=== PATIENT | male | born 1960 | race Hispanic/Latino ===

== ENCOUNTER 2022-03-01 17:50 | Inpatient (IN) | payer OTHER ==
--- OUTSIDE RECORDS SUMMARY | 2022-03-01 17:53 | XMS REPORT | Continuity of Care Document ---
:1960 Author Organization [facility] t Address [address] [place] [address] Care Team Providers Name Role Phone STEVE ALVAREZ Primary Care Physician Unavailable SHELBY MARRERO Attending Clinician Unavailable Vanessa Francis Attending Clinician VANESSA VELASQUEZ Attending Clinician Unavailable Payers Payer Name Policy Type Policy Number Effective Date Expiration Date [facility] [id number] HEALTH Problems Condition Condition Condition Status Onset Resolution Last Treating Co mments Source Name Details Category Date Date Treatment Clinician Date No known No known Disease Unive rs active active ity of problems problems [facility] Allergies, Adverse Reactions, Alerts Allergy Allergy Status Severity Reaction(s) Onset Inactive Treating Comm ents Source Name Type Date Date Clinician NO KNOWN Drug Active [facility] ALLERGIE Class ity of S [facility] Social History Social Habit Start Date Stop Date Quantity Comments Source Sex Assigned At [birth year] [facility] 00:00:00 00:00:00 [facility] Branch Smoking Status Start Date Stop Date Source Tobacco smoking consumption [facility] Branch Medications Ordered Filled Start Stop Current Ordering Indication Dosage Frequency Signature Comments Components Source Medication Medication Date Date Medication? Clinician (SIG) Name Name fluconazole No 150mg 150 mg, U nivers (DIFLUCAN) 02-26 Oral, ONCE it y of tablet 150 16:45: 16:06 [place] :00 dose, On Medical e Branch 02/26/22 at 1145, LUCIA
Re ason for Anti-Infec tive: Documented Infection< br>Documen cachorro Infection Site: Urine
D uration of Therapy: 7 days FENTanyl PF No 100ug 100 mcg, Univers (SUBLIMAZE 02-26 Intramuscu it y of (PF)) 14:45: 14:45 lar, ONCE, [place] injection 00 :00 1 dose, On Medi nick 100 mcg Tue Branch 02/26/22 at 0945, STAT lidocaine 5 2021- Yes [id number] 1{patch Apply 1 Univers % (700 02-26 } Patch to ity of mg/patch) 00:00: 04:59 area(s[place] patch 00 :00 (two) Medical times Branch daily as needed for Localized pain for up to 15 days. Remove previous patch before applying new patch Immunizations Ordered Filled Immunization Date Status Comments Sourc e Immunization Name Name SARS-COV-2 COVID-19 2020-10-08 Completed Unive rsity of MODERNA VACCINE 00:00:00 [facility] SARS-COV-2 COVID-19 2020-09-10 Completed Unive rsity of MODERNA VACCINE 00:00:00 [facility] Vital Signs Vital Name Observation Time Observation Value Comments Source Systolic blood 2022-02-26 14:03:00 145 mm[Hg] Univer sity of pressure [facility] Diastolic blood 2022-02-26 14:03:00 91 mm[Hg] Unive rsity of pressure [facility] Heart rate 2022-02-26 14:03:00 93 /min [facility] Body temperature 2022-02-26 14:03:00 36.83 [facility] Respiratory rate 2022-02-26 14:03:00 18 /min [facility] Oxygen saturation in 2022-02-26 14:03:00 97 /min [facility] Arterial blood by [facility] Pulse oximetry [place] Procedures Procedure Date / Time Performed Performing Clinician Sour e URINALYSIS 2022-02-26 14:45:00 Vanessa Velasquez [facility] NOTICE OF PRIVACY 2022-02-26 14:06:23 Doctor Unassigned, No [facility] [place] PRACTICES Name Medical Branch CONSENT/REFUSAL FOR 2022-02-26 13:59:02 Doctor Unassigned, No [facility] [place] DIAGNOSIS AND Name Medical Branch TREATMENT Encounters Start End Encounter Admission Attending Care Care Encounter Source Date/Time Date/Time Type Type Clinicians Facility Department ID 2022-03-01 2022-03-01 Outpatient AMINAH MARRERO [facility] [id number] [facility] 12:54:19 14:05:21 SHELBY Harper Medicin e 2022-02-26 2022-02-[address] [facility] [id number] Univers 09:10:00 11:09:00 Vanessa COTE [id number] i ty JIGAR [id number] [facility] [id number] [facility] 084 Branch 2022-02-26 2022-02-26 Emergency X EVA [facility] ERT [id number] Univers 09:10:00 11:09:00 VANESSA [facility] Results This patient has no known results.
[2022-03-01 18:54] LABS: Absolute Lymphocytes (CBC) 0.7 K/uL (0.7-4.9); Hematocrit 38.3 % (39.6-49.0); Lymphocytes % 18.2 % (15.3-44.8); MCV 85.9 fL (80-100); MPV 5.9 fL (7.6-11.3); RBC Red Blood Cell Count 4.46 M/uL (4.33-5.43)
[2022-03-01 18:57] LABS: Protime INR 1.06
[2022-03-01] MEDS ORDERED: FENTANYL CITR 100 MCG/2 ML ONE (19:01)
[2022-03-01 19:14] LABS: Albumin 3.7 g/dL (3.4-5.0); Bilirubin Direct 0.2 mg/dL (0-0.2); Magnesium 2.2 mg/dL (1.8-2.4); Potassium 3.7 mmol/L (3.5-5.1); Protein, Total 7.1 g/dL (6.4-8.2); Troponin High Sensitivity 9.2 pg/mL (<58.9)
--- NOTE | 2022-03-01 20:35 | RAD REPORT ---
EXAM DESCRIPTION: CT - Abdomen Pelvis W Contrast - 03/01/2022 8:10 pm CLINICAL HISTORY: Prostate cancer with back pain COMPARISON: December 2021 TECHNIQUE: Computed axial tomography of the abdomen pelvis was obtained. 100 cc Isovue-300 was admin istered intravenously. Oral contrast was not requested which limits evaluation of bowel and appendix All CT scans are performed using dose optimization technique as appropriate and may include automated exposure control or mA/KV adjustment according to patient size. FINDINGS: Stable small low-density hepatic lesions. Spleen, pancreas, right adrenal adrenal and kidneys appear unremarkable. A 2.5 centimeter left adrenal mass has enlarged. It previously measured 2 centimeters There is no evidence of diverticulitis. T11 left paraspinal mass is minimally enlarged. There probably is extension into the anterior left as pect of the thecal sac although the evaluation is somewhat limited on CT compared to MRI. Extensive bony metastases. Some are stable. Others are mildly increased in size IMPRESSION: 2.5 centimeter left adrenal mass has enlarged compatible with a metastasis Mild overall progression in extensive bony metastases Minimal enlargement of a T11 left paraspinal mass
[2022-03-01] MEDS ORDERED: HYDROMORPHONE HCL 1 MG/ML INJ ONE (20:58)
--- NOTE | 2022-03-01 22:42 | EDPHYS ---
Physician Documentation [facility] Name: Fito Alva Age: 61 yrs Sex: Male : 1960 Arrival Date: 03/01/2022 Time: 17:54 Bed 27 Private MD: Diana Jones; Robert Cunningham ED Physician Alec Taylor HPI: 03/01 18:10 This 61 yrs old Male presents to ER via Wheelchair with complaints of Low Back cp Pain. 18:10 The patient presents with pain that is acute, with no known mechanism of injury. cp 18:10 The symptoms are located in the low back. Onset: The symptoms/episode began/occurred 3 cp day(s) ago. The pain does not radiate. Associated signs and symptoms: Pertinent positives: left leg and right leg weakness, Pertinent negatives: abdominal pain, chest pain, constipation, dysuria, fever, incontinence, numbness, urinary retention. The problem was sustained patient with history of stage 4 prostate CA with bony metastasis. Severity of symptoms: in the emergency department the symptoms are unchanged, despite home interventions. Historical: - Allergies: 18:00 No Known Allergies; bm7 - Home Meds: 18:00 Unable to obtain [Active]; bm7 - PMHx: 18:00 prostate cancer with mets to the bone; bm7 - PSHx: 18:00 None; bm7 - Immunization history:: Adult Immunizations up to date. - Social history:: Smoking status: Patient/guardian denies using tobacco products. ROS: 18:15 Constitutional: Negative for body aches, chills, fever, poor PO intake. cp 18:15 Cardiovascular: Negative for chest pain, palpitations. cp 18:15 Respiratory: Negative for cough, shortness of breath, wheezing. 18:15 Abdomen/GI: Negative for abdominal pain, nausea, vomiting, and diarrhea. 18:15 Back: Positive for pain at rest, pain with movement, of the lumbar area. 18:15 : Negative for urinary symptoms, burning with urination, bladder incontinence, testicular pain 18:15 Skin: Negative for cellulitis, rash. 18:15 Neuro: Positive for weakness, of the right leg and left leg, Negative for altered mental status, dizziness, headache, numbness, syncope. Exam: 18:20 Constitutional: The patient appears in no acute distress, alert, awake, cp non-diaphoretic, non-toxic, well developed, well nourished, uncomfortable. 18:20 Head/Face: Normocephalic, atraumatic. cp 18:20 Eyes: Periorbital structures: appear normal, Conjunctiva: normal, no exudate, no injection, Sclera: no appreciated abnormality, Lids and lashes: appear normal, bilaterally. 18:20 ENT: External ear(s): are unremarkable, Nose: is normal, Mouth: Lips: moist, Oral mucosa: moist. 18:20 Neck: ROM/movement: is normal, is supple, without pain, no range of motions limitations, no meningismus. 18:20 Chest/axilla: Inspection: normal, Palpation: is normal, no crepitus, no tenderness. 18:20 Cardiovascular: Rate: normal, Rhythm: regular, Edema: is not appreciated, JVD: is not appreciated. 18:20 Respiratory: the patient does not display signs of respiratory distress, Respirations: normal, no use of accessory muscles, no retractions, labored breathing, is not present, Breath sounds: are clear throughout, no decreased breath sounds, no stridor, no wheezing. 18:20 Abdomen/GI: Inspection: abdomen appears normal, Bowel sounds: active, all quadrants, Palpation: abdomen is soft and non-tender, in all quadrants. 18:20 Back: pain, that is severe, of the lumbar area, ROM is painful, with all movement, Straight leg raises: of both lower extremities does not illicit pain. 18:20 Neuro: Orientation: to person, place \T\ time. Mentation: is normal, Motor: strength is 4/5 in the right leg and left leg, Sensation: is normal. 18:37 ECG was reviewed by the Attending Physician. cp Vital Signs: 17:58 BP 119 / 87; Pulse 86; Resp 16; Temp 98.7(TE); Pulse Ox 99% on R/A; Weight 102.06 kg bm7 (R); Height 5 ft. 7 in. (170.18 cm); Pain 10/10; 20:00 BP 117 / 78; Pulse 72; Resp 18; Pain 7/10; kb3 21:00 BP 117 / 78; Pulse 96; Resp 20; Pulse Ox 95% ; Pain 0/10; kb3 22:00 BP 101 / 73; Pulse 86; Resp 18; Pulse Ox 95% ; Pain 0/10; kb3 17:58 Body Mass Index 35.24 (102.06 kg, 170.18 cm) bm7 MDM: 18:04 Patient medically screened. nany 19:00 Differential diagnosis: chronic back pain, Metastatic Disease ruptured disc, spinal cp injury, sprain, Ureterolithiasis vertebral fracture. 20:05 Data reviewed: vital signs, nurses notes. 03/01 18:28 Order name: Basic Metabolic Panel; Complete Time: 21:08 cp 03/01 18:28 Order name: CBC with Diff; Complete Time: 21: cp 03/01 18:28 Order name: LFT's; Complete Time: 21: cp 03/01 18:28 Order name: Magnesium; Complete Time: 21:08 cp 03/01 18:28 Order name: NT PRO-BNP; Complete Time: 21:08 cp 03/01 18:28 Order name: PT-INR; Complete Time: 21: cp 03/01 18:28 Order name: Troponin HS; Complete Time: 21:08 cp 03/01 18:28 Order name: Urine Microscopic Only 03/02 03:34 Order name: CBC with Automated Diff; Complete Time: 08:09 EDMS 03/02 03:47 Order name: Basic Metabolic Panel; Complete Time: 08:09 EDMS 03/02 09:16 Order name: SARS RAPID eb 03/02 11:26 Order name: SARS-COV-2 Antigen Rapid EDMS 03/03 03:16 Order name: CBC with Automated Diff EDHI 03/03 03:26 Order name: Basic Metabolic Panel EDHI 03/01 18:28 Order name: EKG; Complete Time: 18:29 cp 03/01 18:28 Order name: Cardiac monitoring; Complete Time: 18:32 cp 03/01 18:28 Order name: EKG - Nurse/Tech; Complete Time: 18:48 cp 03/01 18:28 Order name: IV Saline Lock; Complete Time: 18:48 cp 03/01 18:28 Order name: Labs collected and sent; Complete Time: 18:48 cp 03/01 18:28 Order name: O2 Per Protocol; Complete Time: 18:32 cp 03/01 18:28 Order name: O2 Sat Monitoring; Complete Time: 18:32 cp 03/01 18:28 Order name: Bladder Scanner: pre and post void; Complete Time: 18:48 cp 03/01 18:52 Order name: CT Abd/Pelvis - IV Contrast Only; Complete Time: 21:08 cp 03/02 15:39 Order name: RAD EDMS EC:37 Rate is 76 beats/min. Rhythm is regular. NH interval is normal. QRS interval is normal. cp QT interval is normal. T waves are Inverted in lead aVR. Interpreted by me. Reviewed by me. Administered Medications: 19:03 Drug: fentaNYL (PF) 25 mcg Route: IVP; Site: right antecubital; kb3 19:20 Follow up: Response: No adverse reaction; Pain is decreased kb3 20:02 Follow up: Response: No adverse reaction; Pain is decreased kb3 21:02 Drug: Dilaudid (HYDROmorphone) 1 mg Route: IVP; Site: right antecubital; kb3 Disposition Summary: 03/01/22 22:41 Hospitalization Ordered Hospitalization Status: Inpatient Admission kdr Provider: Robert Cunningham Condition: Fair kdr Problem: new kdr Symptoms: are unchanged kdr Bed/Room Type: Standard kdr Location: Telemetry/MedSurg (Inpatient)(03/03/22 16:30) hb Room Assignment: 401(03/03/22 16:30) hb Diagnosis - Weakness kdr - Metastatic Prostate CA w/ bone/spine mets kdr Forms: - Medication Reconciliation Form kdr - SBAR form kdr Addendum: 03/08/2022 06:39 Co-signature as Attending Physician, Alec trejo dr Signatures: Dispatcher [employer] EDHI Bryce Archibald MD MD cha Rittger, Kevin, MD MD kdr Page, Corey, PA PA cp Angela Thomas RN RN Stephanie Salazar RN RN Agnes Davidson, Alicia Lofton RN RN RN kb3 Corrections: (The following items were deleted from the chart) 03/01 18:01 18:00 Allergies: No Known Allergies; bm7 bm7 18:01 18:00 Allergies: Aspirin; bm7 bm7 20:09 20:07 This 61 yrs old Male presents to ER via Wheelchair with complaints of cp Low Back Pain. cp 23:27 22:41 Telemetry/MedSurg (Inpatient) kdr cg : 22:41 kdr cg 03/03 16:30 03/01 23:27 [facility] ER HOLD cg hb 03/03 16:03/01 23:27 ERHOLD- cg hb
--- NOTE | 2022-03-01 22:42 | ER ---
Nurse's Notes [facility] Name: Fito Alva Age: 61 yrs Sex: Male : 1960 Arrival Date: 03/01/2022 Time: 17:54 Bed 27 Private MD: Diana Jones; Robert Cunninghma Diagnosis: Weakness;Metastatic Prostate CA w/ bone/spine mets Presentation: 03/01 17:58 Chief complaint: Patient's son or daughter states: Dr. Brownlee told us to come to the ER bm7 after we saw her yesterday. He has been having trouble walking or standing due to pain. Coronavirus screen: At this time, the client does not indicate any symptoms associated with coronavirus-19. Ebola Screen: No symptoms or risks identified at this time. Initial Sepsis Screen: Does the patient meet any 2 criteria? No. Patient's initial sepsis screen is negative. Does the patient have a suspected source of infection? No. Patient's initial sepsis screen is negative. Risk Assessment: Do you want to hurt yourself or someone else? Patient reports no desire to harm self or others. Onset of symptoms is unknown. 17:58 Method Of Arrival: Wheelchair bm7 17:58 Acuity: JOSE A 3 bm7 Triage Assessment: 18:00 General: Appears in no apparent distress. Behavior is calm, cooperative, appropriate bm7 for age. Pain: Complains of pain in left low back and right low back Pain does not radiate. Pain currently is 10 out of 10 on a pain scale. EENT: No deficits noted. No signs and/or symptoms were reported regarding the EENT system. Neuro: Level of Consciousness is awake, alert, obeys commands, Oriented to person, place, time, Gait is unsteady. Cardiovascular: No deficits noted. Respiratory: No deficits noted. GI: No deficits noted. No signs and/or symptoms were reported involving the gastrointestinal system. : No deficits noted. No signs and/or symptoms were reported regarding the genitourinary system. Derm: No deficits noted. No signs and/or symptoms reported regarding the dermatologic system. Musculoskeletal: Reports weakness in back, right leg and left leg pain in back. Historical: - Allergies: 18:00 No Known Allergies; bm7 - Home Meds: 18:00 Unable to obtain [Active]; bm7 - PMHx: 18:00 prostate cancer with mets to the bone; bm7 - PSHx: 18:00 None; bm7 - Immunization history:: Adult Immunizations up to date. - Social history:: Smoking status: Patient/guardian denies using tobacco products. Screenin:15 Abuse screen: Denies threats or abuse. Denies injuries from another. Nutritional kb3 screening: No deficits noted. Tuberculosis screening: No symptoms or risk factors identified. Fall Risk Fall in past 12 months (25 points). Secondary diagnosis (15 points) impaired mobility, IV access (20 points). Ambulatory Aid- Crutches/Cane/Walker (15 pts). Gait- Impaired (20 pts.). Mental Status- Oriented to own ability (0 pts). Total Vera Fall Scale indicates High Risk Score (45 or more points). Fall prevention measures have been instituted. Side Rails Up X 2 Placed Close to Nursing Station Frequent Obs/Assessments Occuring Family Present and informed to notify staff if the need to leave the bedside As available patient and family educated on Fall Prevention Program and Strategies. Assessment: 18:15 Reassessment: No changes from previously documented assessment. kb3 18:15 General: Appears in no apparent distress. uncomfortable, obese, well groomed, Behavior 3 is calm, cooperative. Pain: Complains of pain in low back area, right flank and right low back Pain radiates to right hamstring, posterior aspect of right knee, right calf, right Achilles and right heel. 18:15 General: Received care of pt from [facility]. Assisted pt to stretcher. Pt's daughter's at [facility] bedside report that pt has prostate cancer with mets to the bones in his back. Reports pt has been experiencing severe lower back pain, worse on the right, x2 weeks that radiates down his right leg. States he has been unable to stand and walk unassisted x several days. Pt reports that when lying still, he does feels only very mild pain but with any movement at all the pain is 10/10. 21:44 Musculoskeletal: Range of motion: limited in left knee and right knee Reports weakness tw5 in right leg and left leg numbness in right leg and left leg Patient states that he is unable to lift his legs without grabbing his shorts to assist himself. Describes his legs has heavy. Vital Signs: 17:58 BP 119 / 87; Pulse 86; Resp 16; Temp 98.7(TE); Pulse Ox 99% on R/A; Weight 102.06 kg bm7 (R); Height 5 ft. 7 in. (170.18 cm); Pain 10/10; 20:00 BP 117 / 78; Pulse 72; Resp 18; Pain 7/10; kb3 21:00 BP 117 / 78; Pulse 96; Resp 20; Pulse Ox 95% ; Pain 0/10; kb3 22:00 BP 101 / 73; Pulse 86; Resp 18; Pulse Ox 95% ; Pain 0/10; kb3 17:58 Body Mass Index 35.24 (102.06 kg, 170.18 cm) bm7 ED Course: 17:54 Patient arrived in ED. as 17:56 Robert Cunningham MD is Private Physician. as 17:56 Diana Jones MD is Private Physician. as 17:59 [facility] cp 17:59 Bryce Archibald MD is Attending Physician. cp 18:00 Triage completed. bm7 18:00 Arm band placed on left wrist. bm7 18:17 Alicia Wright RN is Primary Nurse. kb3 18:30 Client placed on continuous cardiac and pulse oximetry monitoring. NIBP monitoring kb3 applied. 18:30 Warm blanket given. kb3 18:30 No provider procedures requiring assistance completed. kb3 18:49 Patient has correct armband on for positive identification. Placed in gown. Bed in low kb3 position. Call light in reach. Side rails up X2. Adult w/ patient. 18:49 Inserted saline lock: 20 gauge in right antecubital area, using aseptic technique. kb3 Blood collected. 18:51 EKG done, by ED staff, reviewed by Bryce BANEGAS. em1 20:[address] kb3 20:12 CT Abd/Pelvis - IV Contrast Only In Process Unspecified. EDMS 21:07 Attending Physician role handed off by Bryce Archibald MD kdr 21:07 Alec Taylor MD is Attending Physician. kdr 22:40 Robert Cunningham MD is Hospitalizing Provider. kdr 22:48 Report given to Rickey HIGH. kb3 08/20 08:30 Primary Nurse role handed off by Alicia Wright, RN jl7 Administered Medications: 03/01 19:03 Drug: fentaNYL (PF) 25 mcg Route: IVP; Site: right antecubital; kb3 19:20 Follow up: Response: No adverse reaction; Pain is decreased kb3 20:02 Follow up: Response: No adverse reaction; Pain is decreased kb3 21:02 Drug: Dilaudid (HYDROmorphone) 1 mg Route: IVP; Site: right antecubital; kb3 Medication: 18:15 VIS not applicable for this client. kb3 Outcome: 22:41 Decision to Hospitalize by Provider. kdr 03/03 17:52 Patient left the ED. tp1 Signatures: Dispatcher [employer] EDMS Alec Taylor MD MD kdr Martinez, Amelia as Martinez, Eric em1 Bryce Crabtree PA PA cp Leal, Jahala, RN RN jl7 Agnes Davidson RN RN bm7 Ginna Benz tw5 Ginna Abdi RN RN tp1 Alicia Wright, RN RN kb3 Corrections: (The following items were deleted from the chart) 03/01 18:01 18:00 Allergies: No Known Allergies; bm7 bm7 18:01 18:00 Allergies: Aspirin; bm7 bm7
[2022-03-01] MEDS ORDERED: ACETAMINOPHEN 500 MG TAB PO PRN (23:50)
[2022-03-02 03:30] LABS: Absolute Lymphocytes (CBC) 0.8 K/uL (0.7-4.9); Hematocrit 35.7 % (39.6-49.0); Lymphocytes % 20.1 % (15.3-44.8); MPV 6.2 fL (7.6-11.3)
[2022-03-02 03:47] LABS: Potassium 3.6 mmol/L (3.5-5.1)
--- NOTE | 2022-03-02 08:56 | EKG ---
Test Date: 2022-03-01 Test Time: 18:32:03 Order Booker: IVAN MEASUREMENT RESULTS: Intervals: Rate: 76 TN: 142 QRSD: 78 QT: 374 QTc: 420 Tyler: P: 55 TN: 142 QRS: 26 T: 71 INTERPRETIVE STATEMENTS: Normal sinus rhythm Normal ECG No previous ECG available for comparison Electronically Signed On 03-02-22 08:55:47 CDT by Desmond Sierra
[2022-03-02 11:25] LABS: SARS-CoV-2 Antigen Rapid Res Negative (Negative)
[2022-03-02] MEDS: HYDROMORPHONE HCL 1 MG/ML INJ IV PRN ×2 (12:00→19:08)
[2022-03-02] MEDS: ONDANSETRON 4 MG/2 ML VIAL IV PRN (12:00)
[2022-03-02] MEDS ORDERED: HYDROMORPHONE HCL 1 MG/ML INJ ONE ×2 (12:13→19:17)
[2022-03-02] MEDS ORDERED: ONDANSETRON 4 MG/2 ML VIAL ONE (12:13)
[2022-03-02] MEDS: ENOXAPARIN 30 MG/0.3 ML SQ SCH (14:50)
[2022-03-02] MEDS: D5 0.9 NS 1,000 ML IV SCH (14:51)
[2022-03-02] MEDS: DOCUSATE NA 100 MG CAP PO PRN (14:52)
--- NOTE | 2022-03-02 15:39 | RAD REPORT ---
EXAM DESCRIPTION: RAD - Hip Right 2 View - 03/02/2022 3:17 pm CLINICAL HISTORY: Right hip pain COMPARISON: Hip Right 2 View dated 12/06/2020; Abdomen Pelvis W Contrast dated 03/01/2022 FINDINGS: AP and frog-leg views of the right hip were obtained. No dislocation of the proximal femoral head. Femoral head degenerative changes are present. No proxim al femur fracture seen. Patient has known extensive bony metastatic disease. Cortical and periosteal reactive changes superio r to the acetabulum are not clearly different from the recent CT study. AVN of the femoral head is no t suspected. Degenerative spurring changes are seen along the acetabular rim. IMPRESSION: Degenerative and metastatic changes are present at the right hip joint and right hemipel vis as detailed. No change seen from the prior day CT study.
[2022-03-02] MEDS: HYDROCODONE/APAP 7.5/325 MG TAB PO PRN (15:50)
[2022-03-02] MEDS ORDERED: HYDROCODONE/APAP 7.5/325 MG TAB ONE (15:52)
[2022-03-03] MEDS: HYDROMORPHONE HCL 1 MG/ML INJ IV PRN ×4 (00:15→19:54)
[2022-03-03] MEDS: ONDANSETRON 4 MG/2 ML VIAL IV PRN ×2 (00:16→19:55)
[2022-03-03] MEDS ORDERED: ONDANSETRON 4 MG/2 ML VIAL ONE (00:22)
[2022-03-03] MEDS ORDERED: HYDROMORPHONE HCL 1 MG/ML INJ ONE ×2 (00:22→07:57)
[2022-03-03] MEDS: D5 0.9 NS 1,000 ML IV SCH ×2 (03:06→15:55)
[2022-03-03 03:12] LABS: Absolute Lymphocytes (CBC) 0.6 K/uL (0.7-4.9); Hematocrit 37.2 % (39.6-49.0); Lymphocytes % 17.8 % (15.3-44.8); RBC Red Blood Cell Count 4.33 M/uL (4.33-5.43)
[2022-03-03] MEDS ORDERED: D5 0.9 NS 1,000 ML IV ONE ×2 (03:13→15:57)
[2022-03-03 03:25] LABS: Potassium 3.5 mmol/L (3.5-5.1)
[2022-03-03] MEDS ORDERED: HYDROCODONE/APAP 7.5/325 MG TAB ONE ×3 (07:52→15:57)
[2022-03-03] MEDS ORDERED: ENOXAPARIN 30 MG/0.3 ML SQ ONE (08:29)
[2022-03-03] MEDS: ENOXAPARIN 30 MG/0.3 ML SQ SCH (08:37)
[2022-03-03] MEDS: HYDROCODONE/APAP 7.5/325 MG TAB PO PRN ×3 (09:46→23:46)
[2022-03-03] MEDS: DOCUSATE NA 100 MG CAP PO PRN (15:56)
[2022-03-03] MEDS ORDERED: DOCUSATE NA 100 MG CAP PO ONE (15:58)
--- NOTE | 2022-03-03 17:13 | PN ---
Date of Progress Note: 03/03/2022 The patient continues to complain of pain in variable areas. There is still some minimal movement of the right hip. X-ray did show metastatic disease in this area; however, we are awaiting the MRI, wh ich will be done tomorrow before making disposition the probability of him requiring more radiation a nd/or chemo. It was told to his daughter who in turn tell it to the patient. At present the regimen of the hydrocodone 7.5 has been fairly active in controlling his pain with the addition of IV Dilaud id 1 mg. HR/MODL Voice ID: [id number] Report ID: [id number]
[2022-03-03] MEDS: GABAPENTIN 300 MG CAP PO SCH (20:17)
[2022-03-03] MEDS: PREDNISONE 5 MG PO SCH (21:00)
[2022-03-04] MEDS: D5 0.9 NS 1,000 ML IV SCH ×4 (00:28→21:16)
[2022-03-04] MEDS: HYDROMORPHONE HCL 1 MG/ML INJ IV PRN ×5 (05:38→21:22)
[2022-03-04 08:16] VITALS: BMI 35.2
[2022-03-04] MEDS: ENOXAPARIN 30 MG/0.3 ML SQ SCH (08:47)
[2022-03-04] MEDS: ABIRATERONE ACETATE 500 MG PO SCH (08:48)
[2022-03-04] MEDS: PREDNISONE 5 MG PO SCH ×2 (08:48→21:00)
--- NOTE | 2022-03-04 19:51 | RAD REPORT ---
EXAM DESCRIPTION: MRI - Spine Lumbar W/Wo Cont - 03/04/2022 7:09 pm CLINICAL HISTORY: Prostate cancer with bony metastases COMPARISON: March 01, 2022 cat scan TECHNIQUE: Sagittal T1, T2 and STIR weighted sequences were obtained. Axial T1 and T2 sequences were obtained through the lumbar disc levels. 20 cc MultiHance administered intravenously. FINDINGS: Several metastases L1 vertebral body. Largest measures 18 millimeters. Several metastases L2 vertebral body. Largest measures 26 millimeters. Several metastases L3 vertebral body. Largest measures 19 millimeters Most of the L4 vertebral body is replaced with metastatic disease. Involvement of the posterior eleme nts present. Several metastases L5 vertebral body. Largest measures 22 millimeters. All of these areas demonstrate enhancement. No pathologic fracture seen. No significant abnormal enhancement involving the spinal canal/neural foramina. IMPRESSION: Extensive lumbar spine metastatic disease .
--- NOTE | 2022-03-04 20:06 | RAD REPORT ---
EXAM DESCRIPTION: MRI - Thoracic Spine W/Wo Contr - 03/04/2022 7:03 pm CLINICAL HISTORY: Prostatic cancer with bony metastases and numbness COMPARISON: CT March 01 2022 TECHNIQUE: Sagittal T1 weighted, T2 weighted and T2 STIR weighted sequences were obtained. Axial T2 weighted images were obtained through each disc level. 20 cc MultiHance administered intravenously FINDINGS: All of the thoracic vertebra demonstrate metastatic disease. Extensive involvement is present within T3, T4, T5, T6, T9, T11 and T12 vertebra. There is neoplastic epidural enhancement involving the left posterior aspect of the thecal sac at T9- 10 extending to T10. Neoplastic extension from the posterior aspect of the T11 vertebral body into the anterior aspect of thecal sac results in compression of spinal cord. There is also extension of neoplasm along the left lateral aspect of vertebral body IMPRESSION: Extensive metastatic disease to the thoracic spine There is neoplastic epidural enhancement involving the left posterior aspect of the thecal sac at T9- 10 extending to T10. Neoplastic extension from the posterior aspect of the T11 vertebral body into the anterior aspect of thecal sac results in compression of spinal cord.
[2022-03-04] MEDS: ENSURE ENLIVE 237 ML CAN PO SCH (21:17)
[2022-03-04] MEDS: GABAPENTIN 300 MG CAP PO SCH (21:18)
--- NOTE | 2022-03-04 21:28 | RAD REPORT ---
EXAM DESCRIPTION: MRI - MRI SACRUM W/WO - 03/04/2022 7:20 pm CLINICAL HISTORY: Prostate cancer with bony metastases. Back pain COMPARISON: March 01, 2022 cat scan TECHNIQUE: Axial, sagittal and coronal magnetic resonance imaging sacrum obtained. 20 cc MultiHance administered intravenously FINDINGS: 4.2 centimeter lesion of left sacral ala. 4.7 centimeters lesion right sacral ala. Additional smaller sacral lesions. A lesion involves almost the entire visualized right ilium, right pubic bone and right ischium. Smaller lesions involves the left ilium, left pubic bone and left ischium. The lesions enhance IMPRESSION: Extensive metastatic disease involving sacrum and pelvis
[2022-03-04] MEDS: ONDANSETRON 4 MG/2 ML VIAL IV PRN (21:30)
--- NOTE | 2022-03-04 21:33 | PN ---
Date of Progress Note: 03/03/2022 According to the family, patient does feel considerably better today. He is still using the same jeffry n regimen, however, his appetite is improved. He is eating better. Hydration is also improved. He is going down at present time 4 p.m. for his MRI, obviously depending on results who depends on the f laurither course of action. HR/MODL Voice ID: [id number] Report ID: [id number]
[2022-03-04] MEDS: HYDROCODONE/APAP 7.5/325 MG TAB PO PRN (23:37)
--- NOTE | 2022-03-05 01:04 | CON ---
Reason For Consultation: The patient is a 61-year-old who was sent to the emergency room by his onco logist, Dr. Pink for further evaluation of weakness. 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 His family notes has had prostate cancer for at least 2 years and has been treated. He did receive chemotherapy and radiation and after imaging where he was lying flat for about perhaps 40 minutes, t his was more than 2 weeks ago, he had significant pain in the lower back and since last week, on , 1 week prior, was unable to stand and bear weight, and has progressive weakness in his lower extr emities and now requires total assistance for transfers. The pain was across the back and his weakne sses is in lifting his knee and extending his legs. His abdomen and pelvis CT scan on the at [facility] did identify a 2.5 cm left adrenal mass consistent with metastatic disease and ther e was minimal enlargement of a T11 left paraspinal mass. MRIs of the lumbar and thoracic spines were done, but results are pending. His complete blood count with differential showed a slightly low WBC of 3.6 and hemoglobin and hematocrit are essentially unremarkable. Coagulation panel unremarkable. His basic metabolic panel and liver function studies were unremarkable except for slightly elevated alkaline phosphatase. Urinalysis pending. COVID-19 test was negative. Past Medical History: As noted. Past Surgical History: None. Allergies: NO KNOWN DRUG ALLERGIES. Medications: Gabapentin 300 mg at bedtime, [place] 7.5/325 every 6 hours as needed, Colace 100 mg herrera y, Lovenox 30 mg subcutaneously daily, Zofran, and Ensure as well. Review of Systems: As noted, diffuse weakness worse in the lower than upper extremities in addition to numbness in the l ower extremities. He has some myalgias, arthralgias, and actually has depression as well, in terms o f his mood. Physical Examination: Vital Signs: Blood pressure 147/74, pulse is 79, respiratory rate 16, temperature 97.9, oxygen satur ation 98%. General: Mr. Santoro communicates mostly in Serbian and is provided translation. In terms of his gener al examination, he is a slightly ill obese patient without significant deficits on his general examin ation. Chest: Clear. Heart: Regular. Abdomen: Soft. Extremities: Trace edema in the lower extremities. Neurologic: He is alert and oriented to situation, place, and person. He follows commands appropria tely. Cranial nerves show no focal deficits. In terms of general motor examination in the upper ext remities, he has mild weakness, 5-/5 proximally and distally. No focal findings. In lower extremiti es, hip extension is around 4/5, knee extension 3/5 bilaterally, knee flexion 3/5, and foot plantar a nd dorsiflexion 5-/5. Sensation is slightly decreased, but intact bilaterally. Reflexes are intact and symmetric. Coordination intact except for weakness. On gait, he is not able to stand and ambula te. He was evaluated by the physical therapist and did require maximum assistance to sit to stand 10 times after 5 attempts. Assessment: Mr. Santoro is a 61-year-old patient with likely spine metastatic prostate cancer impacting his ability to use the legs. He does have MRI of the lumbar and thoracic spines pending. At this p oint, he should be complete wheelchair mobilization with max assist for his transfers. The different ial should still include disk herniation with addition to prostate cancer metastasis to the lumbar sp ine region. The MRI results will be evaluated. Continue with gabapentin for radicular type pain and again he may benefit from physical therapy to allow him to re-train his ability to do transfers with little lower extremity use . CAROLEE/YAYAL Voice ID: [id number] Report ID: [id number]
[2022-03-05] MEDS: HYDROMORPHONE HCL 1 MG/ML INJ IV PRN ×4 (02:12→21:13)
[2022-03-05] MEDS: ONDANSETRON 4 MG/2 ML VIAL IV PRN ×4 (02:15→21:14)
[2022-03-05] MEDS: D5 0.9 NS 1,000 ML IV SCH ×2 (05:21→15:05)
[2022-03-05] MEDS: HYDROCODONE/APAP 7.5/325 MG TAB PO PRN (08:50)
[2022-03-05] MEDS: ENOXAPARIN 30 MG/0.3 ML SQ SCH (08:50)
[2022-03-05] MEDS: ENSURE ENLIVE 237 ML CAN PO SCH ×2 (08:51→21:10)
[2022-03-05] MEDS: PREDNISONE 5 MG PO SCH ×2 (09:00→21:00)
[2022-03-05] MEDS: ABIRATERONE ACETATE 500 MG PO SCH (09:00)
[2022-03-05] MEDS ORDERED: dexAMETHasone 4 MG TAB PO SCH (21:00)
[2022-03-05] MEDS: GABAPENTIN 300 MG CAP PO SCH (21:11)
[2022-03-05] MEDS: dexAMETHasone 4 MG TAB PO SCH (21:11)
[2022-03-06] MEDS: ONDANSETRON 4 MG/2 ML VIAL IV PRN ×3 (04:39→23:20)
[2022-03-06] MEDS: HYDROMORPHONE HCL 1 MG/ML INJ IV PRN ×3 (04:39→23:20)
[2022-03-06] MEDS: ABIRATERONE ACETATE 500 MG PO SCH (08:29)
[2022-03-06] MEDS: PREDNISONE 5 MG PO SCH ×2 (08:30→21:00)
[2022-03-06] MEDS: dexAMETHasone 4 MG TAB PO SCH ×2 (08:34→21:58)
[2022-03-06] MEDS: ENOXAPARIN 30 MG/0.3 ML SQ SCH (08:34)
[2022-03-06] MEDS: ENSURE ENLIVE 237 ML CAN PO SCH ×2 (08:35→21:59)
[2022-03-06] MEDS: HYDROCODONE/APAP 7.5/325 MG TAB PO PRN ×2 (08:46→17:41)
[2022-03-06] MEDS ORDERED: BISACODYL 10 MG RECTAL SUPP PR ONE (16:00)
--- NOTE | 2022-03-06 20:07 | PN ---
Date of Progress Note: 03/05/2022 Patient states he feels somewhat better today and actually has requested for his analgesics. Discuss ed his case with the Oncology, who felt that possibly neurosurgical intervention might be appropriate . We will therefore contact him in the a.m., and see what is available. He is participating in PT. His vital signs are stable. Appetite has improved somewhat according to the family and nurses, and he was given some Decadron doses as well. HR/MODL Voice ID: [id number] Report ID: [id number]
--- NOTE | 2022-03-06 20:22 | PN ---
Date of Progress Note: 03/06/2022 The patient is seen somewhat better since he has been on the steroids as far as his appetite and his movement is concerned. The latter is minimal . Consultation phone law, was made with a ritu glass in [place], who suggested the possibility of a surgical procedure; however, obviously he will need to be transferred, could be evaluated prior to this. However, there has been an insurance issue for one of the hospitals and this will be further investigated in an attempt to get him to a [facility] urosurgeon for the best evaluation as to whether the procedure, which would be rather extensive as ap propriate and end of life care was also discussed with the family as far as a DNR and DNI is concerne d as well as some placement issues. However, the latter obviously depends on whether procedure can b e performed. The overall condition is stable if not somewhat improved. Continues to work with [facility] and has required less pain management since the steroids, now awaiting transfer issues [facility]. HR/MODL Voice ID: [id number] Report ID: [id number]
[2022-03-06] MEDS: GABAPENTIN 300 MG CAP PO SCH (21:58)
[2022-03-07] MEDS: HYDROCODONE/APAP 7.5/325 MG TAB PO PRN ×3 (08:48→20:44)
[2022-03-07] MEDS: dexAMETHasone 4 MG TAB PO SCH ×2 (08:49→20:44)
[2022-03-07] MEDS: DOCUSATE NA 100 MG CAP PO PRN (08:49)
[2022-03-07] MEDS: ENOXAPARIN 30 MG/0.3 ML SQ SCH (08:49)
[2022-03-07] MEDS: ABIRATERONE ACETATE 500 MG PO SCH (08:49)
[2022-03-07] MEDS: ENSURE ENLIVE 237 ML CAN PO SCH ×2 (08:50→20:47)
[2022-03-07] MEDS: PREDNISONE 5 MG PO SCH ×2 (08:50→20:46)
[2022-03-07 08:55] VITALS: O2SAT 95
[2022-03-07] MEDS ORDERED: dexAMETHasone 4 MG TAB PO ONE (13:29)
--- NOTE | 2022-03-07 19:02 | PN ---
Date of Progress Note: 03/07/2022 The patient seems somewhat more alert since morning and also slightly improved leg motion, possibly s econdary to the steroids and physical therapy. He is also improved on his appetite and has had a bow el movement. Urination is not a problem. Arrangements have now been made to transfer him to [facility] for possible decompression, awaiting transfer. We will add an extra Decadron dose t his afternoon and continue to monitor. HR/MODL Voice ID: [id number] Report ID: [id number]
[2022-03-07] MEDS: GABAPENTIN 300 MG CAP PO SCH (20:49)
[2022-03-07 22:12] VITALS: BP 158/75; TEMP 96.5
== END 2022-03-07 22:30 | disposition short-term general hospital (02) | DRG 544 ==
LOC: ER 17:50 → ERHOLD 23:53 → 4TH 03-03 17:32
PROVIDERS: ADMIT Family Medicine; ATTEND Family Medicine
DX: C79.51 Secondary malignant neoplasm of bone (principal); M54.50 Low back pain, unspecified; C61 Malignant neoplasm of prostate; Z85.46 Personal history of malignant neoplasm of prostate; Z20.822 Contact with and (suspected) exposure to COVID-19
CPT/HCPCS: 36415; 72157; 72158; 72197; 74177; 80048; 80076; 83735; 83880; 84484; 85025; 85610; 87811; 93005; 96374; 96375; 97110; 97116; 97161; 97530; 99284; A9577; J1170; J1650; J2405; J3010; J7042; J8540; Q9967; U0003

== ENCOUNTER 2022-05-23 21:04 | Inpatient (IN) | payer OTHER ==
--- OUTSIDE RECORDS SUMMARY | 2022-05-23 21:14 | XMS REPORT | Continuity of Care Document ---
:1960 Author Organization [facility] t Address [address] [place] [address] Care Team Providers Name Role Phone Marisa Robert Primary Care Physician YASH ZULETA Attending Clinician Unavailable Sammy HOLLOWAY, Yash Attending Clinician Yash Zuleta MD Attending Clinician Mima HOLLOWAY, Jax Correa Attending Clinician Rebeca Arnold MD Attending Clinician Ela HOLLOWAY, Agueda Holcomb Attending Clinician [phone] Melvin HOLLOWAY, Luci Campos Attending Clinician [phone] Radha Saenz MD Attending Clinician RADHA SAENZ Attending Clinician Unavailable Doctor Unassigned, [place] Attending Clinician Unavailable Jacinto Stovall MD Attending Clinician Unavailable Alicia HOLLOWAY, Enrique Drummond Attending Clinician Elliot HOLLOWAY, Abelino Moon Attending Clinician SHELYB MARRERO Attending Clinician Unavailable Julisa Francis Attending Clinician JULISA VELASQUEZ Attending Clinician Unavailable REBECA ARNOLD Admitting Clinician Unavailable Payers Payer Name Policy Type Policy Number Effective Date Expiration Date [facility] [id number] HEALTH Problems Condition Condition Condition Status Onset Resolution Last Treating Co mments Source Name Details Category Date Date Treatment Clinician Date 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[facility] r cancer cancer 9-28 College 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: of to bone to bone 00 Medicin e 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 Weakness Weakness Disease [facility] No known No known Disease Unive rs active active ity of problems problems [facility] Allergies, Adverse Reactions, Alerts Allergy Allergy Status Severity Reaction(s) Onset Inactive Treating Comm ents Source Name Type Date Date Clinician NO KNOWN Allergy Active [facility] NO KNOWN Drug Active Univers ALLERGIE Class ity of S [facility] Social History Social Habit Start Date Stop Date Quantity Comments Source History [facility] Exposure to 2022-04-28 2022-05-08 Not sure [facility] zhou SARS-CoV-2 (event) 00:00:00 10:03:00 of Med icine Alcohol intake 2022-03-14 2022-03-14 Ex-drinker [facility] 00:[facility]00 00:00:00 (finding) Medical Center History [facility] 2022-03-08 2022-03-[address] [facility] Transport Med 00:00:00 00:00:[address] History [facility] 2022-03-08 2022-03-[address] [facility] Housing Unable to 00:00:00 00:00:00 Medical Center Pay History [facility] 2022-03-08 2022-03-[address] [facility] Housing Places 00:00:00 00:00:00 Medical Ce nter Lived History [facility] 2022-03-08 2022-03-[address] [facility] Housing Homeless 00:00:00 00:00:00 Medical Center Last Year Tobacco use and 2022-03-08 2022-03-[address] [facility] exposure 00:00[facility]00 00:00:00 Medical Center Sex Assigned At [address] [address] [facility] 00:00:00 00:00:00 Medical Center Smoking Status Start Date Stop Date Source Tobacco smoking [facility] consumption unknown Medical Bran ch Former smoker 2022-03-08 00:00:00 2022-03-08 [facility] 00:00:00 Center Never smoked tobacco [facility] Medications Ordered Filled Start Stop Current Ordering Indication Dosage Frequency Signature Comments Components Source Medication Medication Date Date Medication? Clinician (SIG) Name Name Tamsulosin 2021-07 No Take by [place] [facility] HCl 0.4 MG 0-26 10-26 mouth. Colleg e CAPS 09:58: 00:00 of 48 :00 Medicin e mirtazapine 2021-07- No 7.5mg Take 7.5 [facility] (REMERON) 0-26 10-26 mg by [facility] 7.5 MG 09:56: 00:00 mouth of tablet 44 :00 nightly. Medicin e mirtazapine 2021-07 Yes [id number] 15mg Take 2 [facility] (REMERON) 0-26 Tablets by Gabbie ege 7.5 MG 00:00: mouth of tablet 00 nightly. Medicin e Tamsulosin 2021-07 Yes [id number] .4mg Take 0.4 [facility] HCl 0.4 MG 0-26 mg by [employer] CAPS 00:00: mouth at of 00 bedtime. Medicin e famotidine 2021-07 Yes [id number] 20mg Take 1 [facility] (PEPCID) 20 0-18 Tablet by Col lege MG tablet 00:00: mouth two of 00 times Medicin daily. e morphine 2021-07 Yes [id number] 15mg Take 1 [facility] (MS IR) 15 0-12 102 Tablet by Gabbie ege MG tablet 00:00: mouth of 00 every 4 Medicin hours as e needed for Pain. gabapentin 2021-07- Yes [id number] 300mg Take 1 [facility] (NEURONTIN) 0-12 01-11 102 capsule by Ann givens 300 MG 00:00: 05:59 mouth at of capsule 00 :00 bedtime Medicin for 90 e days. Enzalutamid Yes [id number] 160mg Take 160 [facility] e 40 MG 9-30 mg by [employer] CAPS 00:00: mouth of 00 daily. DO Medicin NOT START e UNTIL ADVISED BY DR. ZULETA morphine Yes 15mg Take 15 mg [place] [facility] (MS IR) 15 9-28 by mouth Colle ge MG tablet 10:04: every 4 of 49 hours as Medicin needed for e Pain. Tamsulosin Yes Take by [facility] HCl 04-10 mouth. College (FLOMAX) 10:04: of 0.4 MG CAPS 49 Medicin e mirtazapine Yes 7.5mg Take 7.5 [facility] (REMERON) 9-28 mg by [facility] 7.5 MG 10:04: mouth of tablet 49 nightly. Medicin e famotidine Yes 20mg Take 20 mg [facility] (PEPCID) 20 - by mouth Gabbie e[facility] MG tablet 10:04: two times of 49 daily. Medicin e Enzalutamid Yes [id number] 160mg Take 160 [facility] e 40 MG 9-28 mg by [facility] CAPS 00:00: mouth of 00 daily. DO Medicin NOT START e UNTIL ADVISED BY DR. ZULETA furosemide 2021- Yes [id number] 20mg Take 1 [facility] (LASIX) 20 04-10 10- Tablet by [facility] lege MG tablet 00:00: 04:59 mouth of 00 :00 daily for Medicin 5 days. e dexamethaso 2021- Yes [id number] 4mg Take 1 German ne 04-10 Tablet by [facility] (DECADRON) 00:00: 04:59 mouth once of 4 MG tablet 00 :00 for 1 Medicin dose. e tamsulosin 2021- No .8mg QD Take [address] (FLOMAX) 03-27 capsules [facility] 0.4 mg Cap 00:00: 23:59 (0.8 mg Med ical 24 hr 00 :00 total) by Center capsule mouth daily for 30 days. lidocaine 2021- No 2{patch Q24H Place [address] (LIDODERM) 03-27 } patches [facility] 5 % patch 00:00: 23:59 onto the Med ical 00 :00 skin daily Center for 30 days Remove & Discard patch within 12 hours or as directed by . calcium 2021- No 1{tbl} QD Take 1 [facility] carbonate-v 9-14 10-14 tablet by Estella malin itamin D3 00:00: 23:59 mouth Medica l (OSCAL-D) 00 :00 daily for Umu r 500 30 days. mg(1,250mg) -200 unit per tablet tamsulosin 2021- No .8mg QD Take [address] (FLOMAX) 03-27 capsules [facility] 0.4 mg Cap 00:00: 23:59 (0.8 mg Med ical 24 hr 00 :00 total) by Center capsule mouth daily for 30 days. lidocaine 2021- No 2{patch Q24H Place [address] (LIDODERM) 03-27 } patches [facility] 5 % patch 00:00: 23:59 onto the Med ical 00 :00 skin daily Center for 30 days Remove & Discard patch within 12 hours or as directed by . calcium 2021- No 1{tbl} QD Take 1 [facility] carbonate-v 03-27 tablet by Estella malin itamin D3 00:00: 23:59 mouth Medica l (OSCAL-D) 00 :00 daily for Umu r 500 30 days. mg(1,250mg) -200 unit per tablet acetaminoph 2022- Yes 650mg Take [address] en 03-2608 tablets [facility] (TYLENOL) 00:00: 23:59 (650 mg Medi nick 325 MG 00 :00 total) by Center tablet mouth every 6 (six) hours as needed for up to 360 days. acetaminoph 2022- Yes 650mg Take [address] [facility] 03-26 tablets [facility] (TYLENOL) 00:00: 23:59 (650 mg Medi nick 325 MG 00 :00 total) by Center tablet mouth every 6 (six) hours as needed for up to 360 days. senna-docus 2021- No 2{tbl} Q.5D Take [address] ate 03-26 tablets by Dalila (SENOKOT S) 00:00: 23:59 mouth 2 Me dical 8.6-50 mg 00 :00 (two) Center per tablet times daily for 30 days. polyethylen 2021- No 17g Q.5D Take [address] e glycol 9-13 10-13 by mouth 2 Luke s (GLYCOLAX) 00:00: 23:59 (two) Medic al 17 gram 00 :00 times Center packet daily for 30 days. mirtazapine 2021- No 7.5mg QD Take [address] (REMERON) 9-13 10-13 tablet [facility] 7.5 MG 00:00: 23:59 (7.5 mg Medical tablet 00 :00 total) by Center mouth nightly for 30 days. famotidine 2021- No 20mg Take [address] (PEPCID) 20 9-13 10-13 tablet (20 L ukes MG tablet 00:00: 23:59 mg total) Me dical 00 :00 by mouth Center every 12 (twelve) hours for 30 days. gabapentin 2021- No 200mg Q.5D Take [address] (NEURONTIN) 9-13 10-13 capsules Ronny es 100 MG 00:00: 23:59 (200 mg Medical capsule 00 :00 total) by Center mouth 2 (two) times daily for 30 days. ondansetron 2021- No 4mg Take [address] (ZOFRAN) 4 9-13 10-13 tablet (4 Ronny es MG tablet 00:00: 23:59 mg total) Me dical 00 :00 by mouth Center every 8 (eight) hours for 30 days. senna-docus 2021- No 2{tbl} Q.5D Take [address] ate 9-13 10-13 tablets by [facility] (SENOKOT S) 00:00: 23:59 mouth 2 Me dical 8.6-50 mg 00 :00 (two) Center per tablet times daily for 30 days. polyethylen 2021- No 17g Q.5D Take [address] [facility] e glycol 9-13 10-13 by mouth 2 Luke s (GLYCOLAX) 00:00: 23:59 (two) Medic al 17 gram 00 :00 times Center packet daily for 30 days. mirtazapine 2021- No 7.5mg QD Take [address] (REMERON) 9-13 10-13 tablet [facility] 7.5 MG 00:00: 23:59 (7.5 mg Medical tablet 00 :00 total) by Center mouth nightly for 30 days. famotidine 2021-2021- No 20mg Take [address] [facility] (PEPCID) 20 03-26 tablet (20 L ukes MG tablet 00:00: 23:59 mg total) Me dical 00 :00 by mouth Center every 12 (twelve) hours for 30 days. gabapentin 2021-2021- No 200mg Q.5D Take [address] (NEURONTIN) 03-26 capsules Ronny es 100 MG 00:00: 23:59 (200 mg Medical capsule 00 :00 total) by Center mouth 2 (two) times daily for 30 days. ondansetron 2021-2021- No 4mg Take [address] [facility] (ZOFRAN) 4 03-26 tablet (4 Ronny es MG tablet 00:00: 23:59 mg total) Me dical 00 :00 by mouth Center every 8 (eight) hours for 30 days. morphine 2021-0 2021- No 15mg Take [address] [facility] (MSIR) 15 03-26 tablet (15 Ronny es MG tablet 00:00: 23:59 mg total) Me dical 00 :00 by mouth Center every 4 (four) hours as needed for Pain for up to 7 days. Max Daily Amount: 90 mg morphine 2021-0 2021- No 30mg Take [address] [facility] (MS CONTIN) 03-26 tablet (30 L ukes 30 MG 12 hr 00:00: 23:59 mg total) Medical tablet 00 :00 by mouth Center every 12 (twelve) hours for 7 days. Max Daily Amount: 60 mg morphine 2021-0 2021- No 15mg Take [address] (MSIR) 15 03-26 tablet (15 Ronny es MG tablet 00:00: 23:59 mg total) Me dical 00 :00 by mouth Center every 4 (four) hours as needed for Pain for up to 7 days. Max Daily Amount: 90 mg morphine 2021-0 2021- No 30mg Take [address] (MS CONTIN) 03-2620 tablet (30 L ukes 30 MG 12 hr 00:00: 23:59 mg total) Medical tablet 00 :00 by mouth Center every 12 (twelve) hours for 7 days. Max Daily Amount: 60 mg predniSONE 2021-0 2022- No 5mg Q.5D Take [address] (DELTASONE) 9-12 -12 by mouth 2 L ukes 5 MG tablet 17:22: 00:00 (two) Medi nick 08 :00 times Center daily. predniSONE 2022-0 2022- No 5mg Q.5D Take [address] (DELTASONE) 9-12 09-12 by mouth 2 L ukes 5 MG tablet 17:22: 00:00 (two) Medi nick 08 :00 times Center daily. predniSONE 2022-0 2022- No 5mg Q.5D Take [address] (DELTASONE) 9-12 10-12 tablet (5 Estella kes 5 MG tablet 00:00: 23:59 mg total) Medical 00 :00 by mouth 2 Center (two) times daily for 30 days. predniSONE 2022-0 2022- No 5mg Q.5D Take [address] (DELTASONE) 9-12 10-12 tablet (5 Estella kes 5 MG tablet 00:00: 23:59 mg total) Medical 00 :00 by mouth 2 Center (two) times daily for 30 days. abiraterone 2022-0 2022- No 1000mg Q.5D Take 1,[address] 500 mg Tab 9-11 09-11 mg by [facility] 15:03: 00:00 mouth 2 Medical 51 :00 (two) Center times daily. abiraterone 2022-0 2022- No 1000mg Q.5D Take 1,[address] 500 mg Tab 9-11 09-11 mg by [facility] 15:03: 00:00 mouth 2 Medical 51 :00 (two) Center times daily. abiraterone 2022-0 2022- No 1000mg QD Take [address] 500 mg Tab 9-11 10-11 tablets [facility] 00:00: 23:59 (1,000 mg Medical 00 :00 total) by Center mouth nightly for 30 days. abiraterone 2022-0 2022- No 1000mg QD Take [address] 500 mg Tab 9-11 10-11 tablets [facility] 00:00: 23:59 (1,000 mg Medical 00 :00 total) by Center mouth nightly for 30 days. abiraterone 2022-0 2022- No 1000mg QD Take [address] 500 mg Tab 9-11 09-11 tablets [facility] 00:00: 00:00 (1,000 mg Medical 00 :00 total) by Center mouth nightly for 30 days. abiraterone 2021- No 1000mg QD Take [address] 500 mg Tab 03-24 tablets [facility] 00:00: 00:00 (1,000 mg Medical 00 :00 total) by Center mouth nightly for 30 days. gabapentin Yes 300mg Take 300 [facility] (NEURONTIN) 8-18 mg by [facility] 300 MG 00:00: mouth of capsule 00 nightly. Medicin e gabapentin 2021- No 300mg QD Take [address] (NEURONTIN) 8-18 09-13 mg by [facility] 300 MG 00:00: 00:00 mouth Medical capsule 00 :00 nightly. [place] gabapentin 2021- No 300mg QD Take [address] (NEURONTIN) 8-18 09-13 mg by [facility] 300 MG 00:00: 00:00 mouth Medical capsule 00 :00 nightly. [place] fluconazole No 150mg 150 mg, U nivers [...] 1 dose, On Medi nick 100 mcg e Branch 02/26/22 at 0945, STAT No known No No known Unive rs medications 02-26 medication it y of 09:05: s [place] 50 Medical Branch lidocaine 5 2021- Yes [id number] 1{patch Apply 1 Univers % (700 02-26 } Patch to ity of mg/patch) 00:00: 04:59 area(s[place] patch 00 :00 (two) Medical times Branch daily as needed for Localized pain for up to 15 days. Remove previous patch before applying new patch predniSONE 2021-0 Yes 5mg Take 5 mg [facility] (DELTASONE) 8-05 by mouth [facility]ie e[facility] 5 MG tablet 00:00: two times o f 00 daily. Medicin e Abiraterone 0 Yes 500mg Take 500 [facility] 500 8-05 mg by College MG TABS 00:00: mouth. of 00 Medicin e predniSONE 2021- No 5mg Take 5 mg [facility] (DELTASONE) 8-05 10-26 by mouth Col lege 5 MG tablet 00:00: 00:00 two times of 00 :00 daily. Medicin e Abiraterone 2021- No 500mg Take 500 [facility] Acetate 500 8-05 10-26 mg by Colleg e MG TABS 00:00: 00:00 mouth. of 00 :00 Medicin e Immunizations Ordered Filled Immunization Date Status Comments Sour e Immunization Name Name SARS-COV-2 COVID-19 2020-10-08 Completed Unive rsity of MODERNA VACCINE 00:00:00 [facility] SARS-COV-2 COVID-19 2020-10-08 Completed Unive rsity of MODERNA 12+ YRS 00:00:00 [facility] VACCINE Branch SARS-COV-2 COVID-19 2020-09-10 Completed Unive rsity of MODERNA VACCINE 00:00:00 [facility] SARS-COV-2 COVID-19 2020-09-10 Completed Unive rsity of MODERNA 12+ YRS 00:00:00 [facility] Branch Vital Signs Vital Name Observation Time Observation Value Comments Source BMI 2022-05-08 14:12:00 27.91 kg/m2 [facility] Systolic blood 2022-05-08 14:12:00 136 mm[Hg] [facility] pressure Medicine Diastolic blood 2022-05-08 14:12:00 85 mm[Hg] [facility] pressure Medicine Heart rate 2022-05-08 14:12:00 113 /min [facility] Body temperature 2022-05-08 14:12:00 36.78 Sonya [facility] Body height 2022-05-08 14:12:00 170.2 cm [facility] Body weight 2022-05-08 14:12:00 80.831 kg [facility] Systolic blood 2022-04-10 14:57:00 105 mm[Hg] [facility] Medicine Diastolic blood 2022-04-10 14:57:00 71 mm[Hg] [facility] Medicine Heart rate 2022-04-10 14:57:00 93 /min [facility] Body height 2022-04-10 14:57:00 [facility] Body weight 2022-04-10 14:57:00 94.802 [facility] BMI 2022-04-10 14:57:00 32.73 kg/m2 [facility] WEIGHT 2022-03-14 08:09:00 108.9 kg HEIGHT 2022-03-08 00:20:00 177.8 cm WEIGHT 2022-03-08 00:20:00 108.863 kg WEIGHT 2022-03-14 08:09:00 108.9 kg HEIGHT 2022-03-08 00:20:00 177.8 cm WEIGHT 2022-03-08 00:20:00 108.863 kg WEIGHT 2022-03-14 08:09:00 108.9 kg HEIGHT 2022-03-08 00:20:00 177.8 cm WEIGHT 2022-03-08 00:20:00 108.863 kg Systolic blood 2022-02-26 14:03:00 145 mm[Hg] Univer sity of pressure [facility] Diastolic blood 2022-02-26 14:03:00 91 mm[Hg] Unive rsity of pressure [facility] Heart rate 2022-02-26 14:03:00 93 /min [facility] Body temperature 2022-02-26 14:03:00 36.83 Sonya Univ ersity of [facility] Respiratory rate 2022-02-26 14:03:00 18 /min [facility] Oxygen saturation in 2022-02-26 14:03:00 97 /min University Arterial blood by [facility] Pulse oximetry Branch Systolic blood 2022-03-26 17:00:00 115 mm[Hg] [facility] Diastolic blood 2022-03-26 17:00:00 71 mm[Hg] [facility] Heart rate 2022-03-26 17:00:00 104 /min [facility] Respiratory rate 2022-03-26 17:00:00 18 /min [facility] Oxygen saturation in 2022-03-26 17:00:00 95 /min [facility] Arterial blood by Medical Ce nter Pulse oximetry Body temperature 2022-03-26 13:00:00 36.22 Sonya [facility] Body weight 2022-03-14 08:09:00 108.9 kg [facility] BMI 2022-03-14 08:09:00 34.45 kg/m2 [facility] Body height 2022-03-08 00:20:00 177.8 cm [facility] Procedures Procedure Date / Time Performing Clinician Source Performed CBC W/AUTO DIFF WITH 2022-05-08 08:35:00 [facility] Medicine COMPREHENSIVE METABOLIC 2022-05-08 08:35:[address] [facility] CBC W/PLT COUNT & AUTO 2022-03-26 03:59:00 Rekha Sanches [facility] BASIC METABOLIC PANEL 2022-03-26 03:59:00 [facility] MAGNESIUM 2022-03-26 03:59:00 Lorne [facility] CBC W/PLT COUNT & AUTO 2022-03-26 03:59:00 Rekha Sanches [facility] DIFFERENTIAL [facility] CBC W/PLT COUNT & AUTO 2022-03-25 03:45:00 Rekha Sanches [facility] DIFFERENTIAL [facility] BASIC METABOLIC PANEL 2022-03-25 03:45:00 Lorne [facility] MAGNESIUM 2022-03-25 03:45:00 Lorne [facility] CBC W/PLT COUNT & AUTO 2022-03-25 03:45:00 Rekha Sanches [facility] DIFFERENTIAL [facility] CBC W/PLT COUNT & AUTO 2022-03-24 06:32:00 Rekha Sanches [facility] BASIC METABOLIC PANEL 2022-03-24 06:32:00 Lorne [facility] MAGNESIUM 2022-03-24 06:32:00 Lorne [facility] CBC W/PLT COUNT & AUTO 2022-03-24 06:32:00 Rekha Sanches [facility] CBC W/PLT COUNT & AUTO 2022-03-23 06:08:00 Rekha Sanches [facility] BASIC METABOLIC PANEL 2022-03-23 06:08:00 Lorne [facility] MAGNESIUM 2022-03-23 06:08:00 Lorne [facility] CBC W/PLT COUNT & AUTO 2022-03-23 06:08:00 Rekha Sanches [facility] CBC W/PLT COUNT & AUTO 2022-03-22 05:18:00 Rekha Sanches [facility] BASIC METABOLIC PANEL 2022-03-22 05:18:00 Lorne [facility] MAGNESIUM 2022-03-22 05:18:00 Lorne [facility] CBC W/PLT COUNT & AUTO 2022-03-22 05:18:00 Rekha Sanches [facility] CBC W/PLT COUNT & AUTO 2022-03-21 04:13:00 Rekha Sanches [facility] BASIC METABOLIC PANEL 2022-03-21 04:13:00 Lorne [facility] MAGNESIUM 2022-03-21 04:13:00 Lorne [facility] CBC W/PLT COUNT & AUTO 2022-03-21 04:13:00 Rekha Sanches [facility] XR ABDOMEN/KUB 1 VIEW 2022-03-20 14:39[facility] & 2022-03-20 05:00:00 Rekha Sanches [facility] Medicine REF LABS) [facility] COMPREHENSIVE METABOLIC 2022-03-20 04:10:[address] [facility] Medical PANEL [facility] CBC W/PLT COUNT & AUTO 2022-03-20 04:10:[address] [facility] DIFFERENTIAL [facility] CBC W/PLT COUNT & AUTO 2022-03-20 04:10:[address] [facility] DIFFERENTIAL [facility] (CELLAVISION MANUAL 2022-03-20 04:10:[address] [facility] DIFF) [facility] CBC W/PLT COUNT & AUTO 2022-03-19 05:29:[address] [facility] DIFFERENTIAL [facility] CBC W/PLT COUNT & AUTO 2022-03-19 05:29:[address] [facility] DIFFERENTIAL [facility] COMPREHENSIVE METABOLIC 2022-03-19 04:18:[address] [facility] PANEL [facility] METABOLIC 2022-03-18 03:28:[address] [facility] PANEL [facility] CBC W/PLT COUNT & AUTO 2022-03-18 03:28:[address] [facility] DIFFERENTIAL [facility] CBC W/PLT COUNT & AUTO 2022-03-18 03:28:[address] [facility] DIFFERENTIAL [facility] REFERRAL- 2022-03-17 05:01:00 Doctor Unassigned, [place] REQUEST/RESPONSE Name Medical Branch [facility] 2022-03-17 03:07:[address] [facility] PANEL [facility] CBC W/PLT COUNT & AUTO 2022-03-17 03:07:[address] [facility] DIFFERENTIAL [facility] CBC W/PLT COUNT & AUTO 2022-03-17 03:07:[address] [facility] DIFFERENTIAL [facility] (CELLAVISION MANUAL 2022-03-17 03:07:[address] [facility] DIFF) [facility] PREPARE LEUKO-REDUCED 2022-03-16 23:54:[address] [facility] Medical RBC [facility] 2022-03-16 04:44:[address] [facility] PANEL [facility] CBC W/PLT COUNT & AUTO 2022-03-16 04:44:[address] [facility] DIFFERENTIAL [facility] CBC W/PLT COUNT & AUTO 2022-03-16 04:44:[address] [facility] Medical DIFFERENTIAL [facility] (CELLAVISION MANUAL 2022-03-16 04:44:[address] [facility] DIFF) [facility] TRANSFUSE LEUKO-REDUCED 2022-03-15 12:32:00 Tamiko Charlesbetzaida [facility] RED BLOOD CELLS [facility] TYPE AND SCREEN, 2022-03-15 10:56:00 [facility] AUTOMATED [facility] METABOLIC 2022-03-15 04:49:00 Rekha Sanches [facility] Medical PANEL [facility] CBC W/PLT COUNT & AUTO 2022-03-15 04:49:[address] [facility] Medical DIFFERENTIAL [facility] CBC W/PLT COUNT & AUTO 2022-03-15 04:49:[address] [facility] Medical DIFFERENTIAL [facility] (CELLAVISION MANUAL 2022-03-15 04:49:[address] [facility] DIFF) [facility] CT THORACIC SPINE 2022-03-14 15:06:00 Jacinto Stovall [facility] WITHOUT IV CONTRAST Center CBC W/PLT COUNT & AUTO 2022-03-14 05:50:[address] [facility] Medical DIFFERENTIAL [facility] CBC W/PLT COUNT & AUTO 2022-03-14 05:50:[address] [facility] Medical DIFFERENTIAL [facility] (CELLAVISION MANUAL 2022-03-14 05:50:[address] [facility] Medical DIFF) [facility] METABOLIC 2022-03-14 05:49:[address] [facility] Medical PANEL [facility] XR SPINE THORACIC 2 2022-03-13 13:13:[address] [facility] Medical VIEWS [facility] SARS-COV2/RT-PCR ([facility] & 2022-03-13 05:50:00 Rekha Sanches [facility] Medical REF LABS) [facility] METABOLIC 2022-03-13 05:04:[address] [facility] Medical PANEL [facility] CBC W/PLT COUNT & AUTO 2022-03-13 05:04:[address] [facility] Medical DIFFERENTIAL [facility] IRON, TIBC, % SAT. 2022-03-13 05:04:00 [facility] [facility] (WITHOUT FERRITIN) [facility] FERRITIN 2022-03-13 05:04:00 [facility] VITAMIN B12 2022-03-13 05:04:00 [facility] CBC W/PLT COUNT & AUTO 2022-03-13 05:04:00 Rekha Sanches [facility] DIFFERENTIAL [facility] (CELLAVISION MANUAL 2022-03-13 05:04:[address] [facility] Medical DIFF) [facility] COMPREHENSIVE METABOLIC 2022-03-12 04:36:00 Rekha Sanches [facility] PANEL [facility] CBC W/PLT COUNT & AUTO 2022-03-12 04:36:[address] [facility] Medical DIFFERENTIAL [facility] CBC W/PLT COUNT & AUTO 2022-03-12 04:36:00 Rekha Sanches [facility] DIFFERENTIAL [facility] (CELLAVISION MANUAL 2022-03-12 04:36:[address] [facility] Medical DIFF) [facility] TESTOSTERONE, FREE + 2022-03-11 14:30:[address] [facility] S [facility] TOTAL Center COMPREHENSIVE METABOLIC 2022-03-11 04:45:[address] [facility] PANEL [facility] CBC W/PLT COUNT & AUTO 2022-03-11 04:45:[address] [facility] Medical DIFFERENTIAL [facility] CBC W/PLT COUNT & AUTO 2022-03-11 04:45:[address] [facility] Medical DIFFERENTIAL [facility] COMPREHENSIVE METABOLIC 2022-03-10 05:44:[address] [facility] Medical PANEL [facility] CBC W/PLT COUNT & AUTO 2022-03-10 05:44:[address] [facility] CBC W/PLT COUNT & AUTO 2022-03-10 05:44:00 Rekha Sanches [facility] DIFFERENTIAL [facility] SODIUM 2022-03-09 18:16:00 Pepito Juan C [facility] HC SOMATOSENSORY TEST, 4 2022-03-09 13:20:00 Jacinto Stovall [facility] CBC W/PLT COUNT & AUTO 2022-03-09 13:11:00 Rekha Sanches [facility] DIFFERENTIAL [facility] BASIC METABOLIC PANEL 2022-03-09 13:11:[address] [facility] S [facility] MAGNESIUM 2022-03-09 13:11:00 Rekha Sanches [facility] PHOSPHORUS 2022-03-09 13:11:00 Rekha Sanches [facility] CBC W/PLT COUNT & AUTO 2022-03-09 13:11:00 Rekha Sanches [facility] DIFFERENTIAL [facility] FLUORO NON-SPECIFIC 2022-03-09 11:25:00 [facility] UP TO 1 HOUR [place] TISSUE EXAM 2022-03-09 10:35:00 [facility] FLUORO NON-SPECIFIC 2022-03-09 09:48:00 [facility] UP TO 1 HOUR [place] BLOOD GAS, ARTERIAL 2022-03-09 09:22:06 Alec Benavides [facility] PREPARE RBC 2022-03-09 08:56:00 [facility] LAMINECTOMY, SPINE, 2022-03-09 08:06:00 Critical access hospital THORACIC, WITH FUSION Center PROCEDURE W/ C-ARM 2022-03-09 08:06:00 [facility] CBC W/PLT COUNT & AUTO 2022-03-09 03:34:[address] [facility] S michael [facility] COMPREHENSIVE METABOLIC 2022-03-09 03:34:00 Rekha Sanches [facility] PANEL [facility] CBC W/PLT COUNT & AUTO 2022-03-09 03:34:00 Naofal, [facility] DIFFERENTIAL [place] MR CERVICAL SPINE WITH & 2022-03-08 20:29:00 Naofal, [facility] WITHOUT IV CONTRAST Center ABORH, MANUAL 2022-03-08 15:38:00 Shelby Mcclellan [facility] APTT 2022-03-08 15:20:00 [facility] TYPE AND SCREEN, 2022-03-08 15:20:00 [facility] AUTOM[facility] CT CHEST WITH IV 2022-03-08 14:27:00 [facility] CT ABDOMEN/PELVIS WITH 2022-03-08 14:27:00 [facility] THORACIC SPINE 2022-03-08 14:27:00 DavidFormerly [facility] WITHOUT IV CONTRAST [facility] SARS-COV2/RT-PCR ([facility] 2022-03-08 13:11:00 DavidFormerly [facility] REF LABS) [facility] XR CHEST 1 VIEW PORTABLE 2022-03-08 12:30:00 DavidFormerly [facility] / BEDSIDE [facility] ECG 12-LEAD 2022-03-08 12:15:14 [facility] CBC W/PLT COUNT & AUTO 2022-03-08 03:11:00 Nakia [facility] COMPREHENSIVE METABOLIC 2022-03-08 03:11:00 Naofal, [facility] PANEL Center PSA 2022-03-08 03:11[facility]00 [facility]R 2022-03-08 03:11:00 Naofnv, [facility] CBC W/PLT COUNT & AUTO 2022-03-08 03:11:00 [facility] URINALYSIS 2022-02-26 14:45:00 Julisa Velasquez [facility] NOTICE OF PRIVACY 2022-02-26 14:06:23 Doctor Unassigned, No [facility] Name Medical Branch CONSENT/REFUSAL FOR 2022-02-26 13:59:02 Doctor Unassigned, No [facility] DIAGNOSIS AND TREATMENT Name Medical Branch Plan of Care Planned Activity Planned Date Details Comments Source Future Scheduled 2022-05-08 Screening for malignant [facility] Test 10:54:42 neoplasm of colon of Medicin e (procedure) [code = 296796854] Future Scheduled 2022-05-08 TETANUS SHOT (ADULT) [employer] Test 10:54:42 [code = TETANUS SHOT of Medi cine (ADULT)] Future Scheduled 2022-05-08 BMI FOLLOW UP PLAN [employer] Test 10:54:42 [code = BMI FOLLOW UP of Med icine PLAN] Future Scheduled 2022-05-08 Hepatitis C screening [facility] Test 10:54:42 (procedure) [code = of Medic ine 330177749] Future Scheduled 2022-05-08 Human immunodeficiency B [facility] Test 10:54:42 virus screening of Medicine (procedure) [code = 874535467] Future Scheduled 2022-05-08 ZOSTER VACCINE (1 of 2) [facility] Test 10:54:42 [code = ZOSTER VACCINE of Me dicine (1 of 2)] Future Scheduled 2022-05-08 COVID-19 Vaccine (3 - [facility] Test 10:54:42 Booster for Moderna of Medic ine series) [code = COVID-19 Vaccine (3 - Booster for Moderna series)] Future Scheduled 2022-05-08 FLU VACCINE > 6 MONTHS B [facility] Test 10:54:42 [code = FLU VACCINE > 6 of M edicine MONTHS] Future Scheduled 2022-04-24 NM BONE SCAN WHOLE BODY Expected: [facility] Test 00:00:00 [code = 12614-8] 04/24/2022, of Medicine Expires: 07/09/2022 Future Scheduled 2022-04-10 Screening for malignant [facility] Test 11:15:43 neoplasm of colon of Medicin e (procedure) [code = 447427256] Future Scheduled 2022-04-10 TETANUS SHOT (ADULT) [employer] Test 11:15:43 [code = TETANUS SHOT of Medi cine (ADULT)] Future Scheduled 2022-04-10 BMI FOLLOW UP PLAN [employer] Test 11:15:43 [code = BMI FOLLOW UP of Med icine PLAN] Future Scheduled 2022-04-10 Hepatitis C screening [facility] Test 11:15:43 (procedure) [code = of Medic ine 748267661] Future Scheduled 2022-04-10 [facility] 11:15:43 virus screening of Medicine (procedure) [code = 984642919] Future Scheduled 2022-04-10 ZOSTER VACCINE (1 of 2) [facility] Test 11:15:43 [code = ZOSTER VACCINE of Me dicine (1 of 2)] Future Scheduled 2022-04-10 COVID-19 Vaccine (3 - [facility] Test 11:15:43 Booster for Moderna of Medic ine series) [code = COVID-19 Vaccine (3 - Booster for Moderna series)] Future Scheduled 2022-04-10 FLU VACCINE > 6 MONTHS B [facility] Test 11:15:43 [code = FLU VACCINE > 6 of M edicine MONTHS] Diagnostic Test 2022-04-10 CBC W/AUTO DIFF WITH Expected: [facility] Pending 00:00:00 PLATELETS [code = 04/10/2022, of Medicin e 60015-3] Expires: 04/24/2022 Diagnostic Test 2022-04-10 CHROMOGRANIN A [code = Expected: [facility] Pending 00:00:00 NOCPT] 04/10/2022, of Medicine Expires: 04/24/2022 Diagnostic Test 2022-04-10 COMPREHENSIVE METABOLIC Expected: [facility] Pending 00:00:00 PANEL [code = 26287-7] 04/10/2022, of Me dicine Expires: 04/24/2022 Diagnostic Test 2022-04-10 PSA [code = 2857-1] Expected: [facility] Pending 00:00:00 04/10/2022, of Medicine Expires: 04/24/2022 Diagnostic Test 2022-04-10 TESTOSTERONE [code = Expected: [facility] Pending 00:00:00 2986-8] 04/10/2022, of Medicine Expires: 04/24/2022 Diagnostic Test 2022-04-10 LIPID PANEL [code = Expected: [facility] Pending 00:00:00 62578-2] 04/10/2022, of Medicine Expires: 04/24/2022 Diagnostic Test 2022-04-10 US VENOUS LEG BILATERAL Expected: [facility] Pending 00:00:00 [code = 83355] 04/10/2022, of Medicine Expires: 04/24/2022 Future Scheduled 2022-03-14 INFLUENZA VACCINE (#1) [facility] 00:[facility]:00 [code = INFLUENZA Medical Ce nter VACCINE (#1)] Future Scheduled 2022-03-14 INFLUENZA VACCINE (#1) [facility] Test 00:00:00 [code = INFLUENZA Medical Ce nter VACCINE (#1)] Future Scheduled 2021-07-[address] [facility] Test 00:00:00 (12+) [code = Medical Center DEPRESSION SCREENING (12+)] Future Scheduled 2021-07-[address] [facility] Test 00:00:00 (12+) [code = Medical Center DEPRESSION SCREENING (12+)] Future Scheduled 2020-11-05 COVID-19 VACCINE (3 - [facility] 00:00:00 Moderna risk series) Medical Center [code = COVID-19 VACCINE (3 - Moderna risk series)] Future Scheduled 2020-11-05 COVID-19 VACCINE (3 - [facility] 00:00:00 Moderna risk series) Medical Center [code = COVID-19 VACCINE (3 - Moderna risk series)] Future Scheduled 2011 SHINGLES VACCINES ([address] [facility] Test 00:00:00 2) [code = SHINGLES [facility] Center VACCINES (1 of 2)] Future Scheduled 2011 SHINGLES VACCINES ([address] [facility] Test 00:00:00 2) [code = SHINGLES [facility] Center VACCINES (1 of 2)] Future Scheduled 1996 Lipid panel (procedure) [facility] Test 00:00:00 [code = 53254654] Medical Ce nter Future Scheduled 1996 Lipid panel (procedure) [facility] Test 00:00:00 [code = 72270019] Medical Ce nter Future Scheduled 1980 DTAP/TDAP/TD VACCINES [facility] 00:00:00 (1 - Tdap) [code = Medical C enter DTAP/TDAP/TD VACCINES (1 - Tdap)] Future Scheduled 1980 DTAP/TDAP/TD VACCINES [facility] 00:00:00 (1 - Tdap) [code = Medical C enter DTAP/TDAP/TD VACCINES (1 - Tdap)] Future Scheduled 1979 HEPATITIS C [facility]CRE[facility]ING [facility] 00:00:00 [code = HEPATITIS C Medical Center SCREENING] Future Scheduled 1979 HEPATITIS C [facility] 00:00:00 [code = HEPATITIS C Medical Center SCREENING] Future Scheduled [address] [facility] Test 00:00:00 0-64 YRS (1 - PCV) Medical C enter [code = PNEUMOCOCCAL VACCINE 0-64 YRS (1 - PCV)] Future Scheduled [address] [facility] Test 00:00:00 0-64 YRS (1 - PCV) Medical C enter [code = PNEUMOCOCCAL VACCINE 0-64 YRS (1 - PCV)] Future Scheduled 1961 CT Colonography (combo) [facility] Test 00:00:00 [code = CT Colonography [facility] (combo)] Future Scheduled 1961 Screening for malignant [facility] Test 00:00:00 neoplasm of colon Medical Ce nter (procedure) [code = 877124668] Future Scheduled 1961 Screening for malignant [facility] Test 00:00:00 neoplasm of colon Medical Ce nter (procedure) [code = 512921729] Future Scheduled 1961 Screening for malignant [facility] Test 00:00:00 neoplasm of colon Medical Ce nter (procedure) [code = 816802875] Future Scheduled 1961 Screening for malignant [facility] Test 00:00:00 neoplasm of colon Medical Ce nter (procedure) [code = 651635000] Future Scheduled 1961 Sigmoidoscopy [code = [facility] Sigmoidoscopy] Medical Cente r Future Scheduled 1961 CT Colonography (combo) [facility] Test 00:00:00 [code = CT Colonography [facility] (combo)] Future Scheduled 1961 Screening for malignant [facility] Test 00:00:00 neoplasm of colon Medical Ce nter (procedure) [code = 930356019] Future Scheduled 1961 Screening for malignant [facility] Test 00:00:00 neoplasm of colon Medical Ce nter (procedure) [code = 666702070] Future Scheduled 1961 Screening for malignant [facility] Test 00:00:00 neoplasm of colon Medical Ce nter (procedure) [code = 436638219] Future Scheduled 1961 Screening for malignant [facility] Test 00:00:00 neoplasm of colon Medical Ce nter (procedure) [code = 994860347] Future Scheduled 1961 Sigmoidoscopy [facility]code [facility] 00:[facility] Sigmoidoscopy] Medical Cente r Encounters Start End Encounter Admission Attending Care Care Encounter Source Date/Time Date/Time Type Type Clinicians Facility Department ID 2022-06-10 2022-06-10 Outpatient YASH ZULETA [facility] [id number] [facility] 00:00:00 00:00:00 [facility] 2022-05-08 2022-05-08 Outpatient [facility] [id number] [facility] 10:03:20 23:59:00 [facility] 2022-05-08 2022-05-08 Office Yash Zuleta [facility] [id number] [facility] 09:30:00 10:26:25 Visit Axel 350.1.13.21 Co llege 0.2.7.2.686 [id number] Medi kayode 504 e 2022-04-11 2022-04-11 Outside Yash Zuleta [facility] [id number] 00:[facility]00 00:00:00 [facility] 2022-04-11 2022-04-11 Outside Yash Zuleta [facility] [id number] [id number] 00:00[facility]00 00:00:00 [facility] 2022-04-10 2022-04-10 Office YASH ZULETA [facility] [id number] [facility] 09:50:49 11:02:24 Visit Axel 350.1.13.21 Co llege 0.2.7.2.686 of [id number] [facility] kayode 504 e 2022-04-10 2022-04-10 Orders SammyCiriloYash [facility] [id number] [id number] 00:00[facility]00 00:00:00 Only [facility] 2022-04-10 2022-04-10 Orders Sammy Yash [facility] [id number] [id number] 00:00:00 00:00:00 Only [facility] 2022-03-07 2022-03-26 [facility] [id number] 23:48:00 19:15:00 [facility] 2022-03-07 2022-03-26 Inpatient [facility] Neurology [id number] [facility] 23:48:00 19:15:00 [facility] 2022-03-07 2022-03-26 [facility] [id number] 23:48:00 19:15:00 Encounter Wesleydanie [facility] 2022-03-17 2022-03-17 Orders Doctor YATES [id number] 00:00:00 00:00:00 Only Unassigned, NINA 350.1.13.10 ity of [place] [facility] 4.2.7.2.686 Reza as [id number] [facility] 009 Branch 2022-03-09 2022-03-09 Surgery Wilman, [facility] [id number] 08:00:00 13:56:00 [facility] 2022-03-09 2022-03-09 Surgery Wilman, [facility] [id number] 08:00:00 13:56:00 [facility] 2022-03-09 2022-03-09 Anesthesia Enrique Vargas [facility] [id number] 08:06:00 13:05:00 Event Abelino Zarate Red [facility] 2022-03-09 2022-03-09 Anesthesia Enrique Vargas [facility] [id number] 08:06:00 13:05:00 Event Justyna Zarateshua [facility] 2022-03-08 2022-03-08 Outpatient [facility] [id number] [facility] 00:00:00 23:59:00 [facility] 2022-03-08 2022-03-08 Travel [facility] [id number] [facility] 00:00[facility]00 00:00:00 [facility] 2022-03-08 2022-03-08 Travel [facility] [id number] [facility] 00:00[facility]00 00:00:00 [facility] 2022-03-07 2022-03-07 Outpatient [facility] [id number] [facility] 23:48:00 23:59:00 [facility] 2022-03-01 2022-03-01 Outpatient JANES [facility] [id number] [facility] 12:54:19 14:05:21 [facility] 2022-02-26 2022-02-26 Emergency [facility] [id number] Univers 09:10:00 11:09:00 Julisa COTE 350.1.13.10 i ty [facility] 4.2.7.2.686 [facility] [id number] [place] [id number] Branch 2022-02-26 2022-02-26 Emergency X [facility] ERT [id number] Univers 09:10:00 11:09:00 JULISA anand [facility] Results Test Description Test Time Test Comments Results Result Comments Source MAGNESIUM 2022-03-26 05:43:48 Test Item Value Reference Range Interpretation Comme nts MAGNESIUM (BEAKER) (test code = 627) 1.9 mg/dL 1.6-2.6 Specimen slightly hemolyzed Physiatrist ID - PIAYA LBASIC METABOLIC [id number] 05:43:48 Test Item Value Reference Range Interpretation Comments SODIUM (BEAKER) 134 meq/L 136-145 L (test code = 381) POTASSIUM 4.1 meq/L 3.5-5.1 Specimen slight ly (BEAKER) (test hemolyzed code = 379) CHLORIDE (BEAKER) 104 meq/L 98-107 (test code = 382) CO2 (BEAKER) 22 meq/L 22-29 (test code = 355) BLOOD UREA 7 mg/dL 7-21 NITROGEN (BEAKER) (test code = 354) CREATININE 0.69 mg/dL 0.57-1.25 Specimen slight ly (BEAKER) (test hemolyzed code = 358) GLUCOSE RANDOM 102 mg/dL 70-105 (BEAKER) (test code = 652) CALCIUM (BEAKER) 8.4 mg/dL 8.4-10.2 (test code = 697) EGFR (BEAKER) 105 Interpretatio n of eGFR (test code = mL/min/1.73 values Stage De scription 1092) sq m Result G1 Mariel l or high >=90 G2 Mildly decreased 60-89 G3a Mildl y to moderately 45-5 9 G3b Moderately to s everely 30-44 G4 Severl y decreased 15-29 G5 Kidney failure <15Reported eGF R is based on the CKD-EPI 2020 equation that d oes not use a race coefficientEsti mated GFR is not as accur ate as Creatinine Wilda santizo in predicting glom erular filtration rate . Estimated GFR is not appl icable for dialysis patien ts Physiatrist ID - PIAYA LCBC W/PLT COUNT & AUTO [id number] 04:28:55 Test Item Value Reference Range Interpretation Comments WHITE BLOOD CELL COUNT (BEAKER) 3.0 K/ L 3.5-10.5 L (test code = 775) RED BLOOD CELL COUNT (BEAKER) 2.98 M/ L 4.63-6.08 L (test code = 761) HEMOGLOBIN (BEAKER) (test code = 8.4 GM/DL 13.7-17.5 L 410) HEMATOCRIT (BEAKER) (test code = 27.3 % 40.1-51.0 L 411) MEAN CORPUSCULAR VOLUME (BEAKER) 91.6 fL 79.0-92.2 (test code = 753) MEAN CORPUSCULAR HEMOGLOBIN 28.2 pg 25.7-32.2 (BEAKER) (test code = 751) MEAN CORPUSCULAR HEMOGLOBIN CONC 30.8 GM/DL 32.3-36.5 L (BEAKER) (test code = 752) RED CELL DISTRIBUTION WIDTH 17.0 % 11.6-14.4 H (BEAKER) (test code = 412) PLATELET COUNT (BEAKER) (test 176 K/CU MM 150-450 code = 756) MEAN PLATELET VOLUME (BEAKER) 8.3 fL 9.4-12.4 L (test code = 754) NUCLEATED RED BLOOD CELLS 1 /100 WBC 0-0 H (BEAKER) (test code = 413) NEUTROPHILS RELATIVE PERCENT 57 % (BEAKER) (test code = 429) LYMPHOCYTES RELATIVE PERCENT 30 % (BEAKER) (test code = 430) MONOCYTES RELATIVE PERCENT 7 % (BEAKER) (test code = 431) EOSINOPHILS RELATIVE PERCENT 3 % (BEAKER) (test code = 432) BASOPHILS RELATIVE PERCENT 1 % (BEAKER) (test code = 437) NEUTROPHILS ABSOLUTE COUNT 1.69 K/ L 1.78-5.38 L (BEAKER) (test code = 670) LYMPHOCYTES ABSOLUTE COUNT 0.91 K/ L 1.32-3.57 L (BEAKER) (test code = 414) MONOCYTES ABSOLUTE COUNT (BEAKER) 0.22 K/ L 0.30-0.82 L (test code = 415) EOSINOPHILS ABSOLUTE COUNT 0.09 K/ L 0.04-0.54 (BEAKER) (test code = 416) BASOPHILS ABSOLUTE COUNT (BEAKER) 0.02 K/ L 0.01-0.08 (test code = 417) IMMATURE GRANULOCYTES-RELATIVE 2 % 0-1 H PERCENT (BEAKER) (test code = 2801) BASIC METABOLIC [id number] 04:43:27 Test Item Value Reference Range Interpretation Comments SODIUM (BEAKER) 134 meq/L 136-145 L (test code = 381) POTASSIUM 3.9 meq/L 3.5-5.1 (BEAKER) (test code = 379) CHLORIDE (BEAKER) 104 meq/L 98-107 (test code = 382) CO2 (BEAKER) 23 meq/L 22-29 (test code = 355) BLOOD UREA 9 mg/dL 7-21 NITROGEN (BEAKER) (test code = 354) CREATININE 0.78 mg/dL 0.57-1.25 (BEAKER) (test code = 358) GLUCOSE RANDOM 98 mg/dL 70-105 (BEAKER) (test code = 652) CALCIUM (BEAKER) 8.4 mg/dL 8.4-10.2 (test code = 697) EGFR (BEAKER) 102 Interpretatio n of eGFR (test code = mL/min/1.73 values Stage De scription 1092) sq m Result G1 Mariel l or high >=90 G2 Mildly decreased 60-89 G3a Mild ly to moderately 45-5 9 G3b Moderately to s everely 30-44 G4 Severl y decreased 15-29 G5 Kidney failure <15Reported eGF R is based on the CKD-EPI 2020 equation that d oes not use a race coefficientEsti mated GFR is not as accur ate as Creatinine Wilda darlyn in predicting glom erular filtration rate . Estimated GFR is not appl icable for dialysis patien ts Physiatrist ID - REBECA [id number] 04:43:27 Test Item Value Reference Range Interpretation Comments MAGNESIUM (BEAKER) (test code = 1.9 mg/dL 1.6-2.6 627) Physiatrist ID Brittany JOSE WCBC W/PLT COUNT & AUTO [id number] 04:10:01 Test Item Value Reference Range Interpretation Comments WHITE BLOOD CELL COUNT (BEAKER) 2.5 K/ L 3.5-10.5 L (test code = 775) RED BLOOD CELL COUNT (BEAKER) 2.95 M/ L 4.63-6.08 L (test code = 761) HEMOGLOBIN (BEAKER) (test code = 8.3 GM/DL 13.7-17.5 L 410) HEMATOCRIT (BEAKER) (test code = 26.7 % 40.1-51.0 L 411) MEAN CORPUSCULAR VOLUME (BEAKER) 90.5 fL 79.0-92.2 (test code = 753) MEAN CORPUSCULAR HEMOGLOBIN 28.1 pg 25.7-32.2 (BEAKER) (test code = 751) MEAN CORPUSCULAR HEMOGLOBIN CONC 31.1 GM/DL 32.3-36.5 L (BEAKER) (test code = 752) RED CELL DISTRIBUTION WIDTH 17.2 % 11.6-14.4 H (BEAKER) (test code = 412) PLATELET COUNT (BEAKER) (test 154 K/CU MM 150-450 code = 756) MEAN PLATELET VOLUME (BEAKER) 8.1 fL 9.4-12.4 L (test code = 754) NUCLEATED RED BLOOD CELLS 1 /100 WBC 0-0 H (BEAKER) (test code = 413) NEUTROPHILS RELATIVE PERCENT 49 % (BEAKER) (test code = 429) LYMPHOCYTES RELATIVE PERCENT 35 % (BEAKER) (test code = 430) MONOCYTES RELATIVE PERCENT 9 % (BEAKER) (test code = 431) EOSINOPHILS RELATIVE PERCENT 5 % (BEAKER) (test code = 432) BASOPHILS RELATIVE PERCENT 1 % (BEAKER) (test code = 437) NEUTROPHILS ABSOLUTE COUNT 1.20 K/ L 1.78-5.38 L (BEAKER) (test code = 670) LYMPHOCYTES ABSOLUTE COUNT 0.86 K/ L 1.32-3.57 L (BEAKER) (test code = 414) MONOCYTES ABSOLUTE COUNT (BEAKER) 0.22 K/ L 0.30-0.82 L (test code = 415) EOSINOPHILS ABSOLUTE COUNT 0.11 K/ L 0.04-0.54 (BEAKER) (test code = 416) BASOPHILS ABSOLUTE COUNT (BEAKER) 0.02 K/ L 0.01-0.08 (test code = 417) IMMATURE GRANULOCYTES-RELATIVE 2 % 0-1 H PERCENT (BEAKER) (test code = 2801) BASIC METABOLIC [id number] 08:00:28 Test Item Value Reference Range Interpretation Comments SODIUM (BEAKER) 136 meq/L 136-145 (test code = 381) POTASSIUM 4.4 meq/L 3.5-5.1 Specimen slight ly (BEAKER) (test hemolyzed code = 379) CHLORIDE (BEAKER) 106 meq/L 98-107 (test code = 382) CO2 (BEAKER) 23 meq/L 22-29 (test code = 355) BLOOD UREA 8 mg/dL 7-21 NITROGEN (BEAKER) (test code = 354) CREATININE 0.68 mg/dL 0.57-1.25 Specimen slight ly (BEAKER) (test hemolyzed code = 358) GLUCOSE RANDOM 97 mg/dL 70-105 (BEAKER) (test code = 652) CALCIUM (BEAKER) 8.6 mg/dL 8.4-10.2 (test code = 697) EGFR (BEAKER) 106 Interpretatio n of eGFR (test code = mL/min/1.73 values Stage De scription 1092) sq m Result G1 Mariel l or high >=90 G2 Mildly decreased 60-89 G3a Mildl y to moderately 45-5 9 G3b Moderately to s everely 30-44 G4 Severl y decreased 15-29 G5 Kidney failure <15Reported eGF R is based on the CKD-EPI 2020 equation that d oes not use a race coefficientEsti mated GFR is not as accur ate as Creatinine Wilda darlyn in predicting glom erular filtration rate . Estimated GFR is not appl icable for dialysis patien ts Physiatrist ID - PIJORGE [id number] 07:59:43 Test Item Value Reference Range Interpretation Comments MAGNESIUM (BEAKER) 1.9 mg/dL 1.6-2.6 Specimen slightly (test code = 627) hemolyzed Physiatrist ID - JESUS MANUEL LCBC W/PLT COUNT & AUTO [id number] 07:01:29 Test Item Value Reference Range Interpretation Comments WHITE BLOOD CELL COUNT (BEAKER) 2.6 K/ L 3.5-10.5 L (test code = 775) RED BLOOD CELL COUNT (BEAKER) 2.96 M/ L 4.63-6.08 L (test code = 761) HEMOGLOBIN (BEAKER) (test code = 8.4 GM/DL 13.7-17.5 L 410) HEMATOCRIT (BEAKER) (test code = 26.2 % 40.1-51.0 L 411) MEAN CORPUSCULAR VOLUME (BEAKER) 88.5 fL 79.0-92.2 (test code = 753) MEAN CORPUSCULAR HEMOGLOBIN 28.4 pg 25.7-32.2 (BEAKER) (test code = 751) MEAN CORPUSCULAR HEMOGLOBIN CONC 32.1 GM/DL 32.3-36.5 L (BEAKER) (test code = 752) RED CELL DISTRIBUTION WIDTH 17.0 % 11.6-14.4 H (BEAKER) (test code = 412) PLATELET COUNT (BEAKER) (test 180 K/CU MM 150-450 code = 756) MEAN PLATELET VOLUME (BEAKER) 8.2 fL 9.4-12.4 L (test code = 754) NUCLEATED RED BLOOD CELLS 1 /100 WBC 0-0 H (BEAKER) (test code = 413) NEUTROPHILS RELATIVE PERCENT 58 % (BEAKER) (test code = 429) LYMPHOCYTES RELATIVE PERCENT 29 % (BEAKER) (test code = 430) MONOCYTES RELATIVE PERCENT 7 % (BEAKER) (test code = 431) EOSINOPHILS RELATIVE PERCENT 4 % (BEAKER) (test code = 432) BASOPHILS RELATIVE PERCENT 1 % (BEAKER) (test code = 437) NEUTROPHILS ABSOLUTE COUNT 1.48 K/ L 1.78-5.38 L (BEAKER) (test code = 670) LYMPHOCYTES ABSOLUTE COUNT 0.73 K/ L 1.32-3.57 L (BEAKER) (test code = 414) MONOCYTES ABSOLUTE COUNT (BEAKER) 0.17 K/ L 0.30-0.82 L (test code = 415) EOSINOPHILS ABSOLUTE COUNT 0.10 K/ L 0.04-0.54 (BEAKER) (test code = 416) BASOPHILS ABSOLUTE COUNT (BEAKER) 0.02 K/ L 0.01-0.08 (test code = 417) IMMATURE GRANULOCYTES-RELATIVE 2 % 0-1 H PERCENT (BEAKER) (test code = 2801) [id number] 10:17:46 Test Item Value Reference Range Interpretation Comments MAGNESIUM (BEAKER) (test code = 1.9 mg/dL 1.6-2.6 627) Physiatrist ID - MARLI MBASIC METABOLIC [id number] 08:30:36 Test Item Value Reference Range Interpretation Comments SODIUM (BEAKER) 135 meq/L 136-145 L (test code = 381) POTASSIUM 3.7 meq/L 3.5-5.1 (BEAKER) (test code = 379) CHLORIDE (BEAKER) 104 meq/L 98-107 (test code = 382) CO2 (BEAKER) 24 meq/L 22-29 (test code = 355) BLOOD UREA 10 mg/dL 7-21 NITROGEN (BEAKER) (test code = 354) CREATININE 0.68 mg/dL 0.57-1.25 (BEAKER) (test code = 358) GLUCOSE RANDOM 86 mg/dL 70-105 (BEAKER) (test code = 652) CALCIUM (BEAKER) 7.2 mg/dL 8.4-10.2 L (test code = 697) EGFR (BEAKER) 106 Interpretatio n of eGFR (test code = mL/min/1.73 values Stage De scription 1092) sq m Result G1 Mariel l or high >=90 G2 Mildly decreased 60-89 G3a Mildl y to moderately 45-5 9 G3b Moderately to s everely 30-44 G4 Severl y decreased 15-29 G5 Kidney failure <15Reported eGF R is based on the CKD-EPI 2020 equation that d oes not use a race coefficientEsti mated GFR is not as accur ate as Creatinine Wilda darlyn in predicting glom erular filtration rate . Estimated GFR is not appl icable for dialysis patien ts Physiatrist ID - MARLI MCBC W/PLT COUNT & AUTO [id number] 06:32:36 Test Item Value Reference Range Interpretation Comments WHITE BLOOD CELL COUNT (BEAKER) 2.6 K/ L 3.5-10.5 L (test code = 775) RED BLOOD CELL COUNT (BEAKER) 2.97 M/ L 4.63-6.08 L (test code = 761) HEMOGLOBIN (BEAKER) (test code = 8.4 GM/DL 13.7-17.5 L 410) HEMATOCRIT (BEAKER) (test code = 26.3 % 40.1-51.0 L 411) MEAN CORPUSCULAR VOLUME (BEAKER) 88.6 fL 79.0-92.2 (test code = 753) MEAN CORPUSCULAR HEMOGLOBIN 28.3 pg 25.7-32.2 (BEAKER) (test code = 751) MEAN CORPUSCULAR HEMOGLOBIN CONC 31.9 GM/DL 32.3-36.5 L (BEAKER) (test code = 752) RED CELL DISTRIBUTION WIDTH 16.9 % 11.6-14.4 H (BEAKER) (test code = 412) PLATELET COUNT (BEAKER) (test 162 K/CU MM 150-450 code = 756) MEAN PLATELET VOLUME (BEAKER) 8.2 fL 9.4-12.4 L (test code = 754) NUCLEATED RED BLOOD CELLS 2 /100 WBC 0-0 H (BEAKER) (test code = 413) NEUTROPHILS RELATIVE PERCENT 61 % (BEAKER) (test code = 429) LYMPHOCYTES RELATIVE PERCENT 23 % (BEAKER) (test code = 430) MONOCYTES RELATIVE PERCENT 6 % (BEAKER) (test code = 431) EOSINOPHILS RELATIVE PERCENT 5 % (BEAKER) (test code = 432) BASOPHILS RELATIVE PERCENT 1 % (BEAKER) (test code = 437) NEUTROPHILS ABSOLUTE COUNT 1.60 K/ L 1.78-5.38 L (BEAKER) (test code = 670) LYMPHOCYTES ABSOLUTE COUNT 0.61 K/ L 1.32-3.57 L (BEAKER) (test code = 414) MONOCYTES ABSOLUTE COUNT (BEAKER) 0.16 K/ L 0.30-0.82 L (test code = 415) EOSINOPHILS ABSOLUTE COUNT 0.13 K/ L 0.04-0.54 (BEAKER) (test code = 416) BASOPHILS ABSOLUTE COUNT (BEAKER) 0.02 K/ L 0.01-0.08 (test code = 417) IMMATURE GRANULOCYTES-RELATIVE 4 % 0-1 H PERCENT (BEAKER) (test code = 2801) [id number] 08:09:13 Test Item Value Reference Range Interpretation Comments MAGNESIUM (BEAKER) 2.0 mg/dL 1.6-2.6 Specimen slightly (test code = 627) hemolyzed Physiatrist ID - MARLI MBASIC METABOLIC [id number] 08:09:13 Test Item Value Reference Range Interpretation Comments SODIUM (BEAKER) 136 meq/L 136-145 (test code = 381) POTASSIUM 4.1 meq/L 3.5-5.1 Specimen slight ly (BEAKER) (test hemolyzed code = 379) CHLORIDE (BEAKER) 106 meq/L 98-107 (test code = 382) CO2 (BEAKER) 23 meq/L 22-29 (test code = 355) BLOOD UREA 10 mg/dL 7-21 NITROGEN (BEAKER) (test code = 354) CREATININE 0.66 mg/dL 0.57-1.25 Specimen slight ly (BEAKER) (test hemolyzed code = 358) GLUCOSE RANDOM 96 mg/dL 70-105 (BEAKER) (test code = 652) CALCIUM (BEAKER) 8.5 mg/dL 8.4-10.2 (test code = 697) EGFR (BEAKER) 107 Interpretatio n of eGFR (test code = mL/min/1.73 values Stage De scription 1092) sq m Result G1 Mariel l or high >=90 G2 Mildly decreased 60-89 G3a Mildl y to moderately 45-5 9 G3b Moderately to s everely 30-44 G4 Severl y decreased 15-29 G5 Kidney failure <15Reported eGF R is based on the CKD-EPI 2020 equation that d oes not use a race coefficientEsti mated GFR is not as accur ate as Creatinine Wilda darlyn in predicting glom erular filtration rate . Estimated GFR is not appl icable for dialysis patien ts Physiatrist ID - MARLI MCBC W/PLT COUNT & AUTO [id number] 06:49:25 Test Item Value Reference Range Interpretation Comments WHITE BLOOD CELL COUNT (BEAKER) 2.9 K/ L 3.5-10.5 L (test code = 775) RED BLOOD CELL COUNT (BEAKER) 2.80 M/ L 4.63-6.08 L (test code = 761) HEMOGLOBIN (BEAKER) (test code = 7.9 GM/DL 13.7-17.5 L 410) HEMATOCRIT (BEAKER) (test code = 25.5 % 40.1-51.0 L 411) MEAN CORPUSCULAR VOLUME (BEAKER) 91.1 fL 79.0-92.2 (test code = 753) MEAN CORPUSCULAR HEMOGLOBIN 28.2 pg 25.7-32.2 (BEAKER) (test code = 751) MEAN CORPUSCULAR HEMOGLOBIN CONC 31.0 GM/DL 32.3-36.5 L (BEAKER) (test code = 752) RED CELL DISTRIBUTION WIDTH 16.2 % 11.6-14.4 H (BEAKER) (test code = 412) PLATELET COUNT (BEAKER) (test 192 K/CU MM 150-450 code = 756) MEAN PLATELET VOLUME (BEAKER) 8.4 fL 9.4-12.4 L (test code = 754) NUCLEATED RED BLOOD CELLS 2 /100 WBC 0-0 H (BEAKER) (test code = 413) NEUTROPHILS RELATIVE PERCENT 68 % (BEAKER) (test code = 429) LYMPHOCYTES RELATIVE PERCENT 19 % (BEAKER) (test code = 430) MONOCYTES RELATIVE PERCENT 6 % (BEAKER) (test code = 431) EOSINOPHILS RELATIVE PERCENT 3 % (BEAKER) (test code = 432) BASOPHILS RELATIVE PERCENT 1 % (BEAKER) (test code = 437) NEUTROPHILS ABSOLUTE COUNT 1.97 K/ L 1.78-5.38 (BEAKER) (test code = 670) LYMPHOCYTES ABSOLUTE COUNT 0.55 K/ L 1.32-3.57 L (BEAKER) (test code = 414) MONOCYTES ABSOLUTE COUNT (BEAKER) 0.16 K/ L 0.30-0.82 L (test code = 415) EOSINOPHILS ABSOLUTE COUNT 0.10 K/ L 0.04-0.54 (BEAKER) (test code = 416) BASOPHILS ABSOLUTE COUNT (BEAKER) 0.02 K/ L 0.01-0.08 (test code = 417) IMMATURE GRANULOCYTES-RELATIVE 4 % 0-1 H PERCENT (BEAKER) (test code = 2801) SHORT-LATENCY SPE, ALL [id number] 18:54:00[facility] 1960 Sex: MINTRAOPERATIVE MONITORING REPORT Patient Name: Fito Choudhary Location: [facility] Surgery Date: 03/09/2022 [place] Pro: [id number] Surgeon: MD Wilman Monitoring Technologist: RAYMOND Ramsay Start time (engine test cell technician): 08:06 In Room End time (engine test cell technician): Out of Room Examining Neurologist #1: Jacqui Koch MD Start time (incision): 09:06 End time (closed): 13:20 Procedure: Posterior Thoraco-Lumbar Fusion with Laminectomy T9-L1 Stimulation Parameters: Ulnar nerves individually stimulated at the wrist Rate 4.7Hz, Intensity 30mA, Duration 0.3ms Posterior Tibial nerves individually stimulated at the ankle Rate 4.7Hz, Intensity 70-80mA, Duration 0.5-0.65ms Filters 30-500Hz, Notch Off Motor strip stimulated anterior to C3 and C4 with alternating Polarities using quadripole method Intensity 200-1000 Volts, Train Rate 9, RAUL 2-3ms Filters 30-2KHz, Notch Off Recording Parameters: EP1, EP2, CV, CP3, CP4, CPz, and FPz Transcranial electrical Motor Evoked Potentials recorded from the APB-ADM, TA, GN, AH-EDB muscle groups Free-running EEG recorded with bipolar derivation, using modified International 10/20 placements: C3-FPZ, C4-FPz Technical Description: Bilateral SSEPs-Upper: Somatosensory evoked potentials of the ulnar nerves were attempted using electrodes placed at Erb's point, cervical area and the scalp. Amplitudes and latencies of these responses were evaluated by the neurophysiologist and the results were reported verbally to the surgical team. Bilateral upper SSEP responses were present and reproducible at baseline. No significant surgically related changes in amplitude or latency of the somatosensory evoked responses were noted throughout the surgical procedure. At closing, responses were judged to be essentially unchanged from those of post-positioning baselines. Bilateral SSEPs-Lower: Somatosensory evoked potentials of the posteriortibial nerves were attempted using electrodes placed in the cervical area and the scalp. Amplitudes and latencies of these responses were evaluated by the neurophysiologist and the results were reported verbally to the surgical team. Bilateral lower SSEP responses were present and reproducible at baseline. At approximately 10:00am, a bilateral change was noted and reported to the surgeon to which he acknowledged. The reader was also consulted. Troubleshooting measures were taken, which included a decrease in Propofol. In time, the responses returned to baseline values. The surgeon was informed and acknowledged. At closing, responses were judged to be essentially unchanged from those of post-positioning baselines. Bilateral TCeMEPs: Transcranial motor evoked potentials (TCeMEPs) were produced using a multi-pulse stimulator and were recorded with pairs of subdermal needle electrodes overlaying theabove listed muscles bilaterally. Bilateral upper extremity responses were present, however, lower responses were not. Any change in the motor evoked potentials was reported verbally to the surgical team. No significant surgically related changes in amplitude or latency of the TceMEPs were noted throughout the surgical procedure. At closing, most responses were judged to be essentially unchanged fromthose of post-positioning baselines. The surgeon was informed that a low amplitude response from theleft lower foot was present and reproducible, he acknowledged. IMPRESSION: No significant changes in upper somatosensory evoked potentials during the procedure. All significant changes in lower somatosensory evoked potentials during the procedure were noted and reported to the surgeon. Any changes in the transcranial motor evoked potentials during the procedure were reported to the surgeon at the time of elicitation. Signature line: ICD10: BASI METABOLIC PANEL 2022-03-21 06:32:41 Test Item Value Reference Range Interpretation Comments SODIUM (BEAKER) 135 meq/L 136-145 L (test code = 381) POTASSIUM 3.7 meq/L 3.5-5.1 (BEAKER) (test code = 379) CHLORIDE (BEAKER) 104 meq/L 98-107 (test code = 382) CO2 (BEAKER) 24 meq/L 22-29 (test code = 355) BLOOD UREA 9 mg/dL 7-21 NITROGEN (BEAKER) (test code = 354) CREATININE 0.70 mg/dL 0.57-1.25 (BEAKER) (test code = 358) GLUCOSE RANDOM 99 mg/dL 70-105 (BEAKER) (test code = 652) CALCIUM (BEAKER) 8.3 mg/dL 8.4-10.2 L (test code = 697) EGFR (BEAKER) 105 Interpretatio n of eGFR (test code = mL/min/1.73 values Stage De scription 1092) sq m Result G1 Mariel l or high >=90 G2 Mildly decreased 60-89 G3a Mildl y to moderately 45-5 9 G3b Moderately to s everely 30-44 G4 Severl y decreased 15-29 G5 Kidne y failure <15Reported eGF R is based on the CKD-EPI 2020 equation that d oes not use a race coefficientEsti mated GFR is not as accur ate as Creatinine Wilda darlyn in predicting glom erular filtration rate . Estimated GFR is not appl icable for dialysis patien ts Physiatrist ID - MARLI [id number] 06:32:41 Test Item Value Reference Range Interpretation Comments MAGNESIUM (BEAKER) (test code = 2.0 mg/dL 1.6-2.6 627) Physiatrist ID - MARLI MCBC W/PLT COUNT & AUTO [id number] 06:14:55 Test Item Value Reference Range Interpretation Comments WHITE BLOOD CELL COUNT (BEAKER) 4.1 K/ L 3.5-10.5 (test code = 775) RED BLOOD CELL COUNT (BEAKER) 2.78 M/ L 4.63-6.08 L (test code = 761) HEMOGLOBIN (BEAKER) (test code = 7.9 GM/DL 13.7-17.5 L 410) HEMATOCRIT (BEAKER) (test code = 24.9 % 40.1-51.0 L 411) MEAN CORPUSCULAR VOLUME (BEAKER) 89.6 fL 79.0-92.2 (test code = 753) MEAN CORPUSCULAR HEMOGLOBIN 28.4 pg 25.7-32.2 (BEAKER) (test code = 751) MEAN CORPUSCULAR HEMOGLOBIN CONC 31.7 GM/DL 32.3-36.5 L (BEAKER) (test code = 752) RED CELL DISTRIBUTION WIDTH 15.6 % 11.6-14.4 H (BEAKER) (test code = 412) PLATELET COUNT (BEAKER) (test 184 K/CU MM 150-450 code = 756) MEAN PLATELET VOLUME (BEAKER) 8.3 fL 9.4-12.4 L (test code = 754) NUCLEATED RED BLOOD CELLS 2 /100 WBC 0-0 H (BEAKER) (test code = 413) NEUTROPHILS RELATIVE PERCENT 77 % (BEAKER) (test code = 429) LYMPHOCYTES RELATIVE PERCENT 13 % (BEAKER) (test code = 430) MONOCYTES RELATIVE PERCENT 4 % (BEAKER) (test code = 431) EOSINOPHILS RELATIVE PERCENT 2 % (BEAKER) (test code = 432) BASOPHILS RELATIVE PERCENT 0 % (BEAKER) (test code = 437) NEUTROPHILS ABSOLUTE COUNT 3.14 K/ L 1.78-5.38 (BEAKER) (test code = 670) LYMPHOCYTES ABSOLUTE COUNT 0.54 K/ L 1.32-3.57 L (BEAKER) (test code = 414) MONOCYTES ABSOLUTE COUNT (BEAKER) 0.17 K/ L 0.30-0.82 L (test code = 415) EOSINOPHILS ABSOLUTE COUNT 0.07 K/ L 0.04-0.54 (BEAKER) (test code = 416) BASOPHILS ABSOLUTE COUNT (BEAKER) 0.01 K/ L 0.01-0.08 (test code = 417) IMMATURE GRANULOCYTES-RELATIVE 3 % 0-1 H PERCENT (BEAKER) (test code = 2801) SARS-CoV2/RT-PCR (Asymptomatic ONLY)2022-03-20 17:07:08 Test Item Value Reference Range Interpretation Comments SARS-COV2/RT-PCR Negative Not Detected, (test code = Negative, See 42876-5) external report for linked test [facility] (test code = 96400-2) RADHA (test code = Negative result for this RADHA) test determines that SARS-CoV-2 RNA was not present in the specimen above the Limit of Detection (LOD). However, Negative results do not preclude SARS-CoV-2 infection and should not be used as the sole basis for treatment or patient management decisions. Negative results must be combined with clinical observations, patient history, and epidemiological information. A false negative result may occur if a specimen is improperly collected, transported or handled. A false negative result should be considered if patient's recent exposures or clinical presentation indicate that COVID-19 (SARS-CoV-2) is likely and diagnostic tests for other causes of illness are negative. Re-testing should be considered in cases of suspected false negatives. The limit of detection for this assay is 800 copies/mL. This SARS CoV-2 test is a real-time RT-PCR test intended for the qualitative detection of nucleic acid from SARS-CoV-2 in a nasopharyngeal swab specimen collected from individuals suspected of COVID-19 by their healthcare provider. This test has not been Food and Drug Administration (FDA) cleared or approved. This is a modified version of an approved Emergency Use Authorization (EUA) and is in the process of review by the FDA. Once authorized by the FDA, the issued EUA will be effective until the declaration that circumstances exist justifying the authorization of the emergency use of in vitro diagnostic tests for detection and/or diagnosis of COVID-19 is terminated under Section 564(b)(2) of the Act or the EUA is revoked under Section 564(g) of the Act. Fact Sheet for Healthcare Providers:https://www.[employer]/sites/default/f skip/product/documents/F act_Sheet_HC_Providers_L dew_PPGX-FvK-8.pdf Fact Sheet for Healthcare Patients:https://www.[employer]/sites/default/fi les/product/documents/Fa ct_Sheet_Patients_Lyra_S ARS-CoV-2.pdf Performing Laboratory:[facility] [place] [address] [facility]2022-03-20 17:07:08 Test Item Value Reference Range Interpretation Comments SARS-COV2/RT-PCR Negative Not Detected, (test code = Negative, See 50967-4) external report for linked test SARS-COV-2 [facility] (test code = 63968-6) RADHA (test code = Negative result for this RADHA) test determines that SARS-CoV-2 RNA was not present in the specimen above the Limit of Detection (LOD). However, Negative results do not preclude SARS-CoV-2 infection and should not be used as the sole basis for treatment or patient management decisions. Negative results must be combined with clinical observations, patient history, and epidemiological information. A false negative result may occur if a specimen is improperly collected, transported or handled. A false negative result should be considered if patient's recent exposures or clinical presentation indicate that COVID-19 (SARS-CoV-2) is likely and diagnostic tests for other causes of illness are negative. Re-testing should be considered in cases of suspected false negatives. The limit of detection for this assay is 800 copies/mL. This SARS CoV-2 test is a real-time RT-PCR test intended for the qualitative detection of nucleic acid from SARS-CoV-2 in a nasopharyngeal swab specimen collected from individuals suspected of COVID-19 by their healthcare provider. This test has not been Food and Drug Administration (FDA) cleared or approved. This is a modified version of an approved Emergency Use Authorization (EUA) and is in the process of review by the FDA. Once authorized by the FDA, the issued EUA will be effective until the declaration that circumstances exist justifying the authorization of the emergency use of in vitro diagnostic tests for detection and/or diagnosis of COVID-19 is terminated under Section 564(b)(2) of the Act or the EUA is revoked under Section 564(g) of the Act. Fact Sheet for Healthcare Providers:https://www.[employer]/sites/default/f skip/product/documents/F act_Sheet_HC_Providers_L arx_ISLS-CrP-1.pdf Fact Sheet for Healthcare Patients:https://www.[employer]/sites/default/fi les/product/documents/Fa ct_Sheet_Patients_Lyra_S ARS-CoV-2.pdf Performing Laboratory:[facility] [place] [address] [facility])2022-03-20 17:07:08 Test Item Value Reference Range Interpretation Comments SARS-COV2/RT-PCR (test Negative Not Detected, Negative, code = 4082430) See external report for linked test SARS-COV-2 PERFORMING LAB [facility] (test code = 1385042) Negative result for this test determines that SARS-CoV-2 RNA was not present in the specimen above the Limit of Detection (LOD). However, Negative results do not preclude SARS-CoV-2 infection and should not be used as the sole basis for treatment or patient management decisions. Negative results must be combined with clinical observations, patient history, and epidemiological information. A false negative result may occur if a specimen is improperly collected, transported or handled. A false negative result should be considered if patient's recent exposures or clinical presentation indicate that COVID-19 (SARS-CoV-2) is likely and diagnostic tests for other causes of illness are negative. Re-testing should be considered in cases of suspected false negatives.The limit of detection for this assay is 800 copies/mL.This SARS CoV-2 test is a real-time RT-PCR test intended for the qualitative detection of nucleic acid from SARS-CoV-2 in a nasopharyngeal swab specimen collected from individuals suspected of COVID-19 by their healthcare provider.This test has not been Food and Drug Administration (FDA) cleared or approved. This is a modified version of an approved Emergency Use Authorization (EUA) and is in the process of review by the FDA. Once authorized by the FDA, the issued EUA will be effective until the declaration that circumstances exist justifying the authorization of the emergency use ofin vitro diagnostic tests for detection and/or diagnosis of COVID-19 is terminated under Section 564(b)(2) of the Act or the EUA is revoked under Section 564(g) of the Act.Fact Sheet for Healthcare Prov iders:https://www.[employer]/sites/default/files/product/documents/Fact_Sheet_HC _Oulsnablt_Kupn_ZZFM-QoU-7.pdfFact Sheet for Healthcare Patients:https://www.[employer]/sites/default/files/product/docume nts/Gtak_Pgxuk_Pgqkqrgv_Raii_GAMH-FcX-0.pdfPerforming Laboratory:[facility], [place] [address]VVV, ABDOMEN/KUB, 1 VIEW [id number] 16:39:00Reason for exam:->r/o bowel obstructionShould this be performed at the bedside?->Yes [facility] 1960 Sex: MFINALREPORT Abdomen , one view History:Assess for bowel obstruction Comparison:none Findings:Nonobstructive bowel gas pattern. No definite free air, although assessment is technically limited by supine patient positioning. No definite bowel pneumatosis or portal venous gas. No calcifications along the expected course of the urinary tract. There is dense sclerosis within the right hemipelvis, suggestive of metastatic disease. Impression:Nonobstructive bowel gas pattern. Signed: Jatin Daniel MDReport Verified Date/Time: 03/20/2022 16:39:13 Tissue [id number] 11:41:26 Test Item Value Reference Range Interpretation Comments Case Report (test code Surgical Pathology = 104) Report Case: [id number] Authorizing Provider: Jacinto Stovall MD Collected: 03/09/2022 10:35 AM Ordering Location: [address] Received: 03/11/2022 07:55 AM Service Pathologist: Mimi Soria MD Specimen: Spine, Thoracic, epidural tumor DIAGNOSIS (test code = [id number]) FuZzEwMzNcZnRuYmpcdWMx IHtccnRmMVxlcGljOTYwMl zkpuSqJCRvqXQeI0Ohtwli KWwpKB7zMC0skUugoYToxP IaBZEsJiVux4kkc936uXKk j6jvLTKOtivzfFe6bVkxU5 4fn6Z3XxdcF94ggIEmTIQ9 MWDrMPPjbZNlGJIsJHO1YW SfsVJwR8cjJHUlHE6hntfx TNtuEJgyMHUbmDN2QBFctH KaL8ZxSBCxAEocTCKnasv2 GuPdZx3tlSNxyHqpESctAS XnMTQxNNcfCTZiZmHnZ1Xf ojPtFZJde6TnE6rdRSZucN C8wzLiNRM2bK7mTJPqtTSy f0fhknfbrNXlMHDcEyFxJL 8boMBtrST9oFNhR3SpO6at g47wUXLby06hkDU3WE09HI qpaPqjyTWya5MmrAnmTRIj yX6pyfzjJKSupi60MQE9Je Zrj0Y6IAI9BVEtTTEzg9qh ZGVmbGFuZzEwMzNcZnRuYm twkEQdSRLjWcUvc5gsq077 zMJaq9gnPGJsWwU4iDMeGF ZojUIgW703DOPiVXitn8sh c2HnDRJorZRpg4A8MGOTal fmhZu6tSglW05dk7E5Rdpn A9qbBSKmDMXzH4GyWZ9iTV OhHgl0BKU1AXY6WDCiQVSx G9LgVL4lAYJtuLHgFDj2a9 xcbVaqLCOoUNA9t2zgOOfx nhOhBA2ynq6lzSp6t0wyft GyYWPdHWJpcBMJEQFbM2Va vRraHf1oaYg6rYlcJwpmTC I6Myx4JT5cqg49usd4xKxa HDNbhewxZpS0OSboAELdyd zvXNh7CSpfCLRvfZM3WCRd fASeP2XcIIOmDU9jutt0FY H1FRioTCJrXsW1VZIjqNMa CIPspRnqQVjbv216PGS8Wd WvKB3kW7Kyo2Y6vW0qaEKj CMCskSFhZsCfZBKkvk7hkK WqGWhbh9NqCDJ3erK7lOWi dTKsCWZpQxU1MHgaCX1ndp 19TROcMNE8ck9qfOZpcQmn tpUfoYRiAFjrT5KmRGJhw0 96TUTnT9QtTTPch8B3ycFd OnQjBNKobGN9siH0WXGfRS 9vhnczr9ouIYmrZQvpUGMi ndW2leZ3DYIsrRHdW3YgjT 5qKULfXL6tmatkb9veLQP2 HQwnIHLdNGM1PlHeAGWfy0 Qhgki9NmVai6IncODcKNtl Y94wx898WOKbmcVxN7sqjH FpblxwbGFpblxmMFxmczI0 XHFsXGxhbmcxMDMzXGhpY2 xuKkUzGJCehSrcONsqt1Go XGYxXGZzMjJcdGFiXHRhYl h7OMQcjBUgURBuIlRmL0hx hsymEnLUQVKcw9csP4zsdL AEqPAsQ2OdWRpuscPxRTha WHqhMcSxBOq1SD60LqGcSJ Bhcn19 COMMENT (test code = m1gywXSsYOCgdFX2PuKpUA 3352) Kzl6gqi6JrbCStcFHmFIwx fOYadqLhqg46jQE6uP03NU 1yORRvKkD3YYVoyhX0Fqe9 IXYaCEJfsVLpC610z5rqt5 ahdnVuvVB4rYszYFVcbumf HmE8NAdvLFVgrtswUVe1YH giYUNviII2NDVcbTLvM0Kj RJQnUS0deve3WKD2PYaaNX KmKaB4QGJgmZWaCKKleOdm IToiv658NES3LxZqDHIvjl XssAglwI6gOzScCCKBxdQl hWabsMElOtQ5kLTdqOzzcR 4dcHudiVswSQ83QJAmqNog ZbygBTuqW3XpATZpLGOgqV XkpDqpmVIou4l4uQEuEXZo a8BccHxeMEKfosSqvs6mTL Ejaj2lYWNgNFKbAKGsJP05 N3Bkf67rt94rnSCsm6AaoL uaHYMpjH0ldlgwYHAssz5= CPT Code(s) (test code i3zdmXAfNDJuxDQ6OjYaVP = 3353) Myo3ovu4BesQThcDXhBGfd pXNhohWvlt65pLZ5eF82ZR 2pRMVaFxL0FNJobdI0Vbn0 KGUeNQXubKPyL041a3wzn6 vucxQplPS6vJhmCJTiumwd RjW9GLgqKKMpfatuNEy1EM xwWERtcTL8VYPtvXWbW6Hv KVIqYD5ndid1SBH8BQuzUU SvQmA7RCFroSAjGCLdwWiw DTazn240JQJ8UjFtXEIzbf YhyZuvsT9xDnUnKZJ4CGQn KojxSNikQTXrIPd0AbDuFD C6GBY7KOhwRSH5 CLINICAL HISTORY (test p7dalVJaQTNjjSN1HvObTW code = 3356) Lsk0tgx7OlaWNwrZTlDVmk xVMzgxThnf07xZM2zB85LL 0vHSZeRkY1FOBhvpD2Hkr5 NZPhHPErmZUcJ734n8dgj5 slxeNacNN2vSvcBJTnmuoi UnC8CZerXLBaaqjrQMk6QA vlVFNrwDD3PMKkaRFmJ8Fo RACoGL6qmcc8ECN9VVebHM NmQuN5WCCroVMvRSHizRnq HBfxx616DZB7NjMyMQHchs BrjGmsxO5nUsLdLYEFjAtl NKOnhRlikzPxyZAqZER1EG 94AIYwCI8pROLlYBnpUUlh xKehYXQzeSX8p7U4YJ1sEX Ape9J4CIXoAEUhqnHjrzGm qONdwe1aNAMjGxB0UYDphi NzX66dPGieiTbly56oz48l fBK7RBZ3KEBiRcHcrVXwZW NlLlxwYXJ9 GROSS DESCRIPTION (test p8pafFJyLKPqxQESWPTyM7 code = 0924012581) ykwdJuUAHxxPWeD5Lptihg DIyzHG5kXZ5irBhjiPUroJ EtFF7VIBIbHvTsAEAorZGv biUhXpPaWTCzlWHurIV1UA DmFI2rtcquOKogTJfyAZQs lyN5CBLemVWjK2JpRLOjXD 4blddeCMA8DQirgH7hidHZ TthcGk1ibADhtZdqIsMqLt NoYXJzZXQwXGZuaWwgQXJp ETy2nX7TYqolLBH2TYELJp iyENZjTU2Nc3ysKBMidJVg MJL6KLtypDJjPREsONMrQH k9JWCkOOkuuRUzPP6hxBep UaxicGzsw8FkkOHoFQbqWB UvLZIhCIytNKOeWR0FIwGo RYH6KmOmKhwuUGx0LPx2KF 6IBfTiBUExNWb6WpP1BEPf ZDk2YJavIE2DQJXjGiE1BO JfZLC8PGV1AYGaMOVfAdAw XGYgQXJpYWwgXFxmbCBcXG 5jfVxwbGFpbiBBLiBTcGlu ZSwgVGhvcmFjaWMuXHBhci ANClxlcGljTmVzdERvYzEg DQpcbHRycGFyXGxpbjBccm luMCANClxsdHJjaFxmczIw FKZkT5FoiiUmXCRhRFJcSF acKoQpZDGdm6l6lXI5bEVu bQJ4lVCptCxuGxWnDX0gqD TcFF1eVOrgABisxdWge3Df WG75xOHkupDeraQsPkT1gL 4iDrEuxaNhHQVkAOG7MBOe WHD7QNAwBhNvbTIgG5ynZH aubTFkw2EyVxJfQL6zwcOv YVyeJoqpdTIsLPn9nWUrBP GzTjNuiWzvx4QqXLEqBCAs w553PULaf2P7ZESbtiGiwP ZrdZCpVA35hFKjbLnvp9Wl vBl6fKGdLGdzNNGbUMYxw9 gsk3spmvagGWHEMXPkZMDr sGWrMohnEHNvd37ePIrffe NnZSrgfpFsO8cgwFBtUSXH rsM8vqikHYgVENUHPICkRF WRTMjbkV2MJWWnQErfFUHc xCGRZDS1MN4dPTojpELarz gtRAAdM9MhK6WbitUgdIOh KKVzzuChm1cpGSP0MVKuvH FtcCTqCuWtRoirHAE5DAln y4lvKPA1QMYzzOLygQGlJG tzKvBkEswxAZYdA9MpZ1Yv kwS0QUv9 MICROSCOPIC DESCRIPTION x5nmqZPtYBGzxTQ8KjXdAK (test code = 3371) Mep0doj7VgmZLzaSGjRNcu pFMhtnTtsa54rIE2qW63QE 8uSWKpBuZ1LCNkaqA9Hbz8 NKOmNMGzoNQgQ561z9nve6 fmpgOqkFU4pFjkGFJneidi AfH0VHwmXVOadwicAAf3TS lbFLSiaPC7HMRezNKrO8Jo RNLhHE2atki8DXM5IXuaBP WyUvT8BRSluCEqTQXikQml TTjti215FQM1MjNbZZMvjc ZorEfsfA2aAaNgTPUOMADq x3UnMDCfENXgyz0= SPECIAL STUDIES (test b9nqcDYdMQJqgNE9TtMlXX code = 3376) Jkx8shv5SeeBSpvLDrMJqs aCXaegMqwc52rEH2oG74OK 9aBZHsRyU8WJXrhkG9Nck0 DHLwWXVomXBtE439LGPgIU CtxXwgvyp0jM92AFSbrO6z dGJsIDtccmVkMFxncmVlbj FfQyl5BTF9kZjwWHTkeyhk HlZ4CJtcNFXnpbuqEFa3XV joCAJdnGH0NFHowIReK5Xa ARBoGD0bhlt5WCG7NCnzXY TxPsN8DWMjpPFbYOGcwYjc SSljr513JUV2PfSmOMYhas TrvItvoV2dUiCiVlChGedo DbDjFNNWG1N4NGIwv3p2eU DoRIdoPCO5xQ2sSsxfEGMk BGLKL0LTPjMOh1LrtHe7WH BfgeW8mY3xzi1nsLAhJEMc xjPGvPPxnW43UCDykcW3JH Fqi62mu9VjjKuywvShVQDy NJuuX9w4WVShAHIwIII6m0 Vzd9TpkJ3vrG1kwHrdaO0s sPMfoTL2kxbwu6Efh3NwZ2 lhbCBzdGFpbnMuXHBhclxw ZIJwI72kjTEtiNFIeMieXT NdHOjgxEhoGPX5IVENsp6s u8TyPABsrl41wsIyf0LpeR y3DIIpj374ev8bllG3LHDp ARU8INz5RNOwBIFarJ3kJh N5mLVwIYLsQOV5SYU5AWZy w7N8VX9eSQWjWFJcLOHgee And0kck2tyCDPnNNS7snTo hB8qC9NrBUUxk9QdmMwfXZ BhdGllbnRzIHNhbXBsZSBz qZ62HSAumOShcTZrOIYlYY Z8YJfeqB5aRfGIwzUqmk0c yJTtb7NhjNk6QFMwziLlyh ZiHBMzcjUpT52vpLAavFQj o6mtckVoicSwjWHyqUElOX UlBYG8KNm1YLTyWErkSTJg DXhxITIlLT3zeL2bfLcykE 5fyCNvuMV7oryygBWamY7i C9TxCISzn4Fwsorcs0XlYA ZzwyLasa5dUBPovDUUHSoa d3HvO1FaWPb2j5BtjRbpZQ mrOTg3MsIdBPNhoGZelZOV PF36USSwIZDroFifjP0yeF ZKQPPsbrE8i7H7SNgfQLSy PMr6UYsokwQyAOZioZ2xVX XlYY4hTVa6zjWuVXMls9Ya AK9bLJMfuAGaZBL9PYTke6 TuE3Lva9BrVGDxJFIwvv5v tmBgQeDGlMBuIVRrff98PF CdLJ5mI1lgAJTeDFIbwjCs kFWpd9UhTBTzjDU7nYHgRG 7NFkGEy91nOVTmNZXZtvOm KVGklTzxvHJ1cmB4dO5lHk BUaGUgRkRBIGhhcyBkZXRl cn2llvRoFDEzIJNyk0IejM HzlYThttVcY9Bas6RxFXHs kh56WVzaaMWccl33KS6qT9 Bce6AcgB9aUSajUIEsd8Ny xFQhdYIyDFBom8UuY4zvep ckYFxwhVFjrM3tJJIcDNo4 NBFrf1AyPBHua5VeNwBcjn FyGVWoQQDlQROdsO92PSN5 vNishHwyokNhYY3mMPJchy MlRLKbGCGqeH1rFJwnkzRa FXBckoF8m5T8BLwbEIWpnd PnPqvlIGL3ftYizkT2dDXz Y2djnzbkEFkhMVJuo3AtvT 8ftXZJyYUmz3UpeHDddTGW pNSrXO4soeKlFN1jEBE1XD ggKENMSUEtODgpIGFzIHF1 TAieBfqfLOH7xfPcSYHbn4 NjQLkgJ5tkE37avHmqtFm2 eSBjbGluaWNhbCBsYWJvcm N1x1T5SLSzc6GncromATRq cn0= Gross assessment was [facility] performed at ([facility], = 2777) Department of Pathology, [address] [place] [address], Technical component was [facility] performed at ([facility], = 2778) Department of Pathology, [address] [place] [address], Professional component [facility] was performed at ([facility], code = 2779) Department of Pathology, [address] [place] [address], [facility] [id number] 11:41:26 Test Item Value Reference Range Interpretation Comments Case Report (test code Surgical Pathology = 104) Report Case: [id number] Authorizing Provider: Jacinto Stovall MD Collected: 03/09/2022 10:35 AM Ordering Location: [address] Received: 03/11/2022 07:55 AM Service Pathologist: Mimi Soria MD Specimen: Spine, Thoracic, epidural tumor DIAGNOSIS (test code = [id number] 3220) FuZzEwMzNcZnRuYmpcdWMx IHtccnRmMVxlcGljOTYwMl yalfDzLMVveCZsV9Ntivrf NFlyNO5jMP3syUyleNSzsE OcJPTiSpTzk1cfk136nBEe t1sxBDVNmbohzKb7pJuoI4 0vn9E7DdvbK33wuFNsTZY2 KBKjYNCuhLKfDKPpZJF6GD XyfSAhS3grMGVwFH4meerc EOdoDAjwJEMxhII9QBGlpX BpO8HpOVTqEOppPNBtvxb9 LaDaHw1bwVZlgHhhDMflVL YiLIRtMFgoIQHvToKgL9Pv slZrXZBwb2DvV3luZDYuwH Y2naJnORZ5tR5yJXYxtUMs e0iboqpooLXoUEBlItDnGX 5gzPFjfEP9eMZjH4IoA3cx j59pLVLxf26tmKX2OX18XW ybxBvczMQen5XwkDljCMOe bZ7tfupfMMJzbw20QFH9Rx Nzo1O5JGC1CENkGPMsu4zw ZGVmbGFuZzEwMzNcZnRuYm kibEVsXEViZbWfk3vza436 uGOwl9jhMPCkXmP6nBIsXE TegGKyW498LBFsZGslr7xg n1PuPPStyATll4R1GSDLcq fwwRb7bTfcY17wd8H9Pbmt X7waTINfVMGkP8OpTD4zEQ LjDzh3GDO0VYA1KVZlAQDi C3VqPJ3wSMUarBSyEWy1x5 bqhHesGHBvGLH7u5baKRao cnJlLM3bxi0xqIz3h7ixmp VyXUGlSZUbzXSWSRTiQ4Tn vUxfGf7yrRj1mEfyMaauWF P9Cfi7GF9sdb11meq2wGaw IZKwtuoqQjB7XGscFOFala thPYf9EXihCDLwoBN2VWPx fAMwF1IrXWJcGC7rnlq7FW R2UJglEQVlYaM3SYKdoUPn BPWycHxpGUckv536EWV0Uh OeWS7wA0Ybg0W8lU8vfTGp KYOsiIEhMnXoKHWdno2gwB MrRCjya5YdCYC1qoP9qSTq iYBoVKUfJzU4RFaeAR1dkq 46FFZnSDH2iv5wtEPqiZez hnQukKUzGQfjF2YcEACrs7 38HSKzD8OoDNAwr0F6ifLu NrPsXIFosON5ltG0MPSgWK 9gkbigo1tpXDulLZbkVHTc daQ3kuX6NTBioDDwQ0JsaY 5qJCEfEN4sdjast7mwEEA7 VHhuCESkBJH8MeTyKOFbz6 Vclqw2EwQxi7FnvLCnNZmh Q21vd957CNJqpfDjY7omrV FpblxwbGFpblxmMFxmczI0 XHFsXGxhbmcxMDMzXGhpY2 gxLaQwHEYsrKlkTSppc1Ap XGYxXGZzMjJcdGFiXHRhYl j5DAHujEUwIZMbMcSqX9ti xdayEyZAZTZcd0isR6aqbE CBwAPuT5ZmNPfpmdDuARif SGfyYbXyGQd3UG99OdYqDA Bhcn19 COMMENT (test code = r1xwvSDqYKFnsBZ4WdIaXJ 3356) Ltp1rlb5BssFMjmUCmWSju uZUwcaWrwm39aSA1pR87NV 7iINZrVkQ9ONLccpI2Zjo2 BNIbHUFotIFqZ773x6mhi8 clvbVwzLA7bHrmKFJrwflq KwG8ELcnPKAetuzvSUy3EI hfPJEmiEP2MZXueLSiG9Ep JDSxGR6xirf1OGR0VNuzBY VoGxH0HHGseVDyHFXiqQrf PIorv490XLC1WpQhDYLkcz QaqMqqyZ3yQcZjGSAWjeSj kBrwpDWaYxC1bRQehSovdE 3svRkvdJkzZJ98BDXzeHoq DodlWZwpK6VxBGIkNADjaX BwcXiunBFyc6h8fNNcTGBm t5PleGkrGWUrcfHfko1yPR Kzkf4cOEHrJUXjBFDhMI29 S4Wjn64sw25xcBOry7QitF lxDUJhtQ2zniriSINues5= CPT Code(s) (test code o0fkmSToXYKitHD3QpRyBN = 9689) Orb6pfw9DtwYIslYDcTVng iTAlgbLwbw02pRI1kY44NC 0oKXLrJzW1XWHsszB1Asg5 OSJfZPLuzSQtW112q0fgs9 xyhiUigEF2jLgnYTZvmnon VrU8OMysSLFrpfhnDEe3XM jlQHQsaDN7IRQodIAdK3Ld ALSvIQ3icac0OPX0XBjxNU AvUhK5BKYapBTnOQZpnFio XNgny186KGY9EiPuGADtfx EzsJsylZ0kHyDhEIY1XLZp EuiuHOhzKLZaDHp5XuWtIG F5ECS5AGihCEN6 CLINICAL HISTORY (test n5ridFZmGFEerES0OzArJY code = 3356) Aek8guk7ZnyCGsxKQfETmf lIRrzyZqbz50xAZ6zY56CO 1oSHByXtU0EGAovpC2Pvs6 QAFdDRUkzVXgM161i8qay1 ujewFqdLH9sPniNFNvunrn ZpD0AZjgCGMcyxstSQh9IA gsFPGnoFG1CNIpdYGbF3Su PVBuZN9irup6OTG7FZmhJN EjJtW8DEPtpATaDUWgyRpg KClxf034XGY9DjVkDMQufr GjjFhcyT9vFcKqUSNLfQvt MSHgqHrctfQggLKrHPJ7IE 91YOJjOQ9kDKLvKIflXRup bLyzLSMbqOG8f0K9RE9oDP Ixh0C2BICfGBNhabXvjvHu rVEulc3hEHDqHhL9BRNhuy BsY69tJVeawAvwg20yh98q lPY5UMP4DZPsJuGohVJeAZ NlLlxwYXJ9 GROSS DESCRIPTION (test l2fhcXHlEWZgeOFQMEJpB2 code = 2826153967) pmdaZzYRSvcTTaL3Expzqp ZYvgON6rHU4wyHxdlIVzsP MtJL8KADCqWdJlHHDdtEYf hgJfAkSbPDJehAGvcYC5TI VaLD6rbrjiEYeeRMezZNJr xmI8EIHfzNWgX2UnKVJyEC 9rxlsaRFM9EFhsvP9anmLJ BqwzCn4kjHNobCmcQlWwVc NoYXJzZXQwXGZuaWwgQXJp QFn9vR5CExfnOVY0KXQMVq kfKZLeOP6Tf6reTLJhzAFx LUW4PJhhcLWlWHOkHENpLV l8WYSyTQkzhVNcSI0fpBjb RuijgSxsm1OdcUQfMIdlXP JsIQZiTXfzOMAxSI7RDdZc HQP5DcTlHhbgLKb0VAd3JH 0MNkFdVWZhDIu3RfE6LNAl SNk0GKchQX1SSEZlSmY3CS WyOKG3LXA3CBArHQTrLcUy XGYgQXJpYWwgXFxmbCBcXG 5jfVxwbGFpbiBBLiBTcGlu ZSwgVGhvcmFjaWMuXHBhci ANClxlcGljTmVzdERvYzEg DQpcbHRycGFyXGxpbjBccm luMCANClxsdHJjaFxmczIw XLTjB2WnozSrRZNyZXJpSF kkVmZhTJKsx1a5tEO4wLIv vEX7lJVfkXyvJyKbXH1fqC TxDH3zWNejGKrgfvEyl8Em TV27pCLvzvBrueCzDoH5qW 1hTtIgsnCgCTZzGPG9VYPt VEQ0ECTwCnRrmTOhE8bePE klgNVtb3SkVjDyEQ4hpdYr SPlyPpgqsXAwJRc7vMEsAG VpKySoiFxhb2MwVIGhCGGc l565HQTvi7P4DXTqfwCkcM PdeMSvNO14lJMthUygd1Lc gTb2rUFfKFyoZTAqEVCap7 bdn4grmjuoPCMRVKBtMVId pGPuYnqtQBQts40uSNvabv BhUEvasdSaI8avuBDhGKUS ejR3eqwlZZrGOEKQYVToAR JYTNywvI9JUYBtUXvyHDDb uIHQFTD8OB5iYDhmkLDvao reJCVyQ5LxY9HokfRanFOp TRSacwXlu8hjAAA7YYZdyN ZenPUiQiWwXcumJYZ2XSdo c9gjKUC6WYJwpCUniKFjGJ ldVdEgKawsVBFxJ0LyP0Uw xcR2LSu4 MICROSCOPIC DESCRIPTION f6webMPeKSIejJF5PcJnER (test code = 3371) Jng3iak4FreJDyxFKzZSzg zRVvnvVras92xSR7zP24LX 4tEOYiDdA9DAJtfmB1Mfa9 BZRuWILqlGLdQ499y8uzp0 lysqEmhAP2mPhwHLLvryya XeV2TJyzEJDrcquvVGr7UU hyNYMghEC6WGViwOJwT9Sq JYBjCY5dpbd6WFN4SKgmGR WqRhT9AJFwkKLvKKLzuGpn TSoii229SQD2QvToWEAgew HjrPvytS6uMlMoMCPVCKXe d5LgNGWjGZEnqz7= SPECIAL STUDIES (test b7taaDIbHDIbsSW4CwPsQG code = 3376) Txt3rlv1RooGUqpRVqBXxc uGObjtQoha72tCK1eP93MQ 8oLCYmIkH4TNXrwtE5Hll4 QEHiUKPxdEEzU048XADvDL UcvOchfzu4uK11TEKzxJ7p dGJsIDtccmVkMFxncmVlbj IsFeo1KAZ0tGamZXJnqubc ImV4FQufWEFruznuIFn0HT gnQSBdcXG3DDSqlFVyL6Ur GQVkKF8wavf5EBH4QZxlUW NiUmS4ZREwyYFpNGWftRyy HDdqz510ONO9YpZxHLZuww WdhJsxlX9kEyLyVzWoGfkr FoFmHMVGZ2N4LGImo3i4iP CbVZuoIJZ9uG6mLxvmSXNg CMADR3EOLsZYt3JaaIs4IO InckW2aF3kvu0pqUQvYZDp biENbMDpaO22VKQxclB4NY Zbz09yl5HjxWynlgItCOHw VSpfF8s1ACLkRFXcLWJ9u1 Eyq5HkrO3hqY9fxMkjmA6s yTLbjIE8zahst6Jks7TzR2 lhbCBzdGFpbnMuXHBhclxw TPHbK31hnZYhfQXPmNznJW AnLAebfGgcTED2UGRXjd8d z1MeIFNuzt35fhHkt1NzyB n8UAHne296qn0cfoQ8EOBi HEO9KTg9ZGMxSRLvlG7mYt U2tYTmRQObWOF2QRH5GDQy h5H0FS9zINGlKYKyGAThcu Jlg5vgj7bmIPPcCSJ9oaVu fH4bB3NaMJXfu7DmtSboPY BhdGllbnRzIHNhbXBsZSBz aM04KVQbzFLfoCCpNBZhJY V7ZBcewW4zAgEErhFqvc6z gMHhm5VcmEw0YOJiipLtse WwJZKclfLcQ68pyRWdqDDg r6exupHqvfAczQWkbIFsAM HyTCU6OOl2AEVpKXpzZDQx YHmqJIIqVN6zmD7ogLytvD 6vzPWfmMR3cvuloTCfzA8p W6JyCROzw4Apywzol8LoBZ FrjpJjhg3zJEFrqXPDRYtv z5NpX9AmGNd3w4ZohKxpWX jzQPu4HgNeJRIpsLIecBDN GS85BCZdKWNrcRccxU2sgC YEZOKsoyB3z3K7WApdYLBv NVv8YRzxyfEeYLFpgJ6gKE XbGT0sCLg1duWrQERkv5Cv TI7zAQIcfXLzIFD4DMRzh7 LcG9Ovs4YpYZRzSHAtqw8v cgDjZhDZrLZsIUVmsw60WM AyVT9bQ1iiKPRcIIEfuzRe tFUdo8PaHKPnbVS0aKMhWF 0COqVXh45fGXNwIKDDosGl TCCdgGindGL2dsK1rS1xQw BUaGUgRkRBIGhhcyBkZXRl lq6ciiBvUNNbBLSpj2PvnT IkoSUxmfIkF3Irs9GhZBXg yr92ZZvwpQGrfq50MW6bA9 Hkn5VgfJ1pVUzoASXqs8Aj pONbsSXfLDAsp9WiP3mrbb yxUGoqbSRpgA1aMCGfVGb3 DUPpf0BbUSPiz1KvJrAfhr PwVJXwVFSwMDFuuA17WFR3 oAxafVplraEmWR4kEVHrqy HgPFEuVZMtvS8yMTsmtkPe KTRqibP3m0Z2IAoiJOUwou TaKktnLQX1mlMhndU1eTIv M6gyaqbfIKtrYXHyi6HzkL 3ldTCBxOIrr2ZopZBcjDVQ sIHvMP4hlmFuAN9cBAQ6QB ggKENMSUEtODgpIGFzIHF1 JCzyHequFHC2fkWbUHNii0 NhXSewM7ijB22xlPmkwEi4 eSBjbGluaWNhbCBsYWJvcm L3a7A9XXIgv1SjkutvIWMr cn0= Gross assessment was [facility] performed at ([facility], = 2777) Department of Pathology, [address] [place] [address], Technical component was [facility] performed at ([facility], = 2778) Department of Pathology, [address] [place] [address], Professional component [facility] was performed at ([facility], code = 2779) Department of Pathology, [address] [place] [address], [id number] 11:41:26Surgical Pathology Report Case: [id number] Authorizing Provider: Jacinto Stovall MD Collected:03/09/2022 10:35 AM Ordering Location: [address] Received: 03/11/2022 07:55 AM ServicePathologist: Mimi Soria MD Specimen: Spine, Thoracic, epidural tumor Spine, thoracic epidural tumor, excision: - Metastatic carcinoma, consistent with prostatic primary. Signing Pathologist Direct Phone Line: [phone] signed by Mimi Soria MD on 03/20/2022 at 11:41 [place]an light of the history, the overall findings are compatible with metastatic carcinoma from the patient's known prostatic primary.[id number], [id number], [id number], [id number] patient is a 61-year-old male with a history of prostate cancer diagnosed 2 years ago, with known metastatic disease.A. Spine, Thoracic.Received fresh labeled with the patient's name, medical record number and "tumor" is a 1.8 x 0.9 x 0.2 cm aggregate of 3 hemorrhagic, irregular soft tissue and bony tissue fragments entirely submitted in A1, following EDTA decalcification.PATRICIA Lawton PA (ASCP)cmPerformed.- PSA: Positive in tumor.- PSAP: Positive in tumor.The interpretation of this case included the use of immunohistochemistry or special stains.Control Slides Examined: In-house known positive controls were evaluated along with the test tissue. These control slides run alongside of the patients sample show appropriate staining. Internal positive and negative controls when available are evaluated Immunohistochemistry technical testing was performed at [facility], Pathology Laboratory where it was developed and its performance characteristics were determined. It has not been cleared or approved by the U.S. Food and Drug Administration. The FDA has determined that such clearance or approval is not necessary. The testis used for clinical purposes. It should not be regarded as investigational or for research. This laboratory is certified under the Clinical Laboratory Improvement Amendments of 1988 (CLIA-88) as qualified to perform high complexity clinical laboratory testing.[facility], Department of Pathology, [address] [place] [id number], [facility], [address] [place] [id number], [facility], [address] [place] [address], [place] [address], (CELLAVISION MANUAL DIFF)2022-03-20 08:52:29 Test Item Value Reference Range Interpretation Comments NEUTROPHILS - REL 80 % (CELLAVISION)(BEAKER) (test code = 2816) LYMPHOCYTES - REL 10 % (CELLAVISION)(BEAKER) (test code = 2817) MONOCYTES - REL 3 % (CELLAVISION)(BEAKER) (test code = 2818) MYELOCYTES - REL 3 % 0-0 H (CELLAVISION)(BEAKER) (test code = 2822) BANDS - REL (CELLAVISION)(BEAKER) 3 % 0-10 (test code = 2826) ATYPICAL LYMPHOCYTES - REL 1 % 0-0 H (CELLAVISION)(BEAKER) (test code = 2829) NEUTROPHILS - ABS 3.52 K/ul 1.78-5.38 (CELLAVISION)(BEAKER) (test code = 2830) LYMPHOCYTES - ABS 0.44 K/ul 1.32-3.57 L (CELLAVISION)(BEAKER) (test code = 2831) MONOCYTES - ABS 0.13 K/uL 0.30-0.82 L (CELLAVISION)(BEAKER) (test code = 2832) MYELOCYTES-ABS 0.13 K/uL 0.00-0.00 H (CELLAVISION)(BEAKER) (test code = 2837) BANDS - ABS (CELLAVISION)(BEAKER) 0.13 K/uL 0.00-0.80 (test code = 2840) ATYPICAL LYMPHOCYTES - ABS 0.04 K/uL 0.00-0.00 H (CELLAVISION)(BEAKER) (test code = 2858) TOTAL COUNTED (BEAKER) (test code = 100 1351) WBC MORPHOLOGY (BEAKER) (test code Normal = 487) PLT MORPHOLOGY (BEAKER) (test code Normal = 486) POLYCHROMATOPHILLIC RBCS(BEAKER) 1+ few (test code = 478) ANISOCYTOSIS (BEAKER) (test code = 1+ few 961) MICROCYTES (BEAKER) (test code = 1+ few 965) MACROCYTES (BEAKER) (test code = 1+ few 964) POIKILOCYTES (BEAKER) (test code = 1+ few 966) SPHEROCYTES (BEAKER) (test code = 1+ few 768) PLATELET CONCENTRATION Adequate (CELLAVISION)(BEAKER) (test code = 3438) CBC W/PLT COUNT & AUTO [id number] 08:52:28 Test Item Value Reference Range Interpretation Comments WHITE BLOOD CELL COUNT (BEAKER) 4.4 K/ L 3.5-10.5 (test code = 775) RED BLOOD CELL COUNT (BEAKER) 2.85 M/ L 4.63-6.08 L (test code = 761) HEMOGLOBIN (BEAKER) (test code = 8.1 GM/DL 13.7-17.5 L 410) HEMATOCRIT (BEAKER) (test code = 24.8 % 40.1-51.0 L 411) MEAN CORPUSCULAR VOLUME (BEAKER) 87.0 fL 79.0-92.2 (test code = 753) MEAN CORPUSCULAR HEMOGLOBIN 28.4 pg 25.7-32.2 (BEAKER) (test code = 751) MEAN CORPUSCULAR HEMOGLOBIN CONC 32.7 GM/DL 32.3-36.5 (BEAKER) (test code = 752) RED CELL DISTRIBUTION WIDTH 15.1 % 11.6-14.4 H (BEAKER) (test code = 412) PLATELET COUNT (BEAKER) (test 184 K/CU MM 150-450 code = 756) MEAN PLATELET VOLUME (BEAKER) 8.5 fL 9.4-12.4 L (test code = 754) NUCLEATED RED BLOOD CELLS 2 /100 WBC 0-0 H (BEAKER) (test code = 413) COMPREHENSIVE METABOLIC [id number] 06:20:43 Test Item Value Reference Range Interpretation Comments TOTAL PROTEIN 5.6 gm/dL 6.0-8.3 L (BEAKER) (test code = 770) ALBUMIN (BEAKER) 3.0 g/dL 3.5-5.0 L (test code = 1145) ALKALINE 312 U/L 40-150 H PHOSPHATASE (BEAKER) (test code = 346) BILIRUBIN TOTAL 1.2 mg/dL 0.2-1.2 (BEAKER) (test code = 377) SODIUM (BEAKER) 131 meq/L 136-145 L (test code = 381) POTASSIUM (BEAKER) 3.9 meq/L 3.5-5.1 (test code = 379) CHLORIDE (BEAKER) 102 meq/L 98-107 (test code = 382) CO2 (BEAKER) (test 19 meq/L 22-29 L code = 355) BLOOD UREA 9 mg/dL 7-21 NITROGEN (BEAKER) (test code = 354) CREATININE 0.66 mg/dL 0.57-1.25 (BEAKER) (test code = 358) GLUCOSE RANDOM 103 mg/dL 70-105 (BEAKER) (test code = 652) CALCIUM (BEAKER) 8.2 mg/dL 8.4-10.2 L (test code = 697) AST (SGOT) 25 U/L 5-34 (BEAKER) (test code = 353) ALT (SGPT) 20 U/L 6-55 (BEAKER) (test code = 347) EGFR (BEAKER) 107 Interpretatio n of eGFR (test code = 1092) mL/min/1.[address] age Description sq m Result G1 Mariel l or high >=90 G2 Mildly decreased 60-89 G3a Mildl y to moderately 45-5 9 G3b Moderately to s everely 30-44 G4 Severl y decreased 15-29 G5 Kidney failure <15Reported eGF R is based on the CKD-EPI 2021 equation that d oes not use a race coefficientEsti mated GFR is not as accur ate as Creatinine Wilda santizo in predicting glom erular filtration rate . Estimated GFR is not appl icable for dialysis patien ts Physiatrist ID - PIAYA LCBC W/PLT COUNT & AUTO [id number] 06:28:05 Test Item Value Reference Range Interpretation Comments WHITE BLOOD CELL COUNT (BEAKER) 3.7 K/ L 3.5-10.5 (test code = 775) RED BLOOD CELL COUNT (BEAKER) 2.75 M/ L 4.63-6.08 L (test code = 761) HEMOGLOBIN (BEAKER) (test code = 8.0 GM/DL 13.7-17.5 L 410) HEMATOCRIT (BEAKER) (test code = 24.3 % 40.1-51.0 L 411) MEAN CORPUSCULAR VOLUME (BEAKER) 88.4 fL 79.0-92.2 (test code = 753) MEAN CORPUSCULAR HEMOGLOBIN 29.1 pg 25.7-32.2 (BEAKER) (test code = 751) MEAN CORPUSCULAR HEMOGLOBIN CONC 32.9 GM/DL 32.3-36.5 (BEAKER) (test code = 752) RED CELL DISTRIBUTION WIDTH 14.9 % 11.6-14.4 H (BEAKER) (test code = 412) PLATELET COUNT (BEAKER) (test 179 K/CU MM 150-450 code = 756) MEAN PLATELET VOLUME (BEAKER) 8.2 fL 9.4-12.4 L (test code = 754) NUCLEATED RED BLOOD CELLS 1 /100 WBC 0-0 H (BEAKER) (test code = 413) NEUTROPHILS RELATIVE PERCENT 75 % (BEAKER) (test code = 429) LYMPHOCYTES RELATIVE PERCENT 11 % (BEAKER) (test code = 430) MONOCYTES RELATIVE PERCENT 5 % (BEAKER) (test code = 431) EOSINOPHILS RELATIVE PERCENT 2 % (BEAKER) (test code = 432) BASOPHILS RELATIVE PERCENT 1 % (BEAKER) (test code = 437) NEUTROPHILS ABSOLUTE COUNT 2.80 K/ L 1.78-5.38 (BEAKER) (test code = 670) LYMPHOCYTES ABSOLUTE COUNT 0.40 K/ L 1.32-3.57 L (BEAKER) (test code = 414) MONOCYTES ABSOLUTE COUNT (BEAKER) 0.20 K/ L 0.30-0.82 L (test code = 415) EOSINOPHILS ABSOLUTE COUNT 0.08 K/ L 0.04-0.54 (BEAKER) (test code = 416) BASOPHILS ABSOLUTE COUNT (BEAKER) 0.03 K/ L 0.01-0.08 (test code = 417) IMMATURE GRANULOCYTES-RELATIVE 5 % 0-1 H PERCENT (BEAKER) (test code = 2801) COMPREHENSIVE METABOLIC [id number] 05:02:18 Test Item Value Reference Range Interpretation Comments TOTAL PROTEIN 6.3 gm/dL 6.0-8.3 Specimen sligh tly (BEAKER) (test hemolyzed code = 770) ALBUMIN (BEAKER) 3.2 g/dL 3.5-5.0 L Specimen sl ightly (test code = 1145) hemolyzed ALKALINE 302 U/L 40-150 H PHOSPHATASE (BEAKER) (test code = 346) BILIRUBIN TOTAL 1.3 mg/dL 0.2-1.2 H Specimen sli ghtly (BEAKER) (test hemolyzed code = 377) SODIUM (BEAKER) 131 meq/L 136-145 L (test code = 381) POTASSIUM (BEAKER) 4.4 meq/L 3.5-5.1 Specimen slightly (test code = 379) hemolyzed CHLORIDE (BEAKER) 99 meq/L 98-107 (test code = 382) CO2 (BEAKER) (test 23 meq/L 22-29 code = 355) BLOOD UREA 10 mg/dL 7-21 NITROGEN (BEAKER) (test code = 354) CREATININE 0.64 mg/dL 0.57-1.25 Specimen slight ly (BEAKER) (test hemolyzed code = 358) GLUCOSE RANDOM 105 mg/dL 70-105 (BEAKER) (test code = 652) CALCIUM (BEAKER) 8.6 mg/dL 8.4-10.2 (test code = 697) AST (SGOT) 32 U/L 5-34 Specimen slight ly (BEAKER) (test hemolyzed code = 353) ALT (SGPT) 22 U/L 6-55 Specimen slight ly (BEAKER) (test hemolyzed code = 347) EGFR (BEAKER) 107 Interpretatio n of eGFR (test code = 1092) mL/min/1.[address] age Description sq m Result G1 Norm al or high >=90 G2 Mildly decreased 60-89 G3a Mildl y to moderately 45-5 9 G3b Moderately to s everely 30-44 G4 Severl y decreased 15-29 G5 Kidne y failure <15Reported eGF R is based on the CKD-EPI 2021 equation that d oes not use a race coefficientEsti mated GFR is not as accur ate as Creatinine Wilda santizo in predicting glom erular filtration rate . Estimated GFR is not appl icable for dialysis patien ts Physiatrist ID - REBECA OMPREHENSIVE METABOLIC [id number] 06:53:59 Test Item Value Reference Range Interpretation Comments TOTAL PROTEIN 5.9 gm/dL 6.0-8.3 L (BEAKER) (test code = 770) ALBUMIN (BEAKER) 3.1 g/dL 3.5-5.0 L (test code = 1145) ALKALINE 294 U/L 40-150 H PHOSPHATASE (BEAKER) (test code = 346) BILIRUBIN TOTAL 1.4 mg/dL 0.2-1.2 H (BEAKER) (test code = 377) SODIUM (BEAKER) 131 meq/L 136-145 L (test code = 381) POTASSIUM (BEAKER) 4.4 meq/L 3.5-5.1 (test code = 379) CHLORIDE (BEAKER) 100 meq/L 98-107 (test code = 382) CO2 (BEAKER) (test 23 meq/L 22-29 code = 355) BLOOD UREA 10 mg/dL 7-21 NITROGEN (BEAKER) (test code = 354) CREATININE 0.58 mg/dL 0.57-1.25 (BEAKER) (test code = 358) GLUCOSE RANDOM 107 mg/dL 70-105 H (BEAKER) (test code = 652) CALCIUM (BEAKER) 8.4 mg/dL 8.4-10.2 (test code = 697) AST (SGOT) 25 U/L 5-34 (BEAKER) (test code = 353) ALT (SGPT) 19 U/L 6-55 (BEAKER) (test code = 347) EGFR (BEAKER) 110 Interpretatio n of eGFR (test code = 1092) mL/min/1.[address] age Description sq m Result G1 Mariel l or high >=90 G2 Mildly decreased 60-89 G3a Mildl y to moderately 45-5 9 G3b Moderately to s everely 30-44 G4 Severl y decreased 15-29 G5 Kidney failure <15Reported eGF R is based on the CKD-EPI 2021 equation that d oes not use a race coefficientEsti mated GFR is not as accur ate as Creatinine Wilda santizo in predicting glom erular filtration rate . Estimated GFR is not appl icable for dialysis patien ts Physiatrist ID - MARLI MCBC W/PLT COUNT & AUTO [id number] 05:39:12 Test Item Value Reference Range Interpretation Comments WHITE BLOOD CELL COUNT (BEAKER) 5.0 K/ L 3.5-10.5 (test code = 775) RED BLOOD CELL COUNT (BEAKER) 2.90 M/ L 4.63-6.08 L (test code = 761) HEMOGLOBIN (BEAKER) (test code = 8.2 GM/DL 13.7-17.5 L 410) HEMATOCRIT (BEAKER) (test code = 25.7 % 40.1-51.0 L 411) MEAN CORPUSCULAR VOLUME (BEAKER) 88.6 fL 79.0-92.2 (test code = 753) MEAN CORPUSCULAR HEMOGLOBIN 28.3 pg 25.7-32.2 (BEAKER) (test code = 751) MEAN CORPUSCULAR HEMOGLOBIN CONC 31.9 GM/DL 32.3-36.5 L (BEAKER) (test code = 752) RED CELL DISTRIBUTION WIDTH 14.6 % 11.6-14.4 H (BEAKER) (test code = 412) PLATELET COUNT (BEAKER) (test 188 K/CU MM 150-450 code = 756) MEAN PLATELET VOLUME (BEAKER) 8.3 fL 9.4-12.4 L (test code = 754) NUCLEATED RED BLOOD CELLS 0 /100 WBC 0-0 (BEAKER) (test code = 413) NEUTROPHILS RELATIVE PERCENT 76 % (BEAKER) (test code = 429) LYMPHOCYTES RELATIVE PERCENT 12 % (BEAKER) (test code = 430) MONOCYTES RELATIVE PERCENT 5 % (BEAKER) (test code = 431) EOSINOPHILS RELATIVE PERCENT 1 % (BEAKER) (test code = 432) BASOPHILS RELATIVE PERCENT 0 % (BEAKER) (test code = 437) NEUTROPHILS ABSOLUTE COUNT 3.78 K/ L 1.78-5.38 (BEAKER) (test code = 670) LYMPHOCYTES ABSOLUTE COUNT 0.60 K/ L 1.32-3.57 L (BEAKER) (test code = 414) MONOCYTES ABSOLUTE COUNT (BEAKER) 0.27 K/ L 0.30-0.82 L (test code = 415) EOSINOPHILS ABSOLUTE COUNT 0.07 K/ L 0.04-0.54 (BEAKER) (test code = 416) BASOPHILS ABSOLUTE COUNT (BEAKER) 0.02 K/ L 0.01-0.08 (test code = 417) IMMATURE GRANULOCYTES-RELATIVE 5 % 0-1 H PERCENT (BEAKER) (test code = 2801) (CELLAVISION MANUAL DIFF)2022-03-17 07:16:53 Test Item Value Reference Range Interpretation Comments NEUTROPHILS - REL 82 % (CELLAVISION)(BEAKER) (test code = 2816) LYMPHOCYTES - REL 8 % (CELLAVISION)(BEAKER) (test code = 2817) MONOCYTES - REL 3 % (CELLAVISION)(BEAKER) (test code = 2818) EOSINOPHILS - REL 1 % (CELLAVISION)(BEAKER) (test code = 2819) MYELOCYTES - REL 1 % 0-0 H (CELLAVISION)(BEAKER) (test code = 2822) BANDS - REL (CELLAVISION)(BEAKER) 5 % 0-10 (test code = 2826) NEUTROPHILS - ABS 3.69 K/ul 1.78-5.38 (CELLAVISION)(BEAKER) (test code = 2830) LYMPHOCYTES - ABS 0.36 K/ul 1.32-3.57 L (CELLAVISION)(BEAKER) (test code = 2831) MONOCYTES - ABS 0.14 K/uL 0.30-0.82 L (CELLAVISION)(BEAKER) (test code = 2832) EOSINOPHILS - ABS 0.05 K/uL 0.04-0.54 (CELLAVISION)(BEAKER) (test code = 2834) MYELOCYTES-ABS 0.05 K/uL 0.00-0.00 H (CELLAVISION)(BEAKER) (test code = 2837) BANDS - ABS (CELLAVISION)(BEAKER) 0.23 K/uL 0.00-0.80 (test code = 2840) TOTAL COUNTED (BEAKER) (test code 100 = 1351) MANUAL NRBC PER 100 CELLS 3 /100 WBC 0-0 H (BEAKER) (test code = 1353) PLT MORPHOLOGY (BEAKER) (test Normal code = 486) SMUDGE CELLS (BEAKER) (test code Present = 1371) POLYCHROMATOPHILLIC RBCS(BEAKER) 2+ moderate (test code = 478) ANISOCYTOSIS (BEAKER) (test code 2+ moderate = 961) MICROCYTES (BEAKER) (test code = 2+ moderate 965) BASOPHILIC STIPPLING (BEAKER) Present (test code = 473) PLATELET CONCENTRATION Adequate (CELLAVISION)(BEAKER) (test code = 3438) Physiatrist ID - Radah Shannon comments: Slide comments:CBC W/PLT COUNT & AUTO [id number] 07:16:52 Test Item Value Reference Range Interpretation Comments WHITE BLOOD CELL COUNT (BEAKER) 4.5 K/ L 3.5-10.5 (test code = 775) RED BLOOD CELL COUNT (BEAKER) 2.83 M/ L 4.63-6.08 L (test code = 761) HEMOGLOBIN (BEAKER) (test code = 8.3 GM/DL 13.7-17.5 L 410) HEMATOCRIT (BEAKER) (test code = 24.8 % 40.1-51.0 L 411) MEAN CORPUSCULAR VOLUME (BEAKER) 87.6 fL 79.0-92.2 (test code = 753) MEAN CORPUSCULAR HEMOGLOBIN 29.3 pg 25.7-32.2 (BEAKER) (test code = 751) MEAN CORPUSCULAR HEMOGLOBIN CONC 33.5 GM/DL 32.3-36.5 (BEAKER) (test code = 752) RED CELL DISTRIBUTION WIDTH 14.9 % 11.6-14.4 H (BEAKER) (test code = 412) PLATELET COUNT (BEAKER) (test 168 K/CU MM 150-450 code = 756) MEAN PLATELET VOLUME (BEAKER) 8.2 fL 9.4-12.4 L (test code = 754) NUCLEATED RED BLOOD CELLS 1 /100 WBC 0-0 H (BEAKER) (test code = 413) COMPREHENSIVE METABOLIC [id number] 03:49:35 Test Item Value Reference Range Interpretation Comments TOTAL PROTEIN 5.9 gm/dL 6.0-8.3 L (BEAKER) (test code = 770) ALBUMIN (BEAKER) 3.1 g/dL 3.5-5.0 L (test code = 1145) ALKALINE 283 U/L 40-150 H PHOSPHATASE (BEAKER) (test code = 346) BILIRUBIN TOTAL 1.2 mg/dL 0.2-1.2 (BEAKER) (test code = 377) SODIUM (BEAKER) 131 meq/L 136-145 L (test code = 381) POTASSIUM (BEAKER) 4.3 meq/L 3.5-5.1 (test code = 379) CHLORIDE (BEAKER) 99 meq/L 98-107 (test code = 382) CO2 (BEAKER) (test 25 meq/L 22-29 code = 355) BLOOD UREA 12 mg/dL 7-21 NITROGEN (BEAKER) (test code = 354) CREATININE 0.59 mg/dL 0.57-1.25 (BEAKER) (test code = 358) GLUCOSE RANDOM 96 mg/dL 70-105 (BEAKER) (test code = 652) CALCIUM (BEAKER) 8.5 mg/dL 8.4-10.2 (test code = 697) AST (SGOT) 18 U/L 5-34 (BEAKER) (test code = 353) ALT (SGPT) 18 U/L 6-55 (BEAKER) (test code = 347) EGFR (BEAKER) 110 Interpretatio n of eGFR (test code = 1092) mL/min/1.[address] age Description sq m Result G1 Mariel l or high >=90 G2 Mildly decreased 60-89 G3a Mildl y to moderately 45-5 9 G3b Moderately to s everely 30-44 G4 Severl y decreased 15-29 G5 Kidney failure <15Reported eGF R is based on the CKD-EPI 2021 equation that d oes not use a race coefficientEsti mated GFR is not as accur ate as Creatinine Wilda santizo in predicting glom erular filtration rate . Estimated GFR is not appl icable for dialysis patien ts Physiatrist ID - REBECA [facility]uk[facility]Red [id number] 23:54:00 Test Item Value Reference Range Interpretation Comments CROSSMATCH (test code = 2264) COMPATIBLE Unit ABO (test code = O Pos 3630247) UNIT NUMBER (test code = [id number] 934-0) Status (test code = 7413379) TX_TIMEINCHART Blood Bank Product (test code RED BLOOD CELLS = 2263) PRODUCT CODE (test code = C8859E86 933-2) [facility] [id number] 23:54:00 Test Item Value Reference Range Interpretation Comments CROSSMATCH (test code = 2264) COMPATIBLE Unit ABO (test code = O Pos 1420087) UNIT NUMBER (test code = [id number] 934-0) Status (test code = 1630180) TX_TIMEINCHART Blood Bank Product (test code RED BLOOD CELLS = 2263) PRODUCT CODE (test code = V2923B64 933-2) [facility] W/PLT COUNT & AUTO [id number] 08:29:07 Test Item Value Reference Range Interpretation Comments WHITE BLOOD CELL COUNT (BEAKER) 5.3 K/ L 3.5-10.5 (test code = 775) RED BLOOD CELL COUNT (BEAKER) 2.94 M/ L 4.63-6.08 L (test code = 761) HEMOGLOBIN (BEAKER) (test code = 8.6 GM/DL 13.7-17.5 L 410) HEMATOCRIT (BEAKER) (test code = 25.2 % 40.1-51.0 L 411) MEAN CORPUSCULAR VOLUME (BEAKER) 85.7 fL 79.0-92.2 (test code = 753) MEAN CORPUSCULAR HEMOGLOBIN 29.3 pg 25.7-32.2 (BEAKER) (test code = 751) MEAN CORPUSCULAR HEMOGLOBIN CONC 34.1 GM/DL 32.3-36.5 (BEAKER) (test code = 752) RED CELL DISTRIBUTION WIDTH 15.2 % 11.6-14.4 H (BEAKER) (test code = 412) PLATELET COUNT (BEAKER) (test 195 K/CU MM 150-450 code = 756) MEAN PLATELET VOLUME (BEAKER) 8.6 fL 9.4-12.4 L (test code = 754) NUCLEATED RED BLOOD CELLS 1 /100 WBC 0-0 H (BEAKER) (test code = 413) (CELLAVISION MANUAL DIFF)2022-03-16 08:29:07 Test Item Value Reference Range Interpretation Comments NEUTROPHILS - REL 82 % (CELLAVISION)(BEAKER) (test code = 2816) LYMPHOCYTES - REL 5 % (CELLAVISION)(BEAKER) (test code = 2817) MONOCYTES - REL 5 % (CELLAVISION)(BEAKER) (test code = 2818) EOSINOPHILS - REL 1 % (CELLAVISION)(BEAKER) (test code = 2819) METAMYELOCYTES - REL 2 % 0-0 H (CELLAVISION)(BEAKER) (test code = 2821) MYELOCYTES - REL 1 % 0-0 H (CELLAVISION)(BEAKER) (test code = 2822) BANDS - REL (CELLAVISION)(BEAKER) 4 % 0-10 (test code = 2826) NEUTROPHILS - ABS 4.35 K/ul 1.78-5.38 (CELLAVISION)(BEAKER) (test code = 2830) LYMPHOCYTES - ABS 0.27 K/ul 1.32-3.57 L (CELLAVISION)(BEAKER) (test code = 2831) MONOCYTES - ABS 0.27 K/uL 0.30-0.82 L (CELLAVISION)(BEAKER) (test code = 2832) EOSINOPHILS - ABS 0.05 K/uL 0.04-0.54 (CELLAVISION)(BEAKER) (test code = 2834) METAMYELOCYTES - ABS 0.11 K/uL 0.00-0.00 H (CELLAVISION)(BEAKER) (test code = 2836) MYELOCYTES-ABS 0.05 K/uL 0.00-0.00 H (CELLAVISION)(BEAKER) (test code = 2837) BANDS - ABS (CELLAVISION)(BEAKER) 0.21 K/uL 0.00-0.80 (test code = 2840) TOTAL COUNTED (BEAKER) (test code = 100 1351) WBC MORPHOLOGY (BEAKER) (test code Normal = 487) PLT MORPHOLOGY (BEAKER) (test code Normal = 486) POLYCHROMATOPHILLIC RBCS(BEAKER) 1+ few (test code = 478) COMPREHENSIVE METABOLIC [id number] 07:06:05 Test Item Value Reference Range Interpretation Comments TOTAL PROTEIN 5.9 gm/dL 6.0-8.3 L (BEAKER) (test code = 770) ALBUMIN (BEAKER) 3.1 g/dL 3.5-5.0 L (test code = 1145) ALKALINE 306 U/L 40-150 H PHOSPHATASE (BEAKER) (test code = 346) BILIRUBIN TOTAL 1.1 mg/dL 0.2-1.2 (BEAKER) (test code = 377) SODIUM (BEAKER) 132 meq/L 136-145 L (test code = 381) POTASSIUM (BEAKER) 4.4 meq/L 3.5-5.1 (test code = 379) CHLORIDE (BEAKER) 100 meq/L 98-107 (test code = 382) CO2 (BEAKER) (test 24 meq/L 22-29 code = 355) BLOOD UREA 11 mg/dL 7-21 NITROGEN (BEAKER) (test code = 354) CREATININE 0.59 mg/dL 0.57-1.25 (BEAKER) (test code = 358) GLUCOSE RANDOM 99 mg/dL 70-105 (BEAKER) (test code = 652) CALCIUM (BEAKER) 8.6 mg/dL 8.4-10.2 (test code = 697) AST (SGOT) 21 U/L 5-34 (BEAKER) (test code = 353) ALT (SGPT) 19 U/L 6-55 (BEAKER) (test code = 347) EGFR (BEAKER) 110 Interpretatio n of eGFR (test code = 1092) mL/min/1.[address] age Description sq m Result G1 Norm al or high >=90 G2 Mildly decreased 60-89 G3a Mildl y to moderately 45-5 9 G3b Moderately to s everely 30-44 G4 Severl y decreased 15-29 G5 Kidney failure <15Reported eGF R is based on the CKD-EPI 2020 equation that d oes not use a race coefficientEsti mated GFR is not as accur ate as Creatinine Wilda darlyn in predicting glom erular filtration rate . Estimated GFR is not appl icable for dialysis patien ts Physiatrist ID - MARLI M(CELLAVISION MANUAL DIFF)2022-03-15 07:36:26 Test Item Value Reference Range Interpretation Comments NEUTROPHILS - REL 72 % (CELLAVISION)(BEAKER) (test code = 2816) LYMPHOCYTES - REL 12 % (CELLAVISION)(BEAKER) (test code = 2817) MONOCYTES - REL 8 % (CELLAVISION)(BEAKER) (test code = 2818) BASOPHILS - REL 1 % (CELLAVISION)(BEAKER) (test code = 2820) METAMYELOCYTES - REL 3 % 0-0 H (CELLAVISION)(BEAKER) (test code = 2821) MYELOCYTES - REL 2 % 0-0 H (CELLAVISION)(BEAKER) (test code = 2822) BANDS - REL (CELLAVISION)(BEAKER) 1 % 0-10 (test code = 2826) NEUTROPHILS - ABS 3.82 K/ul 1.78-5.38 (CELLAVISION)(BEAKER) (test code = 2830) LYMPHOCYTES - ABS 0.64 K/ul 1.32-3.57 L (CELLAVISION)(BEAKER) (test code = 2831) MONOCYTES - ABS 0.42 K/uL 0.30-0.82 (CELLAVISION)(BEAKER) (test code = 2832) BASOPHILS - ABS 0.05 K/uL 0.01-0.08 (CELLAVISION)(BEAKER) (test code = 2835) METAMYELOCYTES - ABS 0.16 K/uL 0.00-0.00 H (CELLAVISION)(BEAKER) (test code = 2836) MYELOCYTES-ABS 0.11 K/uL 0.00-0.00 H (CELLAVISION)(BEAKER) (test code = 2837) BANDS - ABS (CELLAVISION)(BEAKER) 0.05 K/uL 0.00-0.80 (test code = 2840) TOTAL COUNTED (BEAKER) (test code 100 = 1351) MANUAL NRBC PER 100 CELLS 2 /100 WBC 0-0 H (BEAKER) (test code = 1353) WBC MORPHOLOGY (BEAKER) (test Normal code = 487) GIANT PLATELETS (BEAKER) (test Present code = 313) ANISOCYTOSIS (BEAKER) (test code 2+ moderate = 961) MICROCYTES (BEAKER) (test code = 2+ moderate 965) ARTIFACT (CELLAVISION)(BEAKER) Present (test code = 3432) PLATELET CONCENTRATION Adequate (CELLAVISION)(BEAKER) (test code = 3438) Physiatrist ID - cr Pelayo comments: Slide comments:CBC W/PLT COUNT & AUTO [id number] 07:36:25 Test Item Value Reference Range Interpretation Comments WHITE BLOOD CELL COUNT (BEAKER) 5.3 K/ L 3.5-10.5 (test code = 775) RED BLOOD CELL COUNT (BEAKER) 2.48 M/ L 4.63-6.08 L (test code = 761) HEMOGLOBIN (BEAKER) (test code = 6.9 GM/DL 13.7-17.5 L 410) HEMATOCRIT (BEAKER) (test code = 21.8 % 40.1-51.0 L 411) MEAN CORPUSCULAR VOLUME (BEAKER) 87.9 fL 79.0-92.2 (test code = 753) MEAN CORPUSCULAR HEMOGLOBIN 27.8 pg 25.7-32.2 (BEAKER) (test code = 751) MEAN CORPUSCULAR HEMOGLOBIN CONC 31.7 GM/DL 32.3-36.5 L (BEAKER) (test code = 752) RED CELL DISTRIBUTION WIDTH 14.8 % 11.6-14.4 H (BEAKER) (test code = 412) PLATELET COUNT (BEAKER) (test 169 K/CU MM 150-450 code = 756) MEAN PLATELET VOLUME (BEAKER) 8.3 fL 9.4-12.4 L (test code = 754) NUCLEATED RED BLOOD CELLS 1 /100 WBC 0-0 H (BEAKER) (test code = 413) COMPREHENSIVE METABOLIC [id number] 06:42:38 Test Item Value Reference Range Interpretation Comments TOTAL PROTEIN 5.4 gm/dL 6.0-8.3 L (BEAKER) (test code = 770) ALBUMIN (BEAKER) 2.9 g/dL 3.5-5.0 L (test code = 1145) ALKALINE 315 U/L 40-150 H PHOSPHATASE (BEAKER) (test code = 346) BILIRUBIN TOTAL 1.1 mg/dL 0.2-1.2 (BEAKER) (test code = 377) SODIUM (BEAKER) 130 meq/L 136-145 L (test code = 381) POTASSIUM (BEAKER) 3.9 meq/L 3.5-5.1 (test code = 379) CHLORIDE (BEAKER) 100 meq/L 98-107 (test code = 382) CO2 (BEAKER) (test 23 meq/L 22-29 code = 355) BLOOD UREA 10 mg/dL 7-21 NITROGEN (BEAKER) (test code = 354) CREATININE 0.58 mg/dL 0.57-1.25 (BEAKER) (test code = 358) GLUCOSE RANDOM 95 mg/dL 70-105 (BEAKER) (test code = 652) CALCIUM (BEAKER) 8.2 mg/dL 8.4-10.2 L (test code = 697) AST (SGOT) 25 U/L 5-34 (BEAKER) (test code = 353) ALT (SGPT) 20 U/L 6-55 (BEAKER) (test code = 347) EGFR (BEAKER) 110 Interpretatio n of eGFR (test code = 1092) mL/min/1.[address] age Description sq m Result G1 Mariel l or high >=90 G2 Mildly decreased 60-89 G3a Mildl y to moderately 45-5 9 G3b Moderately to s everely 30-44 G4 Severl y decreased 15-29 G5 Kidney failure <15Reported eGF R is based on the CKD-EPI 2020 equation that d oes not use a race coefficientEsti mated GFR is not as accur ate as Creatinine Wilda darlyn in predicting glom erular filtration rate . Estimated GFR is not appl icable for dialysis patien ts Physiatrist ID - MARLI MCT, SPINE, THORACIC, WO [id number] 16:29:00Please extend imaging down to [id number] Reason for Exam - Click Yes and Enter Reason Below->YesUnlisted Reason for Exam->R/o hematoma, active bleeding from R drain site s/p T-9 TO T-11 LAMINECTOMY, T9-L1 [facility] : 1960 Sex: [address] CT, SPINE, THORACIC, WO CONTRAST INDICATION: Unlisted Reason for ExamR/ohematoma, active bleeding from R drain site s/p T-9 TO T-11 LAMINECTOMY, T9-L1 POSTERIOR FUSION COMPARISON: 03/08/2022 TECHNIQUE: Contiguous noncontrast axial images of the thoracic spine are obtained. Computer reformatted coronal and sagittal images are also provided. Axial images are available in both bone and soft tissue algorithm. DOSE REDUCTION: Dose modulation, iterative reconstruction, and/or weight-based adjustment of the mA/kV was utilized to reduce the radiation dose to as low as reasonablyachievable. FINDINGS: Status post multilevel posterior fusion spanning T9-L1. There has been laminectomy at T9-T11. A surgical drain enters the posterior paraspinal soft tissues at the L2 vertebral level and extends cranially within the posterior paraspinal soft tissues to the T8 vertebral level. Redemonstration of metastatic disease involving nearly every vertebral level with diffuse sclerotic metastatic infiltration at T1, T3-T4, T6, T9 and T11-T12. There is ill-defined soft tissue at T10-T12, presumed to represent epidural disease, similar to preoperative MRI 03/08/2022 (although some contribution from evolving postoperative seroma may also be present as well as (. Maintenance of thoracic kyphosis. No new logic fracture. IMPRESSION: Status post multilevel posterior fusion spanning T9-L1. There has been laminectomy at T9-T11. A surgical drain enters the posterior paraspinal soft tissues at the L2 vertebral level and extends cranially within the posterior paraspinal soft tissues to the T8 vertebral level. Signed: Pauline Delgado MDRepbothwell regional health center Verified Date/Time: 03/14/2022 16:29:09 CBC W/PLT COUNT & AUTO [id number] 08:24:32 Test Item Value Reference Range Interpretation Comments WHITE BLOOD CELL COUNT (BEAKER) 5.6 K/ L 3.5-10.5 (test code = 775) RED BLOOD CELL COUNT (BEAKER) 3.13 M/ L 4.63-6.08 L (test code = 761) HEMOGLOBIN (BEAKER) (test code = 9.0 GM/DL 13.7-17.5 L 410) HEMATOCRIT (BEAKER) (test code = 27.9 % 40.1-51.0 L 411) MEAN CORPUSCULAR VOLUME (BEAKER) 89.1 fL 79.0-92.2 (test code = 753) MEAN CORPUSCULAR HEMOGLOBIN 28.8 pg 25.7-32.2 (BEAKER) (test code = 751) MEAN CORPUSCULAR HEMOGLOBIN CONC 32.3 GM/DL 32.3-36.5 (BEAKER) (test code = 752) RED CELL DISTRIBUTION WIDTH 14.9 % 11.6-14.4 H (BEAKER) (test code = 412) PLATELET COUNT (BEAKER) (test 221 K/CU MM 150-450 code = 756) MEAN PLATELET VOLUME (BEAKER) 8.6 fL 9.4-12.4 L (test code = 754) NUCLEATED RED BLOOD CELLS 2 /100 WBC 0-0 H (BEAKER) (test code = 413) (CELLAVISION MANUAL DIFF)2022-03-14 08:24:32 Test Item Value Reference Range Interpretation Comments NEUTROPHILS - REL 73 % (CELLAVISION)(BEAKER) (test code = 2816) LYMPHOCYTES - REL 10 % (CELLAVISION)(BEAKER) (test code = 2817) MONOCYTES - REL 9 % (CELLAVISION)(BEAKER) (test code = 2818) MYELOCYTES - REL 1 % 0-0 H (CELLAVISION)(BEAKER) (test code = 2822) BANDS - REL (CELLAVISION)(BEAKER) 6 % 0-10 (test code = 2826) ATYPICAL LYMPHOCYTES - REL 1 % 0-0 H (CELLAVISION)(BEAKER) (test code = 2829) NEUTROPHILS - ABS 4.09 K/ul 1.78-5.38 (CELLAVISION)(BEAKER) (test code = 2830) LYMPHOCYTES - ABS 0.56 K/ul 1.32-3.57 L (CELLAVISION)(BEAKER) (test code = 2831) MONOCYTES - ABS 0.50 K/uL 0.30-0.82 (CELLAVISION)(BEAKER) (test code = 2832) MYELOCYTES-ABS 0.06 K/uL 0.00-0.00 H (CELLAVISION)(BEAKER) (test code = 2837) BANDS - ABS (CELLAVISION)(BEAKER) 0.34 K/uL 0.00-0.80 (test code = 2840) ATYPICAL LYMPHOCYTES - ABS 0.06 K/uL 0.00-0.00 H (CELLAVISION)(BEAKER) (test code = 2858) TOTAL COUNTED (BEAKER) (test code 100 = 1351) MANUAL NRBC PER 100 CELLS (BEAKER) 6 /100 WBC 0-0 H (test code = 1353) PLT MORPHOLOGY (BEAKER) (test code Normal = 486) SMUDGE CELLS (BEAKER) (test code = Present 1371) POLYCHROMATOPHILLIC RBCS(BEAKER) 1+ few (test code = 478) ANISOCYTOSIS (BEAKER) (test code = 1+ few 961) MICROCYTES (BEAKER) (test code = 1+ few 965) PLATELET CONCENTRATION Adequate (CELLAVISION)(BEAKER) (test code = 3438) Physiatrist ID - Augustin Dato-onUser comments: Slide comments:COMPREHENSIVE METABOLIC [id number] 08:17:02 Test Item Value Reference Range Interpretation Comments TOTAL PROTEIN 6.4 gm/dL 6.0-8.3 (BEAKER) (test code = 770) ALBUMIN (BEAKER) 3.4 g/dL 3.5-5.0 L (test code = 1145) ALKALINE 390 U/L 40-150 H PHOSPHATASE (BEAKER) (test code = 346) BILIRUBIN TOTAL 1.2 mg/dL 0.2-1.2 (BEAKER) (test code = 377) SODIUM (BEAKER) 132 meq/L 136-145 L (test code = 381) POTASSIUM (BEAKER) 4.0 meq/L 3.5-5.1 (test code = 379) CHLORIDE (BEAKER) 100 meq/L 98-107 (test code = 382) CO2 (BEAKER) (test 22 meq/L 22-29 code = 355) BLOOD UREA 15 mg/dL 7-21 NITROGEN (BEAKER) (test code = 354) CREATININE 0.62 mg/dL 0.57-1.25 (BEAKER) (test code = 358) GLUCOSE RANDOM 94 mg/dL 70-105 (BEAKER) (test code = 652) CALCIUM (BEAKER) 8.8 mg/dL 8.4-10.2 (test code = 697) AST (SGOT) 25 U/L 5-34 (BEAKER) (test code = 353) ALT (SGPT) 16 U/L 6-55 (BEAKER) (test code = 347) EGFR (TERRENCE) 108 Interpretatio n of eGFR (test code = 1092) mL/min/1.[address] age Description sq m Result G1 Norm al or high >=90 G2 Mildly decreased 60-89 G3a Mildl y to moderately 45-5 9 G3b Moderately to s everely 30-44 G4 Severl y decreased 15-29 G5 Kidney failure <15Reported eGF R is based on the CKD-EPI 2020 equation that d oes not use a race coefficientEsti mated GFR is not as accur ate as Creatinine Wilda darlyn in predicting glom erular filtration rate . Estimated GFR is not appl icable for dialysis patien ts Physiatrist ID - ADMINRAD, SPINE, THORACIC, 2 [id number] 15:48:00Reason for exam:->standing x-rays pleas include down to L2 (1 level below hardware) [facility] S[facility]OROAileen CHOUDHARY FITO : 1960 Sex: MFINALREPORT CLINICAL HISTORY: standing x-rays pleas include down to L2 (1 level below hardware) TECHNIQUE: Frontal and lateral views of the thoracic spine. COMPARISON: CT 03/08/2022 IMPRESSION: Please note that the T1-T4 vertebral bodies are excluded from the [id number] the two images. There has been interval placement of bilateral posterior spinal rods and pedicle screws from T9 through L1 with a decompressive laminectomies. Mild loss of height of a few thoracic vertebral bodies with multifocal sclerotic metastatic disease is again noted. Signed: João Orozco MDReport Verified Date/Time: 03/13/2022 15:48:10 Reading Location: [address] Reading Room SARS-COV2/RT-PCR ([facility]) 2022-03-13 15:10:11 Test Item Value Reference Range Interpretation Comments SARS-COV2/RT-PCR (test Negative Not Detected, Negative, code = 6369108) See external report for linked test SARS-COV-2 PERFORMING LAB [facility] (test code = 9230977) Negative result for this test determines that SARS-CoV-2 RNA was not present in the specimen above the Limit of Detection (LOD). However, Negative results do not preclude SARS-CoV-2 infection and should not be used as the sole basis for treatment or patient management decisions. Negative results must be combined with clinical observations, patient history, and epidemiological information. A false negative result may occur if a specimen is improperly collected, transported or handled. A false negative result should be considered if patient's recent exposures or clinical presentation indicate that COVID-19 (SARS-CoV-2) is likely and diagnostic tests for other causes of illness are negative. Re-testing should be considered in cases of suspected false negatives.The limit of detection for this assay is 800 copies/mL.This SARS CoV-2 test is a real-time RT-PCR test intended for the qualitative detection of nucleic acid from SARS-CoV-2 in a nasopharyngeal swab specimen collected from individuals suspected of COVID-19 by their healthcare provider.This test has not been Food and Drug Administration (FDA) cleared or approved. This is a modified version of an approved Emergency Use Authorization (EUA) and is in the process of review by the FDA. Once authorized by the FDA, the issued EUA will be effective until the declaration that circumstances exist justifying the authorization of the emergency use ofin vitro diagnostic tests for detection and/or diagnosis of COVID-19 is terminated under Section 564(b)(2) of the Act or the EUA is revoked under Section 564(g) of the Act.Fact Sheet for Healthcare Prov iders:https://www.[employer].com/sites/default/files/product/documents/Fact_Sheet_HC _Znttcspvc_Wpub_KWOF-GbW-2.pdfFact Sheet for Healthcare Patients:https://www.[employer].com/sites/default/files/product/docume nts/Tqko_Fzvep_Xsmsmgfq_Sruc_JLWX-AxU-8.pdfPerforming Laboratory:[facility].[place], [place] [address]XGX W/PLT COUNT & AUTO [id number] 08:57:07 Test Item Value Reference Range Interpretation Comments WHITE BLOOD CELL COUNT (BEAKER) 5.2 K/ L 3.5-10.5 (test code = 775) RED BLOOD CELL COUNT (BEAKER) 2.80 M/ L 4.63-6.08 L (test code = 761) HEMOGLOBIN (BEAKER) (test code = 7.9 GM/DL 13.7-17.5 L 410) HEMATOCRIT (BEAKER) (test code = 24.8 % 40.1-51.0 L 411) MEAN CORPUSCULAR VOLUME (BEAKER) 88.6 fL 79.0-92.2 (test code = 753) MEAN CORPUSCULAR HEMOGLOBIN 28.2 pg 25.7-32.2 (BEAKER) (test code = 751) MEAN CORPUSCULAR HEMOGLOBIN CONC 31.9 GM/DL 32.3-36.5 L (BEAKER) (test code = 752) RED CELL DISTRIBUTION WIDTH 14.6 % 11.6-14.4 H (BEAKER) (test code = 412) PLATELET COUNT (BEAKER) (test 211 K/CU MM 150-450 code = 756) MEAN PLATELET VOLUME (BEAKER) 8.7 fL 9.4-12.4 L (test code = 754) NUCLEATED RED BLOOD CELLS 2 /100 WBC 0-0 H (BEAKER) (test code = 413) (CELLAVISION MANUAL DIFF)2022-03-13 08:57:07 Test Item Value Reference Range Interpretation Comments NEUTROPHILS - REL 72 % (CELLAVISION)(BEAKER) (test code = 2816) LYMPHOCYTES - REL 9 % (CELLAVISION)(BEAKER) (test code = 2817) MONOCYTES - REL 12 % (CELLAVISION)(BEAKER) (test code = 2818) METAMYELOCYTES - REL 5 % 0-0 H (CELLAVISION)(BEAKER) (test code = 2821) BANDS - REL (CELLAVISION)(BEAKER) 2 % 0-10 (test code = 2826) NEUTROPHILS - ABS 3.74 K/ul 1.78-5.38 (CELLAVISION)(BEAKER) (test code = 2830) LYMPHOCYTES - ABS 0.47 K/ul 1.32-3.57 L (CELLAVISION)(BEAKER) (test code = 2831) MONOCYTES - ABS 0.62 K/uL 0.30-0.82 (CELLAVISION)(BEAKER) (test code = 2832) METAMYELOCYTES - ABS 0.26 K/uL 0.00-0.00 H (CELLAVISION)(BEAKER) (test code = 2836) BANDS - ABS (CELLAVISION)(BEAKER) 0.10 K/uL 0.00-0.80 (test code = 2840) TOTAL COUNTED (BEAKER) (test code 100 = 1351) MANUAL NRBC PER 100 CELLS (BEAKER) 1 /100 WBC 0-0 H (test code = 1353) WBC MORPHOLOGY (BEAKER) (test code Normal = 487) PLT MORPHOLOGY (BEAKER) (test code Normal = 486) POLYCHROMATOPHILLIC RBCS(BEAKER) 1+ few (test code = 478) ANISOCYTOSIS (BEAKER) (test code = 1+ few 961) ARTIFACT (CELLAVISION)(BEAKER) Present (test code = 3432) PLATELET CONCENTRATION Adequate (CELLAVISION)(BEAKER) (test code = 3438) Physiatrist ID Brittany Fulton OverholtUser comments: Slide comments:VITAMIN [id number] 06:32:00 Test Item Value Reference Range Interpretation Comments VITAMIN B12 (BEAKER) (test code = 427 pg/mL 213-816 774) Physiatrist ID - MARLI [id number] 06:32:00 Test Item Value Reference Range Interpretation Comments FERRITIN (BEAKER) (test code = 855.38 ng/mL 5.00-275.00 H 361) Physiatrist ID - MARLI MCOMPREHENSIVE METABOLIC [id number] 06:18:11 Test Item Value Reference Range Interpretation Comments TOTAL PROTEIN 5.6 gm/dL 6.0-8.3 L (BEAKER) (test code = 770) ALBUMIN (BEAKER) 3.1 g/dL 3.5-5.0 L (test code = 1145) ALKALINE 388 U/L 40-150 H PHOSPHATASE (BEAKER) (test code = 346) BILIRUBIN TOTAL 0.8 mg/dL 0.2-1.2 (BEAKER) (test code = 377) SODIUM (BEAKER) 133 meq/L 136-145 L (test code = 381) POTASSIUM (BEAKER) 4.3 meq/L 3.5-5.1 (test code = 379) CHLORIDE (BEAKER) 103 meq/L 98-107 (test code = 382) CO2 (BEAKER) (test 26 meq/L 22-29 code = 355) BLOOD UREA 13 mg/dL 7-21 NITROGEN (BEAKER) (test code = 354) CREATININE 0.62 mg/dL 0.57-1.25 (BEAKER) (test code = 358) GLUCOSE RANDOM 106 mg/dL 70-105 H (BEAKER) (test code = 652) CALCIUM (BEAKER) 8.6 mg/dL 8.4-10.2 (test code = 697) AST (SGOT) 20 U/L 5-34 (BEAKER) (test code = 353) ALT (SGPT) 15 U/L 6-55 (BEAKER) (test code = 347) EGFR (BEAKER) 108 Interpretatio n of eGFR (test code = 1092) mL/min/1.[address] age Description sq m Result G1 Mariel l or high >=90 G2 Mildly decreased 60-89 G3a Mildl y to moderately 45-5 9 G3b Moderately to s everely 30-44 G4 Severl y decreased 15-29 G5 Kidney failure <15Reported eGF R is based on the CKD-EPI 2020 equation that d oes not use a race coefficientEsti mated GFR is not as accur ate as Creatinine Wilda santizo in predicting glom erular filtration rate . Estimated GFR is not appl icable for dialysis patien ts Physiatrist ID - MARLI HERNANDEZ, TIBC, % SAT. (WITHOUT FERRITIN)2022-03-13 06:07:46 Test Item Value Reference Range Interpretation Comments IRON (BEAKER) (test code = 547) 47.0 ug/dL 40.0-160.0 TOTAL IRON BINDING CAPACITY 204 ug/dL 250-450 L (BEAKER) (test code = 769) IRON % SATURATION (2) (BEAKER) 23 % 20-55 (test code = 2590) Physiatrist ID - MARLI Stanley(CELLAVISION MANUAL DIFF)2022-03-12 07:04:24 Test Item Value Reference Range Interpretation Comments NEUTROPHILS - REL 82 % (CELLAVISION)(BEAKER) (test code = 2816) LYMPHOCYTES - REL 3 % (CELLAVISION)(BEAKER) (test code = 2817) MONOCYTES - REL 3 % (CELLAVISION)(BEAKER) (test code = 2818) EOSINOPHILS - REL 1 % (CELLAVISION)(BEAKER) (test code = 2819) METAMYELOCYTES - REL 4 % 0-0 H (CELLAVISION)(BEAKER) (test code = 2821) MYELOCYTES - REL 2 % 0-0 H (CELLAVISION)(BEAKER) (test code = 2822) BANDS - REL (CELLAVISION)(BEAKER) 3 % 0-10 (test code = 2826) NEUTROPHILS - ABS 4.67 K/ul 1.78-5.38 (CELLAVISION)(BEAKER) (test code = 2830) LYMPHOCYTES - ABS 0.17 K/ul 1.32-3.57 L (CELLAVISION)(BEAKER) (test code = 2831) MONOCYTES - ABS 0.17 K/uL 0.30-0.82 L (CELLAVISION)(BEAKER) (test code = 2832) EOSINOPHILS - ABS 0.06 K/uL 0.04-0.54 (CELLAVISION)(BEAKER) (test code = 2834) METAMYELOCYTES - ABS 0.23 K/uL 0.00-0.00 H (CELLAVISION)(BEAKER) (test code = 2836) MYELOCYTES-ABS 0.11 K/uL 0.00-0.00 H (CELLAVISION)(BEAKER) (test code = 2837) BANDS - ABS (CELLAVISION)(BEAKER) 0.17 K/uL 0.00-0.80 (test code = 2840) TOTAL COUNTED (BEAKER) (test code 100 = 1351) MANUAL NRBC PER 100 CELLS 2 /100 WBC 0-0 H (BEAKER) (test code = 1353) PLT MORPHOLOGY (BEAKER) (test Normal code = 486) SMUDGE CELLS (BEAKER) (test code Present = 1371) POLYCHROMATOPHILLIC RBCS(BEAKER) 1+ few (test code = 478) ANISOCYTOSIS (BEAKER) (test code 2+ moderate = 961) MICROCYTES (BEAKER) (test code = 2+ moderate 965) ARTIFACT (CELLAVISION)(BEAKER) Present (test code = 3432) PLATELET CONCENTRATION Adequate (CELLAVISION)(BEAKER) (test code = 3438) Physiatrist ID - Radha VillalobosYolanda comments: Slide comments:CBC W/PLT COUNT & AUTO [id number] 07:04:23 Test Item Value Reference Range Interpretation Comments WHITE BLOOD CELL COUNT (BEAKER) 5.7 K/ L 3.5-10.5 (test code = 775) RED BLOOD CELL COUNT (BEAKER) 2.89 M/ L 4.63-6.08 L (test code = 761) HEMOGLOBIN (BEAKER) (test code = 8.3 GM/DL 13.7-17.5 L 410) HEMATOCRIT (BEAKER) (test code = 23.9 % 40.1-51.0 L 411) MEAN CORPUSCULAR VOLUME (BEAKER) 82.7 fL 79.0-92.2 (test code = 753) MEAN CORPUSCULAR HEMOGLOBIN 28.7 pg 25.7-32.2 (BEAKER) (test code = 751) MEAN CORPUSCULAR HEMOGLOBIN CONC 34.7 GM/DL 32.3-36.5 (BEAKER) (test code = 752) RED CELL DISTRIBUTION WIDTH 14.6 % 11.6-14.4 H (BEAKER) (test code = 412) PLATELET COUNT (BEAKER) (test 175 K/CU MM 150-450 code = 756) MEAN PLATELET VOLUME (BEAKER) 8.7 fL 9.4-12.4 L (test code = 754) NUCLEATED RED BLOOD CELLS 1 /100 WBC 0-0 H (BEAKER) (test code = 413) COMPREHENSIVE METABOLIC [id number] 06:20:52 Test Item Value Reference Range Interpretation Comments TOTAL PROTEIN 5.4 gm/dL 6.0-8.3 L (BEAKER) (test code = 770) ALBUMIN (BEAKER) 3.0 g/dL 3.5-5.0 L (test code = 1145) ALKALINE 497 U/L 40-150 H PHOSPHATASE (BEAKER) (test code = 346) BILIRUBIN TOTAL 0.7 mg/dL 0.2-1.2 (BEAKER) (test code = 377) SODIUM (BEAKER) 133 meq/L 136-145 L (test code = 381) POTASSIUM (BEAKER) 4.3 meq/L 3.5-5.1 (test code = 379) CHLORIDE (BEAKER) 103 meq/L 98-107 (test code = 382) CO2 (BEAKER) (test 24 meq/L 22-29 code = 355) BLOOD UREA 14 mg/dL 7-21 NITROGEN (BEAKER) (test code = 354) CREATININE 0.63 mg/dL 0.57-1.25 (BEAKER) (test code = 358) GLUCOSE RANDOM 133 mg/dL 70-105 H (BEAKER) (test code = 652) CALCIUM (BEAKER) 8.3 mg/dL 8.4-10.2 L (test code = 697) AST (SGOT) 22 U/L 5-34 (BEAKER) (test code = 353) ALT (SGPT) 13 U/L 6-55 (BEAKER) (test code = 347) EGFR (BEAKER) 108 Interpretatio n of eGFR (test code = 1092) mL/min/1.[address] age Description sq m Result G1 Mariel l or high >=90 G2 Mildly decreased 60-89 G3a Mildl y to moderately 45-5 9 G3b Moderately to s everely 30-44 G4 Severl y decreased 15-29 G5 Kidney failure <15Reported eGF R is based on the CKD-EPI 2021 equation that d oes not use a race coefficientEsti mated GFR is not as accur ate as Creatinine Wilda darlyn in predicting glom erular filtration rate . Estimated GFR is not appl icable for dialysis patien ts Physiatrist ID - PIAYA LCOMPREHENSIVE METABOLIC [id number] 06:22:51 Test Item Value Reference Range Interpretation Comments TOTAL PROTEIN 5.8 gm/dL 6.0-8.3 L (BEAKER) (test code = 770) ALBUMIN (BEAKER) 3.2 g/dL 3.5-5.0 L (test code = 1145) ALKALINE 674 U/L 40-150 H PHOSPHATASE (BEAKER) (test code = 346) BILIRUBIN TOTAL 0.7 mg/dL 0.2-1.2 (BEAKER) (test code = 377) SODIUM (BEAKER) 131 meq/L 136-145 L (test code = 381) POTASSIUM (BEAKER) 4.1 meq/L 3.5-5.1 (test code = 379) CHLORIDE (BEAKER) 101 meq/L 98-107 (test code = 382) CO2 (BEAKER) (test 22 meq/L 22-29 code = 355) BLOOD UREA 16 mg/dL 7-21 NITROGEN (BEAKER) (test code = 354) CREATININE 0.59 mg/dL 0.57-1.25 (BEAKER) (test code = 358) GLUCOSE RANDOM 142 mg/dL 70-105 H (BEAKER) (test code = 652) CALCIUM (BEAKER) 8.3 mg/dL 8.4-10.2 L (test code = 697) AST (SGOT) 38 U/L 5-34 H (BEAKER) (test code = 353) ALT (SGPT) 15 U/L 6-55 (BEAKER) (test code = 347) EGFR (BEAKER) 110 Interpretatio n of eGFR (test code = 1092) mL/min/1.[address] age Description sq m Result G1 Mariel l or high >=90 G2 Mildly decreased 60-89 G3a Mildl y to moderately 45-5 9 G3b Moderately to s everely 30-44 G4 Severl y decreased 15-29 G5 Kidney failure <15Reported eGF R is based on the CKD-EPI 2021 equation that d oes not use a race coefficientEsti mated GFR is not as accur ate as Creatinine Wilda darlyn in predicting glom erular filtration rate . Estimated GFR is not appl icable for dialysis patien ts Physiatrist ID - PIAYA LCBC W/PLT COUNT & AUTO [id number] 06:13:00 Test Item Value Reference Range Interpretation Comments WHITE BLOOD CELL COUNT (BEAKER) 6.9 K/ L 3.5-10.5 (test code = 775) RED BLOOD CELL COUNT (BEAKER) 3.31 M/ L 4.63-6.08 L (test code = 761) HEMOGLOBIN (BEAKER) (test code = 9.5 GM/DL 13.7-17.5 L 410) HEMATOCRIT (BEAKER) (test code = 28.5 % 40.1-51.0 L 411) MEAN CORPUSCULAR VOLUME (BEAKER) 86.1 fL 79.0-92.2 (test code = 753) MEAN CORPUSCULAR HEMOGLOBIN 28.7 pg 25.7-32.2 (BEAKER) (test code = 751) MEAN CORPUSCULAR HEMOGLOBIN CONC 33.3 GM/DL 32.3-36.5 (BEAKER) (test code = 752) RED CELL DISTRIBUTION WIDTH 14.2 % 11.6-14.4 (BEAKER) (test code = 412) PLATELET COUNT (BEAKER) (test 175 K/CU MM 150-450 code = 756) MEAN PLATELET VOLUME (BEAKER) 8.6 fL 9.4-12.4 L (test code = 754) NUCLEATED RED BLOOD CELLS 0 /100 WBC 0-0 (BEAKER) (test code = 413) NEUTROPHILS RELATIVE PERCENT 82 % (BEAKER) (test code = 429) LYMPHOCYTES RELATIVE PERCENT 9 % (BEAKER) (test code = 430) MONOCYTES RELATIVE PERCENT 6 % (BEAKER) (test code = 431) EOSINOPHILS RELATIVE PERCENT 0 % (BEAKER) (test code = 432) BASOPHILS RELATIVE PERCENT 0 % (BEAKER) (test code = 437) NEUTROPHILS ABSOLUTE COUNT 5.59 K/ L 1.78-5.38 H (BEAKER) (test code = 670) LYMPHOCYTES ABSOLUTE COUNT 0.59 K/ L 1.32-3.57 L (BEAKER) (test code = 414) MONOCYTES ABSOLUTE COUNT (BEAKER) 0.41 K/ L 0.30-0.82 (test code = 415) EOSINOPHILS ABSOLUTE COUNT 0.00 K/ L 0.04-0.54 L (BEAKER) (test code = 416) BASOPHILS ABSOLUTE COUNT (BEAKER) 0.02 K/ L 0.01-0.08 (test code = 417) IMMATURE GRANULOCYTES-RELATIVE 4 % 0-1 H PERCENT (BEAKER) (test code = 2801) COMPREHENSIVE METABOLIC [id number] 07:03:41 Test Item Value Reference Range Interpretation Comments TOTAL PROTEIN 5.8 gm/dL 6.0-8.3 L Specimen sligh tly (BEAKER) (test hemolyzed code = 770) ALBUMIN (BEAKER) 3.3 g/dL 3.5-5.0 L Specimen sl ightly (test code = 1145) hemolyzed ALKALINE 640 U/L 40-150 H PHOSPHATASE (BEAKER) (test code = 346) BILIRUBIN TOTAL 0.5 mg/dL 0.2-1.2 Specimen sli ghtly (BEAKER) (test hemolyzed code = 377) SODIUM (BEAKER) 134 meq/L 136-145 L (test code = 381) POTASSIUM (BEAKER) 4.1 meq/L 3.5-5.1 Specimen slightly (test code = 379) hemolyzed CHLORIDE (BEAKER) 104 meq/L 98-107 (test code = 382) CO2 (BEAKER) (test 21 meq/L 22-29 L code = 355) BLOOD UREA 14 mg/dL 7-21 NITROGEN (BEAKER) (test code = 354) CREATININE 0.69 mg/dL 0.57-1.25 Specimen slight ly (BEAKER) (test hemolyzed code = 358) GLUCOSE RANDOM 137 mg/dL 70-105 H (BEAKER) (test code = 652) CALCIUM (BEAKER) 8.2 mg/dL 8.4-10.2 L (test code = 697) AST (SGOT) 65 U/L 5-34 H Specimen slight ly (BEAKER) (test hemolyzed code = 353) ALT (SGPT) 20 U/L 6-55 Specimen slight ly (BEAKER) (test hemolyzed code = 347) EGFR (BEAKER) 105 Interpretatio n of eGFR (test code = 1092) mL/min/1.[address] age Description sq m Result G1 Mariel l or high >=90 G2 Mildly decreased 60-89 G3a Mildl y to moderately 45-5 9 G3b Moderately to s everely 30-44 G4 Severl y decreased 15-29 G5 Kidney failure <15Reported eGF R is based on the CKD-EPI 2021 equation that d oes not use a race coefficientEsti mated GFR is not as accur ate as Creatinine Wilda santizo in predicting glom erular filtration rate . Estimated GFR is not appl icable for dialysis patien ts Physiatrist ID - REBECA WCBC W/PLT COUNT & AUTO [id number] 06:53:57 Test Item Value Reference Range Interpretation Comments WHITE BLOOD CELL COUNT (BEAKER) 8.4 K/ L 3.5-10.5 (test code = 775) RED BLOOD CELL COUNT (BEAKER) 3.77 M/ L 4.63-6.08 L (test code = 761) HEMOGLOBIN (BEAKER) (test code = 10.7 GM/DL 13.7-17.5 L 410) HEMATOCRIT (BEAKER) (test code = 32.4 % 40.1-51.0 L 411) MEAN CORPUSCULAR VOLUME (BEAKER) 85.9 fL 79.0-92.2 (test code = 753) MEAN CORPUSCULAR HEMOGLOBIN 28.4 pg 25.7-32.2 (BEAKER) (test code = 751) MEAN CORPUSCULAR HEMOGLOBIN CONC 33.0 GM/DL 32.3-36.5 (BEAKER) (test code = 752) RED CELL DISTRIBUTION WIDTH 14.1 % 11.6-14.4 (BEAKER) (test code = 412) PLATELET COUNT (BEAKER) (test 193 K/CU MM 150-450 code = 756) MEAN PLATELET VOLUME (BEAKER) 8.6 fL 9.4-12.4 L (test code = 754) NUCLEATED RED BLOOD CELLS 1 /100 WBC 0-0 H (BEAKER) (test code = 413) NEUTROPHILS RELATIVE PERCENT 84 % (BEAKER) (test code = 429) LYMPHOCYTES RELATIVE PERCENT 7 % (BEAKER) (test code = 430) MONOCYTES RELATIVE PERCENT 7 % (BEAKER) (test code = 431) EOSINOPHILS RELATIVE PERCENT 0 % (BEAKER) (test code = 432) BASOPHILS RELATIVE PERCENT 0 % (BEAKER) (test code = 437) NEUTROPHILS ABSOLUTE COUNT 7.07 K/ L 1.78-5.38 H (BEAKER) (test code = 670) LYMPHOCYTES ABSOLUTE COUNT 0.55 K/ L 1.32-3.57 L (BEAKER) (test code = 414) MONOCYTES ABSOLUTE COUNT (BEAKER) 0.62 K/ L 0.30-0.82 (test code = 415) EOSINOPHILS ABSOLUTE COUNT 0.01 K/ L 0.04-0.54 L (BEAKER) (test code = 416) BASOPHILS ABSOLUTE COUNT (BEAKER) 0.03 K/ L 0.01-0.08 (test code = 417) IMMATURE GRANULOCYTES-RELATIVE 2 % 0-1 H PERCENT (BEAKER) (test code = 2801) [id number] 18:42:14 Test Item Value Reference Range Interpretation Comments SODIUM (BEAKER) (test code = 381) 134 meq/L 136-145 L Physiatrist ID - MARLI MBASIC METABOLIC [id number] 13:50:23 Test Item Value Reference Range Interpretation Comments SODIUM (BEAKER) 131 meq/L 136-145 L (test code = 381) POTASSIUM 4.1 meq/L 3.5-5.1 (BEAKER) (test code = 379) CHLORIDE (BEAKER) 103 meq/L 98-107 (test code = 382) CO2 (BEAKER) 19 meq/L 22-29 L (test code = 355) BLOOD UREA 15 mg/dL 7-21 NITROGEN (BEAKER) (test code = 354) CREATININE 0.64 mg/dL 0.57-1.25 (BEAKER) (test code = 358) GLUCOSE RANDOM 170 mg/dL 70-105 H (BEAKER) (test code = 652) CALCIUM (BEAKER) 8.2 mg/dL 8.4-10.2 L (test code = 697) EGFR (BEAKER) 107 Interpretatio n of eGFR (test code = mL/min/1.73 values Stage De scription 1092) sq m Result G1 Mariel l or high >=90 G2 Mildly decreased 60-89 G3a Mildl y to moderately 45-5 9 G3b Moderately to s everely 30-44 G4 Severl y decreased 15-29 G5 Kidney failure <15Reported eGF R is based on the CKD-EPI 2020 equation that d oes not use a race coefficientEsti mated GFR is not as accur ate as Creatinine Wilda darlyn in predicting glom erular filtration rate . Estimated GFR is not appl icable for dialysis patien ts Physiatrist ID - [id number] 13:50:23 Test Item Value Reference Range Interpretation Comments MAGNESIUM (BEAKER) (test code = 2.0 mg/dL 1.6-2.6 627) Physiatrist ID - [id number] 13:50:23 Test Item Value Reference Range Interpretation Comments PHOSPHORUS (BEAKER) (test code = 3.3 mg/dL 2.3-4.7 604) Physiatrist ID - BSCBC W/PLT COUNT & AUTO [id number] 13:39:49 Test Item Value Reference Range Interpretation Comments WHITE BLOOD CELL COUNT (BEAKER) 6.3 K/ L 3.5-10.5 (test code = 775) RED BLOOD CELL COUNT (BEAKER) 3.64 M/ L 4.63-6.08 L (test code = 761) HEMOGLOBIN (BEAKER) (test code = 10.6 GM/DL 13.7-17.5 L 410) HEMATOCRIT (BEAKER) (test code = 31.6 % 40.1-51.0 L 411) MEAN CORPUSCULAR VOLUME (BEAKER) 86.8 fL 79.0-92.2 (test code = 753) MEAN CORPUSCULAR HEMOGLOBIN 29.1 pg 25.7-32.2 (BEAKER) (test code = 751) MEAN CORPUSCULAR HEMOGLOBIN CONC 33.5 GM/DL 32.3-36.5 (BEAKER) (test code = 752) RED CELL DISTRIBUTION WIDTH 13.9 % 11.6-14.4 (BEAKER) (test code = 412) PLATELET COUNT (BEAKER) (test 187 K/CU MM 150-450 code = 756) MEAN PLATELET VOLUME (BEAKER) 8.4 fL 9.4-12.4 L (test code = 754) NUCLEATED RED BLOOD CELLS 1 /100 WBC 0-0 H (BEAKER) (test code = 413) NEUTROPHILS RELATIVE PERCENT 85 % (BEAKER) (test code = 429) LYMPHOCYTES RELATIVE PERCENT 9 % (BEAKER) (test code = 430) MONOCYTES RELATIVE PERCENT 3 % (BEAKER) (test code = 431) EOSINOPHILS RELATIVE PERCENT 0 % (BEAKER) (test code = 432) BASOPHILS RELATIVE PERCENT 0 % (BEAKER) (test code = 437) NEUTROPHILS ABSOLUTE COUNT 5.40 K/ L 1.78-5.38 H (BEAKER) (test code = 670) LYMPHOCYTES ABSOLUTE COUNT 0.56 K/ L 1.32-3.57 L (BEAKER) (test code = 414) MONOCYTES ABSOLUTE COUNT (BEAKER) 0.18 K/ L 0.30-0.82 L (test code = 415) EOSINOPHILS ABSOLUTE COUNT 0.00 K/ L 0.04-0.54 L (BEAKER) (test code = 416) BASOPHILS ABSOLUTE COUNT (BEAKER) 0.01 K/ L 0.01-0.08 (test code = 417) IMMATURE GRANULOCYTES-RELATIVE 3 % 0-1 H PERCENT (BEAKER) (test code = 2801) No clot foundFL, FLUORO, NON-SPECIFIC, UP TO 1 [id number] 11:25:00Reason for exam:->lumbar stenosis [facility] 1960 Sex: MAn imaging unit was utilized for this procedure. No radiologist interpretation was requested. Refer to theEMR for findings. Refer to PACS for any patient radiation dose information.Blood gas, [id number] 09:53:48 Test Item Value Reference Range Interpretation Comments pH, Arterial (test code 7.37 7.35-7.45 = 2744-1) pCO2, Arterial (test 43 See_Comment [Autom ated code = 2018-8) message] The system which generated this result transmitted reference range : 35 - 45 mm Hg. The reference range was not used to interpret this result as normal/abnormal . pO2, Arterial (test 245 See_Comment H [Automa cachorro code = 2703-7) message] The system which generated this result transmitted reference range : 80 - 90 mm Hg. The reference range was not used to interpret this result as normal/abnormal . O2 Sat, Arterial (test 99.5 % 96.0-97.0 H code = 2708-6) HCO3, Arterial (test 24 mmol/L 21-29 code = 1960-4) Base Excess, Arterial -1.0 mmol/L -2.0-3.0 (test code = 1925-7) Patient Temperature 37.0 (test code = 8310-5) FIO2 (test code = 1819) 50 Lab Interpretation Abnormal (test code = 60421-8) [facility] [id number] 09:53:48 Test Item Value Reference Range Interpretation Comments pH, Arterial (test code 7.37 7.35-7.45 = 2744-1) pCO2, Arterial (test 43 See_Comment [Autom ated code = 2018-) message] The system which generated this result transmitted reference range : 35 - 45 mm Hg. The reference range was not used to interpret this result as normal/abnormal . pO2, Arterial (test 245 See_Comment H [Automa cachorro code = 2703-7) message] The system which generated this result transmitted reference range : 80 - 90 mm Hg. The reference range was not used to interpret this result as normal/abnormal . O2 Sat, Arterial (test 99.5 % 96.0-97.0 H code = 2708-6) HCO3, Arterial (test 24 mmol/L 21-29 code = 1960-4) Base Excess, Arterial -1.0 mmol/L -2.0-3.0 (test code = 1925-7) Patient Temperature 37.0 (test code = 8310-5) FIO2 (test code = 1819) 50 Lab Interpretation Abnormal (test code = 00307-3) [facility], [id number] 09:53:48 Test Item Value Reference Range Interpretation Comments PH ARTERIAL (BEAKER) (test code = 7.37 7.35-7.45 383) PCO2 ARTERIAL (BEAKER) (test code 43 mm Hg 35-45 = 384) PO2 ARTERIAL (BEAKER) (test code 245 mm Hg 80-90 H = 385) O2 SATURATION ARTERIAL (BEAKER) 99.5 % 96.0-97.0 H (test code = 386) HCO3 ARTERIAL (BEAKER) (test code 24 mmol/L 21-29 = 388) BASE EXCESS ARTERIAL (BEAKER) -1.0 mmol/L -2.0-3.0 (test code = 387) PATIENT TEMPERATURE (BEAKER) 37.0 (test code = 1818) FIO2 (BEAKER) (test code = 1819) 50.0 FL, FLUORO, NON-SPECIFIC, UP TO 1 [id number] 09:51:00Reason for exam:- >[facility] 1960 Sex: MFINALREPORT Radiograph of the lumbar spine Indication: thoracic stenosis Comparison:none Findings: Lateral views of the lumbar spine is obtained intraoperatively. A needle projects over the L2-L3 facet, and a second localizer projects just dorsal to the L1 pedicle. Findings are discussed with Dr. Stovall, who concurred with these findings. Signed: Jose Martinez Verified Date/Time: 03/09/2022 09:51:54 Reading Location: [address] Ortho Consult Reading Room Prepare RBC 2022-03-09 08:56:00 Test Item Value Reference Range Interpretation Comments CROSSMATCH (test code = 2264) COMPATIBLE Unit ABO (test code = O Pos 6704543) UNIT NUMBER (test code = [id number] 934-0) Status (test code = 4306755) READY Blood Bank Product (test code RED BLOOD CELLS = 2263) PRODUCT CODE (test code = Z9026C91 933-2) [facility] [id number] 08:56:00 Test Item Value Reference Range Interpretation Comments CROSSMATCH (test code = 2264) COMPATIBLE Unit ABO (test code = O Pos 9403218) UNIT NUMBER (test code = [id number] 934-0) Status (test code = 6091681) READY Blood Bank Product (test code RED BLOOD CELLS = 2263) PRODUCT CODE (test code = Q7831X10 933-2) [facility] [id number] 05:46:00 Test Item Value Reference Range Interpretation Comments TOTAL PROTEIN 6.9 gm/dL 6.0-8.3 (BEAKER) (test code = 770) ALBUMIN (BEAKER) 4.0 g/dL 3.5-5.0 (test code = 1145) ALKALINE 679 U/L 40-150 H PHOSPHATASE (BEAKER) (test code = 346) BILIRUBIN TOTAL 0.7 mg/dL 0.2-1.2 (BEAKER) (test code = 377) SODIUM (BEAKER) 136 meq/L 136-145 (test code = 381) POTASSIUM (BEAKER) 4.0 meq/L 3.5-5.1 (test code = 379) CHLORIDE (BEAKER) 104 meq/L 98-107 (test code = 382) CO2 (BEAKER) (test 22 meq/L 22-29 code = 355) BLOOD UREA 13 mg/dL 7-21 NITROGEN (BEAKER) (test code = 354) CREATININE 0.68 mg/dL 0.57-1.25 (BEAKER) (test code = 358) GLUCOSE RANDOM 139 mg/dL 70-105 H (BEAKER) (test code = 652) CALCIUM (BEAKER) 9.1 mg/dL 8.4-10.2 (test code = 697) AST (SGOT) 72 U/L 5-34 H (BEAKER) (test code = 353) ALT (SGPT) 26 U/L 6-55 (BEAKER) (test code = 347) EGFR (BEAKER) 106 Interpretatio n of eGFR (test code = 1092) mL/min/1.[address] age Description sq m Result G1 Mariel l or high >=90 G2 Mildly decreased 60-89 G3a Mildl y to moderately 45-5 9 G3b Moderately to s everely 30-44 G4 Severl y decreased 15-29 G5 Kidney failure <15Reported eGF R is based on the CKD-EPI 1 equation that d oes not use a race coefficientEsti mated GFR is not as accur ate as Creatinine Wilda darlyn in predicting glom erular filtration rate . Estimated GFR is not appl icable for dialysis patien ts Physiatrist ID - MARLI [facility] W/PLT COUNT & AUTO [id number] 05:03:13 Test Item Value Reference Range Interpretation Comments WHITE BLOOD CELL COUNT (BEAKER) 8.0 K/ L 3.5-10.5 (test code = 775) RED BLOOD CELL COUNT (BEAKER) 4.30 M/ L 4.63-6.08 L (test code = 761) HEMOGLOBIN (BEAKER) (test code = 12.8 GM/DL 13.7-17.5 L 410) HEMATOCRIT (BEAKER) (test code = 36.5 % 40.1-51.0 L 411) MEAN CORPUSCULAR VOLUME (BEAKER) 84.9 fL 79.0-92.2 (test code = 753) MEAN CORPUSCULAR HEMOGLOBIN 29.8 pg 25.7-32.2 (BEAKER) (test code = 751) MEAN CORPUSCULAR HEMOGLOBIN CONC 35.1 GM/DL 32.3-36.5 (BEAKER) (test code = 752) RED CELL DISTRIBUTION WIDTH 14.3 % 11.6-14.4 (BEAKER) (test code = 412) PLATELET COUNT (BEAKER) (test 216 K/CU MM 150-450 code = 756) MEAN PLATELET VOLUME (BEAKER) 8.9 fL 9.4-12.4 L (test code = 754) NUCLEATED RED BLOOD CELLS 0 /100 WBC 0-0 (BEAKER) (test code = 413) NEUTROPHILS RELATIVE PERCENT 83 % (BEAKER) (test code = 429) LYMPHOCYTES RELATIVE PERCENT 9 % (BEAKER) (test code = 430) MONOCYTES RELATIVE PERCENT 5 % (BEAKER) (test code = 431) EOSINOPHILS RELATIVE PERCENT 0 % (BEAKER) (test code = 432) BASOPHILS RELATIVE PERCENT 0 % (BEAKER) (test code = 437) NEUTROPHILS ABSOLUTE COUNT 6.61 K/ L 1.78-5.38 H (BEAKER) (test code = 670) LYMPHOCYTES ABSOLUTE COUNT 0.75 K/ L 1.32-3.57 L (BEAKER) (test code = 414) MONOCYTES ABSOLUTE COUNT (BEAKER) 0.39 K/ L 0.30-0.82 (test code = 415) EOSINOPHILS ABSOLUTE COUNT 0.00 K/ L 0.04-0.54 L (BEAKER) (test code = 416) BASOPHILS ABSOLUTE COUNT (BEAKER) 0.02 K/ L 0.01-0.08 (test code = 417) IMMATURE GRANULOCYTES-RELATIVE 3 % 0-1 H PERCENT (BEAKER) (test code = 2801) MR, SPINE, CERVICAL, [id number] 22:53:00Unlisted Reason for Exam - Click Yes and Enter Reason Below->No [facility] : 1960 Sex: MFINALREPORT EXAMINATION: MR, MR, spine, cervical, with and without IV contrast CLINICAL DATA: Neurological cancer being staged in a 61-year-old male. The cervical spine images were obtained to evaluate for possible malignancy with metastatic disease. PROCEDURE NOTE: Multiplanar, multisequence scanning was done through the cervical spine without intravenous contrast. Then, the patient r eceived an intravenous injection equal to 20 mL of gadolinium contrast (MultiHance). Postcontrast imaging was obtained. COMPARISON: None. FINDINGS: The seven cervical vertebral bodies and the T1 segment are included on the sagittal images and show good preservation of the cervical lordotic curve. There is no evidence for burst fracture or compression fracture at T1 or in any of the cervical vertebralbodies. No dens fracture or fracture at C1 to is seen. There is no evidence for any vertebral body spondylolisthesis or facet joint malalignment. The junction of the cervical spine with the skull base looks normal. Metastases are seen at multiple cervical levels. There is a mass destroying the spinousprocess of C2 seen on sagittal images as an area of decreased T2 signal and decreased T1 signal thatenhances postcontrast on sagittal image #7 from sequence 901. The mass does not create much mass effect on the posterior aspect of the cervical canal or cervical thecal sac but expands the spinous processes up to 16 x 24 mm in size on the sagittal images. Presumably this is metastatic cancer related to the findings in the thoracic spine discussed earlier today. This is not the only lesion present. Multiple other cervical vertebral body and spinous process lesions are seen. The T1- weighted images show metastases in the anterior and lower C2 vertebral body, the upper mid to left C3 vertebral body. The upper to left C4 vertebral body, almost entire left side of the C5 vertebral body, the right side of the C6 vertebral body and the lower right and upper left C7 vertebral body as well as the upper thoracic segments including T1. These lesions show variable, mild enhancement postcontrast. Metastatic prostate cancer could look like this. A nuclear medicine bone scan might best demonstrate the full burden of tumor metastases around the body in a patient like this. I do not see abnormal cervical cord en hancement on the postcontrast images. I do not see a large epidural tumor mass or abscess or any evidence for septic discitis. No precervical hematoma is seen. I am not suspicious of a block in the cervical spine at this time. Disc findings: C2-3: Unremarkable.C3-4: Minimal bony foraminal narrowing isseen and there is a very small posterior protruding disc with no spinal stenosis noted. The AP diameter of the thecal sac is 9.1 mm. No epidural mass is seen.C4-5: A small posterior protruding disc is seen. No epidural mass is seen. The AP diameter of the thecal sac narrows to 8.7 mm compatible with mild spinal stenosis. Only mild left foraminal narrowing is seen with the right-sided foramen well-preserved.C5-6: A left paramedian posterior disc protrusion is seen. There is ample fluid around the cervical cord within the canal, though. The AP diameter of the thecal sac is 8.5 mm. This is another level with mild spinal stenosis. No severe foraminal narrowing or laterally herniated disc fragment is seen.C6-7: Minimal left posterior disc protrusion with no spinal stenosis or foraminal narrowing or epidural mass seen. C7-T1: Unremarkable except for the tumor burden in the vertebral body. There is no spinal stenosis or laterally herniated disc or foraminal narrowing seen. IMPRESSION:1. Widespread metastatic activity seen in the cervical vertebral bodies and destroying the C2 spinous process but not causing high-grade spinal stenosis or block in the cervical spine area.2. No precervical hematoma or large epidural tumor mass is seen on the postcontrast images in this patient that has some mild spinal stenosis secondary to posterior disc protrusions at C4-5 and C5-6.3. A nuclear medicine bone scan would best demonstrate the total burden of metastatic activity throughout the body. This is patient have known prostate cancer. Prostate cancer could present with metastases like this. Signed: Marlen Strong MDReport Verified Date/Time: 03/08/2022 22:53:46 Electronically signed by: MARLEN STRONG MD on03/08/2022 10:53 PMCT, SPINE, THORACIC, WO [id number] 17:43:00Please include caudally to [id number] Reason for Exam - Click Yes and Enter Reason Below->No [facility] : 1960 Sex: M[address]AL[address]PORT CT Thoracic spine CLINICAL HISTORY: Bone lesion, thoracic, malignancy suspected TECHNIQUE: Contiguous axial images of the thoracic spine with coronal and sagittal reformations to assess the alignment. This exam was performed according to the departmental dose optimization program which includes automated exposure control, adjustment of the mA and/or kV according to the babs ent size, and/or use of an iterative reconstruction technique. COMPARISON: Outside thoracic MRI 03/04/2022 FINDINGS: As evident on the outside MRI, there is diffuse sclerotic osseous metastatic disease throughout the thoracic spine and the visualized inferior cervical and upper lumbar spine. There are mild superior endplate concavities of the T3, T4, T5 vertebral bodies. There are mild superior and inferior endplate cavity is at T9. There is mild loss of height of the T11 and T12 vertebral bodies. The appearance is grossly unchanged since the outside exam. The thoracic curvature and alignment is maintained. Please note that the central canal contents are poorly evaluated due to the lack of intrathecal contrast. However, at T10 and T11, there is a left paraspinous soft tissue mass with central canal invasion. This is not as well characterized as on the outside exam where distal thoracic cord compression is evident. There is a partially imaged right anterior chest wall mass. There are dependent changes elsewhere in the lungs. IMPRESSION: Diffuse thoracic osseous metastatic disease again noted with multilevel endplate deformities and mild loss of height as discussed above. At T10 and T11, soft tissue invasion of the central canal is again suspected although not well characterized without intrathecal contrast. Please refer to the outside thoracic MRI exam which demonstrated severe central canal stenosis with mass effect on the thoracic cord. Signed: João Orozco MDReport Verified Date/Time: 03/08/2022 17:43:35 [id number] 15:44:29 Test Item Value Reference Range Interpretation Comments PARTIAL THROMBOPLASTIN TIME 28.2 seconds 22.5-36.0 (BEAKER) (test code = 760) CT, CHEST, WITH [id number] 15:05:00Unlisted Reason for Exam - Click Yes and Enter Reason Below->No [facility] : 1960 Sex: MFINALREPORT CT of the Chest, abdomen and pelvis dated 03/08/2022 Clinical information: Urologic cancer, staging Comment: Axial images of the chest, abdomen, and pelvis were obtained fromthoracic inlet to the pubic symphysis with intravenous contrast. This exam was performed according to our departmental dose-optimization program, which includes automated exposure control, adjustment of the mA and/or kV according to patient size and/or use of interactive reconstruction technique. Expansile posterior limited lesions are seen in both the right first rib. Osteoblastic lesions are seen involving the left third, fourth, fifth ribs and right second, third ribs. Multiple osteoblastic disease is seen in the dorsal spine and pelvis suggestive of osseous metastasis. A 1.7 x 3.2 cm mass is seen in the left to the lower thoracic paraspinal region. Heart is normal in size. Great vessels are unremarkable. No adenopathy in the mediastinum or perihilar region. Trachea and mainstem bronchi are patent. Subsegmental atelectasis is seen in the lingula, right mid, and both lower lobes. The rest of the lungs are clear. No nodular, mass lesion or airspace disease is noted. No interstitial disease or bronchiectasis is present. No pleural effusion or pleural based mass is seen. Liver and spleen are normal in size. A 4 mm hypodense lesion seen in the segment 3 of the liver. A 7 mm hypodense nodule is seen in the segment 4 of the liver. Gallbladder is contracted. No gallstone or biliary dilatation is noted. Pancreas and right adrenal are unremarkable. A 1.3 x 2.3 cm mass is seen in the left adrenal. Both kidneys are normal in size and functioning. No hydronephrosis, hydroureter, or urolithiasis is noted. The small and large bowel are unremarkable. Appendix is normal in caliber. The urinary bladder is distended. No adenopathy or ascites is present in the abdomen or pelvis. Impression: 1. Extensive osseous metastasis involving the ribs, dorsal spine, and pelvis.2. Lingula, right mid, and bibasilar subsegmental atelectasis.3. Nonspecific hypodense lesions in the segment 3 and segment 4 of the liver.4. Left adrenal mass. Signed: Juan C Hernandez MDRmerort Verified Date/Time: 03/08/2022 15:05:57 Reading Location: [address] Body Reading Room CT, [id number] 15:05:00Unlisted Reason for Exam - Click Yes and Enter Reason Below->NoIs this for enterography?->NoWill this procedure require oral contrast?->No [facility] 1960 Sex: MFINALREPORT CT of the Chest, abdomen and pelvis dated 03/08/2022 Clinical information: Urologic cancer, staging Comment: Axial images of the chest, abdomen, and pelvis were obtained fromthoracic inlet to the pubic symphysis with intravenous contrast. This exam was performed according to our departmental dose-optimization program, which includes automated exposure control, adjustment of the mA and/or kV according to patient size and/or use of interactive reconstruction technique. Expansile posterior limited lesions are seen in both the right first rib. Osteoblastic lesions are seen involving the left third, fourth, fifth ribs and right second, third ribs. Multiple osteoblastic disease is seen in the dorsal spine and pelvis suggestive of osseous metastasis. A 1.7 x 3.2 cm mass is seen in the left to the lower thoracic paraspinal region. Heart is normal in size. Great vessels are unremarkable. No adenopathy in the mediastinum or perihilar region. Trachea and mainstem bronchi are patent. Subsegmental atelectasis is seen in the lingula, right mid, and both lower lobes. The rest of the lungs are clear. No nodular, mass lesion or airspace disease is noted. No interstitial disease or bronchiectasis is present. No pleural effusion or pleural based mass is seen. Liver and spleen are normal in size. A 4 mm hypodense lesion seen in the segment 3 of the liver. A 7 mm hypodense nodule is seen in the segment 4 of the liver. Gallbladder is contracted. No gallstone or biliary dilatation is noted. Pancreas and right adrenal are unremarkable. A 1.3 x 2.3 cm mass is seen in the left adrenal. Both kidneys are normal in size and functioning. No hydronephrosis, hydroureter, or urolithiasis is noted. The small and large bowel are unremarkable. Appendix is normal in caliber. The urinary bladder is distended. No adenopathy or ascites is present in the abdomen or pelvis. Impression: 1. Extensive osseous metastasis involving the ribs, dorsal spine, and pelvis.2. Lingula, right mid, and bibasilar subsegmental atelectasis.3. Nonspecific hypodense lesions in the segment 3 and segment 4 of the liver.4. Left adrenal mass. Signed: Juan C Hernandez MDReport Verified Date/Time: 03/08/2022 15:05:57 Reading Location: [address] Body Reading Room RAD, CHEST, 1 VIEW, NON [id number] 15:01:00Reason for exam:- >preop evalShould this be performed at the bedside?->Yes [facility] 1960 Sex: MFINALREPORT INDICATION: preop eval COMPARISON: None TECHNIQUE: Single frontal view of the chest. FINDINGS: Lines, tubes, and devices: None.Lungs and pleura: Low lung volumes with perivascular crowding. Bibasilar linear atelectasis. Pleural thickening along the left midlung. No pneumothorax.Heart and mediastinum: Normal heart size. Unremarkable mediastinal contours.Osseous structures: No acute abnormality.Other: None. IMPRESSION: 1.No acute intrathoracic abnormality.2.Bibasilar linearatelectasis. Signed: Madison Alegria MDReport Verified Date/Time: 03/08/2022 15:01:47 Reading Location: [facility] Radiology Reading Room SARS-COV2/RT-PCR ([facility])2022-03-08 14:52:18 Test Item Value Reference Range Interpretation Comments SARS-COV2/RT-PCR Negative Negative The SARS-Co V-2 target (test code = nucleic acids a re not [id number]) detected in thi s specimen. Negative result s do not preclude SARS-C oV-2 infection and s hould not be used as the irina e basis for patient managem ent decisions. Nega tive results must be combine d with clinical observ ations, patient history , and epidemiological information. A false negativ e result may occur if a spec imen is improperly gabbie ected, transported or handled. This SARS CoV-2 test is a rapid, real-time RT-PC R test intended for th e qualitative detection of nu cleic acid from SARS-CoV-2 in a nasopharyngeal swab specimen collected from individuals suspected of CO VID-19 by their healthcar e provider. This test has been authorized by FDA under an EUA for use by authorized laboratories. This test is only authorized for the duration of the declaration that circumstances exist justifying the authorization of emergency use of in vitro diagnostic tests for detection and/or diagnosis of COVID-19 under Section 564(b)(1) of the Federal Food, Drug and Cosmetic Act, 21 U.S.C. 360bbb-3(b)(1), unless the authorization is terminated or revoked sooner. Fact Sheet for Healthcare Providers: https://www.cepheid.co m/Documents/Xpert%20Xpress%20SARS%20CoV-2/Fact%20Sheets/302-3802%78BOYQ-HEL-8%20 HEALTHCARE%20PROVIDERS%20FACT%20SHEET.pdf Fact Sheet for Healthcare Patients: https://www.Send the Trend/Documents/Xpert%20Xp ress%20SARS%20CoV-2/Fact%20Sheets/302-3801%02WMDW-GTX-9%20PATIENT%20FACT%20SHEET .[id number] 07:21:54 Test Item Value Reference Range Interpretation Comments PROSTATE SPECIFIC ANTIGEN (BEAKER) 93.5 ng/mL 0.0-4.0 H (test code = 844) Physiatrist ID - PIAYA LCOMPREHENSIVE METABOLIC [id number] 04:19:36 Test Item Value Reference Range Interpretation Comments TOTAL PROTEIN 6.5 gm/dL 6.0-8.3 Specimen sligh tly (BEAKER) (test hemolyzed code = 770) ALBUMIN (BEAKER) 3.8 g/dL 3.5-5.0 Specimen sl ightly (test code = 1145) hemolyzed ALKALINE 374 U/L 40-150 H PHOSPHATASE (BEAKER) (test code = 346) BILIRUBIN TOTAL 0.6 mg/dL 0.2-1.2 Specimen sli ghtly (BEAKER) (test hemolyzed code = 377) SODIUM (BEAKER) 135 meq/L 136-145 L (test code = 381) POTASSIUM (BEAKER) 4.0 meq/L 3.5-5.1 Specimen slightly (test code = 379) hemolyzed CHLORIDE (BEAKER) 104 meq/L 98-107 (test code = 382) CO2 (BEAKER) (test 24 meq/L 22-29 code = 355) BLOOD UREA 12 mg/dL 7-21 NITROGEN (BEAKER) (test code = 354) CREATININE 0.68 mg/dL 0.57-1.25 Specimen slight ly (BEAKER) (test hemolyzed code = 358) GLUCOSE RANDOM 144 mg/dL 70-105 H (BEAKER) (test code = 652) CALCIUM (BEAKER) 9.0 mg/dL 8.4-10.2 (test code = 697) AST (SGOT) 42 U/L 5-34 H Specimen slight ly (BEAKER) (test hemolyzed code = 353) ALT (SGPT) 24 U/L 6-55 Specimen slight ly (BEAKER) (test hemolyzed code = 347) EGFR (BEAKER) 106 Interpretatio n of eGFR (test code = 1092) mL/min/1.[address] age Description sq m Result G1 Mariel l or high >=90 G2 Mildly decreased 60-89 G3a Mildl y to moderately 45-5 9 G3b Moderately to s everely 30-44 G4 Severl y decreased 15-29 G5 Kidne y failure <15Reported eGF R is based on the CKD-EPI 202 equation that d oes not use a race coefficientEsti mated GFR is not as accur ate as Creatinine Wilda darlyn in predicting glom erular filtration rate . Estimated GFR is not appl icable for dialysis patien ts Physiatrist ID - MARLI MPROTHROMBIN TIME/[id number] 03:48:23 Test Item Value Reference Range Interpretation Comments PROTIME (BEAKER) 13.6 seconds 11.9-14.2 (test code = 759) INR (BEAKER) (test 1.11 See_Comment [Automat ed message] code = 370) The system built.io generated this result transmitted ref erence range: <=5.90. The reference range was not used to int erpret this result as normal/abnormal . RECOMMENDED COUMADIN/WARFARIN INR THERAPY RANGESSTANDARD DOSE: 2.0 - 3.0 Includes: PROPHYLAXIS for venous thrombosis, systemic embolization; TREATMENT for venous thrombosis and/or pulmonary embolus.HIGH RISK: Target INR is 2.5-3.5 for patients with mechanical heart valves.CBC W/PLT COUNT & AUTO [id number] 03:35:53 Test Item Value Reference Range Interpretation Comments WHITE BLOOD CELL COUNT (BEAKER) 7.3 K/ L 3.5-10.5 (test code = 775) RED BLOOD CELL COUNT (BEAKER) 4.01 M/ L 4.63-6.08 L (test code = 761) HEMOGLOBIN (BEAKER) (test code = 11.3 GM/DL 13.7-17.5 L 410) HEMATOCRIT (BEAKER) (test code = 34.6 % 40.1-51.0 L 411) MEAN CORPUSCULAR VOLUME (BEAKER) 86.3 fL 79.0-92.2 (test code = 753) MEAN CORPUSCULAR HEMOGLOBIN 28.2 pg 25.7-32.2 (BEAKER) (test code = 751) MEAN CORPUSCULAR HEMOGLOBIN CONC 32.7 GM/DL 32.3-36.5 (BEAKER) (test code = 752) RED CELL DISTRIBUTION WIDTH 13.6 % 11.6-14.4 (BEAKER) (test code = 412) PLATELET COUNT (BEAKER) (test 194 K/CU MM 150-450 code = 756) MEAN PLATELET VOLUME (BEAKER) 8.4 fL 9.4-12.4 L (test code = 754) NUCLEATED RED BLOOD CELLS 0 /100 WBC 0-0 (BEAKER) (test code = 413) NEUTROPHILS RELATIVE PERCENT 84 % (BEAKER) (test code = 429) LYMPHOCYTES RELATIVE PERCENT 9 % (BEAKER) (test code = 430) MONOCYTES RELATIVE PERCENT 5 % (BEAKER) (test code = 431) EOSINOPHILS RELATIVE PERCENT 0 % (BEAKER) (test code = 432) BASOPHILS RELATIVE PERCENT 0 % (BEAKER) (test code = 437) NEUTROPHILS ABSOLUTE COUNT 6.14 K/ L 1.78-5.38 H (BEAKER) (test code = 670) LYMPHOCYTES ABSOLUTE COUNT 0.65 K/ L 1.32-3.57 L (BEAKER) (test code = 414) MONOCYTES ABSOLUTE COUNT (BEAKER) 0.38 K/ L 0.30-0.82 (test code = 415) EOSINOPHILS ABSOLUTE COUNT 0.00 K/ L 0.04-0.54 L (BEAKER) (test code = 416) BASOPHILS ABSOLUTE COUNT (BEAKER) 0.01 K/ L 0.01-0.08 (test code = 417) IMMATURE GRANULOCYTES-RELATIVE 2 % 0-1 H PERCENT (BEAKER) (test code = 7896)
[2022-05-23] MEDS ORDERED: NA CHLORIDE 0.9% 1,000 ML ONE ×2 (21:49→23:22)
[2022-05-23 21:56] LABS: Absolute Lymphocytes (CBC) 1.3 K/uL (0.7-4.9); Hematocrit 31.2 % (39.6-49.0); Lymphocytes % 26.7 % (15.3-44.8); MCV 83.9 fL (80-100); MPV 6.8 fL (7.6-11.3); RBC Red Blood Cell Count 3.72 M/uL (4.33-5.43)
[2022-05-23 22:16] LABS: Protime INR 1.59
[2022-05-23 22:20] LABS: Albumin 3.2 g/dL (3.4-5.0); Bilirubin Direct 0.4 mg/dL (0-0.2); Bilirubin Total 1.5 mg/dL (0.2-1.0); Magnesium 2.1 mg/dL (1.8-2.4); Protein, Total 7.5 g/dL (6.4-8.2)
[2022-05-23 22:22] LABS: Troponin High Sensitivity 77.3 pg/mL (<58.9)
[2022-05-23 22:25] LABS: Potassium 3.7 mmol/L (3.5-5.1)
--- NOTE | 2022-05-23 22:27 | RAD REPORT ---
EXAM DESCRIPTION: RAD - Chest Single View - 05/23/2022 10:21 pm CLINICAL HISTORY: Cough COMPARISON: Bone Imaging Whole Body dated 04/24/2022; Chest Abdomen Pelvis W Cont dated 12/28/2021 FINDINGS: Lines: None. Lungs: No evidence of edema or pneumonia. Pleural: No significant pleural effusions or pneumothorax. Cardiac: The heart size is within normal limits. Mediastinum: Within normal limits. Bones: No acute fractures. Fusion hardware in the lower thoracic and lumbar spine. Known skeletal oss eous metastatic disease. Other: None IMPRESSION: No acute cardiopulmonary disease.
[2022-05-23 22:29] LABS: SARS-CoV-2 Antigen Rapid Res Negative (Negative)
[2022-05-23 22:42] LABS: Urine Blood Negative (Negative); Urine Glucose Negative (Negative); Urine Protein 2+ (Negative); Urine Specific Gravity 1.025 (1.005-1.030); Urine pH 5.5 (5.0-7.0)
[2022-05-23 23:04] LABS: Urine Bacteria <20 /HPF (<20); Urine Mucus 4+ /HPF (None Seen)
[2022-05-23] MEDS ORDERED: CEFTRIAXONE 1000 MG/VIAL ONE (23:22)
[2022-05-23] MEDS ORDERED: NA CHLORIDE 0.9% 50 ML IV ONE (23:22)
--- NOTE | 2022-05-24 01:45 | ER ---
Nurse's Notes [facility] Name: Fito Alva Age: 61 yrs Sex: Male : 1960 Arrival Date: 05/23/2022 Time: 21:06 Bed 19 Private MD: Robert Cunningham Diagnosis: Dyspnea;Hypoxemia;UTI/ Urinary tract infection, site not specified;Pneumonia due to other specified infectious organisms-bilateral atypical;Abnormal levels of other serum enzymes-elevated troponion;Malignant neoplasm of prostate-metastatic;Fracture of thoracic vertebra-T1 transverse process, metastatic Presentation: 05/23 21:34 Chief complaint: Patient's son or daughter states: Pt's son reports home health nurse kb3 came by at 2030 to check on the patient and reported his O2 sat was 84-86% on room air. Pt denies cough, congestion, fever. Pt is currently undergoing chemo for stage 4 Prostate CA and recently had a tumor resected from his spine. Ptoted to be jaundice in triage. O2 sat 88% on room air. Coronavirus screen: Vaccine status: Patient reports receiving the 2nd dose of the covid vaccine. Client denies travel out of the [place] in the last 14 days. Ebola Screen: Patient negative for fever greater than or equal to 101.5 degrees Fahrenheit, and additional compatible Ebola Virus Disease symptoms Patient denies exposure to infectious person. Patient denies travel to an Ebola-affected area in the 21 days before illness onset. Initial Sepsis Screen: Does the patient meet any 2 criteria? No. Patient's initial sepsis screen is negative. Does the patient have a suspected source of infection? No. Patient's initial sepsis screen is negative. Risk Assessment: Do you want to hurt yourself or someone else? Patient reports no desire to harm self or others. Onset of symptoms was May 23, 2022 at 20:30. 21:34 Method Of Arrival: Wheelchair kb3 21:34 Acuity: JOSE A 2 kb3 Triage Assessment: 21:37 General: Appears in no apparent distress. Behavior is calm, cooperative. Pain: kb3 Complains of pain in back Pain does not radiate. Pain currently is 7 out of 10 on a pain scale. Quality of pain is described as sharp. Historical: - Allergies: 21:37 No Known Allergies; kb3 - PMHx: 21:37 prostate cancer with mets to the bone; kb3 - PSHx: 21:37 Spinal tumor resection; kb3 - Immunization history:: Adult Immunizations up to date, Client reports receiving the 2nd dose of the Covid vaccine, Last tetanus immunization: up to date. - Social history:: Smoking status: Patient/guardian denies using tobacco, but has a distant history of tobacco abuse. Screenin:25 Abuse screen: Denies threats or abuse. Denies injuries from another. Nutritional ha1 screening: No deficits noted. Tuberculosis screening: No symptoms or risk factors identified. Fall Risk IV access (20 points). Gait- Weak (10 pts.). Total Vera Fall Scale indicates Low Risk Score (25-44 pts). Fall prevention measures have been instituted. Side Rails Up X 2 Placed close to Nursing Station Frequent Obs/Assesments occuring Family Present and informed to notify staff if they need to leave bedside As available Patient and Family Educated on Fall Prevention Program and strategies. Assessment: 21:25 General: Appears comfortable, Behavior is calm, cooperative. Pain: Denies pain. Neuro: ha1 Level of Consciousness is awake, alert, obeys commands, Oriented to person, place, time, situation. Cardiovascular: Patient's skin is warm and dry. Respiratory: Reports shortness of breath at rest the home health nurse measure his oxygen saturation at home and it was at 89. Airway is patent Trachea midline Respiratory effort is even, unlabored, Respiratory pattern is regular, symmetrical, Breath sounds are clear bilaterally. GI: Abdomen is non-distended, obese, Bowel sounds present X 4 quads. pt. has difficulty walking. full assistance needed. : Reports prostate cancer. Derm: Skin is healthy with good turgor, Skin is Skin is pink, warm \T\ dry. Musculoskeletal: Circulation, motion, and sensation intact. Reports recent back surgery. 22:25 Reassessment: Patient and/or family updated on plan of care and expected duration. Pain ha1 level reassessed. Patient is alert, oriented x 3, equal unlabored respirations, skin warm/dry/pink. Patient denies pain at this time. 23:20 Reassessment: Patient and/or family updated on plan of care and expected duration. Pain ha1 level reassessed. Patient is alert, oriented x 3, equal unlabored respirations, skin warm/dry/pink. 05/24 00:30 Reassessment: Patient and/or family updated on plan of care and expected duration. Pain ha1 level reassessed. Patient is alert, oriented x 3, equal unlabored respirations, skin warm/dry/pink. family at bedside. 02:20 Reassessment: Patient and/or family updated on plan of care and expected duration. Pain ha1 level reassessed. Patient is alert, oriented x 3, equal unlabored respirations, skin warm/dry/pink. explained the need for admission. 03:13 Reassessment: Patient and/or family updated on plan of care and expected duration. Pain ha1 level reassessed. Patient is alert, oriented x 3, equal unlabored respirations, skin warm/dry/pink. 04:12 Reassessment: Patient and/or family updated on plan of care and expected duration. Pain ha1 level reassessed. Patient is alert, oriented x 3, equal unlabored respirations, skin warm/dry/pink. Vital Signs: 05/23 21:21 BP 133 / 94; Pulse 113; Resp 20; Pulse Ox 88% on R/A; ha1 21:25 BP 139 / 75; Pulse 112; Resp 16 S; Pulse Ox 96% on 2 lpm NC; ha1 21:34 BP 133 / 94; Pulse 113; Resp 20; Temp 97.8; Pulse Ox 88% on R/A; Weight 83.46 kg; kb3 Height 5 ft. 9 in. (175.26 cm); Pain 01/20; 22:30 BP 139 / 72; Pulse 108; Resp 16 S; Pulse Ox 95% on 2 lpm NC; ha1 23:30 BP 133 / 79; Pulse 101; Resp 18 S; Pulse Ox 96% on 2 lpm NC; ha1 05/24 00:30 BP 120 / 89; Pulse 98; Resp 18 S; Pulse Ox 95% on 2 lpm NC; ha1 03:00 BP 111 / 75; Pulse 98; Resp 18 S; Pulse Ox 96% on 2 lpm NC; ha1 04:00 BP 110 / 75; Pulse 98; Resp 19 S; Pulse Ox 96% on R/A; ha1 05/23 21:34 Body Mass Index 27.17 (83.46 kg, 175.26 cm) 3 ED Course: 05/23 21:06 Patient arrived in ED. mr 21:06 Robert Cunningham MD is Private Physician. mr 21:25 No provider procedures requiring assistance completed. Inserted saline lock: 20 gauge ha1 in left antecubital area, using aseptic technique. Blood collected. 21:32 Bryce Archibald MD is Attending Physician. nany 21:37 Deepika Carroll, ANILA is Primary Nurse. ha1 21:37 Triage completed. kb3 21:37 Arm band placed on right wrist. Patient placed in an exam room, on a stretcher. kb3 21:37 Door closed. Noise minimized. Warm blanket given. Pillow given. ha1 21:46 Lactate Sent. ha1 21:46 Blood Culture Adult (2) Sent. ha1 22:22 XRAY Chest (1 view) In Process Unspecified. EDMS 22:26 Patient has correct armband on for positive identification. Placed in gown. Bed in low ha1 position. Call light in reach. Side rails up X 1. Adult w/ patient. 05/24 00:36 CT Head C Spine In Process Unspecified. EDMS 00:36 CT Chest For PE Angio In Process Unspecified. EDMS 00:36 CT Abd/Pelvis - IV Contrast Only In Process Unspecified. EDMS 01:07 Urine Culture Sent. ha1 01:38 Robert Cunningham MD is Hospitalizing Provider. nany 01:44 Clif Oropeza MD is Hospitalizing Provider. nany 02:29 Geraldo Lo MD is Hospitalizing Provider. as6 04:48 Patient admitted, IV remains in place. ha1 Administered Medications: 05/23 21:53 Drug: NS 0.9% 1000 ml Route: IV; Rate: 75 ml/hr; Site: left antecubital; ha1 23:00 Drug: NS 0.9% 1000 ml Route: IV; Rate: 1 bolus; Site: left antecubital; ha1 05/24 04:52 Follow up: Response: No adverse reaction; IV Status: Completed infusion; IV Intake: ha1 1000ml 05/23 23:45 Drug: Rocephin (cefTRIAXone) 1 grams Route: IV; Rate: per protocol; Site: left [facility] antecubital; 23:54 Follow up: Response: No adverse reaction; IV Status: Completed infusion; IV Intake: [id number] 05/24 03:00 Drug: fentaNYL (PF) 50 mcg Route: IVP; Site: left antecubital; ha1 04:49 Follow up: Response: No adverse reaction; Pain is decreased; RASS: Alert and Calm (0) ha1 03:25 Drug: Zofran (Ondansetron) 4 mg Route: IVP; Site: left antecubital; ha1 04:48 Follow up: Response: No adverse reaction ha1 03:50 Drug: Zithromax (azithromycin) 500 mg Route: IVPB; Infused Over: 1 hrs; Site: left ha1 antecubital; 04:50 Follow up: Response: No adverse reaction; IV Status: Completed infusion; IV Intake: ha1 250ml 04:52 Not Given (will be given in medical surgical by ANILA Currie): vancoMYCIN 1.5 grams IVPB at 1 calculated rate once Medication: 04:48 VIS not applicable for this client. ha1 Intake: 05/23 23:54 IV: 50ml; Total: 50ml. ha1 05/24 04:50 IV: 250ml; Total: 300ml. ha1 04:52 IV: 1000ml; Total: 1300ml. 1 Outcome: 01:44 Decision to Hospitalize by Provider. [facility] 04:47 Admitted to Med/surg accompanied by nurse, room 215, Report called to ANILA Currie [facility] 04:47 Condition: stable 04:47 Instructed on the need for admit, Demonstrated understanding of instructions. 04:54 Patient left the ED. 1 Signatures: Dispatcher [employer] EDMS Bryce Archibald MD MD cha Rivera, Mary mr Slawson, Ashby, RN RN as6 Deepika Carroll RN RN ha1 Alicia Wright, ANILA RN kb3 Corrections: (The following items were deleted from the chart) 05/23 21:39 21:34 BP 133 / 94; Pulse 113bpm; Resp 20bpm; Pulse Ox 88% RA; Temp 97.8F; 83.46 kg; kb3 Height 5 ft. 9 in.; BMI: 27.1; Pain 0/10; kb3 22:10 21:53 SARS-COV-2 RT PCR+MOL.LAB.BRZ drawn and sent. [facility] EDUT
--- NOTE | 2022-05-24 01:46 | EDPHYS ---
Physician Documentation [facility] Name: Fito Alva Age: 61 yrs Sex: Male : 1960 Arrival Date: 05/23/2022 Time: 21:06 Bed 19 Private MD: Robert Cunningham ED Physician Bryce Archibald HPI: 05/23 23:10 This 61 yrs old Male presents to ER via Wheelchair with complaints of Low O2. nany 23:10 The patient has shortness of breath with light activity. Onset: The symptoms/episode nany began/occurred just prior to arrival. Duration: The symptoms are continuous, and are unchanged since they started. The patient's shortness of breath has no apparent modifying factors. Associated signs and symptoms: Pertinent positives: dizziness. Severity of symptoms: At their worst the symptoms were mild in the emergency department the symptoms are unchanged. The patient has not experienced similar symptoms in the past. Historical: - Allergies: 21:37 No Known Allergies; kb3 - PMHx: 21:37 prostate cancer with mets to the bone; kb3 - PSHx: 21:37 Spinal tumor resection; kb3 - Immunization history:: Adult Immunizations up to date, Client reports receiving the 2nd dose of the Covid vaccine, Last tetanus immunization: up to date. - Social history:: Smoking status: Patient/guardian denies using tobacco, but has a distant history of tobacco abuse. ROS: 23:13 Constitutional: Negative for fever, chills, and weight loss, ENT: Negative for injury, nany pain, and discharge, Neck: Negative for injury, pain, and swelling, Cardiovascular: Negative for chest pain, palpitations, and edema, Respiratory: Negative for shortness of breath, cough, wheezing, and pleuritic chest pain, Abdomen/GI: Negative for abdominal pain, nausea, vomiting, diarrhea, and constipation, : Negative for injury, bleeding, discharge, and swelling, MS/Extremity: Negative for injury and deformity, Neuro: Negative for headache, weakness, numbness, tingling, and seizure, Psych: Negative for depression, anxiety, suicide ideation, homicidal ideation, and hallucinations, Allergy/Immunology: Negative for hives, rash, and allergies, Endocrine: Negative for neck swelling, polydipsia, polyuria, polyphagia, and marked weight changes, Hematologic/Lymphatic: Negative for swollen nodes, abnormal bleeding, and unusual bruising. 23:13 Eyes: Positive for icterus. 23:13 Skin: Positive for pallor. Exam: 23:13 Constitutional: This is a well developed, well nourished patient who is awake, alert, nany and in no acute distress. Head/Face: Normocephalic, atraumatic. ENT: Nares patent. No nasal discharge, no septal abnormalities noted. Tympanic membranes are normal and external auditory canals are clear. Oropharynx with no redness, swelling, or masses, exudates, or evidence of obstruction, uvula midline. Mucous membranes moist. Neck: Trachea midline, no thyromegaly or masses palpated, and no cervical lymphadenopathy. Supple, full range of motion without nuchal rigidity, or vertebral point tenderness. No Meningismus. Chest/axilla: Normal chest wall appearance and motion. Nontender with no deformity. No lesions are appreciated. Back: No spinal tenderness. No costovertebral tenderness. Full range of motion. Male : Normal genitalia with no discharge or lesions. MS/ Extremity: Pulses equal, no cyanosis. Neurovascular intact. Full, normal range of motion. Neuro: Awake and alert, GCS 15, oriented to person, place, time, and situation. Cranial nerves II-XII grossly intact. Motor strength 5/5 in all extremities. Sensory grossly intact. Cerebellar exam normal. Normal gait. Psych: Awake, alert, with orientation to person, place and time. Behavior, mood, and affect are within normal limits. 23:13 Eyes: Sclera: icterus. 23:13 ECG was reviewed by the Attending Physician. 23:13 Respiratory: the patient does not display signs of respiratory distress, Respirations: normal, no acute changes, Breath sounds: decreased breath sounds, that are moderate, are located in both bases, Respiratory rate: 16 23:13 Abdomen/GI: Inspection: distension, Bowel sounds: active, Palpation: mild abdominal tenderness, in all quadrants, Liver: no appreciated palpable abnormalities, Hernia: not appreciated. Vital Signs: 21:21 BP 133 / 94; Pulse 113; Resp 20; Pulse Ox 88% on R/A; ha1 21:25 BP 139 / 75; Pulse 112; Resp 16 S; Pulse Ox 96% on 2 lpm NC; ha1 21:34 BP 133 / 94; Pulse 113; Resp 20; Temp 97.8; Pulse Ox 88% on R/A; Weight 83.46 kg; kb3 Height 5 ft. 9 in. (175.26 cm); Pain 01/20; 22:30 BP 139 / 72; Pulse 108; Resp 16 S; Pulse Ox 95% on 2 lpm NC; ha1 23:30 BP 133 / 79; Pulse 101; Resp 18 S; Pulse Ox 96% on 2 lpm NC; ha1 05/24 00:30 BP 120 / 89; Pulse 98; Resp 18 S; Pulse Ox 95% on 2 lpm NC; ha1 03:00 BP 111 / 75; Pulse 98; Resp 18 S; Pulse Ox 96% on 2 lpm NC; ha1 04:00 BP 110 / 75; Pulse 98; Resp 19 S; Pulse Ox 96% on R/A; ha1 05/23 21:34 Body Mass Index 27.17 (83.46 kg, 175.26 cm) kb3 MDM: 05/23 21:32 Patient medically screened. nany 23:16 Differential diagnosis: Anemia Bronchitis CHF exacerbation, Chronic Obstructive nany Pulmonary Disease Basilar Pneumonia Metastatic Disease Neoplasm Obesity Peptic Ulcer ruptured disc, spinal injury, Ureterolithiasis Psychogenic pulmonary edema, Pulmonary Embolism reactive airway disease, Unstable Angina. Antibiotic administration: rocephin. Differential Diagnosis sepsis. The patient's Wells Deep Vein Thrombosis Score was calculated as follows: Heart Rate >100 BPM (1.5 Pts) Total Score: 0-2 Pts- Low Risk. The patient's pulmonary embolism risk score was calculated as follows: the patients heart rate is greater than 100 beats per minute (1.5 Pts) Total Score: 0-2 points. This patient was found to be at low risk for a pulmonary embolism by using the Well's assessment criteria. Immunization status: Influenza vaccine: Data reviewed: vital signs, nurses notes, lab test result(s), EKG, radiologic studies, CT scan, plain films. Data interpreted: equipment monitor phototypesetting: rate is 108 beats/min, rhythm is regular, Pulse oximetry: on room air is 95 %. Test interpretation: by ED physician or midlevel provider: ECG, plain radiologic studies. Counseling: I had a detailed discussion with the patient and/or guardian regarding: the historical points, exam findings, and any diagnostic results supporting the discharge/admit diagnosis, lab results, radiology results. 05/23 21:37 Order name: Basic Metabolic Panel; Complete Time: 22:43 [facility] 05/23 21:37 Order name: CBC with Diff; Complete Time: 22:43 [facility] 05/23 21:37 Order name: LFT's; Complete Time: 22:43 [facility] 05/23 21:37 Order name: Magnesium; Complete Time: 22:43 [facility] 05/23 21:37 Order name: NT PRO-BNP; Complete Time: 22:43 [facility] 05/23 21:37 Order name: PT-INR; Complete Time: 22:43 [facility] 05/23 21:37 Order name: Troponin HS; Complete Time: 22:43 [facility] 05/23 21:37 Order name: Blood Culture Adult (2) [facility] 05/23 21:37 Order name: Lactate; Complete Time: 22:43 [facility] 05/23 21:37 Order name: Urine Microscopic Only; Complete Time: 00:21 [facility] 05/23 21:37 Order name: Lipase; Complete Time: 22:43 [facility] 05/23 22:10 Order name: SARS-COV-2 Antigen Rapid; Complete Time: 22:43 [facility] 05/23 22:42 Order name: Urine Dipstick-Ancillary; Complete Time: 22:43 [facility] 05/23 21:37 Order name: XRAY Chest (1 view); Complete Time: 22:43 [facility] 05/23 21:37 Order name: EKG; Complete Time: 21:39 [facility] 05/23 22:57 Order name: AMMONIA; Complete Time: 02:44 [facility] 05/23 23:01 Order name: CT Head C Spine [facility] 05/23 23:01 Order name: CT Chest For PE Angio [facility] 05/23 23:02 Order name: CT Abd/Pelvis - IV Contrast Only [facility] 05/23 23:08 Order name: Urine Culture [facility] 05/24 01:38 Order name: Flu [facility] 05/23 21:37 Order name: Cardiac monitoring; Complete Time: 21:46 [facility] 05/23 21:37 Order name: EKG - Nurse/Tech; Complete Time: 21:46 [facility] 05/23 21:37 Order name: IV Saline Lock; Complete Time: 21:46 [facility] 05/23 21:37 Order name: Labs collected and sent; Complete Time: 21:46 [facility] 05/23 21:37 Order name: O2 Per Protocol; Complete Time: 21:46 [facility] 05/23 21:37 Order name: O2 Sat Monitoring; Complete Time: 21:46 nany EC:13 Rate is 109 beats/min. Rhythm is regular. QRS [place] is Normal. QRS interval is normal. nany QT interval is normal. No Q waves. T waves are Normal. No ST changes noted. Clinical impression: Sinus tachycardia. Interpreted by me. Reviewed by me. Administered Medications: 21:53 Drug: NS 0.9% 1000 ml Route: IV; Rate: 75 ml/hr; Site: left antecubital; [facility] 23:00 Drug: NS 0.9% 1000 ml Route: IV; Rate: 1 bolus; Site: left antecubital; 1 05/24 04:52 Follow up: Response: No adverse reaction; IV Status: Completed infusion; IV Intake: ha1 1000ml 05/23 23:45 Drug: Rocephin (cefTRIAXone) 1 grams Route: IV; Rate: per protocol; Site: left [facility] antecubital; 23:54 Follow up: Response: No adverse reaction; IV Status: Completed infusion; IV Intake: [id number] 05/24 03:00 Drug: fentaNYL (PF) 50 mcg Route: IVP; Site: left antecubital; 1 04:49 Follow up: Response: No adverse reaction; Pain is decreased; RASS: Alert and Calm (0) ha1 03:25 Drug: Zofran (Ondansetron) 4 mg Route: IVP; Site: left antecubital; ha1 04:48 Follow up: Response: No adverse reaction ha1 03:50 Drug: Zithromax (azithromycin) 500 mg Route: IVPB; Infused Over: 1 hrs; Site: left 1 antecubital; 04:50 Follow up: Response: No adverse reaction; IV Status: Completed infusion; IV Intake: ha1 250ml 04:52 Not Given (will be given in medical surgical by ANILA Currie): vancoMYCIN 1.5 grams IVPB at ha1 calculated rate once Disposition Summary: 05/24/22 01:44 Hospitalization Ordered Hospitalization Status: Inpatient Admission nany Condition: Fair nany Problem: new nany Symptoms: have improved nany Bed/Room Type: Standard nnay Location: Telemetry/MedSurg (Inpatient)(05/24/22 02:18) cg Provider: Geraldo Lo(05/24/22 02:29) as6 Room Assignment: [facility](05/24/22 03:36) cg Diagnosis - Dyspnea nany - Hypoxemia nany - UTI/ Urinary tract infection, site not specified nany - Pneumonia due to other specified infectious organisms - bilateral atypical nany - Abnormal levels of other serum enzymes - elevated troponion nany - Malignant neoplasm of prostate - metastatic nany - Fracture of thoracic vertebra - T1 transverse process, metastatic nany Forms: - Medication Reconciliation Form nany - SBAR form nany Signatures: Dispatcher [employer] EDMS Bryce Archibald MD MD cha Garcia, Cindy RN RN cg Gabino Hardy RN RN as6 Deepika Carroll RN RN ha1 Alicia Wright RN RN kb3 Corrections: (The following items were deleted from the chart) 05/23 22:10 21:39 SARS-COV-2 RT PCR+MOL.LAB.BRZ ordered. EDMS EDMS 23:07 22:59 Head C Spine CAP W Con+CT.RAD.BRZ ordered. EDMS EDMS 05/24 02:13 01:44 Telemetry/MedSurg (Inpatient) nany cg 02:13 01:44 nany cg 02:18 02:13 [facility] ER HOLD cg cg 02:18 02:13 ERHOLD- cg cg 02:29 01:44 JohnnaClif ferguson cha as6 03:36 02:18 cg cg
[2022-05-24] MEDS ORDERED: VANCOMYCIN 1 GM/VIAL ONE (02:44)
[2022-05-24] MEDS ORDERED: NA CHLORIDE 0.9% 250 ML ONE ×2 (02:45→02:47)
[2022-05-24] MEDS ORDERED: VANCOMYCIN 500 MG/VIAL ONE (02:45)
[2022-05-24] MEDS ORDERED: AZITHROMYCIN 500 MG INJ IVPB ONE (02:45)
[2022-05-24] MEDS ORDERED: NA CHLORIDE 0.9% 0 ML IV ONE (02:46)
[2022-05-24] MEDS ORDERED: FENTANYL CITR 100 MCG/2 ML ONE (02:51)
--- NOTE | 2022-05-24 03:22 | P.HP ---
Certification for Inpatient Patient admitted to: Inpatient With expected LOS: >2 Midnights Patient will require the following post-hospital care: None Practitioner: I am a practitioner with admitting privileges, knowledge of patient current condition, hospital course, and medical plan of care. Services: Services provided to patient in accordance with Admission requirements found in Title 42 Section 412.3 of the Code of Federal Regulations Patient History Date of Service: 05/24/22 Reason for admission: Pneumonia, hypoxia History of Present Illness: 61-year-old male with history of metastatic prostate cancer presents the emergency department for hypoxia. He has home health that comes out once a week to treat his oxygen saturation found to be in the mid 80s on room air. He does not have home oxygen he reports mild cough last few days denies any significant shortness of breath. He was saturating 86 to 88% on room air in the emergency department placed on nasal cannula saturating well on 3 to 4 L per nasal cannula at this time. His labs were significant for high sensitive troponin 70 7.3T bili 1.5D bili 0.4 alk phos 446 urinalysis with 1+ leuks, nitrate positive greater than 50 white blood cells less than [address] chest abdomen pelvis with IV contrast shows no pulmonary believes him, finding consistent with but not specific for atypical pneumonia, including viral infection. Small bilateral pleural effusions. Indeterminate thickening of the left adrenal gland measuring 1.4 cm unchanged from prior exam. Osseous findings highly suggestive of metastatic disease present on prior exam. CT head/C-spine without contrast performed revealing no acute intracranial abnormality, no acute osseous abnormality identified the cervical spine. Osseous metastatic disease. Suspected acute nondisplaced fracture in the left T1 transverse process, likely through the region of osseous metastatic disease. 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 Patient was given IV antibiotics in the emergency department, ED provider wishes to admit for pneumonia, hypoxia. Allergies No Known Allergies Allergy (Unverified 03/01/22 23:53) Home Medications: Abiraterone Acetate 1,000 mg PO DAILY 03/02/22 Gabapentin 300 mg PO BEDTIME 03/02/22 Prednisone [Martin] 5 mg PO BID 03/02/22 - Past Medical/Surgical History Diabetic: No -: Prostate cancer with metastasis to bone -: Spinal surgery 2021 Psychosocial/ Personal History: Pt lives at home with family/ - Family History Family History: Reviewed- Non-Contributory - Social History Smoking Status: Former smoker Alcohol use: No CD- Drugs: No Caffeine use: No Place of Residence: Home Review of Systems 10-point ROS is otherwise unremarkable Musculoskeletal: Back Pain, Leg Pain Physical Examination - Physical Exam General: Alert, In no apparent distress, Oriented x3 HEENT: Atraumatic, PERRLA, Mucous membr. moist/pink, EOMI, Sclerae nonicteric Neck: Supple, 2+ carotid pulse no bruit, No LAD, Without JVD or thyroid abnormality Respiratory: Diminished Cardiovascular: Regular rate/rhythm, Normal S1 S2 Capillary refill: <2 Seconds Gastrointestinal: Normal bowel sounds, No tenderness Musculoskeletal: No tenderness Integumentary: No rashes Neurological: Normal speech, Normal tone, Normal affect - Studies Laboratory Data (last 24 hrs) 05/23/22 21:43: PT 17.5 H, INR 1.59 05/23/22 21:43: WBC 5.00, Hgb 10.2 L, Hct 31.2 L, Plt Count 177 05/23/22 21:43: Sodium 132 L, Potassium 3.7, BUN 7, Creatinine 0.59, Glucose 110 H, Magnesium 2.1, Total Bilirubin 1.5 H, AST 81 H, ALT 17, Alkaline Phosphatase 446 H, Lipase 125 Assessment and Plan - Plan Assessment: Acute hypoxic respiratory failure secondary to NIMO atypical pneumonia Elevated troponin Prostate CA with mets to bones/spine with pathologic nondisplaced fracture T1 transverse process Chronic pain related to above Plan: Acute hypoxic respiratory failure secondary to NIMO atypical pneumonia: Blood cultures obtained, continue IV abx, incentive spirometry, supplemental 02 PRN, daily room air sats. Elevated troponin: Suspect demand ischemia, trend trops, monitor on tele, will consult cardiology for significant increase in troponin, obtain echo. Prostate CA with mets to bones/spine with pathologic nondisplaced fracture T1 transverse process: No new neuro changes, patient ambulating with walker. Continue pain meds PRN, PT consult in place. Chronic pain related to above: PRN pain meds DVT PPX: Lovenox Code status: Full code Discharge Plan: Home Plan to discharge in: Greater than 2 days - Advance Directives Does patient have a Living Will: No Does patient have a Durable POA for Healthcare: No - Code Status/Comfort Care Code Status Assessed: Yes (Full code) Critical Care: No Time Spent Managing Pts Care (In Minutes): 70
[2022-05-24] MEDS ORDERED: ONDANSETRON 4 MG/2 ML VIAL ONE (03:50)
[2022-05-24] MEDS ORDERED: HYDROCODONE/APAP 7.5/325 MG TAB PO PRN (04:36)
[2022-05-24] MEDS ORDERED: ACETAMINOPHEN 500 MG TAB PO PRN (04:36)
[2022-05-24] MEDS ORDERED: ONDANSETRON 4 MG/2 ML VIAL IV PRN (04:36)
[2022-05-24 05:55] VITALS: BMI 29.3
[2022-05-24 06:05] LABS: Absolute Lymphocytes (CBC) 0.9 K/uL (0.7-4.9); Hematocrit 26.5 % (39.6-49.0); Lymphocytes % 20.4 % (15.3-44.8); MCV 84.3 fL (80-100); MPV 6.7 fL (7.6-11.3); RBC Red Blood Cell Count 3.14 M/uL (4.33-5.43)
[2022-05-24 06:21] LABS: Albumin 2.7 g/dL (3.4-5.0); Bilirubin Total 1.1 mg/dL (0.2-1.0); Potassium 3.5 mmol/L (3.5-5.1)
[2022-05-24] MEDS ORDERED: POTASSIUM CL SA 10 MEQ TAB PO ONE (07:08)
[2022-05-24] MEDS ORDERED: PNEUMOCOCCAL VACCINE 0.5 ML IMVAC ONE (08:00)
[2022-05-24] MEDS ORDERED: AZITHROMYCIN IV 500 MG in NA CHLORIDE 0.9% 250 ML IVPB SCH (09:00)
[2022-05-24] MEDS ORDERED: ENOXAPARIN 40 MG/0.4 ML SQ SCH (09:00)
[2022-05-24] MEDS: CEFTRIAXONE 1,000 MG in NA CHLORIDE 0.9% 50 ML IVPB SCH (10:21)
--- NOTE | 2022-05-24 11:13 | RAD REPORT ---
EXAM DESCRIPTION: Head C spine MPR WO Contrast CLINICAL HISTORY: Fall. TECHNIQUE: Noncontrast CT through the head was performed. Axial, coronal, and sagittal reconstructio ns were created and sent to PACS. CT of the cervical spine was performed without contrast. Axial, coronal, and sagittal reconstructions were created and sent to PACS. These exams were performed according to our departmental dose-optimization program which includes use of Automated Exposure Control, adjustment of the mA and/or kV according to patient size and/or use o f iterative reconstruction technique. COMPARISON: None. FINDINGS: CT Head: There is diffuse age-appropriate atrophy seen throughout the brain parenchyma. Mild periventricular w gladys matter changes are seen to be present and there is mild ex vacuo dilatation of the ventricular s ystem. There is no intra-axial or extra-axial bleed. There is no mass or mass effect. Small mucosal retention cyst in the left maxillary sinus. Mild mucosal thickening in the left sphenoi d sinus. Small air-fluid level in the right sphenoid sinus. The remaining visualized paranasal sinuse s and mastoid air cells are clear. No acute fracture is identified. CT cervical spine: Multifocal bony heterogeneity and lytic lesions in the cervical and thoracic spine as well as the upp er ribs and right anterior scapular body, consistent with osseous metastatic disease. No acute osseou s abnormality identified in the cervical spine. Possible acute nondisplaced fracture through the late ral aspect of the left T1 transverse process, which demonstrates mild osseous heterogeneity (axial se areli 302, image 89). Vertebral body height and alignment are maintained. No atlantodental interval wi dening. Atlantoaxial alignment is maintained. The facet joints are well aligned. The occipital condyl es are well aligned with the C1 lateral masses. The transverse foramina are intact. No significant ce ntral canal narrowing throughout the cervical spine. Mild neuroforaminal narrowing at some levels due to uncinate hypertrophy.. Paraspinal soft tissues: No prevertebral soft tissue swelling. No evidence of epidural hematoma. No a cute findings in the demonstrated portions of the lung apices. IMPRESSION: 1. No acute intracranial abnormality identified. Mild paranasal sinus disease. 2. No acute osseous abnormality identified in the cervical spine. 3. Osseous metastatic disease. Suspected acute nondisplaced fracture in the left T1 transverse proc ess, likely through a region of osseous metastatic disease. Electronically signed by: Audra Rojas MD 05/24/2022 1:01 AM MANDREL PULLER Due to temporary technical issues with the PACS/Fluency reporting system, reports are being signed by the in house radiologists without review as a courtesy to insure prompt reporting. The interpreting radiologist is fully responsible for the content of the report.
[2022-05-24] MEDS: HYDROMORPHONE HCL 1 MG/ML INJ IV PRN (11:51)
[2022-05-24] MEDS ORDERED: MORPHINE *EXTENDED RELEASE* 15 MG TAB PO PRN (13:24)
[2022-05-24] MEDS ORDERED: HOME MED 1 EA UNK (Ondansetron Hcl [Ondansetron Hcl] 4 MG Tablet) PO SCH (13:30)
--- NOTE | 2022-05-24 13:33 | RAD REPORT ---
EXAM DESCRIPTION: CT Angiography Chest and CT Abdomen and Pelvis With Intravenous Contrast CLINICAL HISTORY: The patient is 61 years old and is Male; sob TECHNIQUE: Axial computed tomographic angiography images of the chest and axial computed tomography images of the abdomen and pelvis with intravenous contrast. This CT exam was performed using one or more of the following dose reduction techniques: automated exposure control, adjustment of the mA and/or kV according to patient size, and/or use of iterative reconstruction technique. MIP reconstructed images were created and reviewed. Oblique reformatted images were created and reviewed. DLP: 1818 mGy*cm COMPARISON: Chest radiograph of the same day and CTA abdomen and pelvis dated 12/28/2021. FINDINGS: CHEST: AORTA: No acute findings. No aortic aneurysm. No dissection. PULMONARY ARTERIES: Unremarkable as visualized. No pulmonary embolism is identified. GREAT VESSELS OF AORTIC ARCH: No acute findings. No dissection. No arterial occlusion or signif icant stenosis. LUNGS: Scattered bilateral ground glass opacities in the upper and mid lung zones, right greater th an left. PLEURAL SPACE: Small bilateral pleural effusions. No pneumothorax. HEART: Unremarkable. No cardiomegaly. No significant pericardial effusion. ABDOMEN: LIVER: Hepatic steatosis. GALLBLADDER AND BILE DUCTS: Unremarkable. No calcified stones. No ductal dilation. PANCREAS: Unremarkable. No ductal dilation. No mass. SPLEEN: Unremarkable. No splenomegaly. ADRENALS: Indeterminate thickening of the left adrenal gland measuring 1.4 cm, unchanged from prior exam. KIDNEYS AND URETERS: Unremarkable. No hydronephrosis. No solid mass. STOMACH AND BOWEL: Unremarkable. No obstruction. No mucosal thickening. PELVIS: APPENDIX: The appendix is seen and is within normal limits. BLADDER: Bladder is decompressed. REPRODUCTIVE: Unremarkable as visualized. CHEST, ABDOMEN and PELVIS: INTRAPERITONEAL SPACE: Unremarkable. No significant fluid collection. No free air. BONES/JOINTS: Continued evidence of innumerable osseous lesions scattered throughout the vertebral bodies and expansile lesions involving multiple bilateral ribs. Similar-appearing finding involving t he bony pelvis. Thoracolumbar postsurgical changes. SOFT TISSUES: Unremarkable. LYMPH NODES: Unremarkable. No enlarged lymph nodes. IMPRESSION: 1. No pulmonary embolism. 2. Findings consistent with but not specific for atypical pneumonia, including viral infection. 3. Small bilateral pleural effusions. 4. No acute abdominal or pelvic abnormality. 5. Hepatic steatosis. 6. Indeterminate thickening of the left adrenal gland measuring 1.4 cm, unchanged from prior exam. 7. Osseous findings highly suggestive of metastatic disease, present on prior exam. Electronically signed by: Charlie Joe DO 05/24/2022 12:59 AM SLUNK SKIN CURER Due to temporary technical issues with the PACS/Fluency reporting system, reports are being signed by the in house radiologists without review as a courtesy to insure prompt reporting. The interpreting radiologist is fully responsible for the content of the report.
[2022-05-24] MEDS ORDERED: ONDANSETRON 4 MG (ODT) TAB PO PRN (13:41)
[2022-05-24] MEDS ORDERED: DOCUSATE NA/SENNA CONC 1 TAB PO PRN (13:50)
--- NOTE | 2022-05-24 15:57 | EKG ---
Test Date: 2022-05-23 Test Time: 21:47:26 Anatomic Pathology Assistant: MAGUI MEASUREMENT RESULTS: Intervals: Rate: 109 HI: 134 QRSD: 74 QT: 338 QTc: 455 Bracey: P: 67 HI: 134 QRS: 37 T: 63 INTERPRETIVE STATEMENTS: Sinus tachycardia Otherwise normal ECG Compared to ECG 03/01/2022 18:32:03 Sinus rhythm no longer present Electronically Signed On 05-24-22 15:55:17 VIBRATION ANALYST by Gustabo Tinoco
[2022-05-24] MEDS ORDERED: HOME MED 1 EA UNK (Mirtazapine [Mirtazapine] 7.5 MG Tablet) PO SCH (21:00)
[2022-05-24] MEDS ORDERED: HOME MED 1 EA UNK (Famotidine [Famotidine] 10 MG Tablet) PO SCH (21:00)
[2022-05-24] MEDS ORDERED: PREDNISONE 5 MG PO SCH (21:00)
[2022-05-24] MEDS: GABAPENTIN 300 MG CAP PO SCH (22:28)
[2022-05-24] MEDS: MIRTAZAPINE 15 MG TAB PO SCH (22:28)
[2022-05-24] MEDS: TAMSULOSIN 0.4 MG SR CAP PO SCH (22:28)
[2022-05-24] MEDS: predniSONE 5 MG TAB PO SCH (22:29)
[2022-05-24] MEDS: ENSURE HIGH PROTEIN 237 ML CAN PO SCH (22:30)
[2022-05-24] MEDS: FAMOTIDINE 20 MG TAB PO SCH (22:44)
[2022-05-25 06:46] LABS: Albumin 2.8 g/dL (3.4-5.0); Potassium 3.9 mmol/L (3.5-5.1); Protein, Total 6.3 g/dL (6.4-8.2)
[2022-05-25 08:24] LABS: Absolute Lymphocytes (CBC) 0.9 K/uL (0.7-4.9); Hematocrit 27.5 % (39.6-49.0); Lymphocytes % 21.1 % (15.3-44.8); MCV 84.9 fL (80-100); MPV 7.3 fL (7.6-11.3); RBC Red Blood Cell Count 3.24 M/uL (4.33-5.43)
[2022-05-25] MEDS: CEFTRIAXONE 1,000 MG in NA CHLORIDE 0.9% 50 ML IVPB SCH (08:34)
[2022-05-25] MEDS: APIXABAN 5 MG TABLET PO SCH ×2 (08:35→22:42)
[2022-05-25] MEDS: predniSONE 5 MG TAB PO SCH (08:36)
[2022-05-25] MEDS: FAMOTIDINE 20 MG TAB PO SCH ×2 (08:36→22:42)
[2022-05-25] MEDS: ENSURE HIGH PROTEIN 237 ML CAN PO SCH ×3 (08:37→22:41)
[2022-05-25] MEDS ORDERED: AZITHROMYCIN 250 MG TAB PO SCH (09:00)
[2022-05-25] MEDS ORDERED: POTASSIUM CL SA 10 MEQ TAB PO ONE (09:00)
[2022-05-25] MEDS ORDERED: ENZALUTAMIDE 40 MG PO SCH ×2 (09:00)
--- NOTE | 2022-05-25 09:23 | RAD REPORT ---
EXAM DESCRIPTION: RAD - Chest Single View - 05/25/2022 9:09 am CLINICAL HISTORY: r/o pneumonia COMPARISON: Chest Single View dated 05/23/2022; Chest For Pe Angio dated 05/24/2022; Bone Imaging Wh ole Body dated 04/24/2022 FINDINGS: Lines: None. Lungs: Developing pneumonia in the right upper lung. Pleural: Tiny effusions. Cardiac: The heart size is within normal limits. Mediastinum: Within normal limits. Bones: No acute fractures. Known osseous metastatic disease. Other: None IMPRESSION: Worsened aeration in the right upper lobe likely reflecting mild worsening in pneumonia. Other bilateral opacities better appreciated on CT.
[2022-05-25 10:10] LABS: Anisocytosis 1+; Blood Morphology Comment NOTED (NOT SEEN); Platelet Estimate ADEQ
--- NOTE | 2022-05-25 11:07 | P.CNS ---
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 minimal ambulation Allergies No Known Allergies Allergy (Unverified 03/01/22 23:53) Home Medications: Prednisone [Martin] 5 mg PO BID 03/02/22 Enzalutamide [Xtandi] 40 mg PO DAILY 05/24/22 Famotidine 20 mg PO BID 05/24/22 Gabapentin [Neurontin*] 300 mg PO BEDTIME 05/24/22 Mirtazapine 7.5 mg PO BEDTIME 05/24/22 Morphine *Extended Release* [MS Contin*] 15 mg PO Q4HP PRN 05/24/22 Ondansetron HCl 4 mg PO Q8HP 05/24/22 Tamsulosin [Flomax*] 1 tab PO BEDTIME 05/24/22 predniSONE [Prednisone*] 1 tab PO BID 05/24/22 - Past Medical/Surgical History Diabetic: No -: Prostate cancer with metastasis to bone -: Spinal surgery 2021 Psychosocial/ Personal History: Pt lives at home with family/ - Social History Smoking Status: Former smoker Alcohol use: No CD- Drugs: No Caffeine use: Yes Place of Residence: Home Review of Systems is unable to be obtained Physical Examination Temp Pulse Resp BP Pulse Ox 96.9 F 106 H 18 108/65 96 05/25/22 08:00 05/25/22 08:00 05/25/22 08:00 05/25/22 08:00 05/25/22 08:00 General: Alert, Cooperative Respiratory: Clear to auscultation bilaterally, Friction rub Cardiovascular: Regular rate/rhythm, Normal S1 S2 Gastrointestinal: Normal bowel sounds, Soft and benign, Non-distended Musculoskeletal: No clubbing Integumentary: No rashes, No breakdown - Problems (1) Acute respiratory failure with hypoxemia Current Visit: Yes Status: Acute Plan: Patient is 61 years of age static prostate cancer with mets to the spine history of paraparesis admitted with hypoxemia he has bilateral groundglass changes patient is mildly anemic troponins are mildly elevated I suspect demand ischemia patient has prominent metastatic disease on CT scan he has a plate in his back plan to increase his steroid is likely atypical pneumonia changed to p.o. antibiotic continues to remain hypoxic there is no evidence of thromboembolism also check blood gases
--- NOTE | 2022-05-25 11:08 | P.PN ---
Subjective Date of Service: 05/25/22 Chief Complaint: Pneumonia, hypoxia No change in patient's condition he looks well not dyspneic or tachypneic entered his room he was not on oxygen his sat was around 80% Review of Systems is unable to be obtained Physical Examination - Vital Signs Temperature: 96.9 F Blood Pressure: 108/65 Pulse: 106 Respirations: 18 Pulse Ox (%): 96 - Physical Exam General: Cooperative Respiratory: Clear to auscultation bilaterally, Diminished Cardiovascular: No edema, Regular rate/rhythm Assessment And Plan - Current Problems (Diagnosis) (1) Acute respiratory failure with hypoxemia Current Visit: Yes Status: Acute Plan: Patient continues to be hypoxic started on high doses of IV steroid is to p.o. antibiotics Augmentin and Zithromax troponins most likely elevated from demand ischemia check arterial blood gases urine also positive for 4+ gram-negative rods ID pending no evidence of active ongoing sepsis no fever or white count patient is on antiandrogenic therapy for his prostate cancer
[2022-05-25] MEDS: METHYLPREDNISOLONE 40 MG INJ IV SCH ×2 (12:03→22:43)
[2022-05-25 13:37] LABS: Urine Mucus 1+ /HPF (None Seen); Urine RBC <5 /HPF (None Seen)
[2022-05-25 13:41] LABS: Specific Gravity 1.008 (1.005-1.030); Urine Bilirubin NEGATIVE (Negative); Urine Blood Negative (Negative); Urine Clarity Clear (Clear); Urine Color Light-Yellow (Yellow); Urine Glucose NEGATIVE (Negative); Urine Protein NEGATIVE (Negative); Urine Urobilinogen Normal (Normal)
--- NOTE | 2022-05-25 15:12 | PN ---
Date of Progress Note: 05/25/2022 The patient's status is basically stable; however, he was immobilized with minimal drop in his O2 sat uration and in fact at rest his O2 sats have been stable enough that he is not requiring oxygen at th e moment. His H and H are also stable. No stool specimen has been obtainable as yet. He has no oth er UTI symptoms; however, his chest x-ray did show some possible progression of a viral type pneumoni tis. The patient to his family does express his desire to be discharged as soon as possible and beco mes anxious. We will add Ativan to the regimen and his stay is stable enough. By tomorrow, he carmen crook could be discharged. He is to see his oncologist in 2 weeks. HR/MODL Voice ID: [id number] Report ID: [id number]
--- NOTE | 2022-05-25 15:27 | PN ---
Date of Progress Note: 05/23/2022 The patient seems stable this morning, basically asymptomatic; however, the possibility of pneumonia still has to be considered for repeated chest x-ray in the morning. His UA also had some possible in fluence on the situation. We will repeat this as well as some chemistries. However, the patient sta zaire he is completely symptomatic as far as his urinary tract is concerned. His oxygen level stable o n O2. We will see by morning with whether he tolerate room air. Some questionable etiology of the h ypoxic episode with a combination of early pneumonia, which showed up on the x-ray scenario and/or hi s inactivity with a combination of his chemo is susceptible with immunosuppressed. Being seen by pul monology. Depending on the results of the morning test tomorrow to determine his disposition, the so me discussion is hospice with the family as well as a DNR status. The other problem possible with th e hemoglobin; however, that may be fraction of his hydration. We will monitor this as well. HR/MODL Voice ID: [id number] Report ID: [id number]
[2022-05-25 15:50] LABS: Arterial Blood Carboxyhemoglob 1.8 % (0-1.5); Blood Gas Oxyhemoglobin 83.6 % (94-97); Blood O2 Saturation 86.1 % (92-98.5)
[2022-05-25] MEDS: ENZALUTAMIDE 160 MG PO SCH (18:53)
[2022-05-25] MEDS: MIRTAZAPINE 15 MG TAB PO SCH (22:41)
[2022-05-25] MEDS: TAMSULOSIN 0.4 MG SR CAP PO SCH (22:41)
[2022-05-25] MEDS: GABAPENTIN 300 MG CAP PO SCH (22:42)
[2022-05-25] MEDS: CEFUROXIME 250 MG TAB PO SCH (22:42)
[2022-05-25] MEDS: HYDROMORPHONE HCL 1 MG/ML INJ IV PRN (22:43)
[2022-05-25] MEDS: LORAZEPAM 1 MG TABLET PO SCH (22:43)
[2022-05-26 05:52] VITALS: O2SAT 96
[2022-05-26 05:55] LABS: Absolute Lymphocytes (CBC) 0.9 K/uL (0.7-4.9); Hematocrit 28.7 % (39.6-49.0); Lymphocytes % 20.1 % (15.3-44.8); MCV 84.3 fL (80-100); MPV 7.4 fL (7.6-11.3)
[2022-05-26 06:18] LABS: Albumin 2.9 g/dL (3.4-5.0); Bilirubin Total 0.9 mg/dL (0.2-1.0); Protein, Total 6.8 g/dL (6.4-8.2)
[2022-05-26] MEDS: FAMOTIDINE 20 MG TAB PO SCH (08:55)
[2022-05-26] MEDS: CEFUROXIME 250 MG TAB PO SCH (08:55)
[2022-05-26] MEDS: APIXABAN 5 MG TABLET PO SCH (08:55)
[2022-05-26] MEDS: LORAZEPAM 1 MG TABLET PO SCH (08:55)
[2022-05-26] MEDS: ENZALUTAMIDE 160 MG PO SCH (08:56)
[2022-05-26] MEDS: METHYLPREDNISOLONE 40 MG INJ IV SCH (08:56)
[2022-05-26] MEDS: ENSURE HIGH PROTEIN 237 ML CAN PO SCH (08:57)
[2022-05-26] MEDS ORDERED: AZITHROMYCIN 250 MG TAB PO SCH (09:00)
[2022-05-26 09:55] VITALS: BP 115/70; TEMP 96.9
--- NOTE | 2022-05-26 11:13 | P.DS ---
Admission Date: 05/24/22 Discharge Date: 05/26/22 Disposition: ROUTINE DISCHARGE Discharge Condition: FAIR Reason for Admission: Pneumonia, hypoxia - Problems (1) Acute respiratory failure with hypoxemia Current Visit: Yes Status: Acute Brief History of Present Illness: Patient is 61 years of age with metastatic prostate cancer presented to the emergency room with hypoxemia found to have low saturation denies any shortness of breath has a slight cough no prior history of pulmonary complaints SPECT atypical pneumonia used to be very comfortable patient is Pashto-speaking only discussed with the daughter 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 No complications. Cultures neg/ Did well on steroids. DC home on pred and Doxy/ DW daugher/ Poss UTI Tx with macrodantin/ OE alert oriented . RA pulse OX >90%/ Labs reviewed. Alert responsive chest clear/ DW Marisa Vital Signs/Physical Exam: Temp Pulse Resp BP Pulse Ox 96.9 F 100 H 18 115/70 97 05/26/22 08:00 05/26/22 08:00 05/26/22 08:00 05/26/22 08:00 05/26/22 08:00 Laboratory Data at Discharge: WBC 4.30 K/uL (4.3-10.9) 05/26/22 05:15 Hgb 9.3 g/dL (13.6-17.9) L 05/26/22 05:15 Hct 28.7 % (39.6-49.0) L 05/26/22 05:15 Plt Count 139 K/uL (152-406) L 05/26/22 05:15 PT 17.5 SECONDS (9.5-12.5) H 05/23/22 21:43 INR 1.59 05/23/22 21:43 Sodium 132 mmol/L (136-145) L 05/26/22 05:15 Potassium 4.0 mmol/L (3.5-5.1) 05/26/22 05:15 BUN 6 mg/dL (7-18) L 05/26/22 05:15 Creatinine 0.42 mg/dL (0.55-1.3) L 05/26/22 05:15 Glucose 123 mg/dL (74-106) H 05/26/22 05:15 Magnesium 2.1 mg/dL (1.8-2.4) 05/23/22 21:43 Total Bilirubin 0.9 mg/dL (0.2-1.0) 05/26/22 05:15 AST 51 U/L (15-37) H 05/26/22 05:15 ALT 14 U/L (12-78) 05/26/22 05:15 Alkaline Phosphatase 389 U/L (45-117) H 05/26/22 05:15 Lipase 125 U/L (73-393) 05/23/22 21:43 Home Medications: Prednisone [Martin] 5 mg PO BID 03/02/22 Enzalutamide [Xtandi] 40 mg PO DAILY 05/24/22 Famotidine 20 mg PO BID 05/24/22 Gabapentin [Neurontin*] 300 mg PO BEDTIME 05/24/22 Mirtazapine 7.5 mg PO BEDTIME 05/24/22 Morphine *Extended Release* [MS Contin*] 15 mg PO Q4HP PRN 05/24/22 Ondansetron HCl 4 mg PO Q8HP 05/24/22 Tamsulosin [Flomax*] 1 tab PO BEDTIME 05/24/22 predniSONE [Prednisone*] 1 tab PO BID 05/24/22 Doxycycline Monohydrate 100 mg PO BID 7 Days #14 tab 05/26/22 Nitrofuran Macro [Macrobid*] 100 mg PO BID 7 Days #14 cap 05/26/22 predniSONE [Deltasone] 10 mg PO BID 10 Days #30 tab 05/26/22 New Medications: predniSONE [Deltasone] 10 mg PO BID 10 Days #30 tab Doxycycline Monohydrate 100 mg PO BID 7 Days #14 tab Physician Discharge Instructions: To take predniosne 10 mg twice aday for now when done reume previous dose of prednsione Diet: Regular Followup: Anne Pena [Primary Care Provider] -
== END 2022-05-26 12:37 | disposition home or self-care (01) | DRG 193 ==
LOC: ER 21:04 → ERHOLD 05-24 03:05 → 2ND 05-24 04:07
PROVIDERS: ADMIT Hospitalist; ATTEND Family Medicine
DX: J18.9 Pneumonia, unspecified organism (principal); J96.01 Acute respiratory failure with hypoxia; C79.51 Secondary malignant neoplasm of bone; N39.0 Urinary tract infection, site not specified; G89.29 Other chronic pain; C61 Malignant neoplasm of prostate; M84.58XD Pathological fracture in neoplastic disease, other specified site, subsequent encounter for fracture with routine healing; R77.8 Other specified abnormalities of plasma proteins; Z87.891 Personal history of nicotine dependence; Z79.52 Long term (current) use of systemic steroids; Z79.899 Other long term (current) drug therapy; Z20.822 Contact with and (suspected) exposure to COVID-19
CPT/HCPCS: 36415; 70450; 71045; 71275; 72125; 74177; 80048; 80053; 80076; 81003; 81015; 82140; 82805; 83605; 83690; 83735; 83880; 84484; 85025; 85610; 87040; 87077; 87086; 87088; 87186; 87811; 93005; 94010; 96361; 96365; 96375; 97110; 97116; 97161; 97530; 99285; J0456; J1170; J1650; J2405; J2920; J3010; J3370; J7030; J7050; J7512; Q9967

== ENCOUNTER 2022-06-03 08:18 | Inpatient (IN) | payer OTHER ==
--- OUTSIDE RECORDS SUMMARY | 2022-06-03 08:26 | XMS REPORT | Continuity of Care Document ---
:1960 Author Organization [facility] t Address [address] [place] [address] Care Team Providers Name Role Phone Robert Cunningham MD Primary Care Physician YASH ZULETA Attending Clinician Unavailable Yash Zuleta MD Attending Clinician Yash Zuleta MD Attending Clinician Mima HOLLOWAY, Jax Correa Attending Clinician Rebeca Jose MD Attending Clinician Ela HOLLOWAY, Agueda Holcomb Attending Clinician [phone] Melvin HOLLOWAY, Luci Campos Attending Clinician [phone] Radha Saenz MD Attending Clinician RADHA SAENZ Attending Clinician Unavailable Doctor Unassigned, Garibaldi Attending Clinician Unavailable Jacinto Stovall MD Attending Clinician Unavailable Alicia HOLLOWAY, Enrique Drummond Attending Clinician Abelino Zarate MD Attending Clinician SHELBY MARRERO Attending Clinician Unavailable Julisa Francis Attending Clinician JULISA VELASQUEZ Attending Clinician Unavailable REBECA JOSE Admitting Clinician Unavailable Payers Payer Name Policy Type Policy Number Effective Date Expiration Date Angie GOMES [id number] HEALTH Problems Condition Condition Condition Status Onset Resolution Last Treating Co mments Source Name Details Category Date Date Treatment Clinician Date 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[facility] 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 NO KNOWN Drug Active Univers ALLERGIE Class ity of S [facility] Social History Social Habit Start Date Stop Date Quantity Comments Source History [facility]Med Medical [facility] Exposure to 2022-04-28 2022-05-08 [facility] sure [facility] SARS-CoV-2 (event) 00:00:00 10:03:00 of Med icine Alcohol intake 2022-03-14 2022-03-14 Ex-drinker [facility] 00:[facility]00 00:00:00 (finding) Medical Center History [facility] 2022-03-08 2022-03-[address] [facility] Transport Med 00:00:00 00:00:[address] History [facility] 2022-03-08 2022-03-[address] [facility] Housing Unable to 00:00:00 00:00:00 Medical Center Pay History [facility] 2022-03-08 2022-03-[address] [facility] Housing Places 00:00:00 00:00:00 Medical Ce nter Lived History [facility] 2022-03-08 2022-03-[address] [facility] Housing Homeless 00:00:00 00:00:00 Medical Center Last Year Tobacco use and 2022-03-08 2022-03-[address] [facility] exposure 00:00[facility]00 00:00:00 Medical Center Sex Assigned At [address] [facility] 00:00:00 00:00:00 Medical Center Smoking Status Start Date Stop Date Source Tobacco smoking [facility] xa consumption unknown Medical Bran ch Former smoker 2022-03-08 00:00:00 2022-03-08 [facility] 00:00:00 Center Never smoked tobacco [facility] Medications Ordered Filled Start Stop Current Ordering Indication Dosage Frequency Signature Comments Components Source Medication Medication Date Date Medication? Clinician (SIG) Name Name Tamsulosin 2021-07 No Take by Terrell annel HCl 0.4 MG 0-26 10-26 mouth. Colleg e CAPS 09:58: 00:00 of 48 :00 Medicin e mirtazapine 2021-07 No 7.5mg Take 7.5 [facility] (REMERON) 0-26 10-26 mg by [place] 7.5 MG 09:56: 00:00 mouth of tablet 44 :00 nightly. Medicin e mirtazapine 2021-07 Yes [id number] 15mg Take 2 [facility] (REMERON) 0-26 Tablets by Gabbie ege 7.5 MG 00:00: mouth of tablet 00 nightly. Medicin e Tamsulosin 2021-07 Yes [id number] .4mg Take 0.4 [facility] HCl 0.4 MG 0-26 mg by [employer] CAPS 00:00: mouth at of 00 bedtime. Medicin e famotidine 2021-07 Yes [id number] 20mg Take 1 [facility] (PEPCID) 20 0-18 Tablet by Col lege MG tablet 00:00: mouth two of 00 times Medicin daily. e morphine 2021-07 Yes [id number] 15mg Take 1 [facility] (MS IR) 15 0-12 102 Tablet by Gabbie ege MG tablet 00:00: mouth of 00 every 4 Medicin hours as e needed for Pain. gabapentin 2021-07- Yes [id number] 300mg Take 1 [facility] (NEURONTIN) 0-12 01-11 102 capsule by Ann givens 300 MG 00:00: 05:59 mouth at of capsule 00 :00 bedtime Medicin for 90 e days. Enzalutamid Yes [id number] 160mg Take 160 [facility] e 40 MG 9-30 mg by [employer] CAPS 00:00: mouth of 00 daily. DO Medicin NOT START e UNTIL ADVISED BY DR. ZULETA morphine Yes 15mg Take 15 mg Terrell annel (MS IR) 15 04-10 by mouth Colle ge MG tablet 10:04: every 4 of 49 hours as Medicin needed for e Pain. Tamsulosin Yes Take by [facility] or HCl 9- mouth. College (FLOMAX) 10:04: of 0.4 MG CAPS 49 Medicin e mirtazapine Yes 7.5mg Take 7.5 [facility] (REMERON) 9-28 mg by College 7.5 MG 10:04: mouth of tablet 49 nightly. Medicin e famotidine Yes 20mg Take 20 mg [facility] (PEPCID) 20 9- by mouth Gabbie ege MG tablet 10:04: two times of 49 daily. Medicin e Enzalutamid Yes [id number] 160mg Take 160 [facility] e 40 MG 9-28 mg by [place] CAPS 00:00: mouth of 00 daily. DO Medicin NOT START e UNTIL ADVISED BY DR. ZULETA furosemide 2021- Yes [id number] 20mg Take 1 [facility] (LASIX) 20 04-10 10-04 Tablet by [facility] lege MG tablet 00:00: 04:59 mouth of 00 :00 daily for Medicin 5 days. e dexamethaso 2021- Yes [id number] 4mg Take 1 [facility] ne 04-10 09-29 Tablet by [place] (DECADRON) 00:00: 04:59 mouth once of 4 [...] t carbonate-v 9-14 10-14 tablet by Estella kes itamin D3 00:00: 23:59 mouth Medica l (OSCAL-D) 00 :00 daily for Cente r 500 30 days. mg(1,250mg) -200 unit per tablet tamsulosin 2021-2021- No .8mg QD Take [address] (FLOMAX) 9-14 10-14 capsules [facility] 0.4 mg Cap 00:00: 23:59 (0.8 mg Med ical 24 hr 00 :00 total) by Center capsule mouth daily for 30 days. lidocaine 2021-2021- No 2{patch Q24H Place [address] (LIDODERM) 03-27 10-14 } patches [facility] 5 % patch 00:00: 23:59 onto the Med ical 00 :00 skin daily Center for 30 days Remove & Discard patch within 12 hours or as directed by . calcium 2021-2021- No 1{tbl} QD Take 1 [facility] carbonate-v 9- 10-14 tablet by Estella kes itamin D3 00:00: 23:59 mouth Medica l (OSCAL-D) 00 :00 daily for Cente r 500 30 days. mg(1,250mg) -200 unit per tablet tamsulosin 2021- No .8mg QD Take [address] (FLOMAX) 9-14 10-14 capsules [facility] 0.4 mg Cap 00:00: 23:59 (0.8 mg Med ical 24 hr 00 :00 total) by Center capsule mouth daily for 30 days. lidocaine 2021-2021- No 2{patch Q24H Place [address] (LIDODERM) 03-27 10-14 } patches [facility] 5 % patch 00:00: 23:59 onto the Med ical 00 :00 skin daily Center for 30 days Remove & Discard patch within 12 hours or as directed by . calcium 2021-0 2021- No 1{tbl} QD Take 1 [facility] carbonate-v 9-14 10-14 tablet by Estella kes itamin D3 00:00: 23:59 mouth Medica l (OSCAL-D) 00 :00 daily for Cente r 500 30 days. mg(1,250mg) -200 unit per tablet acetaminoph 2022- Yes 650mg Take [address] [facility] 03-26 09-08 tablets [facility] (TYLENOL) 00:00: 23:59 (650 mg Medi nick 325 MG 00 :00 total) by Center tablet mouth every 6 (six) hours as needed for up to 360 days. acetaminoph 2022- Yes 650mg Take [address] [facility] 03-26-08 tablets [facility] (TYLENOL) 00:00: 23:59 (650 mg Medi nick 325 MG 00 :00 total) by Center tablet mouth every 6 (six) hours as needed for up to 360 days. acetaminoph 2022- Yes 650mg Take [address] [facility] 03-26-08 tablets [facility] (TYLENOL) 00:00: 23:59 (650 mg Medi nick 325 MG 00 :00 total) by Center tablet mouth every 6 (six) hours as needed for up to 360 days. senna-docus 2021- No 2{tbl} Q.5D Take [address] ate 03-26 10-13 tablets by [facility] (SENOKOT S) 00:00: 23:59 mouth 2 Me dical 8.6-50 mg 00 :00 (two) Center per tablet times daily for 30 days. polyethylen 2021- No 17g Q.5D Take [address] e glycol - 10-13 by mouth 2 Luke s (GLYCOLAX) 00:00: 23:59 (two) Medic al 17 gram 00 :00 times Center packet daily for 30 days. mirtazapine 2021- No 7.5mg QD Take [address] (REMERON) 03-26 10-13 tablet [facility] 7.5 MG 00:00: 23:59 [...] Take [address] e glycol - 10-13 by mouth 2 Luke s (GLYCOLAX) 00:00: 23:59 (two) Medic al 17 gram 00 :00 times Center packet daily for 30 days. mirtazapine 2021- No 7.5mg QD Take [address] (REMERON) - 10-13 tablet [facility] 7.5 MG 00:00: 23:59 [...] Q.5D Take [address] ate - 10-13 tablets by [facility] (SENOKOT S) 00:00: 23:59 mouth 2 Me dical 8.6-50 mg 00 :00 (two) Center per tablet times daily for 30 days. polyethylen 2021- No 17g Q.5D Take [address] e glycol - 10-13 by mouth 2 Luke s (GLYCOLAX) 00:00: 23:59 (two) Medic al 17 gram 00 :00 times Center packet daily for 30 days. mirtazapine 2021- No 7.5mg QD Take [address] (REMERON) 03-26-13 tablet [facility] 7.5 MG 00:00: 23:59 (7.5 mg Medical tablet 00 :00 total) by Center mouth nightly for 30 days. famotidine 2021- No 20mg Take [address] [facility] (PEPCID) 20 03-26-13 tablet (20 L ukes MG tablet 00:00: 23:59 mg total) Me dical 00 :00 by mouth Center every 12 (twelve) hours for 30 days. gabapentin 2021- No 200mg Q.5D Take [address] (NEURONTIN) 03-26 10-13 capsules Ronny es 100 MG 00:00: 23:59 (200 mg Medical capsule 00 :00 total) by Center mouth 2 (two) times daily for 30 days. ondansetron 2021- No 4mg Take [address] (ZOFRAN) 4 03-26 10-13 tablet (4 Ronny es MG tablet 00:00: 23:59 mg total) Me dical 00 :00 by mouth Center every 8 (eight) hours for 30 days. morphine 2021- No 15mg Take [address] (MSIR) 15 -13 09-20 tablet (15 Ronny es MG tablet 00:00: 23:59 mg total) Me dical 00 :00 by mouth Center every 4 (four) hours as needed for Pain for up to 7 days. Max Daily Amount: 90 mg morphine 2022-0 2022- No 30mg Take [address] (MS CONTIN) 03-2620 tablet (30 L ukes 30 MG 12 hr 00:00: 23:59 mg total) Medical tablet 00 :00 by mouth Center every 12 (twelve) hours for 7 days. Max Daily Amount: 60 mg morphine 2022-0 2022- No 15mg Take [address] (MSIR) 15 03-26-20 tablet (15 Ronny es MG tablet 00:00: 23:59 mg total) Me dical 00 :00 by mouth Center every 4 (four) hours as needed for Pain for up to 7 days. Max Daily Amount: 90 mg morphine 2022-0 2022- No 30mg Take [address] (MS CONTIN) 03-26 tablet (30 L ukes 30 MG 12 hr 00:00: 23:59 mg total) Medical tablet 00 :00 by mouth Center every 12 (twelve) hours for 7 days. Max Daily Amount: 60 mg morphine 2022-0 2022- No 15mg Take [address] (MSIR) 15 03-26 tablet (15 Ronny es MG tablet 00:00: 23:59 mg total) Me dical 00 :00 by mouth Center every 4 (four) hours as needed for Pain for up to 7 days. Max Daily Amount: 90 mg morphine 2022-0 2- No 30mg Take [address] (MS CONTIN) 03-26 tablet (30 L ukes 30 MG 12 hr 00:00: 23:59 mg total) Medical tablet 00 :00 by mouth Center every 12 (twelve) hours for 7 days. Max Daily Amount: 60 mg predniSONE 2022-0 2022- No 5mg Q.5D Take [address] (DELTASONE) 03-25 by mouth 2 L ukes 5 MG tablet 17:22: 00:00 (two) Medi nick 08 :00 times Center daily. predniSONE 2022-0 2022- No 5mg Q.5D Take [address] (DELTASONE) 03-25 by mouth 2 L ukes 5 MG [...] [facility] 500 mg Tab 9-11 -11 tablets [facility] 00:00: 00:00 (1,000 mg Medical 00 :00 total) by Center mouth nightly for 30 days. abiraterone 2022-0 2022- No 1000mg QD Take [address] 500 mg Tab 9-11 -11 tablets [facility] 00:00: 00:00 (1,000 mg Medical 00 :00 total) by Center mouth nightly for 30 days. abiraterone 2022-0 2022- No 1000mg QD Take [address] 500 mg Tab 9-11 -11 tablets [facility] 00:00: 00:00 (1,000 mg Medical 00 :00 total) by Center mouth nightly for 30 days. gabapentin 2021-0 Yes 300mg Take 300 [facility] (NEURONTIN) 8-18 mg by College 300 MG 00:00: mouth of capsule 00 nightly. Medicin e gabapentin 2021-0 2022- No 300mg QD Take [address] (NEURONTIN) 8-18 09-13 mg by [facility] 300 MG 00:00: 00:00 mouth Medical capsule 00 :00 nightly. [place] gabapentin 2021-0 2022- No 300mg QD Take [address] (NEURONTIN) 8-18 09-13 mg by [facility] 300 MG 00:00: 00:00 mouth Medical capsule 00 :00 nightly. [place] gabapentin 2-0 2022- No 300mg QD Take [address] (NEURONTIN) 8-18 09-13 mg by [facility] 300 MG 00:00: 00:00 mouth Medical capsule 00 :00 nightly. [place] fluconazole 2021-0 2022- No 150mg 150 mg, U nivers (DIFLUCAN) 8 08-16 Oral, ONCE it y of tablet 150 16:45: 16:06 NOW, 1 [place] mg 00 :00 dose, On [facility] Branch 02/26/22 at 1145, LUCIA
Re ason for Anti-Infec tive: Documented Infection< br>Documen cachorro Infection Site: Urine
D uration of Therapy: 7 days FENTanyl PF 2021- No 100ug 100 mcg, Univers (SUBLIMAZE 02-26 Intramuscu it y of (PF)) 14:45: 14:45 lar, ONCE, [place] injection 00 :00 1 dose, On Medi nick 100 mcg Tue Branch 02/26/22 at 0945, STAT No known No No known Unive rs medications 02-26 medication it y of 09:05: s [place] 50 Medical Branch lidocaine 5 2021- No [id number] 1{patch Apply 1 Univers % (700 02-26 } Patch to ity of mg/patch) 00:00: 04:59 area(s[place] 2 [place] patch 00 :00 (two) Medical times Branch daily as needed for Localized pain for up to 15 days. Remove previous patch before applying new patch predniSONE Yes 5mg Take 5 mg [facility] (DELTASONE) 8-05 by mouth Gabbie ege 5 MG tablet 00:00: two times o f 00 daily. Medicin e Abiraterone Yes 500mg Take 500 [facility] Acetate 500 8-05 mg by College MG TABS 00:00: mouth. of 00 Medicin e predniSONE 2021- No 5mg Take 5 mg [facility] (DELTASONE) 8-05 10-26 by mouth Col lege 5 MG tablet 00:00: 00:00 two times of 00 :00 daily. Medicin e Abiraterone 2021- No 500mg Take 500 [facility] Acetate 500 8-05 10-26 mg by Colleg e MG TABS 00:00: 00:00 mouth. of 00 :00 Medicin e Immunizations Ordered Filled Immunization Date Status Comments Sourc e Immunization Name Name SARS-COV-2 COVID-19 2020-10-08 Completed Unive rsity of MODERNA VACCINE 00:00:00 [facility] ical Branch SARS-COV-2 COVID-19 2020-10-08 Completed Unive rsity of MODERNA 12+ YRS 00:00:00 [place] Med ical VACCINE Branch SARS-COV-2 COVID-19 2020-09-10 Completed Unive rsity of MODERNA VACCINE 00:00:00 [facility] ical Branch SARS-COV-2 COVID-19 2020-09-10 Completed Unive rsity of MODERNA 12+ YRS 00:00:00 [facility] VACCINE Branch Vital Signs Vital Name Observation Time Observation Value Comments Source BMI 2022-05-08 14:12:00 27.91 kg/m2 [facility] Systolic blood 2022-05-08 14:12:00 136 mm[Hg] [facility] pressure Medicine Diastolic blood 2022-05-08 14:12:00 85 mm[Hg] [facility] pressure Medicine Heart rate 2022-05-08 14:12:00 113 /min [facility] Body temperature 2022-05-08 14:12:00 36.78 Sonya [facility] Body height 2022-05-08 14:12:00 170.2 cm [facility] Body weight 2022-05-08 14:12:00 80.831 kg [facility] Systolic blood 2022-04-10 14:57:00 105 mm[Hg] [facility] pressure Medicine Diastolic blood 2022-04-10 14:57:00 71 mm[Hg] [facility] Medicine Heart rate 2022-04-10 14:57:00 93 /min [facility] of Medicine Body height 2022-04-10 14:57:00 170.2 cm [facility] of Medicine Body weight 2022-04-10 14:57:00 94.802 kg [facility] of Medicine BMI 2022-04-10 14:57:00 32.73 kg/m2 [facility] ol[facility] of Medicine WEIGHT 2022-03-14 08:09:00 108.9 kg HEIGHT 2022-03-08 00:20:00 177.8 cm WEIGHT 2022-03-08 00:20:00 108.863 kg WEIGHT 2022-03-14 08:09:00 108.9 kg HEIGHT 2022-03-08 00:20:00 177.8 cm WEIGHT 2022-03-08 00:20:00 108.863 kg WEIGHT 2022-03-14 08:09:00 108.9 kg HEIGHT 2022-03-08 00:20:00 177.8 cm WEIGHT 2022-03-08 00:20:00 108.863 kg Systolic blood 2022-02-26 14:03:00 145 mm[Hg] Univer sity of [facility] Diastolic blood 2022-02-26 14:03:00 91 mm[Hg] Unive rsity [facility] Heart rate 2022-02-26 14:03:00 93 /min Universi ty [facility] Body temperature 2022-02-26 14:03:00 36.83 [facility]a [facility] Res[facility] rate 2022-02-26 14:03:00 18 /min [facility] Oxygen saturation in 2022-02-26 14:03:00 97 /min [facility] Arterial blood by [facility] Pulse oximetry Branch Systolic blood 2022-03-26 17:00:00 115 mm[Hg] [facility] Diastolic blood 2022-03-26 17:00:00 71 mm[Hg] [facility] Heart rate 2022-03-26 17:00:00 104 /min [facility] Respiratory rate 2022-03-26 17:00:00 18 /min [facility] Oxygen saturation in 2022-03-26 17:00:00 95 /min [facility] Arterial blood by Medical Ce nter Pulse oximetry Body temperature 2022-03-26 13:00:00 36.22 Sonya [facility] Body weight 2022-03-14 08:09:00 108.9 kg [facility] BMI 2022-03-14 08:09:00 34.45 kg/m2 [facility] Body height 2022-03-08 00:20:00 177.8 cm [facility] Procedures Procedure Date / Time Performing Clinician Source Performed CBC W/AUTO DIFF WITH 2022-05-08 08:35:00 [facility] Medicine COMPREHENSIVE METABOLIC 2022-05-08 08:35:00 [facility] Medicine CBC W/PLT COUNT & AUTO 2022-03-26 03:59:00 Rekha Sanches [facility] BASIC METABOLIC PANEL 2022-03-26 03:59:00 [facility] MAGNESIUM 2022-03-26 03:59:00 [facility] CBC W/PLT COUNT & AUTO 2022-03-26 03:59:00 Rekha Sanches [facility] CBC W/PLT COUNT & AUTO 2022-03-25 03:45:00 Rekha Sanches [facility] BASIC METABOLIC PANEL 2022-03-25 03:45:00 [facility] MAGNESIUM 2022-03-25 03:45:00 [facility] CBC W/PLT COUNT & AUTO 2022-03-25 03:45:00 Rekha Sanches [facility] CBC W/PLT COUNT & AUTO 2022-03-24 06:32:00 Rekha Sanches [facility] BASIC METABOLIC PANEL 2022-03-24 06:32:00 [facility] MAGNESIUM 2022-03-24 06:32:00 [facility] CBC W/PLT COUNT & AUTO 2022-03-24 06:32:00 Rekha Sanches [facility] CBC W/PLT COUNT & AUTO 2022-03-23 06:08:00 Rekha Sanches [facility] BASIC METABOLIC PANEL 2022-03-23 06:08:00 [facility] MAGNESIUM 2022-03-23 06:08:00 [facility] CBC W/PLT COUNT & AUTO 2022-03-23 06:08:00 Rekha Sanches [facility] CBC W/PLT COUNT & AUTO 2022-03-22 05:18:00 Rekha Sanches [facility] BASIC METABOLIC PANEL 2022-03-22 05:18:00 [facility] MAGNESIUM 2022-03-22 05:18:00 [facility] CBC W/PLT COUNT & AUTO 2022-03-22 05:18:[address] [facility] DIFFERENTIAL [facility] CBC W/PLT COUNT & AUTO 2022-03-21 04:13:00 Rekha Sanches [facility] Medical DIFFERENTIAL [facility] BASIC METABOLIC PANEL 2022-03-21 04:13:00 [facility] MAGNESIUM 2022-03-21 04:13:00 [facility] CBC W/PLT COUNT & AUTO 2022-03-21 04:13:00 Rekha Sanches [facility] Medical DIFFERENTIAL [facility] XR ABDOMEN/KUB 1 VIEW 2022-03-20 14:39:00 [facility] ([facility] & 2022-03-20 05:00:[address] [facility] REF LABS) [facility] COMPREHENSIVE METABOLIC 2022-03-20 04:10:[address] [facility] PANEL [facility] CBC W/PLT COUNT & AUTO 2022-03-20 04:10:00 Rekha Sanches [facility] Medical DIFFERENTIAL [facility] CBC W/PLT COUNT & AUTO 2022-03-20 04:10:00 Rekha Sanches [facility] Medical DIFFERENTIAL [facility] (CELLAVISION MANUAL 2022-03-20 04:10:00 Rekha Sanches [facility] Medical DIFF) [facility] CBC W/PLT COUNT & AUTO 2022-03-19 05:29:[address] [facility] DIFFERENTIAL [facility] CBC W/PLT COUNT & AUTO 2022-03-19 05:29:00 Rekha Sanches [facility] Medical DIFFERENTIAL [facility] COMPREHENSIVE METABOLIC 2022-03-19 04:18:00 Rekha Sanches [facility] PANEL [facility] COMPREHENSIVE METABOLIC 2022-03-18 03:28:00 Rekha Sanches [facility] Medical PANEL [facility] CBC W/PLT COUNT & AUTO 2022-03-18 03:28:00 Rekha Sanches [facility] Medical DIFFERENTIAL [facility] CBC W/PLT COUNT & AUTO 2022-03-18 03:28:00 Rekha Sanches [facility] DIFFERENTIAL [facility] REFERRAL- 2022-03-17 05:01:00 Doctor Unassigned, Destini [facility] REQUEST/RESPONSE Name Medical Branch RUST 2022-03-17 03:07:00 Rekha Sanches [facility] PANEL [facility] CBC W/PLT COUNT & AUTO 2022-03-17 03:07:00 Rekha Sanches [facility] DIFFERENTIAL [facility] CBC W/PLT COUNT & AUTO 2022-03-17 03:07:00 Rekha Sanches [facility] DIFFERENTIAL [facility] (CELLAVISION MANUAL 2022-03-17 03:07:00 Rekha Sanches [facility] DIFF) [facility] PREPARE LEUKO-REDUCED 2022-03-16 23:54:00 Luci [facility] RBC [facility] 2022-03-16 04:44:00 Rekha Sanches [facility] Medical PANEL [facility] CBC W/PLT COUNT & AUTO 2022-03-16 04:44:00 Rekha Sanches [facility] St [facility] Medical DIFFERENTIAL [facility] CBC W/PLT COUNT & AUTO 2022-03-16 04:44:00 Rekha Sanches [facility] DIFFERENTIAL [facility] (CELLAVISION MANUAL 2022-03-16 04:44:00 Rekha Sanches [facility] DIFF) [facility] TRANSFUSE LEUKO-REDUCED 2022-03-15 12:32:00 Luci [facility] RED BLOOD CELLS [facility] TYPE AND SCREEN, 2022-03-15 10:56:00 Lcui Charles [facility] AUTOMATED [facility] 2022-03-15 04:49:00 Rekha Sanches [facility] Medical PANEL [facility] CBC W/PLT COUNT & AUTO 2022-03-15 04:49:00 Rekha Sanches [facility] Medical DIFFERENTIAL [facility] CBC W/PLT COUNT & AUTO 2022-03-15 04:49:00 Rekha Sanches [facility] DIFFERENTIAL [facility] (CELLAVISION MANUAL 2022-03-15 04:49:00 Rekha Sanches [facility] DIFF) [facility] CT THORACIC SPINE 2022-03-14 15:06:[address] [facility] WITHOUT IV CONTRAST [place] CBC W/PLT COUNT & AUTO 2022-03-14 05:50:[address] [facility] DIFFERENTIAL [facility] CBC W/PLT COUNT & AUTO 2022-03-14 05:50:[address] [facility] Medical DIFFERENTIAL [facility] (CELLAVISION MANUAL 2022-03-14 05:50:[address] [facility] Medical DIFF) [facility] METABOLIC 2022-03-14 05:49:[address] [facility] Medical PANEL [facility] XR SPINE THORACIC 2 2022-03-13 13:13:[address] [facility] VIEWS [facility] SARS-COV2/RT-PCR ([facility] & 2022-03-13 05:50:[address] [facility] REF LABS) [facility] 2022-03-13 05:04:[address] [facility] PANEL [facility] CBC W/PLT COUNT & AUTO 2022-03-13 05:04:00 Rekha Sanches [facility] DIFFERENTIAL [facility] IRON, TIBC, % SAT. 2022-03-13 05:04:00 [facility] (WITHOUT FERRITIN) [facility] FERRITIN 2022-03-13 05:04:00 [facility] VITAMIN B12 2022-03-13 05:04:00 [facility] CBC W/PLT COUNT & AUTO 2022-03-13 05:04:00 Rekha Sanches [facility] DIFFERENTIAL [facility] (CELLAVISION MANUAL 2022-03-13 05:04:00 Rekha Sanches [facility] DIFF) [facility] 2022-03-12 04:36:00 Rekha Sanches [facility] Medical PANEL [facility] CBC W/PLT COUNT & AUTO 2022-03-12 04:36:00 Rekha Sanches [facility] DIFFERENTIAL [facility] CBC W/PLT COUNT & AUTO 2022-03-12 04:36:[address] [facility] (CELLAVISION MANUAL 2022-03-12 04:36:00 Rekha Sanches [facility] DIFF) [facility] TESTOSTERONE, FREE + 2022-03-11 14:30:00 Santosh Montoya [facility] TOTAL Center COMPREHENSIVE METABOLIC 2022-03-11 04:45:00 Rekha Sanches [facility] PANEL [facility] CBC W/PLT COUNT & AUTO 2022-03-11 04:45:00 Rekha Sanches [facility] DIFFERENTIAL [facility] CBC W/PLT COUNT & AUTO 2022-03-11 04:45:00 Rekha Sanches [facility] DIFFERENTIAL [facility] COMPREHENSIVE METABOLIC 2022-03-10 05:44:00 Rekha Sanches [facility] PANEL [facility] CBC W/PLT COUNT & AUTO 2022-03-10 05:44:00 Rekha Sanches [facility] DIFFERENTIAL [facility] CBC W/PLT COUNT & AUTO 2022-03-10 05:44:00 Rekha Sanches [facility] DIFFERENTIAL [facility] SODIUM 2022-03-09 18:16:00 Juan C Beyer [facility] HC SOMATOSENSORY TEST, 4 2022-03-09 13:20:00 Jacinto Stovall [facility] CBC W/PLT COUNT & AUTO 2022-03-09 13:11:00 Rekha Sanches [facility] DIFFERENTIAL [facility] BASIC METABOLIC PANEL 2022-03-09 13:11:00 Rekha Sanches [facility] S [facility] MAGNESIUM 2022-03-09 13:11:00 Rekha Sanches [facility] PHOSPHORUS 2022-03-09 13:11:00 Rekha Sanches [facility] CBC W/PLT COUNT & AUTO 2022-03-09 13:11:00 Rekha Sanches [facility] DIFFERENTIAL [facility] FL FLUORO NON-SPECIFIC 2022-03-09 11:25:00 Wilman [facility] UP TO 1 HOUR Center TISSUE EXAM 2022-03-09 10:35:00 [facility] [place] FLUORO NON-SPECIFIC 2022-03-09 09:48:00 [facility] UP TO 1 HOUR Center BLOOD GAS, ARTERIAL 2022-03-09 09:22:06 Alec Benavides [facility] PREPARE RBC 2022-03-09 08:56:00 [facility] LAMINECTOMY, SPINE, 2022-03-09 08:06:00 [facility] THORACIC, WITH FUSION [place] PROCEDURE W/ C-ARM 2022-03-09 08:06:00 [facility] CBC W/PLT COUNT & AUTO 2022-03-09 03:34:00 Nakia [facility] DIFFERENTIAL Center COMPREHENSIVE METABOLIC 2022-03-09 03:34:00 Rekha Sanches [facility] PANEL [facility] CBC W/PLT COUNT & AUTO 2022-03-09 03:34:00 Naofstu [facility] DIFFERENTIAL Center MR CERVICAL SPINE WITH & 2022-03-08 20:29:00 Aaron [facility] WITHOUT IV CONTRAST Center ABORH, MANUAL 2022-03-08 15:38:00 Shelby Mcclellan [facility] APTT 2022-03-08 15:20:00 [facility] TYPE AND SCREEN, 2022-03-08 15:20:00 [facility] AUTOMATED [facility] CT CHEST WITH IV 2022-03-08 14:27:00 Pepito [facility] CONTRAST [facility] CT ABDOMEN/PELVIS WITH 2022-03-08 14:27:00 Juan C Beyer [facility] IV CONTRAST [facility] CT THORACIC SPINE 2022-03-08 14:27:00 [facility] SARS-COV2/RT-PCR ([facility] & 2022-03-08 13:11:00 [facility] REF LABS) [facility] XR CHEST 1 VIEW PORTABLE 2022-03-08 12:30:00 [facility] / BEDSIDE [facility] ECG 12-LEAD 2022-03-08 12:15:14 Jacinto Hernandez [facility] CBC W/PLT COUNT & AUTO 2022-03-08 03:11:00 [facility] COMPREHENSIVE METABOLIC 2022-03-08 03:11:00 Naofal [facility] PANEL Center PSA 2022-03-08 03:11:00 [facility]/INR 2022-03-08 03:11:00 Naofal, [facility] CBC W/PLT COUNT & AUTO 2022-03-08 03:11:00 [facility] [place] URINALYSIS 2022-02-26 14:45:00 Julisa Velasquez [facility] [place] NOTICE OF PRIVACY 2022-02-26 14:06:23 Doctor Unassigned, No Univ [facility] PRACTICES Name Medical Branch CONSENT/REFUSAL FOR 2022-02-26 13:59:02 Doctor Unassigned, No Un [facility] DIAGNOSIS AND TREATMENT Name Medical [place] Plan of Care Planned Activity Planned Date Details Comments Source Future Scheduled 2022-05-08 Screening for malignant [facility] Test 10:54:42 neoplasm of colon of Medicin e (procedure) [code = 472768639] Future Scheduled 2022-05-08 TETANUS SHOT (ADULT) [facility] Test 10:54:42 [code = TETANUS SHOT of Medi cine (ADULT)] Future Scheduled 2022-05-08 BMI FOLLOW UP PLAN [facility] r College Test 10:54:42 [code = BMI FOLLOW UP of Med icine PLAN] Future Scheduled 2022-05-08 [facility] C [facility] Test 10:54:42 (procedure) [code = of Medic ine 540703560] Future Scheduled 2022-05-08 Human immunodeficiency [facility] Test 10:54:42 virus screening of Medicine (procedure) [code = 892421340] Future Scheduled 2022-05-08 ZOSTER VACCINE (1 of 2) [facility] College Test 10:54:42 [code = ZOSTER VACCINE of Me dicine (1 of 2)] Future Scheduled 2022-05-08 COVID-19 Vaccine (3 - [facility] Test 10:54:42 Booster for Moderna of Medic ine series) [code = COVID-19 Vaccine (3 - Booster for Moderna series)] Future Scheduled 2022-05-08 FLU VACCINE > 6 MONTHS [facility] Test 10:54:42 [code = FLU VACCINE > 6 of M edicine MONTHS] Future Scheduled 2022-04-24 NM BONE SCAN WHOLE BODY Expected: [facility] Test 00:00:00 [code = 05783-3] 04/24/2022, of Medicine Expires: 07/09/2022 Future Scheduled 2022-04-10 Screening for malignant [facility] Test 11:15:43 neoplasm of colon of Medicin e (procedure) [code = 291953211] Future Scheduled 2022-04-10 TETANUS SHOT (ADULT) [facility] Test 11:15:43 [code = TETANUS SHOT of Medi cine (ADULT)] Future Scheduled 2022-04-10 BMI FOLLOW UP PLAN [facility] Test 11:15:43 [code = BMI FOLLOW UP of Med icine PLAN] Future Scheduled 2022-04-10 Hepatitis C screening [facility] Test 11:15:43 (procedure) [code = of Medic ine 600287272] Future Scheduled 2022-04-10 Human immunodeficiency [facility] Test 11:15:43 virus screening of Medicine (procedure) [code = 572704923] Future Scheduled 2022-04-10 ZOSTER VACCINE (1 of 2) [facility] Test 11:15:43 [code = ZOSTER VACCINE of Me dicine (1 of 2)] Future Scheduled 2022-04-10 COVID-19 Vaccine (3 - [facility] Test 11:15:43 Booster for Moderna of Medic ine series) [code = COVID-19 Vaccine (3 - Booster for Moderna series)] Future Scheduled 2022-04-10 FLU VACCINE > 6 MONTHS [facility] Test 11:15:43 [code = FLU VACCINE > 6 of M edicine MONTHS] Diagnostic Test 2022-04-10 CBC W/AUTO DIFF WITH Expected: [facility] or [facility] Pending 00:00:00 PLATELETS [code = 04/10/2022, of Medicin e 92635-2] Expires: 04/24/2022 Diagnostic Test 2022-04-10 CHROMOGRANIN A [code = Expected: [facility] Pending 00:00:00 NOCPT] 04/10/2022, of Medicine Expires: 04/24/2022 Diagnostic Test 2022-04-10 COMPREHENSIVE METABOLIC [facility]00 PANEL [code = 67364-3] 04/10/2022, of Mn dicine Expires: 04/24/2022 Diagnostic Test 2022-04-10 PSA [code = 2857-1] Expected: [facility] [place] Pending 00:00:00 04/10/2022, of Medicine Expires: 04/24/2022 Diagnostic Test 2022-04-10 TESTOSTERONE [code = Expected: [facility] Pending 00:00:00 2986-8] 04/10/2022, of Medicine Expires: 04/24/2022 Diagnostic Test 2022-04-10 LIPID PANEL [code = Expected: [facility] Pending 00:00:00 39792-0] 04/10/2022, of Medicine Expires: 04/24/2022 Diagnostic Test 2022-04-10 US VENOUS LEG BILATERAL Expected: [facility] Pending 00:00:00 [code = 00306] 04/10/2022, of Medicine Expires: 04/24/2022 Future Scheduled [...] [facility] 2)] Future Scheduled 2011 SHINGLES VACCINES ([address] [facility] Test 00:00[facility]00 2) [facility] Future Scheduled 2011 SHINGLES VACCINES ([address] [facility] Test 00:00:00 2) [[facility] = [facility] (1 of 2)] Future Scheduled 1996 Lipid panel (procedure) [facility] Test 00:00:00 [code = 83319238] Medical Ce nter Future Scheduled 1996 Lipid panel (procedure) [facility] Test 00:00:00 [code = 70349529] Medical Ce nter Future Scheduled 1996 Lipid panel (procedure) [facility] Test 00:00:00 [code = 95101875] Medical Ce nter Future Scheduled 1980 DTAP/TDAP/TD [...] HEPATITIS [facility] SCREENING] Future Scheduled [address] [facility] Test 00:00:00 Counseling and Medical Cente r Screening (12+) [code = Tobacco Cessation Counseling and Screening (12+)] Future Scheduled [address] [facility] Test 00:00:00 [code = CT Colonography [facility] (combo)] Future Scheduled 1961 Screening for malignant [facility] Test 00:00:00 neoplasm of colon Medical Ce nter (procedure) [code = 697585110] Future Scheduled 1961 Screening for malignant [facility] Test 00:00:00 neoplasm of colon Medical Ce nter (procedure) [code = 724802785] Future Scheduled 1961 Screening for malignant [facility] Test 00:00:00 neoplasm of colon Medical Ce nter (procedure) [code = 202469344] Future Scheduled 1961 Screening for malignant [facility] Test 00:00:00 neoplasm of colon Medical Ce nter (procedure) [code = 492352358] Future Scheduled 1960 Sigmoidoscopy [facility]code [facility]oscopy] Medical Cente r Future Scheduled 1960 CT Colonography (combo) [facility] Test 00:00:00 [code = CT Colonography [facility]i [facility] Center (combo)] Future Scheduled 1961 Screening for malignant [facility] Test 00:00:00 neoplasm of colon Medical Ce nter (procedure) [code = 059692560] Future Scheduled 1961 Screening for malignant [facility] Test 00:00:00 neoplasm of colon Medical Ce nter (procedure) [code = 722165536] Future Scheduled 1961 Screening for malignant [facility] Test 00:00:00 neoplasm of colon Medical Ce nter (procedure) [code = 225543525] Future Scheduled 1961 Screening for malignant [facility] Test 00:00:00 neoplasm of colon Medical Ce nter (procedure) [code = 563458152] Future Scheduled 1960 Sigmoidoscopy [facility]code [facility] S[facility]oidoscopy] Medical Cente r Future Scheduled 1960 CT Colonography (combo) [facility] Test 00:00:00 [code = CT Colonography [facility] (combo)] Future Scheduled 1960 Screening for malignant [facility] Test 00:00:00 neoplasm of colon Medical Ce nter (procedure) [code = 652851177] Future Scheduled 1961 Screening for malignant [facility] Test 00:00:00 neoplasm of colon Medical Ce nter (procedure) [code = 460752411] Future Scheduled 1961 Screening for malignant [facility] Test 00:00:00 neoplasm of colon Medical Ce nter (procedure) [code = 499530574] Future Scheduled 1961 Screening for malignant [facility] Test 00:00:00 neoplasm of colon Medical Ce nter (procedure) [code = 460876531] Future Scheduled 1960 Sigmoidoscopy [facility] 00:[facility] Sigmoidoscopy] Medical Doylee r Encounters Start End Encounter Admission Attending Care Care Encounter Source Date/Time Date/Time Type Type Clinicians Facility Department ID 2022-06-10 2022-06-10 Outpatient YASH ZULETA [facility] [id number] [facility] 00:00:00 00:00:00 [facility]in e 2022-05-08 2022-05-08 Outpatient [facility] [id number] [facility] 10:03:20 23:59:00 [facility] e [facility] Medicin e 2022-05-08 2022-05-[address] [facility] [id number] [facility] 09:30:00 10:26:25 Visit Axel 350.1.13.21 Co llege 0.2.7.2.686 of [id number] Medi kayode 504 e 2022-04-11 2022-04-[address] [facility] [id number] 00:[facility] 00[facility]00 Orders [facility] 2022-04-11 2022-04-11 [id number] 00:[facility]00 00:00:00 Orders [facility] 2022-04-10 2022-04-[address] [facility] [id number] [facility] 09:50:49 11:02:24 Visit Axel 350.1.13.21 Co llege 0.2.7.2.686 of [id number] [facility] kayode 504 e 2022-04-10 2022-04-10 [facility] [id number] [id number] 00:[facility]00 00:00:00 Only [facility] 2022-04-10 2022-04-10 Orders [facility] [id number] 00:00[facility]00 00:00:00 Only [facility] 2022-03-07 2022-03-26 [facility] Jax Guillermo In [facility] [id number] 23:48:00 19:15:00 Encounter Rebeca Jose Khannan Kameshvaran [facility] 2022-03-07 2022-03-26 Hospital Jax Guillermo [facility] [id number] 23:48:00 19:15:00 Encounter Rebeca Jose Khannan [facility] Radha Saenz 2022-03-07 2022-03-26 [facility] [id number] [facility] 23:48:00 19:15:00 [facility] 2022-03-17 2022-03-17 Orders Doctor TRUDY 1.2.840.114 [id number] Univers 00:00:00 00:00:00 Only Unassigned, NINA 350.1.13.10 ity of [facility] 4.2.7.2.686 Reza as [id number] [place] [id number] Branch 2022-03-09 2022-03-[address] [facility] [id number] 08:00:00 13:56:00 [facility] 2022-03-09 2022-03-[address] [facility] [id number] 08:00:00 13:56:00 [facility] 2022-03-09 2022-03-09 Anesthesia Enrique Vargas [facility] [id number] 08:06:00 13:05:00 Event Abelino Zarate [facility] 2022-03-09 2022-03-[address] [facility] [id number] 08:06:00 13:05:00 Event Abelino Zarate [facility] 2022-03-08 2022-03-08 Outpatient [facility] [id number] [facility] 00:00:00 23:59:00 Lance 2022-03-08 2022-03-08 Travel [facility] [id number] [facility] 00:[facility]00 00:00:00 [facility] 2022-03-08 2022-03-08 Travel [facility] [id number] [facility] 00:00:00 00:00:00 [facility] 2022-03-07 2022-03-07 Outpatient [facility] [id number] [facility] 23:48:00 23:59:00 [facility] Medicin e 2022-03-01 2022-03-01 Outpatient AMINAH MARRERO [facility] [id number] [facility] 12:54:19 14:05:21 [facility]in e 2022-02-26 2022-02-26 Emergency [facility] 1.2.840.114 [id number] Univers 09:10:00 11:09:00 Julisa COTE 350.1.13.10 i ty [facility] 4.2.7.2.686 [facility] [id number] [place] [id number] Branch 2022-02-26 2022-02-26 Emergency X [facility] ERT [id number] Univers 09:10:00 11:09:00 JULISA anand [facility] Results Test Description Test Time Test Comments Results Result Comments Source MAGNESIUM 2022-03-26 05:43:48 Test Item Value Reference Range Interpretation Comme nts MAGNESIUM (BEAKER) (test code = 627) 1.9 mg/dL 1.6-2.6 Specimen slightly hemolyzed Corporate Security Manager ID - PIAYA LBASIC METABOLIC [id number] 05:43:48 Test Item Value Reference Range Interpretation [...] not appl icable for dialysis patien ts Corporate Security Manager ID - PIAYA LCBC W/PLT COUNT & AUTO [id number] 04:28:55 Test Item Value Reference Range Interpretation [...] (BEAKER) (test code = 2801) BASIC METABOLIC [id number] 04:43:27 Test Item Value Reference Range Interpretation [...] G3b Moderately to s everely 30-44 G4 Sever ly decreased 15-29 G5 Kidney failure <15Repo rted eGFR is based on the CKD-EPI 2020 equation t hat does not use a race coefficientEsti mated GFR is not as accur ate as Creatinine Wilda santizo in predicting glom erular filtration rate . Estimated GFR is not appl icable for dialysis patien ts Corporate Security Manager ID - REBECA [id number] 04:43:27 Test Item Value Reference Range Interpretation Comments MAGNESIUM (BEAKER) (test code = 1.9 mg/dL 1.6-2.6 627) Corporate Security Manager ID - REBECA WCBC W/PLT COUNT & AUTO [id number] 04:10:01 Test Item Value Reference Range Interpretation [...] 0-1 H PERCENT (BEAKER) (test code = 2803) BASIC METABOLIC [id number] 08:00:28 Test Item Value Reference Range Interpretation [...] not appl icable for dialysis patien ts Corporate Security Manager ID - PIJORGE [id number] 07:59:43 Test Item Value Reference Range Interpretation Comments MAGNESIUM (BEAKER) 1.9 mg/dL 1.6-2.6 Specimen slightly (test code = 627) hemolyzed Corporate Security Manager NEGRITA KEN LCBC W/PLT COUNT & AUTO [id number] 07:01:29 Test Item Value Reference Range Interpretation [...] H PERCENT (BEAKER) (test code = 2801) [id number] 10:17:46 Test Item Value Reference Range Interpretation Comments MAGNESIUM (BEAKER) (test code = 1.9 mg/dL 1.6-2.6 627) Corporate Security Manager ID - MARLI MBASIC METABOLIC [id number] 08:30:36 Test Item Value Reference Range Interpretation [...] not appl icable for dialysis patien ts Corporate Security Manager ID - MARLI MCBC W/PLT COUNT & AUTO [id number] 06:32:36 Test Item Value Reference Range Interpretation [...] H PERCENT (BEAKER) (test code = 2801) [id number] 08:09:13 Test Item Value Reference Range Interpretation Comments MAGNESIUM (BEAKER) 2.0 mg/dL 1.6-2.6 Specimen slightly (test code = 627) hemolyzed Corporate Security Manager ID - MARLI MBASIC METABOLIC [id number] 08:09:13 Test Item Value Reference Range Interpretation [...] not appl icable for dialysis patien ts Corporate Security Manager ID - MARLI MCBC W/PLT COUNT & AUTO [id number] 06:49:25 Test Item Value Reference Range Interpretation [...] (test code = 2801) SHORT-LATENCY SPE, ALL [id number] 18:54:00[facility]: FITO YOON : 1960 Sex: MINTRAOPERATIVE MONITORING REPORT Patient Name: Fito Choudhary Location: [facility] Surgery Date: 03/09/2022 [place] Pro: [id number] Surgeon: MD Wilman Monitoring Technologist: RAYMOND Ramsay Start time (product development technician): 08:06 In Room End time (product development technician): Out of Room Examining Neurologist #1: [...] of the ulnar nerves were attempted using el ectrodes placed at Erb's point, cervical area and [...] the time of elicitation. Signature line: ICD10: BASIC METABOLIC PANEL 2022-03-21 06:32:41 Test Item Value [...] (test code = 697) EGFR (BEAKER) 105 Interpretati on of eGFR (test code = mL/min/1.73 values [...] not appl icable for dialysis patien ts Corporate Security Manager ID - MARLI [id number] 06:32:41 Test Item Value Reference Range Interpretation Comments MAGNESIUM (BEAKER) (test code = 2.0 mg/dL 1.6-2.6 627) Corporate Security Manager ID - MARLI MCBC W/PLT COUNT & AUTO [id number] 06:14:55 Test Item Value Reference Range Interpretation [...] Not Detected, (test code = Negative, See 51290-3) external report for linked test SARS-COV-2 [facility] PERFORMING LAB (test code = 10059-7) RADHA (test code = Negative result for [...] of the Act. Fact Sheet for Healthcare Providers:https://www.Recognial.Advanced LEDs/sites/default/f skip/product/documents/F act_Sheet_HC_Providers_L fde_PRGW-CzF-9.pdf Fact Sheet for Healthcare Patients:https://www.KeyLemon.Advanced LEDs/sites/default/fi les/product/documents/Fa ct_Sheet_Patients_Lyra_S ARS-CoV-2.pdf Performing Laboratory:[facility] [place] [address] [facility] (Asymptomatic ONLY)2022-03-20 17:07:08 Test Item Value Reference Range Interpretation Comments SARS-COV2/RT-PCR Negative Not Detected, (test code = Negative, See 59060-0) external report for linked test SARS-COV-2 [facility] PERFORMING LAB (test code = 72804-5) RADHA (test code = Negative result for [...] of the Act. Fact Sheet for Healthcare Providers:https://www.Casper idel.Advanced LEDs/sites/default/f skip/product/documents/F act_Sheet_HC_Providers_L pet_VTZO-HuP-6.pdf Fact Sheet for Healthcare Patients:https://www.[employer] del.com/sites/default/fi les/product/documents/Fa ct_Sheet_Patients_Lyra_S ARS-CoV-2.pdf Performing Laboratory:[facility] [place] [address] [facility] (Asymptomatic ONLY)2022-03-20 17:07:08 Test Item Value Reference Range Interpretation Comments SARS-COV2/RT-PCR Negative Not Detected, (test code = Negative, See 71126-9) external report for linked test SARS-COV-2 [facility] PERFORM[facility] (test code = 95188-5) RADHA (test code = Negative result for [...] of the Act. Fact Sheet for Healthcare Providers:https://www.Casper ideThe Extraordinaries.Advanced LEDs/sites/default/f skip/product/documents/F act_Sheet_HC_Providers_L hte_FXGP-IrC-8.pdf Fact Sheet for Healthcare Patients:https://www.[employer]/sites/default/fi les/product/documents/Fa ct_Sheet_Patients_Lyra_S ARS-CoV-2.pdf Performing Laboratory:[facility] [place] [address] [facility])2022-03-20 17:07:08 Test Item Value Reference Range Interpretation Comments SARS-COV2/RT-PCR (test Negative Not Detected, Negative, code = 4241065) See external report for linked test SARS-COV-[address] [facility] (test code = 8894028) Negative result for this test determines that [...] of the Act.Fact Sheet for Healthcare Prov iders:https://www.[employer]/sites/default/files/product/documents/Fact_Sheet_HC _Oyhhvulcg_Ucwi_SBZB-VcJ-4.pdfFact Sheet for Healthcare Patients:https://www.[employer]/sites/default/files/product/docume nts/Tvut_Yhuna_Wqxyljcj_Xuxn_LRMO-TbS-2.pdfPerforming Laboratory:[facility], [place] [address]YIJ, ABDOMEN/KUB, 1 VIEW [id number] 16:39:00Reason for exam:->r/o bowel obstructionShould this be performed at the bedside?->Yes [facility] FITO YOON : 1960 Sex: MFINALREPORT Abdomen [...] Impression:Nonobstructive bowel gas pattern. Signed: Jatin Daniel [facility] Verified Date/Time: 03/20/2022 16:39:13 Tissue [id number] 11:41:26 Test Item Value Reference Range Interpretation Comments Case Report (test code Surgical Pathology = 104) Report Case: [id number] Authorizing Provider: Jacinto Stovall MD Collected: 03/09/2022 10:35 AM Ordering Location: [address] Received: 03/11/2022 07:55 AM Service Pathologist: Mimi Soria MD Specimen: Spine, Thoracic, epidural tumor DIAGNOSIS (test code = e8xjiJLjFZEyc4poNHSvzQ 3220) FuZzEwMzNcZnRuYmpcdWMx IHtccnRmMVxlcGljOTYwMl pglvDoDIZoiKFyN5Lmpzhp DLkjAB2fVM5qwSagzKJxuF XxACHhVeJus6eyp277uBAa n8qmVVVSctgleDg5kVwmN1 0ov3G8IgarU98nvTSyYAP8 QQTfTWQobLNwOIGqTJU9IC GevESuS3yoEDBwQD3gebvz JBljXXtyTPVzxOM8FPTyyV CpC1BzEZPtENfaHNZtjhh3 AlSeKi9aiHLpjDjjWKkiVK ScHDHiJUgxMHJaIwZtX3Gw saJbHDFor8IbD1qgFJBskG P9gjOrRGY2bS4qXMLixKDq z2gouijxaJNgWIPhHdNzRG 9avBMxcXJ9ySYoM9XkQ5di d88rSRRkk92hfTX8XW13KB ktxQbxhDZfb5GxpOasNQHd uZ7ppaisZVRtij82TXQ2To Zay9W9GUL3NFXlJVNbo0yi ZGVmbGFuZzEwMzNcZnRuYm srtKBjNVBmQuHvj9qzy522 tGGxp8foGBJcTsZ1uHCnAS IasVTrH094URZjSVoyd0xc v6ThGNDhgDHdr8M1LQKNwa xuqFj9cPcfP77mn5C1Pfrc B3axVTMmBFRdY6WcMQ1sYI JoWxg9RWP0YRO0YLXxKNLw G8BaEG5wRCKilBGcRYj8d7 aqyFdzDSKeHSX7r1xaWQiy jeFxHH4fkm3avVk2b9jxkw JnUWCzSDWoeDYBMGKiQ1Kj wKhiFm6buHi1rRzqEabhTD O4Zcq8FP3ftq58yop6oIid GTBdujixWfD7ADpfQEFihf vwPQi2BDgjKMUilDP9EYBk lWThG4QzSPMxGJ9ieil2PD T1LTceABUhGmL9CBVfhBSx RQCcjEknYQqpp304XRB4Ox RcHH6lO7Bhj0Z1wP7jhMKo MSMigGWuDcSlEKWred2qnC AuSBkzn2OfEPO1lnN9zZPl wNZfIPJoEcO3PYbhRM0far 97QGCyXEO9oa4rzKXalLrx yjRavZVgCXhoT8FlGMSkr3 52EIXcH1MqAWFpc5L3ohMz HkGbLSDbuJU2jgL4SOErJC 1vufxza1hqAKspPVudIOVj mlV3kdA4OMOvlZGgR2ZaiB 2mZNVhTY5ymtcwm0mdDPM4 DTeaBRBsTBU3DiThUIJls1 Rvdur4EuFdi9JtpJOgTYwi H75sw975ZHAecvWaB2rwiB FpblxwbGFpblxmMFxmczI0 XHFsXGxhbmcxMDMzXGhpY2 nhHgEmEEKudSzmCAvkw4Sc XGYxXGZzMjJcdGFiXHRhYl i2BJGqqFIzXEIjImTwI7kv nucmRvPRPZSky2yhW0dpmN ZJoHHaM0PvLPgdwvQcKNkk MEalJgBpHFa4UR33MrKeHP Bhcn19 COMMENT (test code = p3rieLWfDYFssKH0LnHmNY 3359) Cci1aiz8RzuSQkzZKpWJsa wZBfvdVoyu25mOI8nM43VP 8sDYGpMbV6ZOAcfnZ0Qej2 MAMmAZJjhFPsM400a9hdu9 yafvIkbJQ1yGihIAKpfevx GxL0SQxuINQckwndOBc3ML uqGEKozJQ1PEFesMPyU9Gl ESYoTI1oipr7QVF9IOsaYI KzQbW2CJEiqNJvNYQrfAut QXfzp141BXO3EbLaMWVbcr QzxHlsfY9nKiRiIRAVehRm hQzzgXLiLkI2pXFrvXkdwY 7rqAqmrTzcBG25MMEggElf HakfCXwnZ1NpIEVbSHRtnW CneNdefUUrk1e0xWTaLJMy w1WmhEypCKJktbTlvk4nHT Kwwx0uAFHxQRPbYSMmCF44 M4Qzc66zo73dzPVlk3KkxH ijIDGmnM9yzflfKNKjbw2= CPT Code(s) (test code t7eudLIsVWAlsYE4JwNoJR = 335) Trg4zfl0GnfYObzHDhQWzn dYQqlwVaev47rTM2nJ53RF 0kQSIjIfN9OVEzqkY8Qug0 FXAkTYOlfOHsG536v1bhs5 isyhKhoLA4cOgpHOOjmyhj TsH6SZzvCIZhbjrmGVv4RZ rtWICjcLL9JGUhcGLdX0Yf AEThYG5rwwe7RIO4UXgiVC VkAgU0KAWgpQHlFRTbsEwb LWgkc140YZJ6BcByQMAbje GyyTjxsN8fAxDhBDD4RWQe OdghUWcjBZAtRZs4HuKnIB Y2AZO9APnlMCQ7 CLINICAL HISTORY (test e8xheXFhHQTgwXB0BzZtMX code = 3356) Vdq9uvm1UocYSgqXGrRZhb zLJxtjKaig80sWS2qW56QN 8rHXRlArM4XTZbcvP5Wlv8 ABJqUHEmpKLsH970q9nir9 vxorQvqET9oSwgHKLojtdx GwR5CCowSMDfmaxbRTv2SG mrKFNwsRN9PSTgoRWcF9Ub MMUzNH4nzrm9QJQ3FYudIF JuOpD8SCTbeWNeXHGufYzb ACfjp848MFG1FsGdKGJzor CrcYcyrE2eBpXaFUEMsBms YDLvzPkayiOhcIXaYJJ0HA 60VMKsGT1iOQXnNXawLSsw nObsWNPumML6y3M0DL2ySG Uvp3I0GWHzWBHsohDzpmPg zTCgrk4jQUSwKjV7AIUsre YaR61uPQmgmShic10ya82q hHK9JSE8VXZkZyUgeGJxLR NlLlxwYXJ9 GROSS DESCRIPTION (test o5mtrVJjYTNufULTQDXfA3 code = [id number]) mxjzXmPXVyeDMaN1Cjfcxx IHdsOA2mMG3rmZvwpZLxqI ZuTD2BROSfYbDgEGLouEWd drZtEpIcKTZdyYEscXY5EF GrVU4lexmsXQhoECnhXBCx mfF9RAIdrKTvY2DnGQGtEF 4etqwrLJH0SMpojK9tobRP XtzsZn7xfLRwzChjRaWjOw NoYXJzZXQwXGZuaWwgQXJp FQf2oI0AIbsdRDL9KSIQOm chOEOwLF2Ur2ivWMWotOUn AHE0BXmkvPMcFLYqWOIaZZ o8BFDwBWelyHUgVZ7maZtw RgyzaStdj4KvwIOzQRtqMN BkCFWuKYwfLHAbLE4RKrVi MEL3JqOoHbioKWg2GVz1UT 1WLjPcTZQgRWg8MhF6EIGj HNm3FYmuDY8ZWOBzReU3BP JcCIF4QZH9PAQcFPKlIjSo XGYgQXJpYWwgXFxmbCBcXG 5jfVxwbGFpbiBBLiBTcGlu ZSwgVGhvcmFjaWMuXHBhci ANClxlcGljTmVzdERvYzEg DQpcbHRycGFyXGxpbjBccm luMCANClxsdHJjaFxmczIw FDNuR3LxmfTaTGXhDVYcZM ukPvGnDGGfn0z5pUC8qAGk nFG1lHPsqFyuGfWaZT4ttB NoQF0uRKivEOsfavJom7Vn QH21uESpqjJzdtYfBaL4sP 1fXlEkzjWyWGKfARW0ZCWf HHX2IVWjLnBleEAvS2vnJJ nvxUKfl6XwPdWvNO0fglRj QHemIvetaJVgBIa3oECbTQ EzVbYuoPpew9JpPCHoVSZz v960ABKex2X4LSKbypIitW UvuQKaCR40oKAlwNval9Wa pIf9nPQtGMbuAFJkKSIsl0 gsf1lwhplpJRGRCMXlYMPe eGImHxkqLEVno69nJMxfwa VpUDzauaVqH6jfsXGyXCSC viI5tnoeOCuEKNEUQKQfGQ LEJHhlrB6WJGAmQTslYSOz yGZGHQU9MC7hQHvnwZYkrc dgXTIoC3QrA4CngkAxuGCg AMKyveCyx1wmEAA1DOMocC AbsBVcMgVoYbcgZHK0HTvn k8pyBJG9HRHsdPOwzFBoOG srSsUpUhkiNYMuH3QcU4Gw odI7LVc4 MICROSCOPIC DESCRIPTION o2mumFZjPVDkdCM7ZoCkTQ (test code = 3371) Xoa9ubb6JquBFaaVTsIAll bFJpzhHtrv60iTI3jC20AQ 1hTNMlWaW3PADftvC9Dcu3 JVZqQGLvrPDcB024x4mzw9 kqvkJbfEH0qAlyINVbhyhn RmP6ZZggAPIiqoomZXk4XW zcQDZoqQJ2PUWtaFOlJ4Ur DRQnNK8ypvp4NZG4VAqvIZ KvQnR1GWPjvNAnUMGruJic FQypu652EVS8UxMzZYBgqh HjlVqgxO6qHaAwNOCZWEUa h6AsYPVhMDUgzk3= SPECIAL STUDIES (test u3kqkJEiZIIywJM4HlBqFW code = 3376) Sob5cbg3ViwHPzhNJvDWzc sGHoesOaso29zVB8rV27DB 2zSYUtHrV6KVQaytO3Wfv9 GZTjZMBjrUTeX343WUCwPB DmhHnmwle3tM32WGHuiC9s dGJsIDtccmVkMFxncmVlbj SgHxm6PEQ9uFqpTGAwwwff JpW3IPylJZLbhkwhONu5QR brKSYxaLJ6EIMbfTRbG7Xf DWNuEI0bfqy5FTY5EMivUF AeFeY7IXWgvDCsSZRngKlp YVryn820TKC6YfQtHXYdym WcyXfxzE8vXiFxQkNlHfcp DkHyUGVLN7V1MYOho5a9sI RxYCxlMEC5kY0uNexdEUVo JDGBC3XYVhZWy5JtwGw8AD JygsU2hH9lep7edOOzXYBp lrOKtXWrlU21LCBfnuD5WV Yno35cw4LnpSopmuTrTCYa FGvwV9d9ZEWlWQJvGIY1h8 Wmo5NqrL9jeI0rwXomqD0c dPJanWE4tkxke7Hih5WmK6 lhbCBzdGFpbnMuXHBhclxw CDLaT25wvEXluBSCvCyaBK ShNOucoAxxHLI0TTKMgm3n n6ClRURira40glGvg7OcgG a2OTOlf999rm3bdmZ2PRJb WJF5OUr7PEOuLJVyxB8cAn E4mBZiUXDjSEL1OML7MEKn k3G8RB0dQKQeUTFgKWLkia Zhe1boi1pfXYFtURE2bmSo gM6zP5SuRBBmx4PohQfqXP BhdGllbnRzIHNhbXBsZSBz qS98QKYatIDrxYUxDRRrEI E6EUzkoY8gKiZZcqQthz5w nBJru2XyhMn0LSAzxhKtdt JhPMQryaCuJ19snYSorSGx j4ihkgMtzhFjpPVaxYRkAK HzIZR4WGf6YEYhYYhdELRc UTpxCGMiQV9esC2ltBkewV 8axIGliGE2ltgpaNAftA9u A6MjIYQjf3Wygznro2RlDJ ZcabUmto9jSGTixHZACCnp k7OqN3XuQEv8m2YjhEetXA tsHEh5PdKdEKRzuJVwdRBD NN91YDPtSIVvkSjtsZ0ooC EUZXQijfB6q3H5FJmxHFQf ZLq0PQnrkeYoIWFstK7lJB LgNO8dXJj4qbTfPIYvr7Jh GR0nLUSeyWFyRBK8APPlu4 RnF8Ksb1XlBLCfAEGycz4m hlUiMjWDoSEzAVBvhp69UA AlDH8wA2mhUWFbXMQhdiOg vUZok5HaQSKuuYB5dCOhYK 3DBbGVe55bYHHcWMUOuiVf MUZcdLazwHW9ykM6jF8aEr BUaGUgRkRBIGhhcyBkZXRl eq2khfDtUVYxLEEoj8DsvN RqwKIynfGzY7Www4VmESRn zh07HSyscOFwjs84AV3bX5 Upj4OrgW3bUJjwVUCln3Ti mQNmdUArVEPje8HfV7hvey czSGzhzSSftN8vBXSxLHv7 NYFjy7BjRYLlh2OnFsRbhd AmJGBwKXLqQOHitO05NDP9 pKfuyUrvroYtBO7oXYYfdc LhFWOjGVBeiJ1fGArphrEs GVXlzzV6h1S2BHyrOIOnhp KcGkpdOHH3jsSxqjB9rFTc K4cgozokCTubHQOwc0IgoS 3faJRYtNKny7YmxSOmbJBB gGBwIF0xmvQaQK5pSNP9TZ ggKENMSUEtODgpIGFzIHF1 MLotSyxkIPT6scQuCLVmh9 WxUBedO6duY17qpFhugNt0 eSBjbGluaWNhbCBsYWJvcm T8b8U6OJCtc3YogoedSOLt cn0= Gross assessment was [facility] performed at ([facility], = 2777) Department of Pathology, [address] [place] [address], Technical component was [facility] performed at ([facility], = 2778) Department of Pathology, [address] [place], [place] [address], Professional component [facility] was performed at ([facility], code = 2779) Department of Pathology, [address] [place] [address], [id number] 11:41:26 Test Item Value Reference Range Interpretation Comments Case Report (test code Surgical Pathology = 104) Report Case: [id number] Authorizing Provider: Jacinto Stovall MD Collected: 03/09/2022 10:35 AM Ordering Location: [address] Received: 03/11/2022 07:55 AM Service Pathologist: Mimi Soria MD Specimen: Spine, Thoracic, epidural tumor DIAGNOSIS (test code = f0isdFKdZGXig1zuCSBotH 3220) FuZzEwMzNcZnRuYmpcdWMx IHtccnRmMVxlcGljOTYwMl btomHkOCZimUUvI0Lxzodi XUdoRS6oVD4tpJotrCRwfQ YmFMNnRhSeq3uvo303lHCu r9fzUHREbjjldUt4rVhxU4 2tt6N7QothS47woWGwSWG0 BXSlYSSbqFScBCXqRZG3JE ZzmMSlT2ouOXGoPO2uehmf VBwsSFwcNRKjmTR5FFVxvK SgL3SiIQRsMZwyMFXpyga5 ZoFrMt9tlFAetIxqOUrpCJ YaSITuEUjhKRDxMbEtH8Nf oxGbJWTyi2TzM0asVHXmoD A9tjBjZNB8nZ8wLWLocOMx w2xvlfduwKKdLSDrNuWjDE 4yrVHttMV0qQFsG0IfI0vk m19iWVWme35mrST4PJ63XB efuHxlpMQbg1AwvHgrUDKa iN4nyenuXYSqbz43UIH1Wx Vkp2A1VTE9EIBdMMRqy0iy ZGVmbGFuZzEwMzNcZnRuYm igbQMiVLZqKdWoe0ovu744 tGWhf3ynVNPrWuL7uYDmWO SsbMVwF343CYNqNHbct2kd j4WsYKZwcOQci2M5VGUJlv ejvCg4nUawK64vx6J3Ibmi B7xyNDTgYVTpJ8GrNM8vSM AnFsn6UUH9GEA7FSEuKAHd U3UySG1aTWDuiFZmVHh9u9 ayyRxbKYQdPOA0w9mfCJmf paRpNC8mph8ciKd9p0tmrn KaYBOzPMKoyBTWIBYxS0Kx nZgfDz9zaMa5rXdgDufjQE H4Dhe4PC1zif51jap8fFak PLKguxccGkY0CFxxIXOndm epEUc8FEkfWHCtzGE6UCNd aASxY4KoUYVtQB1tflf5LM I1VEedKOIkIeH9FQYijKCy WDUxsXeqJMjyl007LQB8Aq IvWS0sH9Ych2C7aU1hqCVd KWPtbYUnVxIaFKQplz9elD WdYLrsx9DfPYB9beG4wOLh iBEoSHKlWcP0TMhsDW1sdb 16LKAmCJV7un8blPOqrHwj gmYroTMkYHesS9ZoZTQnb2 64CEXqC4XvHANqq6K0dfGy DoQqCNWscPE8dzB6PEOhCP 7hdzygp8ecROfoCSnxWXHr qmM5vfC1WMIzxWTuR6NrpN 6uQJJgOP5ogyfzf0dlHHC4 GHfjGLAgWUN0FeFeUIGpl4 Xctau0FhLlq0PxnBYvYZbt Z27yw643TUCwjxBtT0lxzL FpblxwbGFpblxmMFxmczI0 XHFsXGxhbmcxMDMzXGhpY2 dyOjUmFSNyuJnzTCnhx8Jl XGYxXGZzMjJcdGFiXHRhYl p8KCUuwBDcLNUoXeKiT8rn tcxmCgGAAJCyp0lhE4sctZ JHtHOeT3YzAGfhzhHtSDma GDdjSuQrOOn6MF11BxVnCC Bhcn19 COMMENT (test code = z3epxZNdPXIycVU2DpToXU 3997) Hcy0lqj2FpaJChlNKuEMop nXVfmrWhlf71iMK3tA04RY 6rRSWcAsK7ARSsbaS5Buf0 EMOyWDJsxUUdI669u0ypx6 smgcKdpFK4fBnkMDLuwhzi FxU3OJzyMKMmydseABa9RE mzLSLkzOD0UILmoMGnD0Qw XSZeIC9goxc7EHD6WGasQG JvFtD4WMZglKGsRFHckEct ZIwlu636THQ0JwTcYZZnpu DlcSasxW6bGjCdHFGUchUg eSdgoQZmXiU2dXQcgLkhcB 9yrRyztTypQB43CSMclMyu QoezVOaiA6AwMKOyCARcwF MomWathOCrq9v8yLHnGSCr z1DroBmcNAOmpcCjka8nYS Dgcc2sFTJwWAJxNOCmYP86 U4Bwr58ee64wzVBjq4DfpG xkMLCybC1jfohxXZZuad2= CPT Code(s) (test code a2qwfGNaCRVpdTZ4ZkBdEX = 3357) Xst3dpj8QluMXzuGJtGTuo cJDaehAryx51vJX6dW10KU 6zPDQzAdP3NTRnpkO3Chm3 MVAaQMTotENtB633b6hli6 pstiKasVV3iGlpZQGspxtz LxY9HChfGJMjbtwlRTm2JF wcUGXygCV3OKZzkEBqW6Iv JLBzJQ5wvbh8PSP8NMshKX OySnI8QRHejBVbICXplFad MWgkq868QYI6GhGjTDImeb CloQlihL8wFvAqXMB2TLPs GgjcLBhpDETlENi5VrXkZY E2JCL6RRpuAXV4 CLINICAL HISTORY (test b1pszDOqREJqpSL6ZySfNP code = 3356) Qah1sez0YnzUDsrLXmJAah wDMdbnOfzm91tNT0eY85HN 7hGUOoEdT3HQAjfhG9Xol5 CJLjGDUzvKYjE442k3vno6 qaakMsuCE3yHrdXANnctwp BjB5VMxyKLBwkihsHIb4ZE oxEDHrjTU7QCAlsMAkW0Ql YNRwLR2lwjd1OIR0NWmtHP BmQrR5AFQabOMoJOUwxGyc HKleg740RPH6CrUfWPWqlo ZliAvvuT8cLwJcYYHMnYjt KNFacZpgvpFerFUoLDN0ZJ 63EPTcFT1yWVKhKAxlVHup qKciDQRtzMW2m2F5VE7wCD Qhv1W1SQQeMCTjjbVaznDx cNLbuw5dBRFfHaU7CVZpzp BuJ61jZNhnuMseu73tv51b dPC7VTB7RHBwAiFapZApHB NlLlxwYXJ9 GROSS DESCRIPTION (test y7rsjHEaHFQcfAVABQInD2 code = [id number]) glnwKeGMLiuIZgD5Xyxtjm NFhvDZ5mCI2ipYwzgIDxdO TuDY9UXPEoEyEaDAYxkOLp khHwLmLxRGTmkQMaxTF9WV KbUA5oyytfJCbzAAfkANXc sbH0EMEshNTcG7PxLYEbWD 0rbvqbXDX9QLmqpD0jkxVM OhlqQx7cnLSniMgsNtQxJf NoYXJzZXQwXGZuaWwgQXJp ZFc2cI4QEymkKEB8KJAEZv ckMBVjHE8Gm8tmXLGtkWLo VOB9WSrvcPPcKQWbLMWxDG i7HKIeNAimbOIcVL8uqZkt CuvcgGrlh3ZqdXQhPOaaUF PsPGBzDBmzZGFwFL7UMlLg WEG7NqRoFcgzWVj2YSh4QY 6BJbNnATDiFCc9UhH7IYUx OCv6OPndAQ1POMTgNeT4YS JhORY3OKR9NFMsETMlWsLj XGYgQXJpYWwgXFxmbCBcXG 5jfVxwbGFpbiBBLiBTcGlu ZSwgVGhvcmFjaWMuXHBhci ANClxlcGljTmVzdERvYzEg DQpcbHRycGFyXGxpbjBccm luMCANClxsdHJjaFxmczIw DCYsM3ZprhZpBYTcPGGnXP etKpNkQPVft2j1uRZ8cRTi hYM4vMYwiDjeSuToTL0vaJ SiMT5mLGloAIwtgpRax3Qb CX04hJQfkhQxlhXvZtY3xO 8iLcLxyfVbKNKjNKL1XCMz JXU2SQWzBdXbrQLzR7xfNB pyzAKzo2ZqWwXeBU7xgmLz AGhiFyycdCZhFRc9zFKoGH TqKiBbhDlzh0VnXVJsTVRe p081PGVwd5K3PBDwqwLtmS CseQRhZD76kZQhcLmae1Av sCs6pUOeCQhpPWOdNBBpx2 kji2vajvnyLSDXOKRmCZVa pHBqCwztJUDcj49yICxrmo JmSGysldYuU6ptzPIoVOCM gbT3kvcvEFdADWKLIXIiTS XDXWxauA1EHZOlODstZBBw lZAUIXO9SG5tMPtfgXSpyn xvGACoF2YrW4TlmhYnsHIe NJBfauXjy3rvCJF6AJZwlF PgbMHzWcBqKprhNSE6EGmh a5azJAD3OMGmyXWaoIIhNJ efYdEwCeyrKZLsT3BhB4Gj ilO5SQn4 MICROSCOPIC DESCRIPTION z2pynPMbNTQsxBG8EmRgEM (test code = 3371) Mwg6xbt4YfnUUjwYRwIHyn kUAhktHyfs97vIP4yW22CC 3vTDOsJtL0BNHbxuD2Fnr3 SRGxTZGbzVOaD244z9way3 ypetTehAB8fUleFYSpsbti TwI0ZYizMUTinnedQXb4BK zzRIMftKD4DJSizYAaR7Gy TNPdKS0ictx7TAN4AUeiLS MuYrX1QJLitYWfYDCddBee GSpny841RWB8HhTfIFVkha YoyVrqrW7sMsMlPFNLNGEb p6QwYDQsPKCcyt3= SPECIAL STUDIES (test q1rnrEWmGSJzdRS6LcNiOG code = 3376) Lkn6pxt4OdsXJyrXFbNKrx hNHifkIfex93rXO8aT22OW 0mJATkZlB7WNKkzvD1Xpk6 XPYbBTJbqTXcY259BJCxWV ExtEirkua5uQ16GWEgxT1c dGJsIDtccmVkMFxncmVlbj CkIgb9JWG1sZxuEOIirnll KrO7ZIwwQGTfperrZQt7MF pkBEUzcMG0KUJimKSeC9Ej WVRfMH7bfng6TTB9GSicTN RmGfV9LMWhpXPdBOXpnObs SYnjt991RNF8CkExOVClut DmrJoouR1lWyDbXtSkXqgr LbQnYVZIK6T7ZVXkx6x4hI OfIVnoOKT5uA8iZgihCMFy NPBWU6MUElQIq8MbkNh3TQ KuexB7uJ0uif3jbNJlTRBb peXYbEJjrS66PHScjiE6HE Zbi05kp1KzaCsdnjRmNERw LRooP3o1CZBjLIRyHDF0f4 Anl4NdzO4zrH4ecGbzjM7w eAHniOT5yncbx5Cnq4MiB0 lhbCBzdGFpbnMuXHBhclxw RYOlD69wtMSgmTKBePccJF GaSJhefOiaZBT8YNDZta9i k3MgXASdfr45wjPpv5CrjO r0HQXwn471uu0cllZ2QXXm ETL5EBs9PYJxUEWniQ1cFt J6tKZxOKEqNKE9TIT3FUZq q8H9IO6bRAHvTOBoRXRrkl Rex1yiq2cgTFZzYKM1yxCi lR7kP3EaOOHez3YcfEmyBP BhdGllbnRzIHNhbXBsZSBz xZ26MHLazSQywMHkCBHeQZ C5KUdwmT1kOeTHqmXygp5e zYIpf3EbdCz1WIJcpbTycy DnRZSagtFjR64ujDJpkWSm i7yraqHefbOyeWUnmBMjYW SrYAZ4AOn9SPUuLJyoLLJc NMeoKYQcTS6nrN7hcSbgcJ 8ioULzjSV4nqoysKNseT8s A6FsKKQzt8Lxokrit2OxCF FoabFfvx3iEVHkbDXBLPjx d2XdF4EpMDx4d1WvoQdqMU xwTMk5WzIuYALyuLPenGCR RE09OKCuSCTocYvhwS4aaW PAGJNbkmS2m3E5BTecEXFp ECz3MBirkfLwRMJhmQ8nRP BeWG1gUYo3yxMcHJMfz2Ey OR9xYEBjzELaCHL3EVJqu5 NeA2Tum8DxFQFhCGJtdn3k wsFjMlBPgYBqDICnto16GZ SoEL6nN9thROQzGASmscDy oBFpq1ZhCAOfqLO3eSJcFO 2IWuDZk75rPDSvATJXcrSa VFNqrCzmoPW2lqS1yG1aVc BUaGUgRkRBIGhhcyBkZXRl cq2ftpUkAQHiEWYpx6JbvG OieZEcoxUjD9Knx6ErIXIv we97SWkgyEZpte24FT3dM8 Mxf4BseV4gIOmzVNLlu0Ll kHKtdMIfBZUfn4SlS4doop geWTvcgJTrnT8lIPNwZUp2 DEPpi3HpOSQzg9BdEoJvyw IqWLUzAWBtYHRuiP08OKL3 rQmdbPesesIcGU8rAPPfhm NvWLTqJEVcvU2fCBofsnPp JVMcmgV0m6W1ZBzqAMNitl IoFanmZQJ4auWikeQ9gEUz C7doltikRYgpCCHnq0LubH 6akGBElVUfr2BmqUYqzTJB zNWbIY3vzcIrST1mSZM2RM ggKENMSUEtODgpIGFzIHF1 EFddFvabAQE4hvFnNJKjh8 McJOadZ8inM86uzIjlrYu7 eSBjbGluaWNhbCBsYWJvcm N2i0Q5FEVcm7LzccllZTJx cn0= Gross assessment was [facility] performed at ([facility], = 2777) Department of Pathology, [address] [place] [address], Technical component was [facility] performed at ([facility], = 2778) Department of Pathology, [address] [place] [address]09, Professional component [facility] was performed at ([facility], code = 2779) Department of Pathology, [address] [place] [address], [facility] Hospital[facility]issue [id number] 11:41:26 Test Item Value Reference Range Interpretation Comments Case Report (test code Surgical Pathology = 104) Report Case: [id number] Authorizing Provider: Jacinto Stovall MD Collected: 03/09/2022 10:35 AM Ordering Location: [address] Received: 03/11/2022 07:55 AM Service Pathologist: Mimi Soria MD Specimen: Spine, Thoracic, epidural tumor DIAGNOSIS (test code = [id number] 3220) FuZzEwMzNcZnRuYmpcdWMx IHtccnRmMVxlcGljOTYwMl jncqSvCXBhpJFvY3Jzvlls PPgpBE0rZR2ilKojxZHgzD IgIQGvBpQbu5yjm350rBDx c2ouBWXKghlaeOe2rCczQ2 8tf0Z7PsbiS91fpHEjEBZ1 WWGqOPJdxZBrHRFfCHA6VN HctHVkT1kaQLXkUX5alwgo VMxwUKstZSOkdXL7VCUagX HxU9OdKCPeWPfyDWJmhjg7 TyWlKr9csXXrzNokWJoxBH BjRKKbNRxcPZIbNmXhQ0Yf mpOqASJqn9FxP5glORRqzX P6uhGdWDE7sZ1tFCGtcBXn s2ifnqvkzKIvKARqKbHvQY 5bbCPjrOM6fBOgP8XmF8cp i06sKXQnq20jpQX7LI67RB eisYjbtUSxv9RwaRqyAAFj wA1ymxgoQGTtim62WMM8Te Blj7N1SQA7RCYpLCDeq5aq ZGVmbGFuZzEwMzNcZnRuYm ltsOXyTDIgBmQxf3udp410 cDSco7hxBOJoTrS6dYHyGE QsuQLhC184TFBsVSphu8zq r5XxHBZstMAhj1D7HOYNet zisOs9sXnoZ35cf9U8Jmwr W8jfCTMjBQLwQ2NeFG9iTG EcUzf0NDU7VYV2ZWKzDFZs Q0DcAO7pAIUsdMRiPPf7x7 oriStgBCLaAOT6c2nlGGxm csCdOK6vnx4zeIz9b0grmp CsRSNpHMLgwIGPCIRvZ4Tb tAfoYz1qdEy0aMrzPbtfIN R9Aop3FE6zaj34tci9kBse OAPvqazrOhT3KVdvJKUsao tlVDq4NBzcYXCcvAP8ZVUj mZIkN0CpPTTxGM2cmcb3JO Q2GJhkVSUuJjZ1JYLmsXGc NJJbhGguRCwxg505OKQ8Iz NgWH6kD4Bya0G5vB0ydMAw ASBytQYpMeCqSWSigk3bnG IeEUihn7XgSOL2qfL1dYQy aXOoNVPwBqJ5BXauXR0qzo 25BTTjKZM1sg5ntWQmsDeo yoXroQNaYYmzE0OrWBAeb3 55PSPiC1JlUDDhh7E8siCy CzNpYZIfcZI4gtL1JASnQG 6fofaac8ztOUikBXplWQHt bvE1ecP1DXUhqWOiW5BneD 0bDVKiMU0bqbtxy0dvFNE6 QFqbVNKvVZU2UkFrZSBce1 Ksepr4XgCzk8PpdUUuALfn R41ua484OVGmmfSgQ5itiY FpblxwbGFpblxmMFxmczI0 XHFsXGxhbmcxMDMzXGhpY2 cmCxFgMCEgjPeaLQmhq9If XGYxXGZzMjJcdGFiXHRhYl z4KPJucLBbJDSgIdEsA3wc foyxPvYCLVCia7dzB4naqK MPyRYwW4GyNGksqkXcACme OMdyNwWmQUu7PT63XpHaGP Bhcn19 COMMENT (test code = x8iheLUzHJQarKL4PoVeQJ 2429) Jor0cgw6LbjMEpoUTnCTtc gZAosnXmqa88cVQ6sV32WQ 3bRZZlQsM2KYBkgmY6Myc1 BGDtRBPznQUgH962n6day0 sexkGlxPT6fImgMFVzdnmp UgD9MZfjOOFlhvszEPb9MJ jxPNEmoQZ3JAIxwLCjK2Ll XLExPZ5uhkl7ADM6KYvaQC CvFwX6FOBtkIHaHAWukEua ODesc272FEL5TyIyMMZgqe GtzOjjpB6nZoXvZIYJuqPj qFbbpBKwQeN2aXVibOlsfT 8xoXtkuZzpGE17EYHpdUdi HohwBRmlM0NqMVWiPEAevO GwfRuczSClb6a0yKUiJQNq m7TdjSbgMYOhawAvor9vGI Slcp0wLVFbWSPvMEYnWR86 G2Qgf51bg80reRVjf3NkhT ijYXSebS6waeorYHSpxu5= CPT Code(s) (test code k2lcnXJgLFQtsKP3TsKyWQ = 3357) Izo9iam4XvaURkcVFzPKao qSEqrrPcae31oQC4dJ92WN 8aNBJlVyD4HSOabpN8Hnh5 MIHbEYBmhGLwH544m0vvi8 lmnpKxzKT5uQqkRBOuvilz TxM1PJycIEFgrpmbDCy2SX dmUCKfbIE4EKXjkIShQ9Pd ZGIyJT7dirp2DZZ8NFysZJ PoJmC6GYHodJQnCLYzfPdo HBcam390PIB0RcEwBXNcog EerZasnU8tQbGlEIB7BESm WoqzIMbtCGUdKHb2WvFdFN X5QHC7FPxqCMT3 CLINICAL HISTORY (test y1efwNJoIYJsgEQ3XfJeCH code = 3356) Kkd0kir1DqzGPjqZIhTEwq lQSyviMakk41sUB5qC02GZ 7bBWSbMsO7ZEJjfcE4Rpn8 LXLkIQMdjGGsY119f1msb4 rwblMcuLZ6kFxpAIVxacbo NeI6RSubOBPgdlfsVIr7CS snQVKymFP3JTWwhAFgS6Ho JARmHI2rxcw1VOO1YSwnFT MqKzO0MOUomETiJTGfxTss EPdmr207ZXG6YjHqQRCybb OerAcbdR0dLiUiGBVQmWwf WBUwjFzuisUrjIKoSOE5CA 05GXLtEI0wHXYuIBgbDDfo uLcsVTBbiUW6s1U4MG3cRE Yex9L4FVQcAQEhufQumnFp rVWyzj4sUDMpCkZ4FICdas EbL26zNZtnzZwgt85vh65f iUS3NLR7YLWvIjTcgIHmFV NlLlxwYXJ9 GROSS DESCRIPTION (test u7yoyZMjBFDvmQNAYFMkZ6 code = [id number]) kgowUgQTZwmMOtO1Ybfvvz DIvmFL4cMC8orYvjuXZgqL KoOO3XDHVmXgSnUNVrfEWv ytFdCzAiWQYseAOhaSS0XT KwAE4qznyvGEhjDCoqHSEy noD7EUWeaFLqK9UbEMUxSD 5csrnzIGM2GHnlyZ2jzwMQ CqmlJk6ajGBopYqdQdZiGh NoYXJzZXQwXGZuaWwgQXJp ESx8pO5MUkecEIG8GIXLXq jkKUWfOI3Wk5gdYJPweBQf ZOL9ITuqcOTcVOKoPMKaKM u4FIDaLQpysEGxEP0evNnk SxqjmHasw1ShtRLdLHpgDJ SaJAPxRUguPSPdRA7AWoHh NNU2AcJcTjwxIGj1QCg8WQ 5JJfStDTHtELq5ShD1THVm QMp1KHamAO6UXJHeXhY7NG DeUBU5YYG2RPNcNNVmVoEz XGYgQXJpYWwgXFxmbCBcXG 5jfVxwbGFpbiBBLiBTcGlu ZSwgVGhvcmFjaWMuXHBhci ANClxlcGljTmVzdERvYzEg DQpcbHRycGFyXGxpbjBccm luMCANClxsdHJjaFxmczIw ZWMdN8CthrUpNEXgURZzYC ajWaLjXZOcz2a6lJV4vHKo eSR6eMTztZaeHkLhCL8kdJ NtDU5lJHmdZRjxwiLaj6Bz AC52fWDkmpHjtwUdBiI9vW 1gVqDsbxFfIFNvDTV1DBOe PRM8LDPgMdFvtKEiZ6ucNP nadNUrc4ZuPyUgKT8uhcLo CJcwVutasTAaADg7zVOgUW AwFfIerJekz9UrFYMtMIPu e490DKUfo2L7RIQuibZgcR ViiJWiED05jDJjfXiec6Xj xUs3jTAnSPuqNMCyOCRyt0 mkk8agmhprSHFDAFGeGCYn iAExRrmjRUZmh91hTRekpn XqQNczeuVoE7sibVDdPESO yoD0hjjmTPeBFPXSCRAhCD MHIDtwuK8MCPZkWTxqXDFm dZOYDUO8DS4yISiqqTVccu bgQPLtH5ZqB3YyyhNujEQx IWIfhmAgo3fpBPN4ABKpfQ UznEInCiEeTsqdGQF0UEhl o3qoGKK9XXXbjNMyvBUjNB nrOfUrCvuoMGIkX9TrF2Sk dvQ5PYv6 MICROSCOPIC DESCRIPTION d6pkmJVhBPPwgUF3SlVbUA (test code = 3371) Bft4tmy8VscUOjbAWlBXqd tPRwjnRbqs10oNK3pM95VV 9iBCXhVjV0NFBntlM0Zqj7 ATEdOMGrnWZxG075i0ymv3 luvgAgeAK6bBwgYINzbkxe VsG9QQjcGUWotaqtMZo7FF hrGLQiuHN4UNCvyPEjT1Cu BLArBI3qovt9ADK6IFngYS WqRyY8MHKyeVIdEXIqpFxc DVojx411EQW0MqBpWSZxly KiqZfizA8bUqEiFMDOMMKw h6HuCTZsZQDpff8= SPECIAL STUDIES (test o6jxpXCeRPSqsAJ6OlSzPJ code = 3376) Lsg2zku7EhoYNrfBTcIKtd zOVhjxBdmt00tCB2qC30ME 4kWQZjTvM2RLRcfaY0Ccy3 BWRsQAWdtHYbS799YMWuAD AwtEvhpzj1zX58GVWyyT2x dGJsIDtccmVkMFxncmVlbj NpWva2XOS5fJbwGLEitpiq PuK9LRsqHLLirtwvMOq3RF kxQFRecMQ9CMZxsAGsZ0Vp TGXoVS3zucf0LWA6MWliMX ZcGxH1LNDsxYHzRZPisQpu XIpxl856EYY4HyBzHDEfik IzeIkweZ1xKoViKyYfHyqn SyDsEPCKO5P4NEZag8e9xD DfZElzIPO4hK1yBztkZXUc VZATH3ZCLfQSg7HbnYw4HO CldeL8rD5ozs5hrBKeAMTh rjKMnNKvzY22JYAgnvL7IN Xcr25xj1WnhHfkpyQiGXMv LCfpE4n6AYLfLUNhBUB7h6 Wat9XxqE8biC1shOtsrB2z fCMcuTN0haywr5Kjj4FmF5 lhbCBzdGFpbnMuXHBhclxw NIOiV97abGXqmMFAzKvpRF PbQHriqHpnNNW1MMXYeq8n m0XeYJWvkj98pyVpa2OvwO q6JWTuu365dw5hdmW3IUOh SWN3WAy5JIWeKAVapF3lGs U6mBZoZJYoTCM4QLC7QTTy m4G2KO8hJPFfCBJnKQNoxe Vql1mxn4gaZGMzAQX7kyPq kR0uU4SqBXPnf7AchNjaEB BhdGllbnRzIHNhbXBsZSBz eX45LANkhNDkaJRtEGHvJY U9DHmexL4hPoONhbCddx8x dMDbq4KlwKg9RRMwnlQkga GcGDYdfiAiL24buKBqrEPc s0pufoTktsMxyASkyDJiGR NhRGI1KYn4NXSrCRuvBZMy CYeuHGYhOR2cpE9ceBkhfW 3srHWavVR4nrbvvHLxdP1i W9LuEZRjc7Ejaonzu6JnJZ XmhbIwsv4gKFKkqEGTSFqr b9ArN6UpPOn3f1ZqwFffRT nyLTh6ThTaXWEvuTPocZGS VZ09MYSsBOVgmVxogB0nwE HZWGIpczW3x8L2WEbkDQXp RMk2QKfqxuSaUTFzyJ9vRO NcEJ7pIPf2yvKjFAWhv4Je DY6dJEDgwGVcZKU2YFJme7 UzV1Fuu8EnZDIdANRhjl7v gmXqJhZFqPPrLPJpak62HQ ChYY8tT3ncNUDdCHPwhdQx tNTdy4FlAPXcaKS0zKAvTR 3GZsJGd17iHZHzEUGCfjQa CQVefSkskKE6zwW7oV5nPd BUaGUgRkRBIGhhcyBkZXRl qd6qweLvSGFcLNMfh0IrcB DnqTLeniHcV7Cay8MsMONr ye28TOmhuLOijf22OX2wB4 Mll0JrzU3wCFdxMLHnp3Lg kYMxzAYcFAZyu3KnX0dcyh tjYPryrBBpbH5wZTDiFIk0 JUYcp9RgMAHuo9JfOvErzi VzBDDnBDVuINWvtR05ZCL3 bGbjtThzpwEpUH2xEKTsom XcTMShTFDvrM5bRGdfdxZm TMQcezC4n0E8FHrcIPVjgj YsGieoLAJ1vkVzasN3kRXi Q9ykyrudDYvtGOTss8OwvS 4rwBGVeKAcb9QduQXfqCLP vVNxOT0mwsCgEL9yJSS9KJ ggKENMSUEtODgpIGFzIHF1 JIeqKgquARN2ktVtNYYud6 ZnJZlrX9vxN21pwWjflFg0 eSBjbGluaWNhbCBsYWJvcm L2v6H4YGQec1NqtolcPCAu cn0= Gross assessment was [facility] performed at ([facility], = 2777) Department of Pathology, [address] [place] [address], Technical component was [facility] performed at ([facility], = 2778) Department of Pathology, [address] [place] [address], Professional component [facility] was performed at ([facility], code = 2779) Department of Pathology, [address] [place] [address], [facility] Hospital[facility] [id number] 11:41:26Surgical Pathology Report Case: [id number] Authorizing Provider: Jacinto Stovall MD Collected:03/09/2022 10:35 AM Ordering Location: [address] Received: 03/11/2022 07:55 AM Service Pathologist: Mimi Soria MD Specimen: Spine, Thoracic, epidural tumor Spine, thoracic epidural tumor, excision: - Metastatic carcinoma, consistent with prostatic primary. Signing Pathologist DirectPhone Line: [phone] signed by Mimi Soria MD on 03/20/2022 at 11:41 Mahan lightof the history, the overall findings are compatible with metastatic carcinoma from the patient's known prostatic primary.[id number], [id number], [id number], [id number] patient is a 61-year-old male with a history of prostate cancer diagnosed 2 years ago, with known metastatic disease.A. Spine, Thoracic.Received freshlabeled with the patient's name, medical record number and "tumor" is a 1.8 x 0.9 x 0.2 cm aggregateof 3 hemorrhagic, irregular soft tissue and bony [...] evaluated Immunohistochemistry technical testing was performed at [facility], Pathology Laboratory where it was developed and its performance characteristics were determined. It has not been cleared or approved by the U.S. Food and Drug Administration. The FDA has determined that such clearance or approval is not necessary. The test is used for clinical purposes. It should not be regarded as investigational or for research. This laboratory is certified under the Clinical Laboratory Improvement Amendments of 1988 (CLIA-88) as qualified to perform high complexity clinical laboratory testing.[facility], Department of Pathology, [address] [place] [address], [facility], Department of Pathology, [address] [place] [address], [facility], Department of Pathology, [address] [place] [address], (CELLAVISION MANUAL DIFF)2022-03-20 08:52:29 Test Item Value [...] = 3438) CBC W/PLT COUNT & AUTO [id number] 08:52:28 Test Item Value Reference Range Interpretation [...] (BEAKER) (test code = 413) COMPREHENSIVE METABOLIC [id number] 06:20:43 Test Item Value Reference Range Interpretation [...] not appl icable for dialysis patien ts Corporate Security Manager ID - PIAYA LCBC W/PLT COUNT & AUTO [id number] 06:28:05 Test Item Value Reference Range Interpretation [...] (BEAKER) (test code = 2801) COMPREHENSIVE METABOLIC [id number] 05:02:18 Test Item Value Reference Range Interpretation [...] hemolyzed code = 347) EGFR (BEAKER) 107 Interpretati on of eGFR (test code = 1092) mL/min/1.73 [...] not appl icable for dialysis patien ts Corporate Security Manager ID - REBECA OMPREHENSIVE METABOLIC [id number] 06:53:59 Test Item Value Reference Range Interpretation [...] decreased 60-89 G3a Mildl y to moderately 45- 59 G3b Moderately to s everely 30-44 G4 Severl y decreased 15-29 G5 Kidney failure <15Reported eGF R is based on the CKD-EPI 2020 equation that d oes not use a race coefficientEsti mated GFR is not as accur ate as Creatinine Wilda darlyn in predicting glom erular filtration rate . Estimated GFR is not appl icable for dialysis patien ts Corporate Security Manager ID - MARLI MCBC W/PLT COUNT & AUTO [id number] 05:39:12 Test Item Value Reference Range Interpretation [...] CONCENTRATION Adequate (CELLAVISION)(BEAKER) (test code = 3438) Corporate Security Manager ID - Radha Shannon comments: Slide comments:CBC W/PLT COUNT & AUTO [id number] 07:16:52 Test Item Value Reference Range Interpretation [...] (BEAKER) (test code = 413) COMPREHENSIVE METABOLIC [id number] 03:49:35 Test Item Value Reference Range Interpretation [...] not appl icable for dialysis patien ts Corporate Security Manager ID - REBECA WPrepare Leuko-Red [id number] 23:54:00 Test Item Value Reference Range Interpretation Comments CROSSMATCH (test code = 2264) COMPATIBLE Unit ABO (test code = O Pos 3017409) UNIT NUMBER (test code = [id number] 934-0) Status (test code = 3474108) TX_TIMEINCHART Blood Bank Product (test code RED BLOOD CELLS = 2263) PRODUCT CODE (test code = Y5356F88 933-2) [facility] [id number] 23:54:00 Test Item Value Reference Range Interpretation Comments CROSSMATCH (test code = 2264) COMPATIBLE Unit ABO (test code = O Pos 5597343) UNIT NUMBER (test code = [id number] 934-0) Status (test code = 2945694) TX_TIMEINCHART Blood Bank Product (test code RED BLOOD CELLS = 2263) PRODUCT CODE (test code = W7435G91 933-2) [facility] [id number] 23:54:00 Test Item Value Reference Range Interpretation Comments CROSSMATCH (test code = 2264) COMPATIBLE Unit ABO (test code = O Pos 6757125) UNIT NUMBER (test code = [id number] 934-0) Status (test code = 3969978) TX_TIMEINCHART Blood Bank Product (test code RED BLOOD CELLS = 2263) PRODUCT CODE (test code = S2102F69 933-2) [facility]PLT [facility] & AUTO [id number] 08:29:07 Test Item Value Reference Range Interpretation [...] few (test code = 478) COMPREHENSIVE METABOLIC [id number] 07:06:05 Test Item Value Reference Range Interpretation [...] not appl icable for dialysis patien ts Corporate Security Manager ID - MARLI Stanley(CELLAVISION MANUAL DIFF)2022-03-15 07:36:26 Test Item Value Reference [...] CONCENTRATION Adequate (CELLAVISION)(BEAKER) (test code = 3438) Corporate Security Manager ID - cr Pelayo comments: Slide comments:CBC W/PLT COUNT & AUTO [id number] 07:36:25 Test Item Value Reference Range Interpretation [...] (BEAKER) (test code = 413) COMPREHENSIVE METABOLIC [id number] 06:42:38 Test Item Value Reference Range Interpretation [...] not appl icable for dialysis patien ts Corporate Security Manager ID - MARLI MCT, SPINE, THORACIC, WO [id number] 16:29:00Please extend imaging down to L9Guwzppng Reason for Exam - Click Yes and Enter Reason Below->YesUnlisted Reason for Exam->R/o hematoma, active bleeding from R drain site s/p T-9 TO T-11 LAMINECTOMY, T9-L1 POSTERIOR [facility]ION [facility] : 1960 Sex: MFINAL REPORT CT, SPINE, THORACIC, WO CONTRAST INDICATION: Unlisted Reason for ExamR/o hematoma, active bleeding from R drain site s/p T-9 TO T-11 LAMINECTOMY, T9-L1 POSTERIOR FUSION COMPARISON: 03/08/2022 TECHNIQUE: Contiguous noncontrast axial images of the thoracic spine are obtained.Computer reformatted coronal and sagittal images are also provided. Axial images are available in bot h bone and soft tissue algorithm. DOSE REDUCTION: Dose modulation, iterative reconstruction, and/or weight-based adjustment of the mA/kV was utilized to reduce the radiation dose to as low as reasonably achievable. FINDINGS: Status post multilevel posterior fusion spanning [...] Status post multilevel posterior fusion spanning T9-L1. Therehas been laminectomy at T9-T11. A surgical drain enters the posterior paraspinal soft tissues at theL2 vertebral level and extends cranially within the posterior paraspinal soft tissues to the T8 vertebral level. Signed: Pauline Delgado MDReport Verified Date/Time: 03/14/2022 16:29:09 CBC W/PLT COUNT & AUTO [id number] 08:24:32 Test Item Value Reference Range Interpretation [...] CONCENTRATION Adequate (CELLAVISION)(BEAKER) (test code = 3438) Corporate Security Manager ID - Augustin Dato-onUser comments: Slide comments:COMPREHENSIVE METABOLIC [id number] 08:17:02 Test Item Value Reference Range Interpretation [...] not appl icable for dialysis patien ts Corporate Security Manager ID - ADMINRAD, SPINE, THORACIC, 2 [id number] 15:48:00Reason for exam:->standing x-rays pleas include down to L2 (1 level below hardware) [facility] : 1960 Sex: MFINALREPORT CLINICAL HISTORY: standing x-rays pleas include down to L2 (1 level below hardware) TECHNIQUE: Frontal and lateral views of the thoracic spine. COMPARISON: CT 03/08/2022 IMPRESSION: Please note that the T1-T4 vertebral bodies are excluded from the nrdcc-se-nhmm the two images. There has been interval placement of bilateral posterior spinal rods and pedicle screws from T9 through L1 with a decompressive laminectomies. Mild loss of height of a few thoracic vertebral bodies with multifocal sclerotic metastatic disease is again noted. Signed: João Orozco MDReport Verified Date/Time: 03/13/2022 15:48:10 Reading Location: [address] Reading Room SARS-COV2/RT-PCR ([facility]) 2022-03-13 15:10:11 Test Item Value Reference Range Interpretation Comments SARS-COV2/RT-PCR (test Negative Not Detected, Negative, code = 0531441) See external report for linked test SARS-COV-[address] [facility] (test code = 4979520) Negative result for this test determines that [...] of the Act.Fact Sheet for Healthcare Prov iders:https://www.[employer]/sites/default/files/product/documents/Fact_Sheet_HC _Kddqmpfff_Dbeq_TLWW-JnM-8.pdfFact Sheet for Healthcare Patients:https://www.[employer]/sites/default/files/product/docume nts/Chdx_Wwrud_Iiffmevo_Arqx_YCCC-GfR-5.pdfPerforming Laboratory:[facility].[place], [place] [address]JML W/PLT COUNT & AUTO [id number] 08:57:07 Test Item Value Reference Range Interpretation [...] CONCENTRATION Adequate (CELLAVISION)(BEAKER) (test code = 3438) Corporate Security Manager ID Brittany Fulton OverholtUser comments: Slide comments:VITAMIN [id number] 06:32:00 Test Item Value Reference Range Interpretation Comments VITAMIN B12 (BEAKER) (test code = 427 pg/mL 213-816 774) Corporate Security Manager ID Brittany CALLES [id number] 06:32:00 Test Item Value Reference Range Interpretation Comments FERRITIN (BEAKER) (test code = 855.38 ng/mL 5.00-275.00 H 361) Corporate Security Manager ID - MARLI MCOMPREHENSIVE METABOLIC [id number] 06:18:11 Test Item Value Reference Range Interpretation [...] not appl icable for dialysis patien ts Corporate Security Manager ID - MARLI HERNANDEZ, TIBC, % SAT. (WITHOUT FERRITIN)2022-03-13 06:07:46 Test Item Value Reference Range Interpretation Comments IRON (BEAKER) (test code = 547) 47.0 ug/dL 40.0-160.0 TOTAL IRON BINDING CAPACITY 204 ug/dL 250-450 L (BEAKER) (test code = 769) IRON % SATURATION (2) (BEAKER) 23 % 20-55 (test code = 2590) Corporate Security Manager ID - MARLI Stanley(CELLAVISION MANUAL DIFF)2022-03-12 07:04:24 [...] PLATELET CONCENTRATION Adequate (CELLAVISION)(BEAKER) (test code = 3435) Corporate Security Manager ID - Radha Shannon comments: Slide comments:CBC W/PLT COUNT & AUTO [id number] 07:04:23 Test Item Value Reference Range Interpretation [...] (BEAKER) (test code = 413) COMPREHENSIVE METABOLIC [id number] 06:20:52 Test Item Value Reference Range Interpretation [...] not appl icable for dialysis patien ts Corporate Security Manager ID - PIAYA LCOMPREHENSIVE METABOLIC [id number] 06:22:51 Test Item Value Reference Range Interpretation [...] not appl icable for dialysis patien ts Corporate Security Manager ID - PIAYA LCBC W/PLT COUNT & AUTO [id number] 06:13:00 Test Item Value Reference Range Interpretation [...] (BEAKER) (test code = 2801) COMPREHENSIVE METABOLIC [id number] 07:03:41 Test Item Value Reference Range Interpretation [...] not appl icable for dialysis patien ts Corporate Security Manager ID - REBECA WCBC W/PLT COUNT & AUTO [id number] 06:53:57 Test Item Value Reference Range Interpretation [...] H PERCENT (BEAKER) (test code = 2801) [id number] 18:42:14 Test Item Value Reference Range Interpretation Comments SODIUM (BEAKER) (test code = 381) 134 meq/L 136-145 L Corporate Security Manager ID - MARLI MBASIC METABOLIC [id number] 13:50:23 Test Item Value Reference Range Interpretation [...] not appl icable for dialysis patien ts Corporate Security Manager ID - [id number] 13:50:23 Test Item Value Reference Range Interpretation Comments MAGNESIUM (BEAKER) (test code = 2.0 mg/dL 1.6-2.6 627) Corporate Security Manager ID - [id number] 13:50:23 Test Item Value Reference Range Interpretation Comments PHOSPHORUS (BEAKER) (test code = 3.3 mg/dL 2.3-4.7 604) Corporate Security Manager ID - BSCBC W/PLT COUNT & AUTO [id number] 13:39:49 Test Item Value Reference Range Interpretation [...] clot foundFL, FLUORO, NON-SPECIFIC, UP TO 1 [id number] 11:25:00Reason for exam:->lumbar stenosis [facility] : 1960 Sex: MAn imaging unit was utilized for this procedure. No radiologist interpretation was requested. Refer to theEMR for findings. Refer to PACS for any patient radiation dose information.Blood gas, [id number] 09:53:48 Test Item Value Reference Range Interpretation Comments pH, Arterial (test code 7.37 7.35-7.45 = 2744-1) pCO2, Arterial (test 43 See_Comment [Autom ated code = 2019-8) message] The system which generated this result [...] 50 Lab Interpretation Abnormal (test code = 33335-1) [facility], [id number] 09:53:48 Test Item Value Reference Range Interpretation Comments pH, Arterial (test code 7.37 7.35-7.45 = 2744-1) pCO2, Arterial (test 43 See_Comment [Autom ated code = 2019-8) message] The system which generated this result [...] 50 Lab Interpretation Abnormal (test code = 89142-3) [facility], [id number] 09:53:48 Test Item Value Reference Range Interpretation Comments pH, Arterial (test code 7.37 7.35-7.45 = 2744-1) pCO2, Arterial (test 43 See_Comment [Autom ated code = 2019-02) message] The system which generated this result [...] 50 Lab Interpretation Abnormal (test code = 56936-6) [facility] HospitalBLOOD GAS, [id number] 09:53:48 Test Item Value Reference Range Interpretation [...] 50.0 FL, FLUORO, NON-SPECIFIC, UP TO 1 [id number] 09:51:00Reason for exam:- >thoracic stenosis [facility] : 1960 Sex: MFINALREPORT Radiograph of the lumbar spine Indication: thoracic stenosis Comparison:none Findings: Lateral views of the lumbar spine is obtained intraoperatively. A needle projects over the L2-L3 facet, and a second localizer projects just dorsal to the L1 pedicle. Findings are discussed with Dr. Stovall, who concurred with these findings. Signed: Jose Martinez Verified Date/Time: 03/09/2022 09:51:54 Reading Location: [address] Ortho Consult Reading Room Prepare RBC 2022-03-09 08:56:00 Test Item Value Reference Range Interpretation Comments CROSSMATCH (test code = 2264) COMPATIBLE Unit ABO (test code = O Pos 5305120) UNIT NUMBER (test code = [id number] 934-0) Status (test code = 1340936) READY Blood Bank Product (test code RED BLOOD CELLS = 2263) PRODUCT CODE (test code = U4559R16 933-2) [facility] [id number] 08:56:00 Test Item Value Reference Range Interpretation Comments CROSSMATCH (test code = 2264) COMPATIBLE Unit ABO (test code = O Pos 7898305) UNIT NUMBER (test code = [id number] 934-0) Status (test code = 8621596) READY Blood Bank Product (test code RED BLOOD CELLS = 2263) PRODUCT CODE (test code = N0835S62 933-2) [facility] [id number] 08:56:00 Test Item Value Reference Range Interpretation Comments CROSSMATCH (test code = 2264) COMPATIBLE Unit ABO (test code = O Pos 5655903) UNIT NUMBER (test code = [id number] 934-0) Status (test code = 1887732) READY Blood Bank Product (test code RED BLOOD CELLS = 2263) PRODUCT CODE (test code = C6537V24 933-2) [facility] HospitalCOMPRE[facility] [id number] 05:46:00 Test Item Value Reference Range Interpretation [...] not appl icable for dialysis patien ts Corporate Security Manager ID - MARLI MCBC W/PLT COUNT & AUTO [id number] 05:03:13 Test Item Value Reference Range Interpretation [...] (test code = 2801) MR, SPINE, CERVICAL, [id number] 22:53:00Unlisted Reason for Exam - Click Yes and Enter Reason Below->No [facility] : 1960 Sex: MFINALREPORT EXAMINATION: MR, MR, [...] MD on03/08/2022 10:53 PMCT, SPINE, THORACIC, WO [id number] 17:43:00Please include caudally to T1Skrgtmrn Reason for Exam - Click Yes and Enter Reason Below->No [facility] : 1960 Sex: MFINAL REPORT CT Thoracic spine CLINICAL HISTORY: Bone lesion, thoracic, malignancy suspected TECHNIQUE: Contiguous axial images of the thoracic spine with coronal and sagittal reformations to assess the alignment. This exam was performed according to the departmental dose optimization program which includes automated exposure control, adjustment of the mA and/or kV according to the pat ient size, and/or use of an iterative reconstruction technique. COMPARISON: Outside thoracic MRI 03/04/2022 FINDINGS: As evident on the outside MRI, there is diffuse sclerotic osseous metastatic diseasethroughout the thoracic spine and the visualized inferior cervical and upper lumbar spine. 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 Signed: João Orozco MDReport Verified Date/Time: 03/08/2022 17:43:35 [id number] 15:44:29 Test Item Value Reference Range Interpretation Comments PARTIAL THROMBOPLASTIN TIME 28.2 seconds 22.5-36.0 (TERRENCE) (test code = 760) CT, CHEST, WITH [id number] 15:05:00Unlisted Reason for Exam - Click Yes and Enter Reason Below->No [facility] : 1960 Sex: MFINALREPORT CT [...] Left adrenal mass. Signed: Juan C Hernandez MDRrockville general hospital Verified Date/Time: 03/08/2022 15:05:57 Reading Location: [address] Body Reading Room CT, [id number] 15:05:00Unlisted Reason for Exam - Click Yes and Enter Reason Below->NoIs this for enterography?->NoWill this procedure require oral contrast?->No [facility] : 1960 Sex: MFINALREPORT CT [...] MDReport Verified Date/Time: 03/08/2022 15:05:57 Reading Location: [facility] B1 C013Y CT Body Reading Room RAD, CHEST, 1 VIEW, NON [id number] 15:01:00Reason for exam:- >preop evalShould this be performed at the bedside?->Yes [facility] : 1960 Sex: MFINALREPORT [...] MDReport Verified Date/Time: 03/08/2022 15:01:47 Reading Location: [facility] Radiology Reading Room SARS-COV2/RT-PCR ([facility])2022-03-08 14:52:18 Test Item Value Reference Range Interpretation Comments SARS-COV2/RT-PCR Negative Negative The SARS-Co V-2 target (test code = nucleic acids a re not 9245621) detected in thi s specimen. Negative result [...] revoked sooner. Fact Sheet for Healthcare Providers: https://www.[employer] m/Documents/Xpert%20Xpress%20SARS%20CoV-2/Fact%20Sheets/3023802%57HWYR-VNZ-3%20 HEALTHCARE%20PROVIDERS%20FACT%20SHEET.pdf Fact Sheet for Healthcare Patients: https://www.[employer]/Documents/Xpert%20Xp ress%20SARS%20CoV-2/Fact%20Sheets/3023801%51ELNU-UDF-1%20PATIENT%20FACT%20SHEET .[id number] 07:21:54 Test Item Value Reference Range Interpretation Comments PROSTATE SPECIFIC ANTIGEN (BEAKER) 93.5 ng/mL 0.0-4.0 H (test code = 844) Corporate Security Manager ID - PIAYA LCOMPREHENSIVE METABOLIC [id number] 04:19:36 Test Item Value Reference Range Interpretation [...] not appl icable for dialysis patien ts Corporate Security Manager ID - MARLI MPROTHROMBIN TIME/[id number] 03:48:23 Test Item Value Reference Range Interpretation Comments PROTIME (BEAKER) 13.6 seconds 11.9-14.2 (test code = 759) INR (BEAKER) (test 1.11 See_Comment [Automat ed message] code = 370) The system [employer] generated this result transmitted ref erence range: <=5.90. The reference range was not used to int erpret this result as normal/abnormal . RECOMMENDED COUMADIN/WARFARIN INR THERAPY RANGESSTANDARD DOSE: 2.0 - 3.0 Includes: PROPHYLAXIS for venous thrombosis, systemic embolization; TREATMENT for venous thrombosis and/or pulmonary embolus.HIGH RISK: Target INR is 2.5-3.5 for patients with mechanical heart valves.CBC W/PLT COUNT & AUTO [id number] 03:35:53 Test Item Value Reference Range Interpretation [...] 0-1 H PERCENT (BEAKER) (test code = 3404)
[2022-06-03 09:42] LABS: Urine Blood Trace-intact (Negative); Urine Glucose Negative (Negative); Urine Protein 1+ (Negative); Urine Specific Gravity 1.025 (1.005-1.030); Urine pH 5.5 (5.0-7.0)
[2022-06-03 09:58] LABS: Urine Bacteria <20 /HPF (<20); Urine Mucus 4+ /HPF (None Seen)
[2022-06-03] MEDS ORDERED: MORPHINE 4 MG/ML SYR ONE (10:12)
[2022-06-03] MEDS ORDERED: ONDANSETRON 4 MG/2 ML VIAL ONE (10:26)
[2022-06-03 10:43] LABS: Blood O2 Saturation 96.2 % (92-98.5)
[2022-06-03 10:44] LABS: Arterial Blood Carboxyhemoglob 2.1 % (0-1.5); Blood Gas Oxyhemoglobin 93.1 % (94-97)
--- NOTE | 2022-06-03 11:05 | RAD REPORT ---
EXAM DESCRIPTION: CT - Chest For Pe Angio - 06/03/2022 10:38 am CLINICAL HISTORY: SOB COMPARISON: Chest For Pe Angio dated 05/24/2022; Chest Single View dated 05/25/2022 TECHNIQUE: Dynamically enhanced 3 mm thick images of the chest were obtained during administration o f approximately 150mL Isovue 370 IV contrast. Coronal and oblique MIP reconstruction images were gene rated and reviewed. Exam utilizes a protocol to evaluate the pulmonary arterial tree. All CT scans are performed using dose optimization technique as appropriate and may include automated exposure control or mA/KV adjustment according to patient size. FINDINGS: No pulmonary emboli are identified. The aorta as imaged shows no acute or suspicious finding. No pericardial thickening or effusion. Bilateral upper lobe airspace opacification is present. Findings are progressive from the May 24 imaging. New or progressive airspace opacification seen in the right middle lobe. Minimal lower lobe interval changes noted. Trace amount of pleural fluid seen. No mediastinal or hilar suspicious masses. No chest wall masses or abnormal axillary lymphadenopathy. IMPRESSION: No pulmonary emboli identified. Bilateral upper lobe and right middle lobe pneumonia progressive from May 24 imaging.
[2022-06-03] MEDS ORDERED: CEFEPIME 2 GM VIAL ONE (11:21)
[2022-06-03] MEDS ORDERED: NA CHLORIDE 0.9% 1,000 ML ONE (11:22)
[2022-06-03] MEDS ORDERED: NA CHLORIDE 0.9% 100 ML IV ONE (11:22)
[2022-06-03] MEDS ORDERED: VANCOMYCIN 1 GM/VIAL ONE (11:33)
[2022-06-03] MEDS ORDERED: NA CHLORIDE 0.9% 250 ML ONE ×2 (11:34→21:33)
[2022-06-03 12:03] LABS: Absolute Lymphocytes (CBC) 0.9 K/uL (0.7-4.9); Hematocrit 27.3 % (39.6-49.0); Lymphocytes % 17.6 % (15.3-44.8); RBC Red Blood Cell Count 3.25 M/uL (4.33-5.43)
[2022-06-03 12:22] LABS: Albumin 2.7 g/dL (3.4-5.0); Bilirubin Direct 0.8 mg/dL (0-0.2); Bilirubin Total 2.2 mg/dL (0.2-1.0); Potassium 3.8 mmol/L (3.5-5.1); Protein, Total 5.9 g/dL (6.4-8.2); Protime INR 1.92
[2022-06-03 12:25] LABS: Troponin High Sensitivity 979.1 pg/mL (<58.9)
[2022-06-03 12:34] LABS: SARS-COV-2 RT PCR NEGATIVE (NEGATIVE)
--- NOTE | 2022-06-03 13:04 | ER ---
Nurse's Notes [facility] Name: Fito Alva Age: 61 yrs Sex: Male : 1960 Arrival Date: 06/03/2022 Time: 08:20 Bed 15 Private MD: Diagnosis: Pneumonia, unspecified organism;Subsequent non-ST elevation (NSTEMI) myocardial infarction;Acute respiratory failure with hypoxia;Severe sepsis without septic shock Presentation: 06/03 08:30 Chief complaint: EMS states: pt from home has recently been hospitalized for Pneumonia tw2 o2 has been low. she was 80% on RA with NO 02 when we got there. we placed him on 4L nc at he went up. Coronavirus screen: At this time, the client does not indicate any symptoms associated with coronavirus-19. Ebola Screen: Patient denies travel to an Ebola-affected area in the 21 days before illness onset. Initial Sepsis Screen: Does the patient meet any 2 criteria? RR > 20 per min. HR > 90 bpm. Does the patient have a suspected source of infection? Yes: Productive cough/pneumonia. Risk Assessment: Do you want to hurt yourself or someone else? Patient reports no desire to harm self or others. Note fam reports stage 4 prostrate CA with mets to bone. right leg pain. Note provider at bedside at this time. Onset of symptoms was June 03, 2022. 08:30 Acuity: JOSE A 2 tw2 08:30 Method Of Arrival: EMS: [facility] tw2 Triage Assessment: 08:30 General: Appears in no apparent distress. uncomfortable, well groomed, Behavior is tw2 cooperative, appropriate for age, quiet. Pain: Complains of pain in right leg. Neuro: Level of Consciousness is awake, alert, obeys commands, Oriented to person, place, situation. Respiratory: Airway is patent Respiratory effort is even, unlabored, Respiratory pattern is regular, symmetrical, Denies cough, Parent/caregiver reports the patient having shortness of breath at rest on exertion. GI: No signs and/or symptoms were reported involving the gastrointestinal system. Derm: Skin is jaundiced. Musculoskeletal: Circulation, motion, and sensation intact. Historical: - Allergies: 08:36 No Known Allergies; tw2 - PMHx: 08:36 prostate cancer with mets to the bone; tw2 - PSHx: 08:36 Spinal tumor resection; tw2 - Immunization history:: Adult Immunizations. - Social history:: Smoking status: . - Family history:: not pertinent. Screenin:11 Abuse screen: Denies threats or abuse. Nutritional screening: No deficits noted. tw2 Tuberculosis screening: No symptoms or risk factors identified. Fall Risk Secondary diagnosis (15 points) impaired mobility. Assessment: 08:45 Reassessment: see triage assessment. tw2 09:20 Reassessment: Patient appears in no apparent distress at this time. Patient and/or tw2 family updated on plan of care and expected duration. Pain level reassessed. 10:25 Reassessment: pts family reports as home health attendant for pt that "he is in pain with his tw2 right leg, he normally takes morphine 15 at home but we didn't give any morning medicines because he was so short of breath", provider notified. medicated as ordered. 11:12 Reassessment: Patient appears in no apparent distress at this time. Patient and/or tw2 family updated on plan of care and expected duration. Pain level reassessed. 12:46 Reassessment: Patient appears in no apparent distress at this time. Patient and/or tw2 family updated on plan of care and expected duration. Pain level reassessed. pt appears to be sleeping at this time. Vital Signs: 08:30 BP 102 / 71; Pulse 119; Resp 22; Temp 98.3(O); Pulse Ox 85% on 4 lpm NC; Weight 86.18 tw2 kg (R); 08:40 BP 91 / 72; Pulse 116; Resp 28; Pulse Ox 97% on 6 lpm NC; tw2 09:23 BP 89 / 63; Pulse 111; Resp 19; Pulse Ox 98% on 4.5 lpm NC; tw2 10:15 BP 83 / 66; Pulse 108; Resp 17; Pulse Ox 97% on 4.5 lpm NC; tw2 11:01 BP 98 / 62; Pulse 105; Resp 20; Pulse Ox 98% on 4.5 lpm NC; tw2 11:40 BP 92 / 59; Pulse 103; Resp 20; Pulse Ox 98% on 4.5 lpm NC; tw2 12:45 BP 99 / 67; Pulse 104; Resp 19; Pulse Ox 97% on 4.5 lpm NC; tw2 13:23 Resp 19; Pulse Ox 97% on 2 lpm NC; tw2 14:00 Pulse Ox 90% 2 lpm ; tw2 14:31 BP 85 / 57; Pulse 106; Resp 19; Pulse Ox 97% on 4 lpm NC; tw2 08:30 RT paged for HIFlow o2, pt placed on 6L NC, provider at bedside tw2 13:23 per RT pt doing well and wants to try him at 2L nc at this time tw2 14:00 pt not tolerating o2 at 2L, placed back to 4L per hospitalist at this time tw2 ED Course: 08:20 Patient arrived in ED. tw2 08:20 Saeid Siddiqui MD is Attending Physician. rt 08:20 Bed in low position. Call light in reach. Side rails up X2. Adult w/ patient. Cardiac tw2 monitor on. Pulse ox on. NIBP on. Warm blanket given. Pillow given. 08:28 Jenny Corona, RN is Primary Nurse. tw2 08:36 Triage completed. tw2 08:36 Arm band placed on. tw2 09:25 Inserted saline lock: 20 gauge in right antecubital area, using aseptic technique. tw2 Blood collected. 09:35 EKG done, by ED staff, reviewed by Saeid Siddiqui MD. em1 10:40 CT Chest For PE Angio In Process Unspecified. EDMS 11:16 COVID-19/FLU A+B Sent. tw2 11:24 inside and outside lab notified of need for recollect of labs at this time. 2 previous tw2 blood samples sent as well as blood cultures x2. 11:38 inside lab Anell of need for recollect. tw2 13:03 Jaciel Cheatham is Hospitalizing Provider. rt 14:33 No provider procedures requiring assistance completed. Patient admitted, IV remains in tw2 place. Administered Medications: 10:23 Drug: morphine 4 mg {Note: RASS 0.} Route: IVP; Infused Over: 4 mins; Site: right tw2 antecubital; 11:31 Follow up: Response: No adverse reaction; Pain is decreased; RASS: Drowsy (-1) tw2 10:30 Drug: Zofran (Ondansetron) 4 mg Route: IVP; Site: right antecubital; tw2 11:31 Follow up: Response: No adverse reaction tw2 11:31 Drug: NS 0.9% 1000 ml Route: IV; Rate: 1 bolus; Site: right antecubital; tw2 13:55 Follow up: Response: No adverse reaction; IV Status: Completed infusion; IV Intake: tw2 1000ml 11:31 Drug: Cefepime 2 grams Route: IVPB; Rate: 200 ml/hr; Infused Over: 30 mins; Site: right tw2 antecubital; 12:03 Follow up: Response: No adverse reaction; IV Status: Completed infusion; IV Intake: tw2 100ml 12:04 Drug: vancoMYCIN 1 grams Route: IVPB; Infused Over: 2 hrs; Site: right antecubital; tw2 13:55 Follow up: Response: No adverse reaction; IV Status: Completed infusion; IV Intake: tw2 250ml Medication: 11:11 VIS not applicable for this client. tw2 Intake: 12:03 IV: 100ml; Total: 100ml. tw2 13:55 IV: 250ml; Total: 350ml. tw2 13:55 IV: 1000ml; Total: 1350ml. tw2 Outcome: 13:04 Decision to Hospitalize by Provider. rt 14:33 Admitted to Med/surg accompanied by tech, via stretcher, room 217, with oxygen, with tw2 chart, Report called to ANILA Belcher 14:33 Condition: stable 14:33 Instructed on the need for admit. 14:49 Patient left the ED. tw2 Signatures: Dispatcher [employer] Americo Cam em1 Jenny Corona RN RN tw2 Saeid Siddiqui MD MD rt Corrections: (The following items were deleted from the chart) 08:40 08:40 BP 91 / 72; Pulse 116bpm; Resp 28bpm; Pulse Ox 97% 6 lpm Nasal Cannula; tw2 tw2
--- NOTE | 2022-06-03 13:05 | EDPHYS ---
Physician Documentation [facility] Name: Fito Alva Age: 61 yrs Sex: Male : 1960 Arrival Date: 06/03/2022 Time: 08:20 Bed 15 Private MD: ED Physician Saeid Siddiqui HPI: 06/03 08:37 This 61 yrs old Male presents to ER via EMS with complaints of Hypoxia. rt 08:37 The patient has shortness of breath at rest. Onset: The symptoms/episode began/occurred rt 10 day(s) ago. Duration: The symptoms are continuous, and are steadily getting worse. The patient's shortness of breath has no apparent modifying factors. Associated signs and symptoms: Pertinent positives: non-productive cough, Pertinent negatives: chest pain. Severity of symptoms: At their worst the symptoms were severe. Patient had a recent admission for pneumonia with hypoxia, was subsequently discharged on room air. Patient has no baseline oxygen requirement. Patient had worsening of the shortness of breath, the patient's daughter states that they cannot maintain his oxygen saturations despite being on steroids. The patient was placed on oxygen by EMS, with reported improvement of the dyspnea, states that he is only tired in the ED. Denies other acute complaints at this time, symptoms are severe in severity, no other aggravating alleviating factors.. Historical: - Allergies: 08:36 No Known Allergies; tw2 - PMHx: 08:36 prostate cancer with mets to the bone; tw2 - PSHx: 08:36 Spinal tumor resection; tw2 - Immunization history:: Adult Immunizations. - Social history:: Smoking status: . - Family history:: not pertinent. ROS: 08:37 Constitutional: Negative for fever, chills, and weight loss, Eyes: Negative for injury, rt pain, redness, and discharge, ENT: Negative for injury, pain, and discharge, Cardiovascular: Negative for chest pain, palpitations, and edema, Abdomen/GI: Negative for abdominal pain, nausea, vomiting, diarrhea, and constipation, Back: Negative for injury and pain, : Negative for injury, bleeding, discharge, and swelling, MS/Extremity: Negative for injury and deformity, Skin: Negative for injury, rash, and discoloration, Neuro: Negative for headache, weakness, numbness, tingling, and seizure, Psych: Negative for depression, anxiety, suicide ideation, homicidal ideation, and hallucinations. 08:37 Respiratory: Positive for cough, shortness of breath. Exam: 08:37 Constitutional: This is a well developed, well nourished patient who is awake, alert, rt and in no acute distress. Head/Face: Normocephalic, atraumatic. Eyes: Pupils equal round and reactive to light, extra-ocular motions intact. Lids and lashes normal. Conjunctiva and sclera are non-icteric and not injected. Cornea within normal limits. Periorbital areas with no swelling, redness, or edema. ENT: Nares patent. No nasal discharge, no septal abnormalities noted. Tympanic membranes are normal and external auditory canals are clear. Oropharynx with no redness, swelling, or masses, exudates, or evidence of obstruction, uvula midline. Mucous membranes moist. Chest/axilla: Normal chest wall appearance and motion. Nontender with no deformity. No lesions are appreciated. Respiratory: Lungs have equal breath sounds bilaterally, clear to auscultation and percussion. No rales, rhonchi or wheezes noted. No increased work of breathing, no retractions or nasal flaring. Abdomen/GI: Soft, non-tender, with normal bowel sounds. No distension or tympany. No guarding or rebound. No evidence of tenderness throughout. Skin: Warm, dry with normal turgor. Normal color with no rashes, no lesions, and no evidence of cellulitis. MS/ Extremity: Pulses equal, no cyanosis. Neurovascular intact. Full, normal range of motion. Neuro: Awake and alert, GCS 15, oriented to person, place, time, and situation. Cranial nerves II-XII grossly intact. Motor strength 5/5 in all extremities. Sensory grossly intact. Cerebellar exam normal. Normal gait. Psych: Awake, alert, with orientation to person, place and time. Behavior, mood, and affect are within normal limits. 08:37 Cardiovascular: Tachycardic, regular rhythm, heart sounds are normal. 10:19 ECG was reviewed by the Attending Physician. rt Vital Signs: 08:30 BP 102 / 71; Pulse 119; Resp 22; Temp 98.3(O); Pulse Ox 85% on 4 lpm NC; Weight 86.18 tw2 kg (R); 08:40 BP 91 / 72; Pulse 116; Resp 28; Pulse Ox 97% on 6 lpm NC; tw2 09:23 BP 89 / 63; Pulse 111; Resp 19; Pulse Ox 98% on 4.5 lpm NC; tw2 10:15 BP 83 / 66; Pulse 108; Resp 17; Pulse Ox 97% on 4.5 lpm NC; tw2 11:01 BP 98 / 62; Pulse 105; Resp 20; Pulse Ox 98% on 4.5 lpm NC; tw2 11:40 BP 92 / 59; Pulse 103; Resp 20; Pulse Ox 98% on 4.5 lpm NC; tw2 12:45 BP 99 / 67; Pulse 104; Resp 19; Pulse Ox 97% on 4.5 lpm NC; tw2 13:23 Resp 19; Pulse Ox 97% on 2 lpm NC; tw2 14:00 Pulse Ox 90% 2 lpm ; tw2 14:31 BP 85 / 57; Pulse 106; Resp 19; Pulse Ox 97% on 4 lpm NC; tw2 08:30 RT paged for HIFlow o2, pt placed on 6L NC, provider at bedside tw2 13:23 per RT pt doing well and wants to try him at 2L nc at this time tw2 14:00 pt not tolerating o2 at 2L, placed back to 4L per hospitalist at this time tw2 MDM: 08:20 Patient medically screened. rt 13:55 Differential diagnosis: Anemia CHF exacerbation, Chronic Obstructive Pulmonary Disease rt pneumonia, Pulmonary Embolism. Data reviewed: vital signs, nurses notes, EMS record, old medical records, EKG, radiologic studies. ED course: Presents to the ED with a worsening of dyspnea after being hospitalized for pneumonia. He is found be hypoxic, corrected on supplemental O2. CT angiogram was obtained that is negative for PE, shows worsening of pneumonia. We will treat for healthcare associated pneumonia. The patient has an elevated troponin, consistent with non-ST segment elevation NM, suspect this is a type II ischemia. He does meet criteria for severe sepsis. He does not meet criteria for septic shock. He will be admitted for further care.. 06/03 08:27 Order name: BMP; Complete Time: 12:25 rt 06/03 08:27 Order name: Blood Culture Adult (2) rt 06/03 08:27 Order name: CBC with Diff rt 06/03 08:27 Order name: CPK; Complete Time: 12:25 rt 06/03 08:27 Order name: D-Dimer; Complete Time: 12:25 rt 06/03 08:27 Order name: Hepatic Function; Complete Time: 12:25 rt 06/03 08:27 Order name: Lipase; Complete Time: 12:25 rt 06/03 08:27 Order name: Magnesium; Complete Time: 12:25 rt 06/03 08:27 Order name: NT PRO-BNP; Complete Time: 12:25 rt 06/03 08:27 Order name: PT-INR; Complete Time: 12:25 rt 06/03 08:27 Order name: Ptt, Activated; Complete Time: 12:25 rt 06/03 08:27 Order name: Troponin HS; Complete Time: 12:25 rt 06/03 08:27 Order name: ABG rt 06/03 09:40 Order name: Urine Microscopic Only; Complete Time: 10:13 iw 06/03 08:27 Order name: CT Chest For PE Angio; Complete Time: 11:06 rt 06/03 09:42 Order name: Urine Dipstick-Ancillary; Complete Time: 10:13 EDMS 06/03 10:45 Order name: ABG Arterial Blood Gas; Complete Time: 11:06 EDMS 06/03 10:48 Order name: COVID-19/FLU A+B rt 06/03 13:12 Order name: Manual Differential EDMS 06/03 13:13 Order name: Vancomycin Level Trough EDMS 06/03 13:16 Order name: NT PRO-BNP EDMS 06/03 13:16 Order name: Urinalysis EDMS 06/03 13:16 Order name: Basic Metabolic Panel EDMS 06/03 13:16 Order name: Basic Metabolic Panel EDMS 06/03 13:16 Order name: CBC with Automated Diff EDMS 06/03 13:16 Order name: CBC with Automated Diff EDMS 06/03 08:27 Order name: Call RT rt 06/03 08:27 Order name: EKG; Complete Time: 08:28 rt 06/03 08:27 Order name: Cardiac monitoring; Complete Time: 09:23 rt 06/03 08:27 Order name: EKG - Nurse/Tech; Complete Time: 09:35 rt 06/03 08:27 Order name: IV Saline Lock; Complete Time: 09:22 rt 06/03 08:27 Order name: Labs collected and sent; Complete Time: 09:22 rt 06/03 08:27 Order name: O2 Per Protocol; Complete Time: 09:22 rt 06/03 08:27 Order name: O2 Sat Monitoring; Complete Time: 09:23 rt 06/03 09:34 Order name: Labs - recollect needed: recollec all labs; Complete Time: 10:30 bd 06/03 09:40 Order name: Urine Dipstick-Ancillary (obtain specimen); Complete Time: 09:40 iw 06/03 10:37 Order name: Labs - recollect needed: re collect labs, inside lab will come collect; bd Complete Time: 12:28 06/03 13:15 Order name: Heart Healthy EDMS EC: Rate is 109 beats/min. Rhythm is regular, Sinus tachycardia with No ectopy. Right axis rt deviation noted. NC interval is normal. QRS interval is normal. QT interval is normal. No Q waves. Clinical impression: NSR w/ Non-specific ST/T Changes. Interpreted by me. Administered Medications: : Drug: morphine 4 mg {Note: RASS 0.} Route: IVP; Infused Over: 4 mins; Site: right tw2 antecubital; 11:31 Follow up: Response: No adverse reaction; Pain is decreased; RASS: Drowsy (-1) tw2 10:30 Drug: Zofran (Ondansetron) 4 mg Route: IVP; Site: right antecubital; tw2 11:31 Follow up: Response: No adverse reaction tw2 11:31 Drug: NS 0.9% 1000 ml Route: IV; Rate: 1 bolus; Site: right antecubital; tw2 13:55 Follow up: Response: No adverse reaction; IV Status: Completed infusion; IV Intake: tw2 1000ml 11:31 Drug: Cefepime 2 grams Route: IVPB; Rate: 200 ml/hr; Infused Over: 30 mins; Site: right tw2 antecubital; 12:03 Follow up: Response: No adverse reaction; IV Status: Completed infusion; IV Intake: tw2 100ml 12:04 Drug: vancoMYCIN 1 grams Route: IVPB; Infused Over: 2 hrs; Site: right antecubital; tw2 13:55 Follow up: Response: No adverse reaction; IV Status: Completed infusion; IV Intake: tw2 250ml Disposition: 13:55 Critical Care:. rt Disposition Summary: 06/03/22 13:04 Hospitalization Ordered Hospitalization Status: Inpatient Admission rt Provider: Jaciel Cheatham rt Location: Telemetry/[facility] (Inpatient) rt Condition: Fair rt Problem: an ongoing problem rt Symptoms: have improved rt Bed/Room Type: Standard rt Room Assignment: 217(06/03/22 14:02) dw Diagnosis - Pneumonia, unspecified organism rt - Subsequent non-ST elevation (NSTEMI) myocardial infarction rt - Acute respiratory failure with hypoxia rt - Severe sepsis without septic shock rt Forms: - Medication Reconciliation Form rt - SBAR form rt Critical care time excluding procedures: 13:55 Critical care time: Bedside Care: 30 minutes, Consultation: 5 minutes. Total time: 35 rt minutes Signatures: Dispatcher [employer] EDAllison Baptiste Diana RN RN dw Jeannie Torrez, RN ANILA iw Jenny Corona RN RN tw2 Saeid Siddiqui MD MD rt Corrections: (The following items were deleted from the chart) 14:02 13:04 rt dw
[2022-06-03] MEDS ORDERED: ACETAMINOPHEN 325 MG TABLET PO PRN (13:08)
[2022-06-03 13:11] LABS: Anisocytosis 1+; Blood Morphology Comment NOT SEEN (NOT SEEN); Platelet Estimate DECR
[2022-06-03 13:12] LABS: Poikilocytosis 1+; Polychromasia 1+
--- NOTE | 2022-06-03 13:24 | P.HP ---
Certification for Inpatient Patient admitted to: Inpatient With expected LOS: >2 Midnights Patient will require the following post-hospital care: None Practitioner: I am a practitioner with admitting privileges, knowledge of patient current condition, hospital course, and medical plan of care. Services: Services provided to patient in accordance with Admission requirements found in Title 42 Section 412.3 of the Code of Federal Regulations Patient History Date of Service: 06/03/22 Reason for admission: Hypoxia. History of Present Illness: Patient is a 61-year-old male with a past medical history significant for prostate cancer with mets, BPH, DVT, peripheral neuropathy who presents with complaint of hypoxia. Patient was discharged from the hospital last week after being treated for pneumonia. Family reported that patient's condition has been improving until yesterday when patient started having labored breathing. This morning patient's oxygen saturations was noted to be in the 70s on room air. Patient reported associated signs and symptoms of weakness, fatigue and poor appetite. Family reported that patient gets nauseated whenever he tries to eat. Patient denies any other signs and symptoms. Shortness of breath is aggravated with exertion and relieved by nothing. Family decided to bring patient to the hospital due to worsening symptoms. Allergies No Known Allergies Allergy (Unverified 03/01/22 23:53) Home Medications: Enzalutamide [Xtandi] 4 cap PO 1900 05/24/22 Famotidine 20 mg PO BID 05/24/22 Gabapentin [Neurontin*] 300 mg PO BEDTIME 05/24/22 Morphine *Extended Release* [MS Contin*] 15 mg PO Q4HP PRN 05/24/22 Ondansetron HCl 4 mg PO Q8HP 05/24/22 Tamsulosin [Flomax*] 1 tab PO BEDTIME 05/24/22 predniSONE [Deltasone] 10 mg PO BID 10 Days #30 tab 05/26/22 Apixaban [Eliquis] 5 mg PO BID 06/03/22 LORazepam [Ativan*] 1 mg PO Q8H PRN 06/03/22 - Past Medical/Surgical History Diabetic: No -: Prostate cancer with metastasis to bone -: Spinal surgery 2021 Psychosocial/ Personal History: Pt lives at home with family/ - Social History Smoking Status: Never smoker Alcohol use: No CD- Drugs: No Caffeine use: Yes Place of Residence: Home Review of Systems General: Weakness, Other (fatigue, Poor appetite ) Eyes: Unremarkable ENT: Unremarkable Respiratory: SOB with Excertion Cardiovascular: Unremarkable Gastrointestinal: Nausea Genitourinary: Unremarkable Musculoskeletal: Unremarkable Integumentary: Unremarkable Neurological: Weakness Lymphatics: Unremarkable Physical Examination - Physical Exam General: Alert, Oriented x3, Cooperative HEENT: Atraumatic, Normocephalic, PERRLA Neck: Supple, 2+ carotid pulse no bruit, JVD not distended Respiratory: Diminished, Crackles/rales Cardiovascular: No edema, No murmurs Capillary refill: <2 Seconds Gastrointestinal: Normal bowel sounds, Soft and benign, No masses, No rebound, No guarding Musculoskeletal: No clubbing, No swelling, No contractures, No erythema Integumentary: No rashes, No breakdown, No significant lesion, No tenderness/swelling, No erythema, No warmth Neurological: Normal speech, Normal tone, Normal affect Lymphatics: No axilla or inguinal lymphadenopathy - Studies Laboratory Data (last 24 hrs) 06/03/22 11:54: PT 21.1 H, INR 1.92, APTT 32.5 06/03/22 11:54: WBC 5.40, Hgb 8.9 L, Hct 27.3 L, Plt Count 27 L* 06/03/22 11:54: Sodium 126 L, Potassium 3.8, BUN 12, Creatinine 0.51 L, Glucose 101, Magnesium 2.0, Total Bilirubin 2.2 H, AST 67 H, ALT 16, Alkaline Phosphatase 451 H, Lipase 89 Assessment and Plan - Plan --Pneumonia. Imaging indicates worsening pneumonia. Blood cultures pending. Continue antibiotics, neb treatment with Atrovent\albuterol and O2 therapy. Pulmonology consulted. Will await further recommendations. --Acute respiratory failure with hypoxia. Continue current treatment regimen. Patient currently on 4 L/min. Document Photographer on board. Further management per conference and event organiser. --History of prostrate cancer with mets.. Patient follows up with an outpatient oncologist. Continue home chemotherapy medication when available. -- Thrombocytopenia. Platelet currently at 27. Likely secondary to chemotherapy. 2 units of Platelets ordered. We will continue to monitor platelet levels. Continue supportive care. -- Elevated troponin. Significant elevation in troponin noted. Patient denies any chest pain. We will trend troponin levels. Telemetry to monitor for any significant arrhythmia. Echocardiogram pending to assess LV\valvular function and wall motion. Cardiology consulted. We will await further recommendations. --Elevated BNP. We will give patient a dose of Lasix. Echocardiogram pending. Further management per jewelry sales. -- BPH. Continue Flomax. --Poor appetite. Family Practitioner consulted. Will await further recommendations. --Peripheral neuropathy. Continue gabapentin. --CKD 3A. Stable. We will continue to monitor renal functions. --Anemia of chronic disease. H&H stable. We will continue to monitor hemoglobin and transfuse if less than 7.0. --History of DVT. Patient on Eliquis. We will continue anticoagulation with Eliquis if platelets above 50. Continue SCDs for now --DVT prophylaxis with SCDs Discharge Plan: Home Plan to discharge in: Greater than 2 days - Advance Directives Does patient have a Living Will: Yes Does patient have a Durable POA for Healthcare: Yes - Code Status/Comfort Care Code Status Assessed: Yes Physician Review: Patient Assessed, Agree with Above Assessment and Plan Critical Care: No
[2022-06-03] MEDS ORDERED: CEFEPIME 2 GM VIAL IM SCH (14:00)
[2022-06-03] MEDS ORDERED: VANCOMYCIN 1 GM in NA CHLORIDE 0.9% 250 ML IVPB ONE (15:00)
[2022-06-03 15:10] VITALS: BMI 29.7
[2022-06-03] MEDS ORDERED: FUROSEMIDE 40 MG/4 ML VIAL IV ONE ×2 (15:27→16:00)
[2022-06-03] MEDS ORDERED: MORPHINE *EXTENDED RELEASE* 15 MG TAB PO PRN (15:28)
[2022-06-03] MEDS: ASPIRIN 325 MG TAB PO SCH (15:57)
[2022-06-03] MEDS ORDERED: FUROSEMIDE 20 MG/ 2ML VIAL IV ONE (16:00)
[2022-06-03] MEDS ORDERED: NA CHLORIDE 0.9% 250 ML IV SCH (16:00)
[2022-06-03] MEDS: CEFEPIME 2 GM in NA CHLORIDE 0.9% 100 ML IV SCH (17:05)
--- NOTE | 2022-06-03 18:15 | P.PN ---
Date of Service: 06/04/22 Subjective: no acute events overnight feels slightly improved no new/worsening symptoms brown, normal BM today, denies blood in stool , no dark stools ROS: 10 point ROS as noted above, otherwise negative Physical Exam: Gen: NAD, AOx3 HEENT: normal conjunctiva, sclera anicteric CV: regular rate & rhythm, no edema Pulm: b/l crackles, mildly labored on 6L NC Abd: soft, non-tender, non-distended Skin: no rashes, no lesions Neuro: normal speech, normal affect, moves all extremities vitals reviewed Problem List Acute hypoxic respiratory failure secondary to NIMO atypical pneumonia Elevated troponin Prostate CA with mets to bones/spine Chronic pain related to above DVT peripheral neuropathy hypoxia secondary to b/l pneumonia progressive compared to ~2 weeks ago empiric cefepime and vanc pulm consulted wean O2 as tolerated thrombocytopenia acute on chronic likely secondary to chemotherapy, possible infection s/p 2u Plt 06/03, improved continue on home anticoagulation when plt > 50; SCDs for now acute on chronic anemia no obvious bleeding noted, no prior bleed check stool for occult blood started on anticoagulation ~1 month ago 1u PRBC ordered confirm home meds, restart elevated troponin suspect demand ischemia, cardiology consulted, trend trop echo ordered hypotensive overnight/this morning, suspect secondary to diuresis does not appear septic responded to fluids 1u PRBC ordered VTE: SCDs Code: Dispo: home, home health ~3-4 days Time Spent Managing Pts Care (In Minutes): 35
[2022-06-03] MEDS ORDERED: ENZALUTAMIDE 40 MG PO SCH ×2 (19:00)
[2022-06-03] MEDS: ONDANSETRON 4 MG/2 ML VIAL IV PRN (19:30)
[2022-06-03] MEDS: IPRATROPIUM BROM 0.5MG/2.5ML NEB SCH (19:45)
[2022-06-03] MEDS: ALBUTEROL 2.5 MG/3 ML NEB SOL NEB SCH (19:45)
[2022-06-03] MEDS ORDERED: HOME MED 1 EA UNK (Famotidine [Famotidine] 10 MG Tablet) PO SCH (21:00)
[2022-06-03] MEDS ORDERED: HEPARIN 5000 UNIT/ML 1 ML VIAL SQ SCH (21:00)
--- NOTE | 2022-06-03 21:06 | CON ---
Date of Consultation: 06/03/2022 Reason For Consultation: Elevated troponin. History Of Present Illness: A 61-year-old male with history of prostate cancer; DVT, on Eliquis at h ome, discharged from the hospital last week for pneumonia. Condition improved up until a day prior t o the admission. Came in with labored breathing, very low oxygen saturation on room air. He denies having any chest pain or shortness of breath then, but he is short of breath and coughing. No known history of coronary artery disease. Past Medical History: As outlined above in the HPI. Medications: Refer reconciliation sheet for detailed list. Allergies: NO KNOWN DRUG ALLERGIES. Family History: No premature coronary artery disease or cancer. Social History: Does not smoke or drink. Does not use any drugs. Review of Systems: All systems reviewed and are negative except mentioned in HPI. Physical Examination: Vital Signs: Reviewed. Head and Neck: Pupils are equal, reactive to light. Intact eye movements. No JVD. No cervical lym phadenopathy. Neck is supple. Thyroid is not enlarged. Lungs: Rhonchi bilaterally with slight increased respiratory effort. Heart: Regular rate and rhythm and tachycardic. Abdomen: Soft, nontender. Bowel sounds positive. No organomegaly. No masses or hernia. No rigidi ty or rebound. Extremities: No clubbing, cyanosis. Intact pulses. Positive edema. Neurologic: Alert, awake, oriented x3. No clonus. Investigations: Hemoglobin 8.9. Sodium 126, BUN 12, creatinine 0.51. Troponin 979 and NT-proBNP is 3395, and the CTA of the lungs showed worsening pneumonia, but no PE. Assessment And Recommendation: 1.Elevated troponin. This could be demand. Patient does not have any chest pain. Trend 2 more set s of cardiac enzymes please and put him on Lovenox 1 mg/kg subcu q.12 hours and baby aspirin and obta in echocardiogram. Based on the progress of the troponin, we will decide on further cardiac testing. If troponin keeps increasing significant level, then we will plan for coronary angiogram. In the i nterim, we will wait until his pneumonia is under control, especially if the troponin starts running down and the atrial fibrillation appears normal on the echo, then we will plan for a later time stres s test on him. This will be determined after seeing further sets of cardiac enzymes. 2.Bilateral pneumonia with acute respiratory failure, on antibiotics. 3.Acute respiratory failure due to pneumonia, on proper treatment. 4.Elevated NT-proBNP. Patient has probably a chronic congestive heart failure component. Obtain ec hocardiogram and further evaluate accordingly. Thanks for the consult. /REGI Voice ID: [id number] Report ID: [id number]
[2022-06-03] MEDS: GABAPENTIN 100 MG CAP PO SCH (21:33)
[2022-06-03] MEDS: TAMSULOSIN 0.4 MG SR CAP PO SCH (21:33)
[2022-06-03] MEDS: FAMOTIDINE 20 MG TAB PO SCH (21:33)
[2022-06-03] MEDS: HYDROCODONE/APAP 5/325 MG TAB PO PRN (23:32)
[2022-06-04 01:01] LABS: MPV 7.3 fL (7.6-11.3)
[2022-06-04] MEDS: CEFEPIME 2 GM in NA CHLORIDE 0.9% 100 ML IV SCH (01:16)
[2022-06-04] MEDS: IPRATROPIUM BROM 0.5MG/2.5ML NEB SCH ×4 (01:20→20:00)
[2022-06-04] MEDS: ALBUTEROL 2.5 MG/3 ML NEB SOL NEB SCH ×5 (01:20→20:00)
[2022-06-04] MEDS ORDERED: VANCOMYCIN 1.5 GM in NA CHLORIDE 0.9% 500 ML IVPB SCH (03:00)
[2022-06-04] MEDS ORDERED: NA CHLORIDE 0.9% 500 ML IV ONE (04:12)
[2022-06-04] MEDS ORDERED: NA CHLORIDE 0.9% 250 ML IV ONE (05:40)
[2022-06-04 06:08] LABS: Absolute Lymphocytes (CBC) 0.7 K/uL (0.7-4.9); Hematocrit 23.2 % (39.6-49.0); Lymphocytes % 15.3 % (15.3-44.8); MCV 84.9 fL (80-100); MPV 7.6 fL (7.6-11.3); RBC Red Blood Cell Count 2.73 M/uL (4.33-5.43)
[2022-06-04] MEDS ORDERED: INFLUENZA VACCINE (for 6+ mo) 0.5 ML DOSE IMVAC ONE (08:00)
[2022-06-04] MEDS ORDERED: POTASSIUM 25 MEQ EFFERV TAB PO ONE (08:00)
[2022-06-04 08:17] LABS: Albumin 2.5 g/dL (3.4-5.0); Bilirubin Direct 0.6 mg/dL (0-0.2); Bilirubin Total 1.8 mg/dL (0.2-1.0); Protein, Total 5.5 g/dL (6.4-8.2)
[2022-06-04] MEDS: METHYLPREDNISOLONE 40 MG INJ IV SCH ×2 (09:50→20:58)
[2022-06-04] MEDS: ASPIRIN 325 MG TAB PO SCH (09:51)
[2022-06-04] MEDS: levoFLOXacin 750 MG TAB PO SCH (09:51)
[2022-06-04] MEDS: FAMOTIDINE 20 MG TAB PO SCH ×2 (09:51→20:55)
[2022-06-04 10:49] LABS: Anisocytosis 1+; Blood Morphology Comment NOTED (NOT SEEN); Hypochromasia 1+; Platelet Estimate DECR; Poikilocytosis 1+; Polychromasia 1+
[2022-06-04 11:07] LABS: MCV 85.2 fL (80-100); RBC Red Blood Cell Count 2.82 M/uL (4.33-5.43)
--- NOTE | 2022-06-04 12:33 | P.CNS ---
Date of Consult: 06/04/22 Reason for Consult: Respiratory failure Chief Complaint: Hypoxia. History of Present Illness: Patient is 61 years of age with a history of prostate cancer on antiadrenergic therapy recently admitted with bilateral pneumonia groundglass changes was discharged came back again short of breath hypoxic the scan shows a slight worsening there is no evidence of thromboembolism he has no fever or chills Allergies No Known Allergies Allergy (Unverified 03/01/22 23:53) Home Medications: Enzalutamide [Xtandi] 4 cap PO 1900 05/24/22 Famotidine 20 mg PO BID 05/24/22 Gabapentin [Neurontin*] 300 mg PO BEDTIME 05/24/22 Morphine *Extended Release* [MS Contin*] 15 mg PO Q4HP PRN 05/24/22 Ondansetron HCl 4 mg PO Q8HP 05/24/22 Tamsulosin [Flomax*] 1 tab PO BEDTIME 05/24/22 predniSONE [Deltasone] 10 mg PO BID 10 Days #30 tab 05/26/22 Apixaban [Eliquis] 5 mg PO BID 06/03/22 LORazepam [Ativan*] 1 mg PO Q8H PRN 06/03/22 - Past Medical/Surgical History Diabetic: No -: Prostate cancer with metastasis to bone -: Spinal surgery 2021 Psychosocial/ Personal History: Pt lives at home with family/ - Social History Smoking Status: Former smoker Alcohol use: No CD- Drugs: No Caffeine use: Yes Place of Residence: Home Review of Systems is unable to be obtained Physical Examination Temp Pulse Resp BP Pulse Ox 97.5 F 116 H 18 87/57 L 92 06/04/22 12:00 06/04/22 12:00 06/04/22 12:00 06/04/22 12:00 06/04/22 12:00 General: Alert, Cooperative Respiratory: Crackles/rales Cardiovascular: No edema, Regular rate/rhythm, Normal S1 S2 Gastrointestinal: Normal bowel sounds, Soft and benign, Non-distended Laboratory Data (last 24 hrs) 06/03/22 11:54: WBC 5.40, Hgb 8.9 L, Hct 27.3 L, Plt Count 27 L* 06/03/22 11:54: Sodium 126 L, Potassium 3.8, BUN 12, Creatinine 0.51 L, Glucose 101, Magnesium 2.0, Total Bilirubin 2.2 H, AST 67 H, ALT 16, Alkaline Phosphatase 451 H, Lipase 89 - Problems (1) Acute respiratory failure with hypoxemia Current Visit: No Status: Acute Plan: Patient is 61 years of age admitted with hypoxemia he has bilateral groundglass changes highly worse he was discharged recently on low-dose prednisone/patient's troponins are significantly elevated have had an DC hypokalemic hyponatremia mildly anemic thrombocytopenic this is a new development pressure is slightly low patient was given some Lasix cultures are negative so far patient's troponins are declining patient is on Eliquis anticoagulate continue with aspirin flu screen and coronavirus screening are all negative add steroids is also possible that he had an adverse reaction to doxycycline as it can cause anemia thrombocytopenia neutropenia etc.
[2022-06-04] MEDS: LORAZEPAM 1 MG TABLET PO PRN ×2 (13:25→20:58)
[2022-06-04] MEDS: HYDROCODONE/APAP 5/325 MG TAB PO PRN ×2 (13:25→23:10)
--- NOTE | 2022-06-04 13:51 | EKG ---
Test Date: 2022-06-03 Test Time: 09:32:34 Raise Driller: IVAN MEASUREMENT RESULTS: Intervals: Rate: 109 ND: 132 QRSD: 74 QT: 336 QTc: 452 Simpson: P: ND: 132 QRS: 166 T: 109 INTERPRETIVE STATEMENTS: Sinus tachycardia Right axis deviation Nonspecific T wave abnormality Abnormal ECG Compared to ECG 05/23/2022 21:47:26 Right-axis deviation now present T-wave abnormality now present Electronically Signed On 06-04-22 13:48:02 DECK MATE by Gustabo Tinoco
--- NOTE | 2022-06-04 13:59 | ECHO ---
HEIGHT: 5 ft 7 in WEIGHT: 189 lb 9.6 oz DATE OF STUDY: 06/04/[address]: Carmelina Muhammad 2-DIMENSIONAL: YES M.MODE: YES DOPPLER: YES COLOR FLOW: YES TDS: YES PORTABLE: YES DEFINITY: NO BUBBLE STUDY: NO DIAGNOSIS: ELEVATED TROPONIN CARDIAC HISTORY: CATHERIZATION: SURGERY: PROSTHETIC VALVE: PACEMAKER: MEASUREMENTS (cm) DIASTOLIC (NORMALS) SYSTOLIC (NORMALS) IVSd 1.2 (0.6-1.2) LA Diam 3.2 (1.9-4.0) LVEF 56% LVIDd 3.5 (3.5-5.7) LVIDs 2.5 (2.0-3.5) %FS 28% LVPWd 1.3 (0.6-1.2) Ao Diam 3.0 (2.0-3.7) 2 DIMENSIONAL ASSESSMENT: RIGHT ATRIUM: NORMAL LEFT ATRIUM: NORMAL RIGHT VENTRICLE: NORMAL LEFT VENTRICLE: NORMAL TRICUSPID VALVE: MITRAL VALVE: NORMAL PULMONIC VALVE: NORMAL AORTIC VALVE: NORMAL PERICARDIAL EFFUSION: NONE AORTIC ROOT: NORMAL LEFT VENTRICULAR WALL MOTION: NORMAL DOPPLER/COLOR FLOW: SEE BELOW. COMMENTS: 1. NORMAL LEFT VENTRICULAR EJECTION FRACTION 55-60%. 2. NORMAL WALL MOTION. 3. MILD TRICUSPID REGURGUTATION. 4. MILD PULMONARY HYPERTENSION WITH RIGHT VENTRICULAR SYSTOLIC PRESSURE 5. OF 40-45 mmHg. TECHNOLOGIST: Tristian NEUMANN
[2022-06-04] MEDS ORDERED: NA CHLORIDE 0.9% 500 ML IV SCH (14:00)
--- NOTE | 2022-06-04 16:45 | P.CNS ---
Date of Consult: 06/04/22 Reason for Consult: Hyponatremia , Hypoikalemia Chief Complaint: Hypoxia. History of Present Illness: HPI A 61-year-old male with a past medical history significant for prostate cancer with mets on Xtandi, BPH, DVT, peripheral neuropathy Pt presented with complaint of hypoxia. Pt was recently admitted and discharged , as treated for pneumonia and UTI Noticed to have significant anemia and Thrombocytopenia , pt had poor oral intake, na 132 < K 3.0 today SOB improved,pt received IV lasix ROS General : weakness HEENT: Denies dry, vision changes and headache Resp: SOB resolved, denied cough Cardiovascular: : denies chest pain, palpitation GI: have nausea , denies abdominal pain, diarrhea or constipation : denies dysuria, urgency, foamy urine or blood tinged urine Muscloskeltal: denies muscle aches, joint pain Endo: denies polyuria and and polydipsia Extre: denies pain numbness and swelling Physical exam General: Awake, pale , in distress HEET: no changes in vision, moist mucous membrane neck supple, no elevated JVD CHEST; CTAB, no wheezes or rales HEART : RRR. Normal S1,2 no murmur or rub Abd: soft, Nt Ext: no edema Skin : No rash A/P #Mild hyponatremia due to poor oral intake K replacement will start on Ensure will start on IVF #Hypokalmeia due to poor oral intake replace, will check Mg and TSH #hypotension possibly due to dehydration, UA showed Ketones pt is tachycardic now on steroids will start IVF #metastatic prostate CA will hold Xtandi for now #Thrombocytopenia and anemia unclear etiology will hold Xtandi will sen for LDH and anemia W/U Tota time spent 45 minutes inlduing documentation, reviwing labs and placing orders Allergies No Known Allergies Allergy (Unverified 03/01/22 23:53) Home Medications: Enzalutamide [Xtandi] 4 cap PO 1900 05/24/22 Famotidine 20 mg PO BID 05/24/22 Gabapentin [Neurontin*] 300 mg PO BEDTIME 05/24/22 Morphine *Extended Release* [MS Contin*] 15 mg PO Q4HP PRN 05/24/22 Ondansetron HCl 4 mg PO Q8HP 05/24/22 Tamsulosin [Flomax*] 1 tab PO BEDTIME 05/24/22 predniSONE [Deltasone] 10 mg PO BID 10 Days #30 tab 05/26/22 Apixaban [Eliquis] 5 mg PO BID 06/03/22 LORazepam [Ativan*] 1 mg PO Q8H PRN 06/03/22 - Past Medical/Surgical History Diabetic: No -: Prostate cancer with metastasis to bone -: Spinal surgery 2021 Psychosocial/ Personal History: Pt lives at home with family/ - Social History Smoking Status: Former smoker Alcohol use: No CD- Drugs: No Caffeine use: Yes Place of Residence: Home Physical Examination Temp Pulse Resp BP Pulse Ox 97.3 F 118 H 18 81/58 L 90 L 06/04/22 16:00 06/04/22 16:00 06/04/22 16:00 06/04/22 16:00 06/04/22 16:00
[2022-06-04 17:51] LABS: RBC Red Blood Cell Count 3.25 M/uL (4.33-5.43)
[2022-06-04] MEDS: D5 0.9 NS 1,000 ML IV SCH (18:39)
--- NOTE | 2022-06-04 19:08 | PN ---
Date of Progress Note: 06/04/2022 Subjective: Seen at bedside. No chest pain. Review of Systems: No chest pain. He has shortness of breath and cough. No nausea, vomiting, or diarrhea. No abdomina l pain. No dysuria, polyuria, or urinary urgency. All other systems reviewed and they are negative. Physical Examination: Vital Signs: Reviewed. Head And Neck: Pupils are equal and reactive to light. Intact eye movements. No JVD. No cervical lymphadenopathy. Neck is supple. Thyroid is not enlarged. Lungs: Rhonchi bilaterally. No accessory muscle use or muscle retraction. Heart: Regular rate and rhythm. No extra sounds. Abdomen: Soft, nontender. Bowel sounds positive. No organomegaly. No masses or hernia. No rigidi ty or rebound. Extremities: No clubbing or cyanosis. Intact pulses. Skin: No rash. Neurologic: Alert, awake, and oriented x3. No acute focal deficits appreciated. Investigation: Labs reviewed. Assessment And Recommendations: 1.Elevated troponin. This is likely due to demand ischemia. Echo was done and has normal wall carola on and normal ejection fraction. Troponin has trended down. We will plan for a stress test as an ou tpatient once the pneumonia has cleared. 2.Acute respiratory failure due to pneumonia, doing better. Continue current management. 3.Elevated NT proBNP due to diastolic heart failure and he appears to be euvolemic. SR/MODL Voice ID: [id number] Report ID: [id number]
[2022-06-04] MEDS ORDERED: ALBUMIN HUMAN 25% 100 ML IV ONE (20:08)
[2022-06-04 20:34] LABS: Hematocrit 26.3 % (39.6-49.0)
[2022-06-04] MEDS: TAMSULOSIN 0.4 MG SR CAP PO SCH (20:55)
[2022-06-04] MEDS: GABAPENTIN 100 MG CAP PO SCH (20:55)
[2022-06-04] MEDS: ENSURE ENLIVE 237 ML CAN PO SCH (20:58)
[2022-06-04] MEDS: ENSURE CLEAR 200 ML CAN PO SCH (20:58)
[2022-06-04] MEDS: ONDANSETRON 4 MG/2 ML VIAL IV PRN (21:14)
[2022-06-04] MEDS ORDERED: MAGNESIUM SULFATE 1 gm IVPB 1 GM/100 ML BAG IV ONE (23:07)
--- NOTE | 2022-06-04 23:26 | P.PN ---
Date of Service: 06/04/22 Received a page at [id number] patient was tachypneic and requiring additional O2. Nasal cannula bumped up to 10L from 8L as he was saturating 86%. I went to assess patient- his respiratory rate and O2 saturation had improved. No significant wheezing/crackles auscultated on exam. RT evaluation pending. Patient is clearly anxious/restless, family members agree. He is fixated on his legs and wanting to move them around. He received norco just prior to my exam. Told RN we will wait for norco to kick in and reassess. PO ativan has helped pre viously, however his BP has been soft.
[2022-06-05] MEDS: ALBUTEROL 2.5 MG/3 ML NEB SOL NEB SCH ×2 (02:00→07:48)
[2022-06-05 02:21] LABS: Hematocrit 24.4 % (39.6-49.0); MCV 84.4 fL (80-100); MPV 8.1 fL (7.6-11.3)
[2022-06-05 02:28] LABS: Bilirubin Total 2.9 mg/dL (0.2-1.0); Magnesium 2.4 mg/dL (1.8-2.4); Potassium 3.8 mmol/L (3.5-5.1); Protein, Total 5.9 g/dL (6.4-8.2)
[2022-06-05] MEDS: IPRATROPIUM BROM 0.5MG/2.5ML NEB SCH ×2 (02:40→07:48)
[2022-06-05 03:22] LABS: Ferritin 704.4 ng/mL (26-388); Folic Acid, (Folate) 5.1 ng/mL (3.1-17.5)
[2022-06-05] MEDS ORDERED: FAMOTIDINE 20 MG/2 ML VIAL IV ONE (04:03)
[2022-06-05] MEDS: ASPIRIN 325 MG TAB PO SCH (08:34)
[2022-06-05] MEDS: METHYLPREDNISOLONE 40 MG INJ IV SCH (08:34)
[2022-06-05] MEDS: levoFLOXacin 750 MG TAB PO SCH (08:34)
[2022-06-05] MEDS: FAMOTIDINE 20 MG TAB PO SCH (08:34)
--- NOTE | 2022-06-05 08:34 | RAD REPORT ---
EXAM DESCRIPTION: RAD - Chest Single View - 06/05/2022 6:43 am CLINICAL HISTORY: hypoxia Chest pain. COMPARISON: Chest Single View dated 05/25/2022; Chest Single View dated 05/23/2022; Chest For Pe Ang io dated 06/03/2022 FINDINGS: Portable technique limits examination quality. Moderate bilateral pulmonary opacities are present, most compatible with bilateral pneumonia. Finding s are progressive since the comparative study. The heart is mildly enlarged in size. Thoracolumbar singleton rdware is present.
[2022-06-05] MEDS: ENSURE CLEAR 200 ML CAN PO SCH (08:35)
[2022-06-05] MEDS: ENSURE ENLIVE 237 ML CAN PO SCH (08:35)
[2022-06-05] MEDS ORDERED: POTASSIUM 25 MEQ EFFERV TAB PO ONE (09:00)
[2022-06-05 09:24] VITALS: BP 99/60; TEMP 97.5
[2022-06-05] MEDS ORDERED: Ringers Lactate 1,000 ML IV ONE (11:28)
[2022-06-05] MEDS ORDERED: LORazepam 2 MG/ML VIAL ONE (12:05)
[2022-06-05] MEDS ORDERED: LORazepam 2 MG/ML VIAL IV ONE (12:14)
[2022-06-05 12:28] LABS: Blood Gas Oxyhemoglobin 87.7 % (94-97); Blood O2 Saturation 90.5 % (92-98.5)
--- NOTE | 2022-06-05 12:28 | P.PN ---
Subjective Date of Service: 06/05/22 Chief Complaint: Respiratory failure Subjective: Worsening (Patient's condition is deteriorating is becoming worse and becoming more short of breath and hypoxic transferred to the ICU) Review of Systems is unable to be obtained Physical Examination - Vital Signs Temperature: 97.5 F Blood Pressure: 99/60 Pulse: 125 Respirations: 20 Pulse Ox (%): 82 - Physical Exam General: Alert, Moderate distress Respiratory: Clear to auscultation bilaterally, Diminished Cardiovascular: No edema, Regular rate/rhythm, Normal S1 S2 Assessment And Plan - Current Problems (Diagnosis) (1) Acute respiratory failure with hypoxemia Current Visit: No Status: Acute Plan: Patient's condition is worse he is developing progressive respiratory failure lateral infiltrates mild thrombocytopenia become very hypoxic currently he is DNR trial of BiPAP patient has been started on meropenem is also on steroids got metastatic prostate cancer patient has abnormal LFTs little jaundiced crease alkaline phosphatase from bony metastases prognosis poor Physician Review: Patient Assessed, Agree with Above Assessment and Plan
[2022-06-05] MEDS ORDERED: Meropenem 1,000 MG in NA CHLORIDE 0.9% 100 ML IV SCH ×2 (12:30→13:00)
[2022-06-05] MEDS: D5 0.9 NS 1,000 ML IV SCH (13:00)
[2022-06-05 13:01] VITALS: O2SAT 85
[2022-06-05] MEDS ORDERED: LORazepam 2 MG/ML VIAL IV PRN (13:24)
[2022-06-05] MEDS ORDERED: HYDROMORPHONE HCL 1 MG/ML INJ IV PRN (13:24)
--- NOTE | 2022-06-05 14:42 | P.PN ---
Subjective Date of Service: 06/05/22 Chief Complaint: Respiratory failure Physical Examination - Vital Signs Temperature: 97.5 F Blood Pressure: 99/60 Pulse: 125 Respirations: 20 Pulse Ox (%): 82 Assessment And Plan - Plan # Mild hyponatremia due to poor oral intake K replacement will start on Ensure will start on IVF # Hypokalmeia due to poor oral intake replace, will check Mg and TSH # Hypotension possibly due to dehydration, UA showed Ketones pt is tachycardic now on steroids will start IVF # Metastatic prostate CA will hold Xtandi for now # Thrombocytopenia and anemia unclear etiology will hold Xtandi will sen for LDH and anemia W/U Physician Review: Patient Assessed, Agree with Above Assessment and Plan
--- NOTE | 2022-06-05 17:42 | P.DS ---
Admission Date: 06/03/22 Discharge Date: 06/05/22 Disposition: Reason for Admission: Respiratory failure Consultations: Pulmonology - Dr. Coleman Nephrology - Dr. Arauz Cardiology - Dr. Earnest REES - Dr. Rocha Brief History of Present Illness: 61-year-old male with a past medical history significant for prostate cancer with mets, BPH, DVT, peripheral neuropathy who presents with complaint of hypoxia. Patient was discharged from the hospital last week after being treated for pneumonia. Family reported that patient's condition has been improving until yesterday when patient started having labored breathing. This morning patient's oxygen saturations was noted to be in the 70s on room air. Patient reported associated signs and symptoms of weakness, fatigue and poor appetite. Family reported that patient gets nauseated whenever he tries to eat. Patient denies any other signs and symptoms. Shortness of breath is aggravated with exertion and relieved by nothing. Family decided to bring patient to the [facility] due to worsening symptoms. Hospital Course: Problem List Acute hypoxic respiratory failure secondary to bilateral pneumonia Elevated troponin Prostate CA with mets to bones/spine Chronic pain related to above DVT peripheral neuropathy Patient presented with significant hypoxia and decreased PO intake. He was found to have significant bilateral pneumonia associated with elevated liver enzymes, d-dimer, thrombocytopenia, and anemia. Pulmonology was consulted. Patient was treated with empiric antibiotics. Cultures were negative. He received 1u PRBC, 2 packs of platelets, and levels continued to drop and he continued to become more hypoxic and worsening bilateral pulmonary opacities. Infectious Disease and nephrology were consulted. He continued to have worsening hypoxia. Antibiotics were broadened out. He was noted to suddenly become more hypoxic on the morning of 06/05. He was noted to be laying down and drinking water with some cough. After the [employer], daughter brought up she did notice he seemed to have difficulty swallowing / almost like choking when he was eating and drinking the evening before. His oxygen saturation remained in the 70s and did not increase despite maximizing HFNC and trying BIPAP. Patient stated he was DNR/DNI. Due to worsening clinical picture, patient was made comfort measures. He shortly passed at 15:24 on 06/05 Vital Signs/Physical Exam: Temp Pulse Resp BP Pulse Ox 97.5 F 125 H 20 99/60 82 L 06/05/22 14:42 06/05/22 14:42 06/05/22 14:42 06/05/22 14:42 06/05/22 14:42 Laboratory Data at Discharge: WBC 5.70 K/uL (4.3-10.9) 06/05/22 01:48 Hgb 8.1 g/dL (13.6-17.9) L 06/05/22 01:48 Hct 24.4 % (39.6-49.0) L 06/05/22 01:48 Plt Count 43 K/uL (152-406) L* D 06/05/22 01:48 PT 21.1 SECONDS (9.5-12.5) H 06/03/22 11:54 INR 1.92 06/03/22 11:54 APTT 32.5 SECONDS (24.3-36.9) 06/03/22 11:54 Sodium 132 mmol/L (136-145) L 06/05/22 01:48 Potassium 3.8 mmol/L (3.5-5.1) 06/05/22 01:48 BUN 8 mg/dL (7-18) 06/05/22 01:48 Creatinine 0.43 mg/dL (0.55-1.3) L 06/05/22 01:48 Glucose 153 mg/dL (74-106) H 06/05/22 01:48 Magnesium 2.4 mg/dL (1.8-2.4) 06/05/22 01:48 Total Bilirubin 2.9 mg/dL (0.2-1.0) H 06/05/22 01:48 AST 58 U/L (15-37) H 06/05/22 01:48 ALT 16 U/L (12-78) 06/05/22 01:48 Alkaline Phosphatase 402 U/L (45-117) H 06/05/22 01:48 Lipase 89 U/L (73-393) 06/03/22 11:54 Home Medications: Enzalutamide [Xtandi] 4 cap PO 1900 05/24/22 Famotidine 20 mg PO BID 05/24/22 Gabapentin [Neurontin*] 300 mg PO BEDTIME 05/24/22 Morphine *Extended Release* [MS Contin*] 15 mg PO Q4HP PRN 05/24/22 Ondansetron HCl 4 mg PO Q8HP 05/24/22 Tamsulosin [Flomax*] 1 tab PO BEDTIME 05/24/22 predniSONE [Deltasone] 10 mg PO BID 10 Days #30 tab 05/26/22 Apixaban [Eliquis] 5 mg PO BID 06/03/22 LORazepam [Ativan*] 1 mg PO Q8H PRN 06/03/22 Followup: Robert Cunningham MD [Primary Care Provider] - Time spent managing pt's care (in minutes): 45
--- NOTE | 2022-06-05 18:06 | CON ---
History Of Present Illness: The patient is a 61-year-old male, was seen for pneumonia. The patient has significant past medical history of prostate cancer with mets, benign prostatic hypertrophy, deep venous thrombosis, peripheral neuropathy, coming in with complaint of hypoxia. At the time of evalu ation, the patient's oxygenation was 79 and was in respiratory distress at 15 L. I noted that jess rodriguez's family member was giving some water at the same time. The patient denies any abdominal pain, jeet k pain. Having chest discomfort, cough, and congestion. Past Medical History: As per HPI. Social History: Alcohol and smoking negative. Family History: Noncontributory. Medications: Levaquin. See MAR for other medications. Allergies: NO KNOWN DRUG ALLERGIES. Review of Systems: A 10-point review was performed. Physical Examination: General: This is a 61-year-old male, lying in bed, in moderate respiratory distress. Vital Signs: Temperature 97.5, pulse 125, respirations 20, blood pressure 99/60. Pulse ox is 79% on 15 L. HEENT: Unremarkable. Neck: Supple. Lungs: Basal crackles. Heart: S1, S2. Regular. Abdomen: Soft, nontender. Bowel sounds present. Extremities: No edema. Laboratory Data: Shows WBC 5.7, hemoglobin 8.1, platelets are 43. Chemistry shows sodium 132, potas sium 3.8, chloride 103, bicarb 19, BUN 8, creatinine 0.4, glucose 153. His liver enzymes within norm al limit. Alkaline phosphatase 402. Lactate is 602. Albumin level is 3. Urinalysis; 5-10 wbc. Ms crown buffer data; blood cultures are negative from 06/03. Repeat blood cultures are pending. Assessment And Plan: Sepsis and severe hypoxia secondary to pneumonia in a patient with COVID and fl u test is negative. We will recommend to increase the patient to meropenem, discontinue Levaquin. C ontinue IV hydration. Monitor patient for aspiration precaution. Anemia of chronic disease. Severe thrombocytopenia, most likely secondary to sepsis. Moderate protein-calorie malnourishment. Alkali ne phosphatase elevated most likely secondary to prostate cancer and medications. We will follow the patient closely. Thank you Dr. Lo for consult. NF/MODL Voice ID: [id number] Report ID: [id number]
[2022-06-09 05:44] LABS: Alpha-1-Globulins 0.7 g/dL (0.2-0.3); Alpha-2-Globulins 0.5 g/dL (0.5-0.9); Gamma Globulins 0.7 g/dL (0.8-1.7); INTERPRETATION REPORT
== END 2022-06-05 17:50 | disposition expired | DRG 871 ==
LOC: ER 08:18 → ERHOLD 13:05 → 2ND 14:29 → 3RD-ICU 06-05 11:47
PROVIDERS: ADMIT Internal Medicine; ATTEND Hospitalist
PROC: 30233R1 Transfusion of Nonautologous Platelets into Peripheral Vein, Percutaneous Approach (ICD-10-PCS; 2022-06-03)
PROC: 30233N1 Transfusion of Nonautologous Red Blood Cells into Peripheral Vein, Percutaneous Approach (ICD-10-PCS; 2022-06-04)
PROC: 5A09357 Assistance with Respiratory Ventilation, Less than 24 Consecutive Hours, Continuous Positive Airway Pressure (ICD-10-PCS; principal; 2022-06-05)
DX: A41.9 Sepsis, unspecified organism (principal); I50.31 Acute diastolic (congestive) heart failure; J18.9 Pneumonia, unspecified organism; J96.01 Acute respiratory failure with hypoxia; I13.0 Hypertensive heart and chronic kidney disease with heart failure and stage 1 through stage 4 chronic kidney disease, or unspecified chronic kidney disease; C79.51 Secondary malignant neoplasm of bone; E44.0 Moderate protein-calorie malnutrition; I24.8 Other forms of acute ischemic heart disease; E87.1 Hypo-osmolality and hyponatremia; R65.20 Severe sepsis without septic shock; N18.31 Chronic kidney disease, stage 3a; E87.6 Hypokalemia; D63.1 Anemia in chronic kidney disease; N40.0 Benign prostatic hyperplasia without lower urinary tract symptoms; G89.3 Neoplasm related pain (acute) (chronic); D69.6 Thrombocytopenia, unspecified; C61 Malignant neoplasm of prostate; D63.8 Anemia in other chronic diseases classified elsewhere; G62.9 Polyneuropathy, unspecified; Z66 Do not resuscitate; Z79.52 Long term (current) use of systemic steroids; Z68.29 Body mass index [BMI] 29.0-29.9, adult; Z79.01 Long term (current) use of anticoagulants; Z87.891 Personal history of nicotine dependence; Z79.899 Other long term (current) drug therapy; Z86.718 Personal history of other venous thrombosis and embolism; Z20.822 Contact with and (suspected) exposure to COVID-19
CPT/HCPCS: 0240U; 36415; 71045; 71275; 80048; 80053; 80076; 80202; 81003; 81015; 82274; 82550; 82607; 82728; 82746; 82805; 82947; 83010; 83540; 83605; 83615; 83690; 83735; 83880; 84132; 84165; 84466; 84484; 85014; 85018; 85025; 85027; 85044; 85049; 85379; 85610; 85730; 86850; 86900; 86901; 87040; 93005; 93306; 94002; 94660; 96365; 96367; 96375; 99285; J0692; J1170; J1940; J2405; J2920; J3370; J3475; J7030; J7040; J7042; J7050; J7120; J7613; J7644; P9016; P9035; P9047; P9073; Q9967